=== PATIENT | male | born 1955 | race Caucasian/White ===

== ENCOUNTER 2022-08-08 19:57 | Emergency (ER) | payer BC ==
--- OUTSIDE RECORDS SUMMARY | 2022-08-08 20:07 | XMS REPORT | Continuity of Care Document ---
:1955 Author Organization [facility] t Address [address] [facility] [address] [place] [address] Care Team Providers Name Role Phone No, Pcp [facility] Primary Care Physician Unavailable SKYE ROTH Attending Clinician Unavailable KATHLEEN BOYER Attending Clinician Unavailable RINA US Attending Clinician Unavailable BRENAD ALLAN Attending Clinician Unavailable Jesika Suresh Attending Clinician Maykel Christianson Attending Clinician Unavailable Brenda Allan MD Attending Clinician BRENDA ALLAN Attending Clinician Unavailable Antoine Ramos RN Attending Clinician Unavailable Skye Roth MD Attending Clinician Florida Lopez RN Attending Clinician Unavailable Ashlee Blanton Attending Clinician Unavailable Erica Cruz Attending Clinician Briana Black RN Attending Clinician Unavailable Lalo Johnson PA-C Attending Clinician Armida Singh Attending Clinician Unavailable Christiana OCAMPO, Spring Smith Attending Clinician Lance FLETCHER, Adelfo Monzon Attending Clinician Kyle Carrion MD Attending Clinician Unavailable Aga Seay LCSW Attending Clinician Unavailable Gabby Guardado Attending Clinician Unavailable Tl Man MD Attending Clinician Shiraz Brewer MD Attending Clinician aSng Jett MD Attending Clinician Dinora OCAMPO, Mita Attending Clinician [phone] Virtual, Surgeon Attending Clinician Unavailable SHIRAZ BREWER Attending Clinician Unavailable SPRING VILLEDA Attending Clinician Unavailable Semaj KOWALSKI, Lavinia Attending Clinician Unavailable Tobias Cherry MA Attending Clinician Unavailable John ESCUDERO, Latricia Attending Clinician Unavailable Poncho Grajeda LCSW Attending Clinician Unavailable Joelle OCAMPO, Tereza Scott Attending Clinician [phone] Bryce PEOPLES, Anneliese Disla Attending Clinician Unavailable Freida Sewell MD Attending Clinician Lizzie Lieberman Attending Clinician 3, [facility] Aydee Mr Attending Clinician Unavailable LIZZIE LIEBERMAN Attending Clinician Unavailable Martinez RISK DEVELOPER, Line Leslye Attending Clinician [phone] Radha Anderson Attending Clinician Unavailable Lauro PEOPLES, Nicol Attending Clinician Unavailable Tito Saunders MD Attending Clinician MALLORIE MONTEIRO Admitting Clinician Unavailable RINA US Admitting Clinician Unavailable BRENDA ALLAN Admitting Clinician Unavailable KYLE CARRION Admitting Clinician Unavailable TL MAN Admitting Clinician Unavailable SHIRAZ BREWER Admitting Clinician Unavailable Payers Payer Name Policy Type Policy Number Effective Date Expiration Date S edvin [facility] H[employer] [id number] 2021 BLUE/ESSENTIALS 00:00:00 MEDICARE A B [id number] 2021 00:00:00 [employer] [place] [id number] [place]-AREA POS - BCBS MEDICARE PART A \\T\\ [id number] 2021 B - MEDICARE 00:00:00 CVCP-BCBS [id number] Problems Condition Condition Condition Status Onset Resolution Last Treating Co mments Source Name Details Category Date Date Treatment Clinician Date Other Other Disease Recurre [facility] cirrhosis cirrhosis nce 3-20 [facility] of liver of liver 00:00: Medica l 00 Center Hepatocell Hepatocell Disease Recurre [facility] ular ular n[facility] 2[facility]28 [facility] carcinoma carcinoma 00:00: Medi jordan 00 Center Pre-transp Pre-transp Disease Active [facility] 2 [facility] evaluation evaluation 00:00: Ak dical for for 00 Center chronic chronic liver liver disease disease Cirrhosis Cirrhosis Disease Recurre Last I St nce 04-09 [facility] 00:00: t & Plan: [address] g of this note is different from the original. Cirrhosis diagnosed by imaging (MRI/US with cirrhosis , ascites), secondary to likely OLMAN. There is evidence of decompens ation. This is complicat ed by portal hypertens ion manifeste d by ascites and varices. MELD-Na score is 19 based on labs drawn this morning. Encounter Encounter Disease Active [facility] for for 04-09 [facility] pre-transp pre-transp 00:00: t & Plan: [facility] 00 [facility] evaluation evaluation g of this for liver for liver note transplant transplant might be different from the original. He is an acceptabl e candidate from a surgical standpoin t, pending further workup of HCC, additiona l studies, and official MRB. He will also need 1cm cystic lesion on pancreas evaluated . Liver Liver Disease Active Last [facility] lesion lesion 04-09 Assessmen Luisis 00:00: t & Plan: [address] g of this note might be different from the original. Found on MRI 01/2022, initially measuring 15mm. MRI done 04/02/2022 shows a 2.2cm LI-RADS 5 observati on in segment 4/8 and 1.2cm LI-RADS 5 observati on in segment 8. These findings were discussed with the patient and he will follow up with hepatolog y and HCC/Trans plant coordinat or. Ascites Ascites Disease Active [facility] St 04-09 Assessmen Luisis 00:00: t & Plan: Medical [address] [place] [address] g of this note might be different from the original. He is taking spironola ctone and furosemid e. Managemen t per hepatolog y/GI. Lesion of Lesion of Disease Active Last [facility] pancreas pancreas 04-09 Assessmen David es 00:00: t & Plan: Medical [facility] g of this note might be different from the original. A 1cm cystic lesion noted on pancreati c body appears to have increased in size, will need to be worked up prior to transplan t. Allergies, Adverse Reactions, Alerts Allergy Allergy Status Severity Reaction(s) Onset Inactive Treating Comm ents Source Name Type Date Date Clinician Chacko Propensi Active Swelling Face and [facility] ty to 05-05 throat [facility] adverse 00:00: swelling Medical reaction 00 Center s CHACKO Allergy Active High Swelling [facility] 05-05 00:00: 00 NO KNOWN Allergy Active [facility] Social History Social Habit Start Date Stop Date Quantity Comments Source History of tobacco Snuff User [facility] use Medical Center History [facility] Transport Non-Med Medical Center History [facility] Housing Places Medical Ce nter Lived Alcohol intake 2022-06-17 2022-06-17 Ex-drinker [facility] 00:00:00 00:00:00 (finding) Medical Center Exposure to 2022-05-20 2022-05-[address] [facility] SARS-CoV-2 (event) 00:00:00 14:40:00 Medica Center Tobacco use and 2022-05-30 2022-05-[address] [facility] exposure 00:00:00 00:00:00 tobacco user Medical Cent er History [facility] 2022-05-06 2022-05-[address] [facility] Transport Med 00:00:00 00:00:[address] History [facility] 2022-05-06 2022-05-[address] [facility] Housing Unable to 00:00:00 00:00:00 Medical Center Pay History [facility] 2022-05-06 2022-05-[address] [facility] Housing Homeless 00:00:00 00:00:00 Medical Center Last Year Sex Assigned At [address] [facility] 00:00:00 00:00:00 Medical Center Smoking Status Start Date Stop Date Source Never smoked tobacco [facility] Medications Ordered Filled Start Stop Current Ordering Indication Dosage Frequency Signature Comments Components Source Medication Medication Date Date Medication? Clinician (SIG) Name Name propranolol Yes Take by [facility] HCl 4-11 mouth in [facility] (PROPRANOLO 11:15: the Medica l L ORAL) 10 morning. [place] pantoprazol Yes Take by [facility] e sodium 4-11 mouth. [facility] (PROTONIX 11:15: Medical ORAL) 10 Center furosemide 0 Yes QD Take by [facility] (LASIX 4-11 mouth [facility] ORAL) 11:15: daily. Medical 10 Center SPIRONOLACT Yes Take by [facility] ONE ORAL 4-11 mouth in [facility] 11:15: the Medical 10 morning. Center propranolol Yes Take by [facility] HCl 4-04 mouth in [facility] (PROPRANOLO 16:31: the Medica l L ORAL) 06 morning. [place] pantoprazol Yes Take by [facility] e sodium 4-04 mouth. [facility] (PROTONIX 16:31: Medical ORAL) 06 Center furosemide Yes QD Take by [facility] (LASIX 4-04 mouth [facility] ORAL) 16:31: daily. Medical 06 Center SPIRONOLACT 0 Yes Take by [facility] ONE ORAL 4-04 mouth in [facility] 16:31: the Medical 06 morning. [place] ondansetron 2022- No Nausea 4mg Take [address] (ZOFRAN) 4 3-13 03-20 tablet (4 David es MG tablet 00:00: 00:00 mg total) Me dical 00 :00 by mouth Center every 8 (eight) hours as needed for Nausea. ondansetron 2022- No Nausea 4mg Take [address] (ZOFRAN) 4 3-13 03-20 tablet (4 David es MG tablet 00:00: 00:00 mg total) Me dical 00 :00 by mouth Center every 8 (eight) hours as needed for Nausea. eszopiclone 2023- Yes Insomnia, 1mg Take [address] [facility] (Lunesta) 1 3- 03-05 unspecified tablet (1 [facility] MG tablet 00:00: 23:59 type mg total) Me dical 00 :00 by mouth Center every night as needed Take immediatel y before bedtime.. Max Daily Amount: 1 mg eszopiclone 2023- Yes Insomnia, 1mg Take [address] (Lunesta) 1 05-12 03-05 unspecified tablet (1 [facility] MG tablet 00:00: 23:59 type mg total) Me dical 00 :00 by mouth Center every night as needed Take immediatel y before bedtime.. Max Daily Amount: 1 mg eszopiclone 2022- No Insomnia, 1mg Take [address] (Lunesta) 1 05-08 03-06 unspecified tablet (1 [facility] MG tablet 00:00: 00:00 type mg total) Me dical 00 :00 by mouth Center every night as needed Take immediatel y before bedtime.. Max Daily Amount: 1 mg eszopiclone 2022- No Insomnia, 1mg Take [address] [facility] (Lunesta) 1 05-08-06 unspecified tablet (1 [facility] MG tablet 00:00: 00:00 type mg total) Me dical 00 :00 by mouth Center every night as needed Take immediatel y before bedtime.. Max Daily Amount: 1 mg furosemide 2022- No Cirrhosis 20mg QD Take [address] (LASIX) 20 04-2216 of liver tablet (20 [facility] MG tablet 00:00: 23:59 without mg total) Medical 00 :00 ascites, by mouth Center unspecified daily for hepatic 30 days. cirrhosis type (HCC) spironolact 2022- No Cirrhosis 50mg QD Take [address] one 04-22-16 of liver tablet (50 Luke s (ALDACTONE) 00:00: 23:59 without mg total) Medical 50 MG 00 :00 ascites, by mouth Center tablet unspecified daily for hepatic 30 days. cirrhosis type (HCC) pantoprazol 2022- No Cirrhosis 40mg QD Take [address] e 04-22-16 of liver tablet (40 Luke s (PROTONIX) 00:00: 23:59 without mg total) Medical 40 MG 00 :00 ascites, by mouth Center tablet unspecified every hepatic morning cirrhosis for 30 type (HCC) days. propranoloL 2022- No Cirrhosis 10mg Q.5D Take [address] (INDERAL) -20 05-16 of liver tablet (10 [facility]ukes 10 MG 00:00: 23:59 without mg total) Med ical tablet 00 :00 ascites, by mouth [address] unspecified (two) hepatic times cirrhosis daily for type (HCC) 30 days. furosemide 2022- No Cirrhosis 20mg QD Take [address] (LASIX) 20 04-22-16 of liver tablet (20 [facility] MG tablet 00:00: 23:59 without mg total) Medical 00 :00 ascites, by mouth Center unspecified daily for hepatic 30 days. cirrhosis type (HCC) spironolact 2022- No Cirrhosis 50mg QD Take [address] [facility] one 04-22-16 of liver tablet (50 Luke s (ALDACTONE) 00:00: 23:59 without mg total) Medical 50 MG 00 :00 ascites, by mouth Center tablet unspecified daily for hepatic 30 days. cirrhosis type (HCC) pantoprazol 2022- No Cirrhosis 40mg QD Take [address] [facility] e 04-22-16 of liver tablet (40 Luke s (PROTONIX) 00:00: 23:59 without mg total) Medical 40 MG 00 :00 ascites, by mouth Center tablet unspecified every hepatic morning cirrhosis for 30 type (HCC) days. propranoloL 2022- No Cirrhosis 10mg Q.5D Take [address] (INDERAL) 04-22-16 of liver tablet (10 [facility] 10 MG 00:00: 23:59 without mg total) Med ical tablet 00 :00 ascites, by mouth [address] unspecified (two) hepatic times cirrhosis daily for type (HCC) 30 days. ondansetron 2022- No Nausea 4mg Take [address] (ZOFRAN) 4 04-15-13 tablet (4 David es MG tablet 00:00: 00:00 mg total) Me dical 00 :00 by mouth Center every 8 (eight) hours as needed for Nausea. ondansetron 2022- No Nausea 4mg Take [address] (ZOFRAN) 4 04-15-13 tablet (4 David es MG tablet 00:00: 00:00 mg total) Me dical 00 :00 by mouth Center every 8 (eight) hours as needed for Nausea. eszopiclone 2022- No Insomnia, 1mg Take [address] [facility] (Lunesta) 1 04-15 unspecified tablet (1 [facility] MG tablet 00:00: 00:00 type mg total) Me dical 00 :00 by mouth Center every night as needed Take immediatel y before bedtime.. Max Daily Amount: 1 mg eszopiclone 2022- No Insomnia, 1mg Take [address] [facility] (Lunesta) 1 04-15 unspecified tablet (1 [facility] MG tablet 00:00: 00:00 type mg total) Me dical 00 :00 by mouth Center every night as needed Take immediatel y before bedtime.. Max Daily Amount: 1 mg ondansetron 2022- No Nausea 4mg Take [address] (ZOFRAN) 4 03-25-07 tablet (4 David es MG tablet 00:00: 00:00 mg total) Me dical 00 :00 by mouth Center every 8 (eight) hours as needed for Nausea. ondansetron 2022- No Nausea 4mg Take [address] (ZOFRAN) 4 03-25-07 tablet (4 David es MG tablet 00:00: 00:00 mg total) Me dical 00 :00 by mouth Center every 8 (eight) hours as needed for Nausea. tobramycin- 2022-[address] [facility] dexamethaso 1-13 both eyes David es ne 00:00: 2 (two) Medical (TOBRADEX) 00 times Center 0.3-0.1 % daily. ophthalmic solution tobramycin- 2022-[address] [facility] dexamethaso 1-13 both eyes David es ne 00:00: 2 (two) Medical (TOBRADEX) 00 times Center 0.3-0.1 % daily. ophthalmic solution furosemide 2021-03- No 40mg QD Take [address] (LASIX) 40 03-19-14 by mouth Luke s MG tablet 00:00: 00:00 daily. Medic al 00 :00 Center spironolact 2022-1 2023- No 100mg QD Take [address] one -11 02-14 mg by [facility]ukes (ALDACTONE) 00:00: 00:00 mouth Medi jordan 100 MG 00 :00 daily. Center tablet pantoprazol 2021-03- No 40mg QD Take [address] e -11 02-14 by mouth [facility]ukes (PROTONIX) 00:00: 00:00 every Medic al 40 MG 00 :00 morning. Center tablet propranoloL 2021-03- No 10mg Q.5D Take [address] (INDERAL) 03-19-14 by mouth 2 David es 10 MG 00:00: 00:00 (two) Medical tablet 00 :00 times Center daily. furosemide 2021-03 No 40mg QD Take [address] (LASIX) 40 03-19-14 by mouth Luke s MG tablet 00:00: 00:00 daily. Medic al 00 :00 Center spironolact 2021-03- No 100mg QD Take [address] one -01 08-14 mg by [facility]ukes (ALDACTONE) 00:00: 00:00 mouth Medi jordan 100 MG 00 :00 daily. Center tablet pantoprazol 2021-03 No 40mg QD Take [address] e 03-19-14 by mouth [facility]ukes (PROTONIX) 00:00: 00:00 every Medic al 40 MG 00 :00 morning. Center tablet propranoloL 2021-03 No 10mg Q.5D Take [address] (INDERAL) 03-19-14 by mouth 2 David es 10 MG 00:00: 00:00 (two) Medical tablet 00 :00 times Center daily. Vital Signs Vital Name Observation Time Observation Value Comments Source HEIGHT 2022-07-24 11:50:00 177.8 cm WEIGHT 2022-07-24 11:50:00 79.379 kg HEIGHT 2022-07-24 11:50:00 177.8 cm WEIGHT 2022-07-24 11:50:00 79.379 kg HEIGHT 2022-05-05 09:00:00 177.8 cm WEIGHT 2022-05-05 09:00:00 77.111 kg HEIGHT 2022-05-05 09:00:00 177.8 cm WEIGHT 2022-05-05 09:00:00 77.111 kg HEIGHT 2022-02-20 09:05:00 182.9 cm WEIGHT 2022-02-20 09:05:00 80.196 kg HEIGHT 2022-02-20 09:05:00 182.9 cm WEIGHT 2022-02-20 09:05:00 80.196 kg Systolic blood 2022-06-17 10:25:00 107 mm[Hg] [facility] Diastolic blood 2022-06-17 10:25:00 68 mm[Hg] [facility] Heart rate 2022-06-17 10:25:00 71 /min [facility] Respiratory rate 2022-06-17 10:25:00 21 /min [facility] Oxygen saturation in 2022-06-17 10:25:00 94 /min [facility] Arterial blood by Medical Ce nter Pulse oximetry Body temperature 2022-06-17 10:08:00 37.06 Sujata [facility] Body height 2022-06-17 09:07:00 177.8 cm [facility] Body weight 2022-06-17 09:07:00 79.379 kg [facility] BMI 2022-06-17 09:07:00 25.11 kg/m2 [facility] Body height 2022-06-11 13:00:00 177.8 cm [facility] Body weight 2022-06-11 13:00:00 79.379 kg [facility] BMI 2022-06-11 13:00:00 25.11 kg/m2 [facility] Systolic blood 2022-06-09 13:00:00 126 mm[Hg] [facility] Diastolic blood 2022-06-09 13:00:00 75 mm[Hg] [facility] Heart rate 2022-06-09 13:00:00 65 /min [facility] Respiratory rate 2022-06-09 13:00:00 18 /min [facility] Oxygen saturation in 2022-06-09 13:00:00 97 /min [facility] Arterial blood by Medical Ce nter Pulse oximetry Body temperature 2022-06-05 13:31:00 36.67 [facility] Procedures Procedure Date / Time Performing Clinician Source Performed REPORT OF PROCEDURE - 2022-06-17 10:05:51 Brenda Allan [facility] ENDOSCOPY [facility] COLONOSCOPY, WITH BIOPSY 2022-06-17 09:46:00 Brenda Allan [facility] COLONOSCOPY 2022-06-17 09:30:00 Brenda Allan [facility] MR ABDOMEN WITH & WITHOUT 2022-06-11 13:48:00 Skye Roth [facility] CONTRAST [facility] US PARACENTESIS 2022-06-09 13:30:00 Skye Roth [facility] BODY FLUID CELL COUNT WITH 2022-06-09 12:37:[address] [facility] DRUG SCREEN, URINE, 2022-05-30 13:40:00 Adelfo Lucas [facility] TRANSPLANT [facility] CT ABDOMEN WITH & WITHOUT 2022-05-30 13:25:00 Skye Roth [facility] CONTRAST [facility] MISCELLANEOUS LAB ORDER 2022-05-28 14:44:00 Spring Villeda [facility] CBC W/PLT COUNT & AUTO 2022-05-28 14:44:[address] [facility] COMPREHENSIVE METABOLIC 2022-05-28 14:44:00 Spring Villeda [facility] PROTHROMBIN TIME/INR 2022-05-28 14:44:00 Spring Villeda [facility] CBC W/PLT COUNT & AUTO 2022-05-28 14:44:[address] [facility] ECG 12-LEAD 2022-05-26 13:58:46 [facility] 2022-05-26 13:58:46 Unknown, Hl7 Doctor [facility] CBC (HEMOGRAM ONLY) 2022-05-26 13:27:00 Kyle Carrion [facility] BASIC METABOLIC PANEL 2022-05-26 13:27:00 [facility]/INR 2022-05-26 13:27:00 Nazario [facility] CARDIAC CATH REPORT - SCAN 2022-05-26 00:00:00 Bel Ribera [facility] NM BONE SCAN WHOLE BODY 2022-05-12 12:49:00 Spring Villeda [facility] T SPOT TB 2022-05-12 10:04:00 Spring Villeda [facility] BASIC METABOLIC PANEL 2022-05-07 [facility] 2022-05-07 04:11[facility]22-05-07 04:11[facility] & AUTO 2022-05-07 04:11:00 [facility] MAGNESIUM 2022-05-07 04:11:00 [facility] CBC W/PLT COUNT & AUTO 2022-05-07 04:11:00 [facility] HEMOGLOBIN AND HEMATOCRIT 2022-05-06 17:58:[facility]EM[facility] HEMATOCRIT 2022-05-06 13:52:[facility] HEMO[facility] HEMATOCRIT 2022-05-06 08:23:00 [facility] CBC (HEMOGRAM ONLY) 2022-05-06 04:34:00 Calixto [facility] COMPREHENSIVE METABOLIC 2022-05-06 04:34:[address] [facility] BASIC METABOLIC PANEL 2022-05-05 17:41:00 [facility] PR[facility]/INR 2022-05-05 17:41:00 Kyle Carrion [facility] CBC W/PLT COUNT & AUTO 2022-05-05 17:41:00 Davis [facility] CBC W/PLT COUNT & AUTO 2022-05-05 17:41:00 Davis [facility] CT RFA TUMOR ABLATION 2022-05-05 17:33:00 kSye Roth [facility] US GUIDANCE INTRAOPERATIVE 2022-05-05 16:23:00 Skye Roth [facility] PROCEDURE, IN NON-OPERATING 2022-05-05 10:00:00 Virtual, Surgeon [facility] BASIC METABOLIC PANEL 2022-05-05 09:12:00 Víctor Jerome [facility] HEPATIC FUNCTION PANEL 2022-05-05 09:12:00 QueenieVíctor [facility] TYPE AND SCREEN, AUTOMATED 2022-05-05 09:12:00 Víctor Jerome [facility] CBC W/PLT COUNT & AUTO 2022-05-05 09:11:[address] [facility] PROTHROMBIN TIME/INR 2022-05-05 09:11:00 Víctor [facility] CBC W/PLT COUNT & AUTO 2022-05-05 09:11:[address] [facility] NM MYOCARDIAL PERFUSION 2022-04-22 15:17:00 Spring Villeda [facility] SPECT, [facility] TREADMILL 2022-04-22 14:12:06 Unknown[facility](NON-NUCLEAR Medical Ce nter TREADMILL) ECG 12-LEAD 2022-04-22 13:55:36 Unknown, Hl7 [facility] ECG 12-LEAD 2022-04-22 13:55:36 Unknown, 7 [facility] ECG 12-LEAD 2022-04-22 13:55:06 Unknown, 7 [facility] ECG 12-LEAD 2022-04-22 13:55:06 Unknown, Hl7 [facility] MISCELLANEOUS LAB ORDER 2022-04-22 11:32:00 Spring Villeda [facility] COMPREHENSIVE METABOLIC 2022-04-22 11:32:00 Spring Villeda [facility] CBC W/PLT COUNT & AUTO 2022-04-22 11:32:[address] [facility] PROTHROMBIN TIME/INR 2022-04-22 11:32:00 Spring Villeda [facility] ALPHA FETOPROTEIN (AFP), 2022-04-22 11:32:00 Spring Villeda [facility] TUMOR MARKER [facility] CBC W/PLT COUNT & AUTO 2022-04-22 11:32:[address] [facility] T SPOT TB 2022-04-22 11:31:00 Spring Villeda [facility] DRUG SCREEN, URINE, 2022-04-22 11:28:00 Spring Villeda [facility] TRANSPLANT [facility] CT CHEST WITHOUT IV 2022-04-15 13:05:00 Spring Villeda [facility] CONTRAST [facility] ECHO W CONTRAST & DOPPLER 2022-04-10 13:24:56 Spring Villeda [facility] ECG 12-LEAD 2022-04-10 11:02:16 Spring Villeda [facility] CAROTID DOPPLER BILATERAL 2022-04-10 11:01:00 Spring Villeda [facility] BLOOD GAS, ARTERIAL 2022-04-10 10:22:00 Spring Villeda [facility] XR MANDIBLE 4 VIEWS MIN 2022-04-09 12:33:00 Spring Villeda [facility] XR CHEST 2 VIEWS 2022-04-09 12:30:00 Spring Villeda [facility] XR DXA BONE DENSITY STUDY 2022-04-09 12:27:00 Spring Villeda [facility] STRONGYLOIDES ANTIBODY, IGG 2022-04-09 08:55:00 Spring Villeda [facility] TYPE AND SCREEN, AUTOMATED 2022-04-09 07:36:00 Spring Villeda [facility] DRUG SCREEN, URINE, 2022-04-09 07:30:00 Spring Villeda [facility] TRANSPLANT [facility] URINALYSIS W/ MICROSCOPIC 2022-04-09 07:30:00 Spring Villeda [facility] MISCELLANEOUS LAB ORDER 2022-04-09 07:26:00 Spring Villeda [facility] FIBRINOGEN 2022-04-09 07:26:00 Spring Villeda [facility] COMPREHENSIVE METABOLIC 2022-04-09 07:26:00 Spring Villeda [facility] BILIRUBIN, DIRECT 2022-04-09 07:26:00 Spring Villeda [facility] GAMMA GLUTAMYL TRANSFERASE 2022-04-09 07:26:00 Spring Villeda [facility] (GGT) [facility] MAGNESIUM 2022-04-09 07:26:00 Spring Villeda [facility] PHOSPHORUS 2022-04-09 07:26:00 Spring Villeda [facility] PROTHROMBIN TIME/INR 2022-04-09 07:26:00 Spring Villeda [facility] APTT 2022-04-09 07:26:00 Spring Villeda [facility] CBC W/PLT COUNT & AUTO 2022-04-09 07:26:00 Spring Villeda [facility] TRANSFERRIN 2022-04-09 07:26:00 Spring Villeda [facility] VITAMIN D, 25-HYDROXY 2022-04-09 07:26:00 Spring Villeda [facility] LIPID PANEL 2022-04-09 07:26:00 Spring Villeda [facility] HEMOGLOBIN A1C 2022-04-09 07:26:00 Spring Villeda [facility] ETHANOL 2022-04-09 07:26:00 Jalarashaun, Spring Smith [facility] ZINC 2022-04-09 07:26:00 Jalal, Spring [facility] URIC ACID 2022-04-09 07:26:00 Jalal, Spring [facility] TSH 2022-04-09 07:26:00 Jalal, Spring [facility] T3 2022-04-09 07:26:00 [facility] T4 2022-04-09 07:26:00 [facility]al[facility] Center HEPATITIS B CORE ANTIBODY, 2022-04-09 07:26:00 Spring Villeda [facility] IGM [facility] HC LAB HIV-1 AG W/HIV-1&2 2022-04-09 07:26:00 Spring Villeda [facility] AB [facility] CYTOMEGALOVIRUS ANTIBODY, 2022-04-09 07:26:00 Christiana[facility] IGG [facility] EBV ANTIBODY, IGM 2022-04-09 07:26:00 Christiana[facility] RUBEOLA ANTIBODY IGG 2022-04-09 07:26:00 Jalarashaun, [facility] MUMPS ANTIBODY, IGG 2022-04-09 07:26:00 Christiana [facility] RUBELLA ANTIBODY, IGG 2022-04-09 07:26:00 MenglaSpring rodney [facility] VARICELLA ZOSTER ANTIBODY, 2022-04-09 07:26:00 MenglaSpring rodney [facility] IGG [facility] CRYPTOCOCCAL ANTIGEN 2022-04-09 07:26:00 Christiana [facility] RPR 2022-04-09 07:26:00 Christiana [facility] ALPHA-1 ANTITRYPSIN 2022-04-09 07:26:00 Christiana [facility] MUTATION ANALYSIS [facility] PSA 2022-04-09 07:26:00 Spring Villeda [facility] TESTOSTERONE, FREE + TOTAL 2022-04-09 07:26:00 Spring Villeda [facility] TOXOPLASMA GONDII ANTIBODY, 2022-04-09 07:26:00 Spring Villeda [facility] IGG [facility] COCCIDIOIDES ANTIBODIES 2022-04-09 07:26:00 Spring Villeda [facility] HEREDITARY HEMOCHROMATOSIS 2022-04-09 07:26:00 Spring Villeda [facility] BLOOD TYPING, AUTOMATED 2022-04-09 07:26:00 Spring Villeda [facility] CBC W/PLT COUNT & AUTO 2022-04-09 07:26:[address] [facility] CALCIUM, IONIZED 2022-04-09 07:25:00 Spring Villeda [facility] MR ABDOMEN WITH & WITHOUT 2022-04-02 11:00:00 Lizzie Lieberman [facility] IV CONTRAST [facility] PROTHROMBIN TIME/INR 2022-02-20 11:31:00 Luisana [facility] HEPATITIS A ANTIBODY, IGG 2022-02-20 11:31:00 [facility] HEPATITIS B SURFACE 2022-02-20 11:31:00 Luisana [facility] ANTIBODY [facility] HEPATITIS B CORE ANTIBODY, 2022-02-20 11:31:00 Lizzie Lieberman [facility] TOTAL [facility] FERRITIN 2022-02-20 11:31:00 Luisana [facility] [id number]\\, SERUM 2022-02-20 11:31:00 Luisana [facility] CERULOPLASMIN 2022-02-20 11:31:00 Luisana [facility] ACTIN (SMOOTH MUSCLE) 2022-02-20 11:31:00 Luisana [facility] ANTIBODY, IGG [facility] [place] MITOCHONDRIA M2 ANTIBODY 2022-02-20 11:31:00 Luisana [facility] (IGG) [facility] ALPHA FETOPROTEIN (AFP), 2022-02-20 11:31:00 Luisana [facility] TUMOR MARKER [facility] CARCINOEMBRYONIC ANTIGEN 2022-02-20 11:31:00 Luisana [facility] (CEA) [facility] CARBOHYDRATE ANTIGEN 19-9 2022-02-20 11:31:00 Lizzie Lieberman [facility] (CA 19-9) [facility] COMPREHENSIVE METABOLIC 2022-02-20 11:30:00 Luisana [facility] PANEL [facility] BILIRUBIN, DIRECT 2022-02-20 11:30[facility]T [facility] & AUTO 2022-02-20 11:30:[address] [facility] HEPATITIS B SURFACE ANTIGEN 2022-02-20 11:30[facility]TIB[facility] 2022-02-20 11:30:00 Jesus [facility] IRON, TIBC, % SAT. (WITHOUT 2022-02-20 11:30:00 Jesus [facility] FERRITIN) [facility] ANTI-NUCLEAR ANTIBODY (LISA) 2022-02-20 11:30:00 Jesus [facility] PHOSPHATIDYLETHANOL, BLOOD 2022-02-20 11:30:00 [facility] LISA TITER AND PATTERN 2022-02-20 11:30:00 [facility] CBC W/PLT COUNT & AUTO 2022-02-20 11:30:00 [facility] Plan of Care Planned Activity Planned Date Details Comments Source Future Scheduled 2032-06-17 Screening for malignant [facility] 00:00:00 neoplasm of colon Medical Ce nter (procedure) [code = 422772735] Future Scheduled 2032-06-17 Screening for malignant [facility] 00:00:00 neoplasm of colon Medical Ce nter (procedure) [code = 539329069] Future Scheduled 2027-04-09 Lipid panel (procedure) [facility] 00:00:00 [code = 24186336] Medical Ce nter Future Scheduled 2027-04-09 Lipid panel (procedure) [facility] 00:00:00 [code = 43096043] Medical Ce nter Future Scheduled 2023-06-[address] [facility] 00:00:00 Counseling [facility] Medical Cente r Screening (12+) [code = Tobacco Cessation Counseling and Screening (12+)] Future Scheduled 2023-06-[address] [facility] 00:00:00 [facility]ing [facility] Medical Cente r Screening (12+) [code = Tobacco Cessation Counseling and Screening (12+)] Future Scheduled 2022-11-[address] [facility] 00:00:00 (Season Ended) [code = Medic al Center INFLUENZA VACCINE (Season Ended)] Future Scheduled 2022-11-[address] [facility] 00:00:00 (Season Ended) [code = Medic al Center INFLUENZA VACCINE (Season Ended)] Future Scheduled 2022-03-[address] [facility] 00:00:00 (12+) [code = Medical Center DEPRESSION SCREENING (12+)] Future Scheduled 2022-03-[address] [facility] 00:00:00 (12+) [code = Medical Center DEPRESSION SCREENING (12+)] Future Scheduled 2021-07-07 Medicare IPPE (WELCOME [facility]00 TO MEDICARE) [code = Medical Center Medicare IPPE (WELCOME TO MEDICARE)] Future Scheduled 2021-07-07 Medicare IPPE (WELCOME [facility]:00 TO MEDICARE) [code = Medical Center Medicare IPPE (WELCOME TO MEDICARE)] Future Scheduled 1975-07-13 DTAP/TDAP/TD VACCINES [facility]:00 (1 - Tdap) [code = Medical C enter DTAP/TDAP/TD VACCINES (1 - Tdap)] Future Scheduled 1975-07-13 SHINGLES VACCINES ([address] [facility] 00:00:00 2) [code = SHINGLES Medical Center VACCINES (1 of 2)] Future Scheduled 1975-07-13 DTAP/TDAP/TD VACCINES [facility] 00:00:00 (1 - Tdap) [code = Medical C enter DTAP/TDAP/TD VACCINES (1 - Tdap)] Future Scheduled 1975-07-13 SHINGLES VACCINES ([address] [facility] 00:00:00 2) [facility] Future Scheduled 1961 PNEUMOCOCCAL 65+ YRS ([address] [facility] 00:00:00 - PCV) [code = Medical Cente r PNEUMOCOCCAL 65+ YRS (1 - PCV)] Future Scheduled 1961 PNEUMOCOCCAL 65+ YRS ([address] [facility] 00:00:00 - PCV) [code = Medical Cente r PNEUMOCOCCAL 65+ YRS (1 - PCV)] Future Scheduled 1957-01-12 COVID-19 VACCINE (#1) [facility]:00 [code = COVID-[address] VACCINE (#1)] Future Scheduled 1957-01-12 COVID-19 VACCINE (#1) [facility]:00:00 [code = COVID-[address] VACCINE (#1)] Future Scheduled 1956 CT Colonography (combo) [facility] 00:00:00 [code = CT Colonography [facility] (combo)] Future Scheduled 1956 Screening for malignant [facility] 00:00:00 neoplasm of colon Medical Ce nter (procedure) [code = 885264130] Future Scheduled 1956 Screening for malignant [facility] 00:00:00 neoplasm of colon Medical Ce nter (procedure) [code = 571367240] Future Scheduled 1956 Screening for malignant [facility] 00:00:00 neoplasm of colon Medical Ce nter (procedure) [code = 260641881] Future Scheduled 1956 Screening for malignant [facility] 00:00:00 neoplasm of colon Medical Ce nter (procedure) [code = 884760204] Future Scheduled 1955 Sigmoidoscopy [code = [facility] Sigmoidoscopy] Medical Cente r Future Scheduled 1956 CT Colonography (combo) [facility] 00:00:00 [code = CT Colonography [facility] (combo)] Future Scheduled 1956 Screening for malignant [facility] 00:00:00 neoplasm of colon Medical Ce nter (procedure) [code = 530930878] Future Scheduled 1956 Screening for malignant [facility] 00:00:00 neoplasm of colon Medical Ce nter (procedure) [code = 470162868] Future Scheduled 1955 Sigmoidoscopy [code = [facility] Sigmoidoscopy] Medical Cente r Encounters Start End Encounter Admission Attending Care Care Encounter Source Date/Time Date/Time Type Type Clinicians Facility Department ID 2022-07-24 2022-07-24 Inpatient ER ABEBA [facility] Emergency [id number] [facility] 11:53:00 11:53:00 RINA 2022-06-17 2022-06-17 Anesthesia Jesika Suresh [facility] [id number] 09:46:00 10:06:00 Event Maykel Solorio [facility] 2022-06-17 2022-06-17 Surgery Mahi [facility] [id number] 09:30:00 10:00:00 [facility] 2022-06-17 2022-06-17 Outpatient [facility] [id number] 08:18:46 08:18:46 [facility] Mariang e of Medicin e 2022-06-13 2022-06-13 Documentat Richard [facility] [id number] 00:00:00 00:00:00 victor m Solano [facility] 2022-06-11 2022-06-11 [facility] [id number] 12:32:06 23:59:00 Encounter Skye Figueroa [facility] 2022-06-10 2022-06-10 Documentat John [facility] [id number] 00:00:00 00:00:00 victor m Bartholomew [facility] 2022-06-10 2022-06-10 [facility] [id number] 00:00:00 00:00:00 Orders [facility] 2022-06-09 2022-06-09 Hospital [place] Roth, [facility] [id number] 11:38:00 17:00:00 Encounter [facility] 2022-06-06 2022-06-06 Orders Richard [facility] [id number] 00:00:00 00:00:00 Only Antoine G [facility] 2022-06-06 2022-06-06 Silvestre Blanton [facility] [id number] 00:00:00 00:00:00 [facility] 2022-06-06 2022-06-06 Silvestre Blanton [facility] [id number] 00:00:00 00:00:00 [facility] 2022-06-05 2022-06-05 Office Prem [facility] [id number] 13:30:00 14:00:00 Visit [facility] 2022-06-05 2022-06-05 Telephone Sofia [facility] [id number] 00:00[facility]00 00:00:00 [facility] 2022-06-05 2022-06-05 Telephone Prem [facility] [id number] 00:00:00 00:00:00 [facility] 2022-06-05 2022-06-05 Telephone Lalo Johnson [facility] [id number] 00:00:00 00:00:00 [facility] 2022-06-04 2022-06-04 Documentrachelle Singh [facility] [id number] 00:00:00 00:00:00 victor m [facility] 2022-06-04 2022-06-04 Documentat Richard [facility] [id number] 00:00:00 00:00:00 [facility] 2022-06-04 2022-06-04 Documentat Ramos, [facility] [id number] 00:00:00 00:00:00 [facility] 2022-06-04 2022-06-04 Documentat Richard [facility] [id number] 00:00:00 00:00:00 [facility] 2022-06-02 2022-06-02 [facility] [id number] 00:00:00 00:00:00 [facility] 2022-06-02 2022-06-02 Document [facility] [id number] 00:00:00 00:00:00 [facility] 2022-06-02 2022-06-02 Documentrachelle [facility] [id number] 00:00:00 00:00:00 [facility] 2022-05-30 2022-05-30 Hospital Christiana [facility] [id number] 11:57:19 23:59:00 Encounter [facility] 2022-05-30 2022-05-30 Mp Lucas [facility] [id number] 13:40:00 13:50:00 Only [facility] 2022-05-30 2022-05-[address] [facility] [id number] [facility] 00:[facility] 00:00:00 [facility] 2022-05-30 2022-05-30 Telephone Nazario [facility] [id number] 00:00:00 00:00:00 [facility] 2022-05-30 2022-05-30 Mp Lucas [facility] [id number] 00:00:00 00:00:00 Only [facility] 2022-05-29 2022-05-29 Orders Richard [facility] [id number] 00:00:00 00:00:00 Only [facility] 2022-05-29 2022-05-29 Silvestre Singh [facility] [id number] 00:00:00 00:00:00 ion Miguelrashaun [facility] 2022-05-28 2022-05-28 Office GARLAND Christiana [facility] [id number] 13:00:00 13:30:00 [facility] 2022-05-28 2022-05-28 Orders Ramos, [facility] [id number] 00:00:00 00:00:00 Only [facility] 2022-05-27 2022-05-27 Orders Ramos, [facility] [id number] 00:00:00 00:00:00 Only [facility] 2022-05-26 2022-05-26 Hospital [place] Nazario [facility] [id number] 11:48:00 22:15:[address] [facility] 2022-05-26 2022-05-26 [facility] Nazario [facility] [id number] 19:12:00 21:06:00 [facility] 2022-05-26 2022-05-26 Orders [facility] [id number] 00:00:00 00:00:00 Only [facility] 2022-05-19 2022-05-19 Orders Ramos, [facility] [id number] 00:00:00 00:00:00 Only [facility] 2022-05-15 2022-05-15 El Seay [facility] [id number] 00:00:00 00:00:00 [facility] 2022-05-14 2022-05-14 Silvestre Singh [facility] [id number] 00:00:00 00:00:00 ion Armida [facility] 2022-05-12 2022-05-12 Hospital [facility] [id number] 13:00:00 23:59:00 Encounter [facility] 2022-05-12 2022-05-12 [facility] [id number] 09:23:44 12:59:00 Encounter [facility] 2022-05-12 2022-05-12 Forreston Nazario, [facility] [id number] 00:00:00 00:00:00 [facility] 2022-05-12 2022-05-12 Orders [facility] [id number] 00:00:00 00:00:00 Only [facility] 2022-05-12 2022-05-12 [facility] [id number] 00:00:00 00:00:00 Only [facility] 2022-05-09 2022-05-09 [facility] [id number] 00:00:00 00:00:00 ion Gabby Holland [facility] 2022-05-08 2022-05-08 [facility] [id number] 00:00:00 00:00:00 [facility] 2022-05-08 2022-05-08 Orders [facility] [id number] 00:00:00 00:00:00 Only Antoine Xiomara [facility] 2022-05-05 2022-05-07 Hospital EL NazarioShivaniKyle [facility] [id number] 08:00:00 12:39:00 En[facility]l [facility] 2022-05-05 2022-05-05 Anesthesia Sang Jett [facility] [id number] 15:03:00 17:17:00 Event Buckley-Jennifer Mita [facility] 2022-05-05 2022-05-05 Surgery Virtual, [facility] [id number] 10:00:00 12:00:00 Surgeon [facility] 2022-05-05 2022-05-05 Inpatient DANIELLA [facility] Surgery [id number] [facility] 08:00:00 08:00:00 , SHIRAZ 2022-05-05 2022-05-[address] [facility] [id number] [facility] 00:[facility]:00 00:00:00 [facility] 2022-05-01 2022-05-[address] [facility] [id number] [facility] 00:00:00 00:00:00 [facility] 2022-04-30 2022-04-30 Telephone Nazario [facility] [id number] 00:00:00 00:00:00 [facility] 2022-04-25 2022-04-25 Abstract Semaj, [facility] [id number] 00:00:00 00:00:00 [facility] 2022-04-23 2022-04-23 Abstract Dilip, [facility] [id number] 00:00:00 00:00:00 [facility] 2022-04-22 2022-04-22 Hospital Christiana [facility] [id number] 11:30:00 23:59:00 Encounter [facility] 2022-04-22 2022-04-22 Orders GARLAND Roth [facility] [id number] 12:30:00 12:45:[address] [facility] 2022-04-22 2022-04-22 Orders Prem [facility] [id number] 00:00:00 00:00:00 Only Erica [facility] 2022-04-22 2022-04-22 [facility] [id number] 00:00:00 00:00:00 ion Armida [facility] 2022-04-21 2022-04-21 Documentat Ramos, [facility] [id number] 00:00:00 00:00:00 ion Antoine Solano [facility] 2022-04-21 2022-04-[address] [facility] [id number] [facility] 00:00:00 00:00:00 [facility] 2022-04-17 2022-04-17 Telephone Nazario [facility] [id number] 00:00:00 00:00:00 [facility] 2022-04-17 2022-04-17 [facility] [id number] 00:00:00 00:00:00 Only [facility] 2022-04-16 2022-04-16 [facility] [id number] 00:00:00 00:00:00 Only [facility] 2022-04-15 2022-04-15 [facility] [id number] 12:33:08 23:59:00 Encounter [facility] 2022-04-15 2022-04-15 [facility] [id number] 08:00:00 12:32:00 Encounter [facility] 2022-04-15 2022-04-15 Office Mengava [facility] [id number] 11:00:00 12:00:[address] [facility] 2022-04-15 2022-04-15 Office Nazario [facility] [id number] 09:00:00 09:15:00 Visit [facility] 2022-04-15 2022-04-15 Silvestre Singh [facility] [id number] 00:00:00 00:00:00 victor m [facility] 2022-04-15 2022-04-15 Mp Ramos [facility] [id number] 00:00:00 00:00:00 Only Antoine Solano [facility] 2022-04-15 2022-04-15 Documentat Singh, [facility] [id number] [facility] 00:00:00 00:00:00 [facility] 2022-04-14 2022-04-14 Documentat Singh, [facility] [id number] [facility] 00:00:00 00:00:00 [facility] 2022-04-14 2022-04-14 [facility] [id number] 00:00:00 00:00:00 victor m [facility] 2022-04-14 2022-04-14 [facility] [id number] 00:00:00 00:00:00 [facility] 2022-04-11 2022-04-11 Documentat Singh, [facility] [id number] 00:00:00 00:00:00 [facility] 2022-04-11 2022-04-11 Documentat Singh, [facility] [id number] 00:00:00 00:00:00 [facility] 2022-04-11 2022-04-11 Documentat Singh, [facility] [id number] 00:00:00 00:00:00 [facility] 2022-04-11 2022-04-11 Documentat Singh, [facility] [id number] 00:00:00 00:00:00 [facility] 2022-04-10 2022-04-10 Jeanne Villeda [facility] [id number] 10:30:15 23:59:00 Encounter [facility] 2022-04-10 2022-04-10 [facility] [id number] 12:00:00 12:00:00 Encounter [facility] 2022-04-10 2022-04-10 [facility] [id number] 10:00:00 10:29:00 Encounter [facility] 2022-04-10 2022-04-10 [facility] [id number] 09:45:00 09:59:00 Encounter [facility] 2022-04-10 2022-04-10 Office [facility] [id number] 09:15:00 09:45:[address] [facility] 2022-04-09 2022-04-09 [facility] [id number] 12:10:06 23:59:00 Encounter [facility] 2022-04-09 2022-04-09 [facility] [id number] 12:00:00 12:09:00 Encounter [facility] 2022-04-09 2022-04-09 [facility] [id number] 11:30:00 11:59:00 Encounter [facility] 2022-04-09 2022-04-09 Evaluation Spring Villeda [facility] [id number] 10:00:00 10:30:00 Latricia Lopez [facility] 2022-04-09 2022-04-09 Social Spring Villeda [facility] [id number] 09:00:00 09:30:00 Work Poncho Grajeda [facility] 2022-04-09 2022-04-09 Evaluation Spring Villeda [facility] [id number] 08:00:00 08:30:00 JuankrishanTereza Aba [facility] 2022-04-09 2022-04-09 Orders Christiana, [facility] [id number] 07:40:00 07:50:[address] [facility] 2022-04-09 2022-04-09 Orders GARLAND Villeda, [facility] [id number] 07:30:00 07:40:[address] [facility] 2022-04-09 2022-04-09 Documentat Francisco [facility] [id number] [facility] 00:00:00 00:00:00 ion [facility] 2022-04-09 2022-04-09 Documentat Harvinder [facility] [id number] [facility] 00:00:00 00:00:00 ion [facility] 2022-04-07 2022-04-07 Documentat John [facility] [id number] [facility] 00:00:00 00:00:00 ion [facility] 2022-04-07 2022-04-07 Documentat Bryce [facility] [id number] [facility] 2022-04-07 Telephone Donato [facility] [id number] 00:[facility] 00[facility]00:00 [facility] 2022-04-02 2022-04-02 [facility] Lizzie Lieberman [facility] [id number] [facility] 09:49:08 23:59:00 Encounter Estefani, [facility] Aydee [facility] 2022-04-02 2022-04-02 Outpatient FERNANDEZROLAYue [facility] SLE [id number] [facility] 00:00:00 00:00:00 LIZZIE 2022-03-31 2022-03-31 Orders Bryce [facility] [id number] 00:[facility] 00:00:00 Only [facility] 2022-03-31 2022-03-31 Orders Bryce, [facility] [id number] 00:00:00 00:00:00 Only [facility] 2022-03-31 2022-03-31 Documentat Donato [facility] [id number] [facility] 00:[facility] 00[facility]:00 [facility] 2022-03-26 2022-03-26 [facility] [id number] 00:[facility] 00:[facility]:00 [facility] 2022-03-26 2022-03-26 [facility] [id number] 00:[facility] 00:00:00 [facility] 2022-03-26 2022-03-26 Documentat Donato [facility] [id number] 00:[facility] 00:00:00 ion [facility] 2022-03-26 2022-03-26 Documentat Donato [facility] [id number] 00:[facility] 00:00:00 ion [facility] 2022-03-26 2022-03-26 Telephone Donato [facility] [id number] [address] 00:[facility] 00:00:00 [facility] 2022-03-26 2022-03-26 Telephone Sofia [facility] [id number] [facility] 00:[facility]00 [facility] 2022-03-25 2022-03-25 Orders Michelle [facility] [id number] 00:[facility] 00:00:00 Only [facility] 2022-03-20 2022-03-20 Telephone Donato [facility] [id number] 00:[facility] 00:00:00 [facility] 2022-03-20 2022-03-20 Telephone Donato [facility] [id number] 00:[facility] 00:00:00 [facility] 2022-03-19 2022-03-19 Telephone Donato, [facility] [id number] 00:[facility] 00:00:00 [facility] 2022-03-18 2022-03-18 Telephone Donato, [facility] [id number] 00:[facility] 00:00:00 [facility] 2022-03-13 2022-03-13 Telephone Donato, [facility] [id number] 00:00:00 00:00:00 [facility] 2022-03-13 2022-03-13 El Sewell, [facility] [id number] [id number] 00:00:00 00:00:00 [facility] 2022-03-13 2022-03-13 El Sewell, [facility] [id number] 00:00:00 00:00:00 [facility] 2022-03-04 2022-03-04 Abstract Semaj, [facility] [id number] 00:00:00 00:00:00 [facility] 2022-02-27 2022-02-27 Documentat Monica [facility] [id number] [facility] 00:[facility]:00 [facility] 2022-02-27 2022-02-27 Documentat Debby [facility] [id number] [id number] 00:00:00 00:00:00 [facility] 2022-02-27 2022-02-27 [facility] [id number] 00:00:00 00:00:00 [facility] 2022-02-27 2022-02-27 Documentat Lauro [facility] [id number] 00:00:[facility] 00:00:00 [facility] 2022-02-24 2022-02-24 Documentat Lauro [facility] [id number] 00:00:00 00:00:00 ion [facility] 2022-02-24 2022-02-24 Abstract Tito Saunders [facility] [id number] 00:00:[facility] 00:00:00 [facility] 2022-02-20 2022-02-20 Office GARLAND Villeda [facility] [id number] 09:00:00 10:00:[address] [facility] 2022-02-20 2022-02-20 Outpatient GARLAND VILLEDA [facility] SLE [id number] SLE 08:37:43 08:37:43 [facility] Results Test Description Test Time Test Comments Results Result Comments Source BODY FLUID CELL COUNT WITH DIFFERENTIAL 2022-08-01 12:11:39 Test Item Value Reference Range Interpretation Comme nts APPEARANCE FLUID (BEAKER) (test Cloudy Clear A code = 510) COLOR FLUID (BEAKER) (test code = Yellow Colorless, Straw A 511) RBC FLUID (BEAKER) (test code = 4125 /cu mm <=1 H 513) TOTAL NUCLEATED CELL COUNT 66 /cu mm <=5 H (BEAKER) (test code = 1442) LINING CELLS/OTHERS DIFF'D 122 (BEAKER) (test code = 1589) ADJUSTED WBC FLUID (BEAKER) (test 30 /cu mm <=5 H code = 1691) LINING CELLS/OTHERS, CALCULATED 36 /cu mm <=1 H (BEAKER) (test code = 1590) NEUTROPHILS FLUID (BEAKER) (test 8 % code = 1656) LYMPHS FLUID (BEAKER) (test code = 66 % 488) MONO/MACROPHAGE FLUID (BEAKER) 26 % (test code = 489) EOSINOPHILS FLUID (BEAKER) (test 0 % code = 491) BASO FLUID (BEAKER) (test code = 0 % 492) INTERPRETATION-210 (BEAKER) (test Agree with differential. code = 2619) Negative for carcinoma. [id number] (BEAKER) Michael Ruffin M.D. (test code = 2620) (electronic signiture) CONTAINER BODY FLUID (BEAKER) EDTA Tube (test code = 2873) U/S, [id number] 17:26:00Referring: aKn NogueraAdminister 200 mL of albumin 25% (50 grams) IV x1 after thoracentesisSend pleural fluid for cell count and differential.2x a week, as neededLaterality?->RightLabs to be Order ed:->Cell CountDIFFLabs to be Ordered:->Other (please add comment)Reason for Exam:->Pleuraleffusion [facility]CHAPINB[facility] : 1955 Sex: MFINAL REPORT Ultrasound-guided right thoracentesis, 07/31/2022 HISTORY: Large right pleural effusion Anesthesia: 1% lidocaine Modality: Ultrasound Approach: Right posterior inferior chest TECHNIQUE: After obtaining written informed consent, this procedure was performed without untoward effect. The right posterior chest was scanned with ultrasound. Large pleural effusion identified. The site overlying the fluid was localized with ultrasound and prepped and anesthetized. A 5 Macedonian needle/catheter was inserted into the pleural space and 4 L of rishabh color fluid were removed. The patient tolerated the procedure well. CONCLUSION: Ultrasound-guided right thoracentesis. Signed: Emmett Knight MDReport Verified Date/Time: 07/31/2022 17:26:43 Reading Location: [facility] Radiology Reading Room RAD, CHEST, 1 VIEW, NON [id number] 16:13:00Referring: Laxmi Noguera for exam:->post thoracentesisShould this be performed at the bedside?->Yes [facility] 1955 Sex: MFINAL REPORT Portable chest 07/31/2022 Since prior study, there is been near total resolution of the large right pleural effusion. There is no evidence of pneumothorax. Some right basilar atelectasis is now identified. Left lung is clear. Heart size is normal. 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 Signed: Emmett Knight MDReport Verified Date/Time: 16:13:59 Reading Location: [facility] Radiology Reading Room BODY FLUID CELL COUNT WITH [id number] 10:30:59 Test Item Value Reference Range Interpretation Comments APPEARANCE FLUID Cloudy Clear A (BEAKER) (test code = 510) COLOR FLUID [place] Colorless, Straw A (BEAKER) (test code = 511) RBC FLUID (BEAKER) 6300 /cu mm <=1 H (test code = 513) TOTAL NUCLEATED 70 /cu mm <=5 H CELL COUNT (BEAKER) (test code = 1442) LINING CELLS/OTHERS 23 This is a DIFF'D (BEAKER) corrected re sult. (test code = 1589) Previous result was 9 on 07/29/2022 at 12 51 CDT ADJUSTED WBC FLUID 57 /cu mm <=5 H This is a (BEAKER) (test code correcte d result. = 1691) Previous result was 64 /cu mm o n 07/29/2022 at 12 51 CDT LINING 13 /cu mm <=1 H This is a CELLS/OTHERS, corrected resu lt. CALCULATED (BEAKER) Previous result (test code = 1590) was 6 /cu mm on 07/29/2022 at 12 51 CDT NEUTROPHILS FLUID 0 % (BEAKER) (test code = 1656) LYMPHS FLUID 12 % This is a (BEAKER) (test code correcte d result. = 488) Previous result was 18 % on 07/29/2022 at 12 51 CDT MONO/MACROPHAGE 65 % This is a FLUID (BEAKER) corrected res ult. (test code = 489) Previous r esult was 72 % on 07/29/2022 at 12 51 CDT EOSINOPHILS FLUID 0 % (BEAKER) (test code = 491) BASO FLUID (BEAKER) 0 % This is a (test code = 492) corrected result. Previous result was 1 % on 07/29/2022 at 12 51 CDT INTERPRETATION-210 No malignant (BEAKER) (test code cells seen = 2619) [id number] Chen Chen, M.D. 0 (BEAKER) (test (electronic code = 2620) signature) CONTAINER BODY EDTA Tube FLUID (BEAKER) (test code = 2873) [id number] 19:08:39Medical Cytology Report Case: [id number] Authorizing Provider: Rina Us MD Collected: 07/26/2022 11:50 AM Ordering Location: [address] Received: 07/28/2022 09:32 AM Service Pathologist: Mike Phipps MD Specimen: Peritoneal Fluid PERITONEAL FLUID (CYTOSPINS AND CELL BLOCK): - NEGATIVE FOR MALIGNANCY - Reactive mesothelial cells and histiocytes. Signing Pathologist Direct Phone Line: [phone] signed by Mike Phipps MD on 07/29/2022 at 7:08 PMTUL[facility] [place]-[facility] shows nonspecific background staining. Calretinin highlights reactive mesothelial cells and CD68 highlights histiocytes. Please also see cytopathology case: [id number], [id number], [id number], [id number] x 89 y.o. M with PMH of liver cirrhosis, and HCC s/p chemoembolization came to Er with complain of right side chest pain and shortness of breath More with exertion for 3 days. He also complain of dry cough, In ER he was found to have large right pleural effusion.PERITONEAL FLUIDA. Peritoneal FluidReceived 1000 ml rishabh fluid; prepared 4 cytospins and cell block(A2)(collodion bag) - the cell block was fixed in formalin at 17:59 on 3Performed.SatisfactoryThe interpretation of this case included the use of immunohistochemistry or special stains.Control Slides Examined: In-house known positive controls were evaluated along with the test tissue. These control slides run alongside of the patients sample show appropriate staining. Internal positive and negative controls when available are evaluated Immunohistochemistry technical testing was performed at [facility], Pathology Laboratory whereit was developed and its performance characteristics were determined. It has not been cleared or approved by the U.S. Food and Drug Administration. The FDA has determined that such clearance or approval is not necessary. The test is used for clinical purposes. It should not be regarded as investigational or for research. This laboratory is certified under the Clinical Laboratory Improvement Amendments of 1988 (CLIA-88) as qualified to perform high complexity clinical laboratory testing.[facility], Department of Pathology, [address] [place] [address], [facility], Department of Pathology, [address] [place] [address], [facility], Department of [facility], [address] [place] [address], [id number] 13:49:37Medical Cytology Report Case: [id number] Authorizing Provider: Rina Us MD Collected: 07/26/2022 12:26 PM Ordering Location: [address] Received: 07/28/2022 08:59 AM Service Pathologist: Mike Phipps MD Specimen: Pleural, Right RIGHT PLEURAL FLUID (CYTOSPINS AND CELL BLOCK): - NEGATIVE FOR MALIGNANCY - Mesothelial cells, histiocytes, and blood. Signing Pathologist Direct Phone Line: [phone] signed by Mike Phipps MD on 07/29/2022 at 1:49 PMPlease also see cytopathology case: [id number], [id number] y.o. M with history of decompensated liver cirrhosis (on transplant list, MELD-Na-23 on 07/25/22), and HCC s/p chemoembolization who presented to the ED with right sided chest pain and PERLA, found to have complete opacification of right lung concerning for pleural effusion, now s/p thoracentesis.RIGHT PLEURAL FLUIDA. Pleural, RightReceived 1200 ml bloody gelatinous rishabh fluid; prepared 4 cytospins and cell block(A2)(collodion bag) - the cell block was fixed in formalin at 17:[address], Department ofPathology, [address] [place] [address], [facility]fk[facility],Department of Pathology, [address] [place] [address], [facility]bkgaF[facility], Department of Pathology, [address] [place] [address], B/S, [id number] 12:06:00Referring: Alicia Noguera 200 mL of albumin 25% (50 grams) IV x1 after thoracentesis Send pleural fluid for cell count and differential.Laterality?- >RightLabs to be Ordered:->Cell CountdiffLabs to be Ordered:->Other (please add comment)Reason for Exam:->pleural effusion, HCC [facility] : 1955 Sex: MFINAL REPORT ULTRASOUND GUIDED RIGHT THORACENTESIS History provided: Cirrhosis with hepatic hydrothorax. PROCEDURE: Written informed consent was obtained. The chest was examined with ultrasound and a suitable site for thoracentesis was identified in the right hemithorax. The skin over this area was prepped and draped in sterile fashion. Lidocaine 2% was used for local anesthesia. With ultrasound guidance, the pleural space was accessed with a one- stick 5 Macedonian sheathed needle. Approximately 2400 cc of dark yellow fluid was aspirated. The catheter was removed and a sterile dressing was applied. The patient tolerated the procedure well without apparent complications. The fluid wassubmitted to the laboratory as requested. IMPRESSION: Uneventful ultrasound guided thoracentesis. Signed: Bryce Smith MDReport Verified Date/Time: 07/29/2022 12:06:01 Reading Location: [facility] RadiologyReading Room RAD, CHEST, 1 VIEW, NON DEPT 2022-07-29 12:02:00Referring: Laxmi Noguera for exam:->post thoracentesisShould this be performed at the bedside?->Yes [facility] B[facility]YLICO ALVAREZ : 1955 Sex: MFINAL REPORT Chest AP portable supine COMPARISON STUDY: 07/27/2022 History provided: Status post removal of 2400 cc fluid from the right pleural space. Cirrhosis with hepatic hydrothorax. Despite removal of large volume of fluid in the right, there is still subtotal opacity of the right hemithorax. I am reluctant to remove more pleural fluid today due to the risk of reactive pulmonary edema. I would therefore recommend that we repeat the right thoracentesis in several days. At this time, the patient is symptomatically much improved. Left lung clear. Normal heart size and vascularity. Signed: Bryce Smith MDReport Verified Date/Time: 07/29/2022 12:02:26 Reading Location: [facility] Radiology Reading Room BODY FLUID CULTURE + GRAM [id number] 15:24:53 Test Item Value Reference Range Interpretation Comments CULTURE (BEAKER) (test code = 1095) No growth BODY FLUID CULTURE + GRAM [id number] 15:24:37 Test Item Value Reference Range Interpretation Comments CULTURE (BEAKER) (test code = 1095) No growth RAD, CHEST, 1 VIEW, NON [id number] 08:21:00Referring: Laxmi Noguera for exam:->f/u pleural effusion [facility] : 1955 Sex: MFINAL REPORT TECHNIQUE: Frontal view of the chest. INDICATION: f/u pleural effusion. COMPARISON: 07/26/2022. FINDINGS: LINES/TUBES: None. HEART AND MEDIASTINUM: Cardiomediastinal contour is stable. LUNGS: Near complete opacification the right hemithorax. There is now a small aerated portion of the right upper lobe. Left lung is clear. No pulmonary edema. PLEURA: Large right pleural effusion as before. No left pleural effusion. No pneumothorax. SOFT TISSUES AND BONES: Unremarkable. IMPRESSION: 1. There is now a small portion of the right upper lobe which is aerated. Otherwise there is near complete opacification of the right hemithorax. Left lung remains clear. Signed: Kurtis Clancy MDReport Verified Date/Time: 07/27/2022 08:21:54 [id number] 05:49:11 Test Item Value Reference Range Interpretation Comments MAGNESIUM (BEAKER) (test code = 2.0 mg/dL 1.6-2.6 627) Roofer Gypsum ID - MARCOCOMPREHENSIVE METABOLIC [id number] 05:49:11 Test Item Value Reference Range Interpretation Comments TOTAL PROTEIN 6.2 gm/dL 6.0-8.3 (BEAKER) (test code = 770) ALBUMIN (BEAKER) 3.2 g/dL 3.5-5.0 L (test code = 1145) ALKALINE 95 U/L 40-150 PHOSPHATASE (BEAKER) (test code = 346) BILIRUBIN TOTAL 7.1 mg/dL 0.2-1.2 H (BEAKER) (test code = 377) SODIUM (BEAKER) 137 meq/L 136-145 (test code = 381) POTASSIUM (BEAKER) 3.6 meq/L 3.5-5.1 (test code = 379) CHLORIDE (BEAKER) 99 meq/L 98-107 (test code = 382) CO2 (BEAKER) (test 29 meq/L 22-29 code = 355) BLOOD UREA 21 mg/dL 7-21 NITROGEN (BEAKER) (test code = 354) CREATININE 1.06 mg/dL 0.57-1.25 (BEAKER) (test code = 358) GLUCOSE RANDOM 88 mg/dL 70-105 (BEAKER) (test code = 652) CALCIUM (BEAKER) 9.1 mg/dL 8.4-10.2 (test code = 697) AST (SGOT) 53 U/L 5-34 H (BEAKER) (test code = 353) ALT (SGPT) 15 U/L 6-55 (BEAKER) (test code = 347) EGFR (BEAKER) 78 Interpretatio n of eGFR (test code = 1092) mL/min/1.[address] age Description sq m Result G1 Bertha l or high >=90 G2 Mildly decreased 60-89 G3a Mildl y to moderately 45-5 9 G3b Moderately to s everely 30-44 G4 Severl y decreased 15-29 G5 Kidne y failure <15Reported eGF R is based on the CKD-EPI 2020 equation that d oes not use a race coefficientEsti mated GFR is not as accur ate as Creatinine Huyen mimi in predicting glom erular filtration rate . Estimated GFR is not appl icable for dialysis patien ts Roofer Gypsum ID - MARCOSpecimen moderately ictericCBC W/PLT COUNT & AUTO [id number] 05:18:57 Test Item Value Reference Range Interpretation Comments WHITE BLOOD CELL COUNT (BEAKER) 3.4 K/ L 3.5-10.5 L (test code = 775) RED BLOOD CELL COUNT (BEAKER) 3.16 M/ L 4.63-6.08 L (test code = 761) HEMOGLOBIN (BEAKER) (test code = 10.8 GM/DL 13.7-17.5 L 410) HEMATOCRIT (BEAKER) (test code = 31.8 % 40.1-51.0 L 411) MEAN CORPUSCULAR VOLUME (BEAKER) 101 fL 79-92 H (test code = 753) MEAN CORPUSCULAR HEMOGLOBIN 34.2 pg 25.7-32.2 H (BEAKER) (test code = 751) MEAN CORPUSCULAR HEMOGLOBIN CONC 34.0 GM/DL 32.3-36.5 (BEAKER) (test code = 752) RED CELL DISTRIBUTION WIDTH 15.6 % 11.6-14.4 H (BEAKER) (test code = 412) PLATELET COUNT (BEAKER) (test code 85 K/CU MM 150-450 L = 756) MEAN PLATELET VOLUME (BEAKER) 10.4 fL 9.4-12.4 (test code = 754) NUCLEATED RED BLOOD CELLS (BEAKER) 0 /100 WBC 0-0 (test code = 413) NEUTROPHILS RELATIVE PERCENT 64 % (BEAKER) (test code = 429) LYMPHOCYTES RELATIVE PERCENT 20 % (BEAKER) (test code = 430) MONOCYTES RELATIVE PERCENT 12 % (BEAKER) (test code = 431) EOSINOPHILS RELATIVE PERCENT 3 % (BEAKER) (test code = 432) BASOPHILS RELATIVE PERCENT 1 % (BEAKER) (test code = 437) NEUTROPHILS ABSOLUTE COUNT 2.19 K/ L 1.78-5.38 (BEAKER) (test code = 670) LYMPHOCYTES ABSOLUTE COUNT 0.67 K/ L 1.32-3.57 L (BEAKER) (test code = 414) MONOCYTES ABSOLUTE COUNT (BEAKER) 0.42 K/ L 0.30-0.82 (test code = 415) EOSINOPHILS ABSOLUTE COUNT 0.09 K/ L 0.04-0.54 (BEAKER) (test code = 416) BASOPHILS ABSOLUTE COUNT (BEAKER) 0.02 K/ L 0.01-0.08 (test code = 417) IMMATURE GRANULOCYTES-RELATIVE 0.30 % 0.00-1.00 PERCENT (BEAKER) (test code = 2801) BODY FLUID CELL COUNT WITH [id number] 15:45:09 Test Item Value Reference Range Interpretation Comments APPEARANCE FLUID (BEAKER) (test Cloudy Clear A code = 510) COLOR FLUID (BEAKER) (test code Red Colorless, Straw A = 511) RBC FLUID (BEAKER) (test code = 40216 /cu mm <=1 H 513) TOTAL NUCLEATED CELL COUNT 161 /cu mm <=5 H (BEAKER) (test code = 1442) LINING CELLS/OTHERS DIFF'D 5 (BEAKER) (test code = 1589) ADJUSTED WBC FLUID (BEAKER) 153 /cu mm <=5 H (test code = 1691) LINING CELLS/OTHERS, CALCULATED 8 /cu mm <=1 H (BEAKER) (test code = 1590) NEUTROPHILS FLUID (BEAKER) 0 % (test code = 1656) LYMPHS FLUID (BEAKER) (test 22 % code = 488) MONO/MACROPHAGE FLUID (BEAKER) 78 % (test code = 489) EOSINOPHILS FLUID (BEAKER) 0 % (test code = 491) BASO FLUID (BEAKER) (test code 0 % = 492) CONTAINER BODY FLUID (BEAKER) EDTA Tube (test code = 2873) BODY FLUID CELL COUNT WITH [id number] 15:41:36 Test Item Value Reference Range Interpretation Comments APPEARANCE FLUID (BEAKER) Slightly Hazy Clear A (test code = 510) COLOR FLUID (BEAKER) (test Yellow Colorless, Straw A code = 511) RBC FLUID (BEAKER) (test code 358 /cu mm <=1 H = 513) TOTAL NUCLEATED CELL COUNT 149 /cu mm <=5 H (BEAKER) (test code = 1442) LINING CELLS/OTHERS DIFF'D 6 (BEAKER) (test code = 1589) ADJUSTED WBC FLUID (BEAKER) 141 /cu mm <=5 H (test code = 1691) LINING CELLS/OTHERS, 8 /cu mm <=1 H CALCULATED (BEAKER) (test code = 1590) NEUTROPHILS FLUID (BEAKER) 2 % (test code = 1656) LYMPHS FLUID (BEAKER) (test 40 % code = 488) MONO/MACROPHAGE FLUID (BEAKER) 58 % (test code = 489) EOSINOPHILS FLUID (BEAKER) 0 % (test code = 491) BASO FLUID (BEAKER) (test code 0 % = 492) CONTAINER BODY FLUID (BEAKER) EDTA Tube (test code = 2873) RAD, CHEST, 1 VIEW, NON [id number] 13:42:00Referring: Laxmi Noguera for exam:->s/p right thoraShould this be performed at the bedside?->YesIn [facility] : 1955 Sex: MFINAL REPORT Chest one view. Clinical history: s/p right thora Comparison: July Discussion: A frontal chest is provided. Cardiomediastinal contours are unchanged. Complete opacification of the right hemithorax is unchanged. Left lung is grossly clear. No pneumothorax. Signed: Darlin Bennett Verified Date/Time: 07/26/2022 13:42:55 Reading Location: [facility] B1 C013X Ortho Consult Reading Room U/S, [id number] 13:26:00Referring: Noguera,UmairLaterality?->RightReason for exam:->pleural effusionReason for exam:->rightLabs to be Ordered:->CytologyLabs to be Ordered:->Body Fluid Culture (w/Gram Stain, C\\T\\S)Labs to be Ordered:- >Glucose+LDH+ProteinLabs to be Ordered:->Cell Count [facility] : 1955 Sex: MFINAL REPORT Ultrasound guided right thoracentesis. Clinical History: Right pleural effusion. Modality: Ultrasound. Sedation: None. Cut Plug Packer: Citlaly Machuca PA-C Heat Set Operator: None. Estimated Blood Loss: 1 cc Specimen: 1250 cc of serosanguineous fluid. Technique: Informed consent was obtained. The risks of pain, bleeding, infection, lung collapse/pneumothorax, injury to adjacent structures, and adverse medication reactions were discussed with the patient. The patient's right hemithorax was scanned from the back, with the patient in a sitting position. After the largest fluid pocket area was marked, the skin was prepped and draped in the usual sterile manner. The area was anesthetized with 2% lidocaine, a 5 F one-step catheter was advanced into the pleural space under ultrasound guidance. After completion of drainage, the catheter was removed. There was no evidence of immediate complication. Post procedure chest x-ray is pending. Impression:Successful and uncomplicated ultrasound guided right thoracentesis. Signed: Darlin Bennetteport Verified Date/Time: 07/26/2022 13:26:01 Reading Location: [facility] P006J Ultrasound Reading Room Electronically signed by: DARLIN BENNETT M.D. on07/26/2022 01:26 PMU/S, [id number] 13:25:00 Referring: Kan NogueraLabrony to be ordered:->Body Fluid Culture (w/Gram Stain, C\\T\\S)Labs to be ordered:->CytologyLabs to be ordered:->AFB Culture with StainLabs to be ordered:->Glucose+LDH+ProteinLabs to be ordered:- >Cell CountReason for exam:->CHEST PAINReason for exam:->SHORTNESS OF BREAT[facility]UR[facility] : 1955 Sex: MFINAL REPORT Ultrasound guided paracentesis. Clinical History: Ascites. Sedation: None. Cut Plug Packer: Citlaly Machuca PA-C Heat Set Operator: None. Estimated Blood Loss: < 1 cc. Specimen: 1600 cc of clear yellow fluid, samples sent to laboratory. Technique: Informed consent was obtained. The risks of pain, bleeding, infection, bowel perforation, injury to adjacent structures, and adver se medication reactions were discussed with the patient. After informed consent was obtained, the patient's abdomen was scanned. The right lower quadrant of the abdomen was selected for paracentesis. After the largest fluid pocket area was marked, and the anterior abdominal wall was evaluated with color Doppler to exclude presence of blood vessels traversing the area, the skin was prepped and draped in the usual sterile manner. After local anesthesia was achieved with 2% lidocaine, a 5 Macedonian one-step catheter was advanced into the peritoneal cavity under ultrasound guidance. After completion of drainage, the catheter was removed. There was no evidence of complication. Impression:Successful ultrasound guided paracentesis. Signed: Darlin Bennett Verified Date/Time: 07/26/2022 13:25:58 Reading Location: [facility] [id number] Ultrasound Reading Room Electronically signed by: DARLIN BENNETT M.D. on 301:25 [id number] 06:40:12 Test Item Value Reference Range Interpretation Comments FERRITIN (BEAKER) (test code = 496.63 ng/mL 5.00-275.00 H 361) Roofer Gypsum ID - MARCOVITAMIN D, [id number] 05:47:45 Test Item Value Reference Range Interpretation Comments VITAMIN D 25-OH (BEAKER) (test 13.1 ng/mL 6.6-49.9 code = 2764) Effective 12/17/2016: Reference Range ChangeNew: 6.6-49.9 ng/mL Previous: 13.0- 47.8 ng/mLRecommendedVitamin D Target Range: 30.0-40.0 ng/mLOperator ID - MM COMPREHENSIVE METABOLIC [id number] 05:43:36 Test Item Value Reference Range Interpretation Comments TOTAL PROTEIN 6.0 gm/dL 6.0-8.3 (BEAKER) (test code = 770) ALBUMIN (BEAKER) 3.2 g/dL 3.5-5.0 L (test code = 1145) ALKALINE 74 U/L 40-150 PHOSPHATASE (BEAKER) (test code = 346) BILIRUBIN TOTAL 8.0 mg/dL 0.2-1.2 H (BEAKER) (test code = 377) SODIUM (BEAKER) 139 meq/L 136-145 (test code = 381) POTASSIUM (BEAKER) 3.8 meq/L 3.5-5.1 (test code = 379) CHLORIDE (BEAKER) 101 meq/L 98-107 (test code = 382) CO2 (BEAKER) (test 29 meq/L 22-29 code = 355) BLOOD UREA 19 mg/dL 7-21 NITROGEN (BEAKER) (test code = 354) CREATININE 1.09 mg/dL 0.57-1.25 (BEAKER) (test code = 358) GLUCOSE RANDOM 86 mg/dL 70-105 (BEAKER) (test code = 652) CALCIUM (BEAKER) 9.2 mg/dL 8.4-10.2 (test code = 697) AST (SGOT) 42 U/L 5-34 H (BEAKER) (test code = 353) ALT (SGPT) 14 U/L 6-55 (BEAKER) (test code = 347) EGFR (BEAKER) 76 Interpretatio n of eGFR (test code = 1092) mL/min/1.[address] age Description sq m Result G1 Bertha l or high >=90 G2 Mildly decreased 60-89 G3a Mildl y to moderately 45-5 9 G3b Moderately to s everely 30-44 G4 Severl y decreased 15-29 G5 Kidney failure <15Reported eGF R is based on the CKD-EPI 2020 equation that d oes not use a race coefficientEsti mated GFR is not as accur ate as Creatinine Huyen mimi in predicting glom erular filtration rate . Estimated GFR is not appl icable for dialysis patien ts Roofer Gypsum ID - MARCOSpecimen moderately [id number] 05:43:35 Test Item Value Reference Range Interpretation Comments MAGNESIUM (BEAKER) (test code = 1.9 mg/dL 1.6-2.6 627) Roofer Gypsum ID - MARCOPTH, [id number] 05:30:37 Test Item Value Reference Range Interpretation Comments PARATHYROID HORMONE INTACT 46.4 pg/mL 8.5-72.5 (BEAKER) (test code = 577) Roofer Gypsum ID - MMIRON, TIBC, % SAT. (WITHOUT FERRITIN)2022-07-26 05:24:30 Test Item Value Reference Range Interpretation Comments IRON (BEAKER) (test code = 547) 147.0 ug/dL 40.0-160.0 TOTAL IRON BINDING CAPACITY 116 ug/dL 250-450 L (BEAKER) (test code = 769) IRON % SATURATION (2) (BEAKER) 127 % 20-55 H (test code = 2590) Roofer Gypsum ID - MMCBC W/PLT COUNT & AUTO [id number] 05:13:16 Test Item Value Reference Range Interpretation Comments WHITE BLOOD CELL COUNT (BEAKER) 2.5 K/ L 3.5-10.5 L (test code = 775) RED BLOOD CELL COUNT (BEAKER) 2.97 M/ L 4.63-6.08 L (test code = 761) HEMOGLOBIN (BEAKER) (test code = 10.1 GM/DL 13.7-17.5 L 410) HEMATOCRIT (BEAKER) (test code = 30.0 % 40.1-51.0 L 411) MEAN CORPUSCULAR VOLUME (BEAKER) 101 fL 79-92 H (test code = 753) MEAN CORPUSCULAR HEMOGLOBIN 34.0 pg 25.7-32.2 H (BEAKER) (test code = 751) MEAN CORPUSCULAR HEMOGLOBIN CONC 33.7 GM/DL 32.3-36.5 (BEAKER) (test code = 752) RED CELL DISTRIBUTION WIDTH 15.9 % 11.6-14.4 H (BEAKER) (test code = 412) PLATELET COUNT (BEAKER) (test code 73 K/CU MM 150-450 L = 756) MEAN PLATELET VOLUME (BEAKER) 9.5 fL 9.4-12.4 (test code = 754) NUCLEATED RED BLOOD CELLS (BEAKER) 0 /100 WBC 0-0 (test code = 413) NEUTROPHILS RELATIVE PERCENT 55 % (BEAKER) (test code = 429) LYMPHOCYTES RELATIVE PERCENT 27 % (BEAKER) (test code = 430) MONOCYTES RELATIVE PERCENT 14 % (BEAKER) (test code = 431) EOSINOPHILS RELATIVE PERCENT 4 % (BEAKER) (test code = 432) BASOPHILS RELATIVE PERCENT 1 % (BEAKER) (test code = 437) NEUTROPHILS ABSOLUTE COUNT 1.39 K/ L 1.78-5.38 L (BEAKER) (test code = 670) LYMPHOCYTES ABSOLUTE COUNT 0.67 K/ L 1.32-3.57 L (BEAKER) (test code = 414) MONOCYTES ABSOLUTE COUNT (BEAKER) 0.34 K/ L 0.30-0.82 (test code = 415) EOSINOPHILS ABSOLUTE COUNT 0.09 K/ L 0.04-0.54 (BEAKER) (test code = 416) BASOPHILS ABSOLUTE COUNT (BEAKER) 0.02 K/ L 0.01-0.08 (test code = 417) IMMATURE GRANULOCYTES-RELATIVE 0.40 % 0.00-1.00 PERCENT (BEAKER) (test code = 2801) URINALYSIS W/ [id number] 15:52:00 Test Item Value Reference Range Interpretation Comments COLOR (BEAKER) (test code Yellow = 470) CLARITY (BEAKER) (test Clear code = 469) SPECIFIC GRAVITY UA 1.016 1.001-1.035 (BEAKER) (test code = 468) PH UA (BEAKER) (test code 5.5 5.0-8.0 = 467) PROTEIN UA (BEAKER) (test Negative Negative code = 464) GLUCOSE UA (BEAKER) (test Negative Negative code = 365) KETONES UA (BEAKER) (test Negative Negative code = 371) BILIRUBIN UA (BEAKER) Positive Negative A (test code = 462) BLOOD UA (BEAKER) (test Negative Negative code = 461) NITRITE UA (BEAKER) (test Negative Negative code = 465) LEUKOCYTE ESTERASE UA Negative Negative (BEAKER) (test code = 466) UROBILINOGEN UA (BEAKER) 4 0.2-1.0 H (test code = 463) RBC UA (BEAKER) (test code 1 /HPF = 519) WBC UA (BEAKER) (test code 1 /HPF = 520) BACTERIA (BEAKER) (test Rare code = 517) MUCUS (BEAKER) (test code Rare = 1574) SQUAMOUS EPITHELIAL < /HPF (BEAKER) (test code = 516) HYALINE CASTS (BEAKER) 9 /LPF (test code = 514) AMORPHOUS CRYSTALS Rare (BEAKER) (test code = 1584) SOURCE(BEAKER) (test code Urine, Clean Catch = 2795) Roofer Gypsum ID - [auto]Roofer Gypsum ID - techPROTEIN, RANDOM [id number] 15:49:20 Test Item Value Reference Range Interpretation Comments PROTEIN, URINE (BEAKER) (test code = < mg/dL 0-14 1569) Roofer Gypsum ID - MMSODIUM, RANDOM [id number] 15:48:53 Test Item Value Reference Range Interpretation Comments SODIUM URINE (BEAKER) (test code = 27 meq/L 243) Reference Range: No NormalsOperator ID - MMUREA NITROGEN, RANDOM [id number] 15:48:53 Test Item Value Reference Range Interpretation Comments UREA NITROGEN URINE (BEAKER) (test 593 mg/dL code = 538) Reference Range: No NormalsOperator ID - MMCREATININE, RANDOM [id number] 15:48:47 Test Item Value Reference Range Interpretation Comments CREATININE URINE (BEAKER) (test 111.4 mg/dL code = 375) Reference Range: No NormalsOperator ID - MMPOTASSIUM, RANDOM [id number] 15:48:47 Test Item Value Reference Range Interpretation Comments POTASSIUM URINE (BEAKER) (test 39.5 meq/L code = 195) Reference Range: No NormalsOperator ID - MMCHLORIDE, RANDOM [id number] 15:48:46 Test Item Value Reference Range Interpretation Comments CHLORIDE URINE (BEAKER) (test code = 43 meq/L 20-330 682) Reference Range: No NormalsOperator ID - MMPROTHROMBIN TIME/[id number] 09:26:09 Test Item Value Reference Range Interpretation Comments PROTIME (BEAKER) (test code = 18.5 seconds 11.9-14.2 H 759) INR (BEAKER) (test code = 370) 1.65 <=5.90 RECOMMENDED COUMADIN/WARFARIN INR THERAPY RANGESSTANDARD DOSE: 2.0 - 3.0 Includes: PROPHYLAXIS for venous thrombosis, systemic embolization; TREATMENT for venous thrombosis and/or pulmonary embolus.HIGH RISK: Target INR is 2.5-3.5 for patients with mechanical heart valves.COMPREHENSIVE METABOLIC PANEL 2022-07-25 06:21:55 Test Item Value Reference Range Interpretation Comments TOTAL PROTEIN 5.9 gm/dL 6.0-8.3 L (BEAKER) (test code = 770) ALBUMIN (BEAKER) 2.8 g/dL 3.5-5.0 L (test code = 1145) ALKALINE 91 U/L 40-150 PHOSPHATASE (BEAKER) (test code = 346) BILIRUBIN TOTAL 7.1 mg/dL 0.2-1.2 H (BEAKER) (test code = 377) SODIUM (BEAKER) 137 meq/L 136-145 (test code = 381) POTASSIUM (BEAKER) 4.1 meq/L 3.5-5.1 (test code = 379) CHLORIDE (BEAKER) 99 meq/L 98-107 (test code = 382) CO2 (BEAKER) (test 30 meq/L 22-29 H code = 355) BLOOD UREA 21 mg/dL 7-21 NITROGEN (BEAKER) (test code = 354) CREATININE 1.41 mg/dL 0.57-1.25 H (BEAKER) (test code = 358) GLUCOSE RANDOM 88 mg/dL 70-105 (BEAKER) (test code = 652) CALCIUM (BEAKER) 8.8 mg/dL 8.4-10.2 (test code = 697) AST (SGOT) 44 U/L 5-34 H (BEAKER) (test code = 353) ALT (SGPT) 15 U/L 6-55 (BEAKER) (test code = 347) EGFR (BEAKER) 56 Interpretati on of eGFR (test code = 1092) mL/min/1.[address] age Description sq m Result G1 Bertha l or high >=90 G2 Mildly decreased 60-89 G3a Mildl y to moderately 45-5 9 G3b Moderately to s everely 30-44 G4 Severl y decreased 15-29 G5 Kidney failure <15Reported eGF R is based on the CKD-EPI 2020 equation that d oes not use a race coefficientEsti mated GFR is not as accur ate as Creatinine Huyen le in predicting glom erular filtration rate . Estimated GFR is not appl icable for dialysis patien ts Roofer Gypsum ID - MMSpecimen moderately ictericLACTATE DEHYDROGENASE (LDH)2022-07-25 06:20:32 Test Item Value Reference Range Interpretation Comments LACTATE DEHYDROGENASE (BEAKER) (test 185 U/L 125-220 code = 635) Roofer Gypsum ID - ADMINCBC (HEMOGRAM ONLY)2022-07-25 05:34:21 Test Item Value Reference Range Interpretation Comments WHITE BLOOD CELL COUNT (BEAKER) 4.1 K/ L 3.5-10.5 (test code = 775) RED BLOOD CELL COUNT (BEAKER) 3.32 M/ L 4.63-6.08 L (test code = 761) HEMOGLOBIN (BEAKER) (test code = 11.2 GM/DL 13.7-17.5 L 410) HEMATOCRIT (BEAKER) (test code = 32.9 % 40.1-51.0 L 411) MEAN CORPUSCULAR VOLUME (BEAKER) 99 fL 79-92 H (test code = 753) MEAN CORPUSCULAR HEMOGLOBIN 33.7 pg 25.7-32.2 H (BEAKER) (test code = 751) MEAN CORPUSCULAR HEMOGLOBIN CONC 34.0 GM/DL 32.3-36.5 (BEAKER) (test code = 752) RED CELL DISTRIBUTION WIDTH 15.9 % 11.6-14.4 H (BEAKER) (test code = 412) PLATELET COUNT (BEAKER) (test 109 K/CU MM 150-450 L code = 756) MEAN PLATELET VOLUME (BEAKER) 10.3 fL 9.4-12.4 (test code = 754) NUCLEATED RED BLOOD CELLS 0 /100 WBC 0-0 (BEAKER) (test code = 413) RAD, CHEST, 2 [id number] 14:25:00Referring: Dasia NogueraairReason for exam:- >CHEST PAINReason for exam:->SHORTNESS OF BREATH [facility] : 1955 Sex: MFINAL REPORT CLINICAL HISTORY: CHEST PAINSHORTNESS OF BREATH TECHNIQUE: 2 views ofthe chest COMPARISON: 04/09/2022 IMPRESSION: There is new complete opacification of the right hemithorax. The left lung is free of infiltrates or effusions. The cardiomediastinal silhouette is partially obscured. Signed: Jen De La Torre MDReport Verified Date/Time: 07/24/2022 14:25:45 HIGH SENSITIVITY TROPONIN [id number] 13:29:20 Test Item Value Reference Range Interpretation Comments HIGH SENSITIVITY TROPONIN I (test 5 pg/ml <=35 code = 0226909) Roofer Gypsum ID - ADMINThe SIGNS AND DISPLAYS SALESPERSON STAT High Sensitivity Troponin-I results should be used in conjunction with other diagnostic information such as ECG, clinical observations and information, and patientsymptoms to aid in the diagnosis of MO. B-TYPE NATRIURETIC FACTOR (BNP)2022-07-24 13:28:56 Test Item Value Reference Range Interpretation Comments B-TYPE NATRIURETIC PEPTIDE (BEAKER) 147 pg/mL 0-100 H (test code = 700) Roofer Gypsum ID - ADMINCOMPREHENSIVE METABOLIC [id number] 13:23:52 Test Item Value Reference Range Interpretation Comments TOTAL PROTEIN 6.5 gm/dL 6.0-8.3 (BEAKER) (test code = 770) ALBUMIN (BEAKER) 2.8 g/dL 3.5-5.0 L (test code = 1145) ALKALINE 97 U/L 40-150 PHOSPHATASE (BEAKER) (test code = 346) BILIRUBIN TOTAL 7.8 mg/dL 0.2-1.2 H (BEAKER) (test code = 377) SODIUM (BEAKER) 137 meq/L 136-145 (test code = 381) POTASSIUM (BEAKER) 4.2 meq/L 3.5-5.1 (test code = 379) CHLORIDE (BEAKER) 97 meq/L 98-107 L (test code = 382) CO2 (BEAKER) (test 33 meq/L 22-29 H code = 355) BLOOD UREA 20 mg/dL 7-21 NITROGEN (BEAKER) (test code = 354) CREATININE 1.53 mg/dL 0.57-1.25 H (BEAKER) (test code = 358) GLUCOSE RANDOM 101 mg/dL 70-105 (BEAKER) (test code = 652) CALCIUM (BEAKER) 9.1 mg/dL 8.4-10.2 (test code = 697) AST (SGOT) 48 U/L 5-34 H (BEAKER) (test code = 353) ALT (SGPT) 16 U/L 6-55 (BEAKER) (test code = 347) EGFR (BEAKER) 50 Interpretatio n of eGFR (test code = 1092) mL/min/1.[address] age Description sq m Result G1 Bertha l or high >=90 G2 Mildly decreased 60-89 G3a Mildl y to moderately 45-5 9 G3b Moderately to s everely 30-44 G4 Severl y decreased 15-29 G5 Kidney failure <15Reported eGF R is based on the CKD-EPI 2020 equation that d oes not use a race coefficientEsti mated GFR is not as accur ate as Creatinine Huyen mimi in predicting glom erular filtration rate . Estimated GFR is not appl icable for dialysis patien ts Roofer Gypsum ID - ADMINSpecimen moderately ictericCBC W/PLT COUNT & AUTO [id number] 13:01:13 Test Item Value Reference Range Interpretation Comments WHITE BLOOD CELL COUNT (BEAKER) 4.0 K/ L 3.5-10.5 (test code = 775) RED BLOOD CELL COUNT (BEAKER) 3.49 M/ L 4.63-6.08 L (test code = 761) HEMOGLOBIN (BEAKER) (test code = 11.9 GM/DL 13.7-17.5 L 410) HEMATOCRIT (BEAKER) (test code = 34.9 % 40.1-51.0 L 411) MEAN CORPUSCULAR VOLUME (BEAKER) 100 fL 79-92 H (test code = 753) MEAN CORPUSCULAR HEMOGLOBIN 34.1 pg 25.7-32.2 H (BEAKER) (test code = 751) MEAN CORPUSCULAR HEMOGLOBIN CONC 34.1 GM/DL 32.3-36.5 (BEAKER) (test code = 752) RED CELL DISTRIBUTION WIDTH 16.1 % 11.6-14.4 H (BEAKER) (test code = 412) PLATELET COUNT (BEAKER) (test 114 K/CU MM 150-450 L code = 756) MEAN PLATELET VOLUME (BEAKER) 9.9 fL 9.4-12.4 (test code = 754) NUCLEATED RED BLOOD CELLS 0 /100 WBC 0-0 (BEAKER) (test code = 413) NEUTROPHILS RELATIVE PERCENT 65 % (BEAKER) (test code = 429) LYMPHOCYTES RELATIVE PERCENT 19 % (BEAKER) (test code = 430) MONOCYTES RELATIVE PERCENT 10 % (BEAKER) (test code = 431) EOSINOPHILS RELATIVE PERCENT 4 % (BEAKER) (test code = 432) BASOPHILS RELATIVE PERCENT 1 % (BEAKER) (test code = 437) NEUTROPHILS ABSOLUTE COUNT 2.64 K/ L 1.78-5.38 (BEAKER) (test code = 670) LYMPHOCYTES ABSOLUTE COUNT 0.78 K/ L 1.32-3.57 L (BEAKER) (test code = 414) MONOCYTES ABSOLUTE COUNT (BEAKER) 0.41 K/ L 0.30-0.82 (test code = 415) EOSINOPHILS ABSOLUTE COUNT 0.15 K/ L 0.04-0.54 (BEAKER) (test code = 416) BASOPHILS ABSOLUTE COUNT (BEAKER) 0.04 K/ L 0.01-0.08 (test code = 417) IMMATURE GRANULOCYTES-RELATIVE 0.50 % 0.00-1.00 PERCENT (BEAKER) (test code = 2801) BODY FLUID CELL COUNT WITH [id number] 15:35:24 Test Item Value Reference Range Interpretation Comments APPEARANCE FLUID Clear Clear (BEAKER) (test code = 510) COLOR FLUID (BEAKER) Yellow Colorless, Straw A (test code = 511) RBC FLUID (BEAKER) 61 /cu mm <=1 H (test code = 513) TOTAL NUCLEATED CELL 69 /cu mm <=5 H COUNT (BEAKER) (test code = 1442) LINING CELLS/OTHERS 9 DIFF'D (BEAKER) (test code = 1589) ADJUSTED WBC FLUID 63 /cu mm <=5 H (BEAKER) (test code = 1691) LINING CELLS/OTHERS, 6 /cu mm <=1 H CALCULATED (BEAKER) (test code = 1590) NEUTROPHILS FLUID 3 % (BEAKER) (test code = 1656) LYMPHS FLUID (BEAKER) 8 % (test code = 488) MONO/MACROPHAGE FLUID 79 % (BEAKER) (test code = 489) EOSINOPHILS FLUID 0 % (BEAKER) (test code = 491) BASO FLUID (BEAKER) 1 % (test code = 492) INTERPRETATION-210 Agree with the above (BEAKER) (test code = count. Negative for 2619) malignancy [id number] Elvia Duffy M.D. (BEAKER) (test code = (electronic 2620) signature) CONTAINER BODY FLUID EDTA Tube (BEAKER) (test code = 6033) U/S, [id number] 14:58:00Referring: Kan NogueraAdminister 200 mL of albumin 25% (50 grams) IV x1 after paracentesis if 3 or more liters removed.Send ascitic fluid for cell count and differential.Labs to be ordered:->CellCountdiffReason for Exam:->HCC, [facility] 1955 Sex: MFINAL REPORT PROCEDURE: Ultrasound-guided paracentesis Procedural PersonnelAttending physician(s): Evan Jaeger MD Pre-procedure diagnosis: AscitesPost-procedure diagnosis: UnchangedIndication: Uncomplicated ascitesAdditional clinical history: None Complications: No immediate compli cations. IMPRESSION: Ultrasound-guided paracentesis with drainage of 3.5 L of serous fluid. PROCEDURE SUMMARY:- Limited abdominal ultrasound- Ultrasound-guided paracentesis- Additional procedure(s): None PROCEDURE DETAILS: Pre-procedureCon sent: Informed consent for the procedure including risks, benefits and alternatives was obtained andtime-out was performed prior to the procedure.Preparation: The site was prepared and draped using maximal sterile barrier technique including cutaneous antisepsis. Anesthesia/sedationLevel of anesthesia/sedation: None Initial abdominal ultrasoundInitial abdominal ultrasound was performed.Findings: Moderate ascites. A safe window in the right lower quadrant for paracentesis was identified. ParacentesisLocal anesthesia was administered. The peritoneal cavity was accessed and fluid return confirmed position. Ascites was drained. The catheter was then removed, and a sterile bandage was applied.Paracentesis access technique: Real-time ultrasound guidance.Catheter placed: 5Fr YuehPost-drainage ultrasound: Not performed Additional DetailsAdditional description of procedure: NoneEquipment details: NoneSpecimens removed: Abdominal fluidEstimated blood loss (mL): Minimal (<10cc)Standardized report: [email or web address] AttestationSigner name: Evan Gonzalez attest that I was present for the entire procedure. I reviewed the stored images and agree with the report as written. Signed: Evan Jaeger MDReport Verified Date/Time: 07/15/2022 14:58:27 Reading Location: [facility] Radiology Reading Room BODY FLUID CELL COUNT WITH [id number] 15:28:03 Test Item Value Reference Range Interpretation Comments APPEARANCE FLUID Clear Clear (BEAKER) (test code = 510) COLOR FLUID (BEAKER) Yellow Colorless, Straw A (test code = 511) RBC FLUID (BEAKER) 57 /cu mm <=1 H (test code = 513) TOTAL NUCLEATED CELL 43 /cu mm <=5 H COUNT (BEAKER) (test code = 1442) LINING CELLS/OTHERS 14 DIFF'D (BEAKER) (test code = 1589) ADJUSTED WBC FLUID 38 /cu mm <=5 H (BEAKER) (test code = 1691) LINING CELLS/OTHERS, 5 /cu mm <=1 H CALCULATED (BEAKER) (test code = 1590) NEUTROPHILS FLUID 2 % (BEAKER) (test code = 1656) LYMPHS FLUID (BEAKER) 2 % (test code = 488) MONO/MACROPHAGE FLUID 96 % (BEAKER) (test code = 489) EOSINOPHILS FLUID 0 % (BEAKER) (test code = 491) BASO FLUID (BEAKER) 0 % (test code = 492) INTERPRETATION-210 Agree with the above (BEAKER) (test code = count. Negative for 2619) malignancy [id number] Elvia Duffy M.D. (BEAKER) (test code = (electronic 2620) signature) CONTAINER BODY FLUID EDTA Tube (BEAKER) (test code = 2883) U/S, [id number] 14:24:00Referring: Kan NogueraAdminister 200 mL of albumin 25% (50 grams) IV x1 after paracentesis if 3 or more liters removed.Send ascitic fluid for cell count and differential.Labs to be ordered:->CellCountdiffReason for Exam:->[facility]CC, ascitis [facility] 1955 Sex: MFINAL REPORT HISTORY : Symptomatic ascites. Technique/findings:Informed written consent was obtained. Discussion of risks, benefits, and alternatives were made with the patient. The patient expressed understanding and agreed to proceed. A universal timeout was performed prior to starting the procedure. Initial ultrasound images demonstrate moderate to large volume of ascites. A pocket of fluid was identified in the right lower quadrant of the abdomen. This area was marked. The areawas prepped and draped in the usual sterile fashion. 1% lidocaine was applied to the skin and deep soft tissues. Color Doppler was utilized to assess for any large vessels in the vicinity of the planned trajectory for the one-step catheter, an image was saved. A 5 Macedonian one-step catheter was insertedand removed from the peritoneal space and approximately 5.5 liters of clear yellow fluid was aspirated from the abdomen. Specimens were collected for the lab. There were no immediate complications. Impression: Successful ultrasound guided paracentesis with aspiration of 5.5 liters of fluid. Signed: Chris Alford MDReport Verified Date/Time: 07/04/2022 14:24:11 Reading Location: [facility] Radiology Reading Room MR, ABDOMEN, [id number] 16:04:00 Referring: Yasmin Noguera Abdominal Vessels [facility] : 1955 Sex: MAddendum BeginsREPORT STATUS:A Addendum: There is a 1.4 cm arterially enhancing observation posterior to the treatment cavity in hepatic segment 7/8 with faint washout on the delayed phase (LI-RADS 5) Signed: DialloBatshevaNaa MDReport Verified Date/Time: 06/23/2022 16:04:59 Reading Location: [facility] Radiology Reading RoomAddendum EndsFINAL REPORT MRI abdomen with and without contrast TECHNIQUE: MRI of the abdomen was performed prior to and following the uneventful administration of intravenous gadolinium contrast according to standard protocol. Indication: Historyof HCC COMPARISON: CT of the abdomen and pelvis 05/30/2022, MRI abdomen 04/08/2022 Findings: Lower Chest:Small right and trace left pleural effusions with adjacent atelectasis. Hepatobiliary systemLiver morphology: Surface nodularity of the liver is consistent with hepatic cirrhosis. Steatosis: None.Varices: Upper abdominal varices are present.Spleen: Enlarged, measuring 17 cm in cranial caudal dimensionAscites: Moderate volume. Focal liver observationsThere are innumerable arterially enhancing observations throughout the liver, better seen on the prior study (LI- RADS 3). There is a 3.7 x 2.4 cm treatment cavity in hepatic segment 8, with internal T1 hyperintensity representing blood products. Mild enhancement is seen at the anterior margin of the treatment cavity (LR-TR equivocal). Ablation tract is seen extending to the margin of the liver. Additionally there is a 1.5 cm arterially enhancing lesion in hepatic segment 7 (series 10 image 140), slightly increased in size from prior where it measured 1.2 cm. However, there is no definitive washout on today's study (LI-RADS 3). No new liver observat ions. Subcentimeter cyst in hepatic segment 7. Hepatic vasculaturePortal and hepatic veins: Right hepatic artery arises from the superior mesenteric artery.Arterial anatomy: Conventional. Gallbladder and bile ductsGallbladder: Normal. Bile ducts: Nondilated. RetroperitoneumPancreas: Unchanged 1 cm lesion in the pancreatic bodyAdrenals: Normal.Kidneys: Small bilateral renal cystsLymph nodes: Several subcentimeter periportal lymph nodes. Gastrointestinal: Imaged bowel and mesentery are normal. Other findings: None. Impression: 1.Treatment cavity in hepatic segment 8 with mild nodular enhancement at the anterior margin. Internal blood products are present. (LR-TR equivocal).2.Previously seen LI-RADS 5, now only shows arterial hyperenhancement measuring 1.5 cm, slightly increased in size from prior (LI-RADS 3). Short-term follow-up is recommended.3.Hepatic cirrhosis with sequelae of portal hypertension including ascites, splenomegaly, and upper abdominal varices.4.Small right and trace left pleuraleffusions with adjacent atelectasis. Signed: Naa Diallo MDReport Verified Date/Time: 06/12/2022 17:58:03 Reading Location: [facility] Radiology Reading Room TISSUE [id number] 13:40:07Surgical Pathology Report Case: [id number] Authorizing Provider: Brenda Allan MD Collected: 06/17/2022 09:55 AM Ordering Location: [facility] ENDOSCOPY Received: 06/17/2022 03:24 PM SERVICES Pathologist: Mike Phipps MD Specimen: Polyp, Colon - Right/Ascending, removed with bx forceps A. RIGHT/ASCENDING COLON, POLYP, BIOPSY - SESSILE SERRATED LESION. Signing Pathologist Direct Phone Line: [phone] signed by Mike Phipps MD on 06/18/2022 at 1:40 [id number] cancer screeningA. Polyp, Colon - Right/AscendingReceived in formalin labeled with the patient's name, medicalrecord number and "ascending colon polyp" is a 0.3 x 0.2 x 0.2 cm aaron soft tissue fragment, which issubmitted in toto in A1.CECILIA Vergara, HT (ASC)Performed.CT, ABDOMEN, WITHOUT 2022-06-17 14:38:00Referring: Kelsea Noguera Prctocol-Triple Phase [facility] CENTERName: BERRY VALENCIA : 1955 Sex: MAddendum BeginsREPORT STATUS:A Addendum: A 1.1 cm early enhancing lesion is seen in the segment 8 of the liver, best seen on image #38, A2. There is vague delayed washout, best seen on image #39, A4. LI RADS category 5. Signed: Hiram Rizvi MDReport Verified Date/Time: 06/17/2022 14:38:09 Reading Location: [facility] C013Y CT Body Reading RoomAddendum EndsFINAL REPORT ABDOMINAL CT DATED 06/01/2022 CLINICAL INFORMATION: Liver disease, chronic, history of HCC, monitor TECHNIQUE: Axial images of the abdomen were obtained from diaphragm to the upper pelvis with and without intravenous contrast. This exam was performed according to our departmental dose- optimization program, which includes automated exposure control, adjustment of the mA and/or kV according to patient size and/or use of interactive reconstruction technique. COMMENT: There is small to moderate right pleural effusion with the right lower lobe subsegmental atelectasis. Liver is cirrhotic in appearance with irregular margin. A 2.6 x 3.5 cm posttreatment cavity is seen in the segment 8 of liver. Small amount of hyperdense fluid is seen in the treatment cavity suggestive of hemorrhage. No post contrast enhancement to suggest residual disease. Spleen is enlarged measuring 17.9 x 5.6 x 13.4. The splenic, superior mesenteric, portal, and hepatic veins are patent. Main portal vein measures 1.5 cm. Gallbladder is distended. No gallstone or biliary dilatation is noted. Pancreas and adrenals are unremarkable. Both kidneys are normal in size and functioning with prompt bilateral excretion. No hydronephrosis,solid or cystic mass is seen in either kidney. Diverticular disease is seen in the large bowel without diverticulitis. The small bowel and appendix are normal in caliber. A periumbilical ventral herniais seen with herniation a segment of the omentum and a small amount of fluid. IMPRESSION: 1. Cirrhosis with splenomegaly and portal hypertension.2. No residual enhancement in the treatment cavity in the liver. LR TR nonviable.3. Ascites and right pleural effusion.4. Diverticular disease in the large bowel without diverticulitis. Signed: Hiram Rizvi MDReport Verified Date/Time: 06/01/2022 16:29:00 Body fluid cell count with [id number] 17:23:02 Test Item Value Reference Range Interpretation Comments Appearance (test code Clear Clear = 9335-1) Color (test code = Yellow Colorless, A 6824-7) Straw RBCs (test code = 82 See_Comment H [Automate d 78541-1) message] The system which generated this result transmitted reference range : <=1 /cu mm. The reference range was not used to interpret this result as normal/abnormal . TNC Count (test code 98 See_Comment H [Autom ated = 1442) message] The system which generated this result transmitted reference range : <=5 /cu mm. The reference range was not used to interpret this result as normal/abnormal . Lining Cells/Other 14 Diff'd (test code = 1589) Adjusted WBC Count 86 See_Comment H [Automat ed (test code = 65382-3) messag e] The system which generated this result transmitted reference range : <=5 /cu mm. The reference range was not used to interpret this result as normal/abnormal . Adjusted lining 12 See_Comment H [Automated cells/Others (test message] The code = 16278-4) system which generated this result transmitted reference range : <=1 /cu mm. The reference range was not used to interpret this result as normal/abnormal . % Segs (test code = 4 % 91177-9) % Lymphs (test code = 6 % 97500-6) % Monos (test code = 76 % 98125-2) % Eos (test code = 0 % 57959-6) % Baso (test code = 0 % 38075-3) Interpretation (test Agree with the code = 14071-3) above count. Negative for malignancy Pathologist: (test Elvia Duffy, code = 2620) M.D. (electronic signature) Container Body Fluid EDTA Tube (test code = 2873) Lab Interpretation Abnormal (test code = 02064-9) [facility] with [id number] 17:23:02 Test Item Value Reference Range Interpretation Comments Appearance (test code Clear Clear = 9335-1) Color (test code = Yellow Colorless, A 6824-7) Straw RBCs (test code = 82 See_Comment H [Automate d 38202-5) message] The system which generated this result transmitted reference range : <=1 /cu mm. The reference range was not used to interpret this result as normal/abnormal . TNC Count (test code 98 See_Comment H [Autom ated = 1442) message] The system which generated this result transmitted reference range : <=5 /cu mm. The reference range was not used to interpret this result as normal/abnormal . Lining Cells/Other 14 Diff'd (test code = 1589) Adjusted WBC Count 86 See_Comment H [Automat ed (test code = 79950-5) messag e] The system which generated this result transmitted reference range : <=5 /cu mm. The reference range was not used to interpret this result as normal/abnormal . Adjusted lining 12 See_Comment H [Automated cells/Others (test message] The code = 26108-7) system which generated this result transmitted reference range : <=1 /cu mm. The reference range was not used to interpret this result as normal/abnormal . % Segs (test code = 4 % 48630-3) % Lymphs (test code = 6 % 96297-9) % Monos (test code = 76 % 11569-8) % Eos (test code = 0 % 67781-4) % Baso (test code = 0 % 41185-5) Interpretation (test Agree with the code = 81555-6) above count. Negative for malignancy Pathologist: (test Elvia Duffy, code = 2620Chang Griffin (electronic signature) Container Body Fluid EDTA Tube (test code = 2873) Lab Interpretation Abnormal (test code = 95569-1) [facility] WITH [id number] 17:23:02 Test Item Value Reference Range Interpretation Comments APPEARANCE FLUID Clear Clear (BEAKER) (test code = 510) COLOR FLUID (BEAKER) Yellow Colorless, Straw A (test code = 511) RBC FLUID (BEAKER) 82 /cu mm <=1 H (test code = 513) TOTAL NUCLEATED CELL 98 /cu mm <=5 H COUNT (BEAKER) (test code = 1442) LINING CELLS/OTHERS 14 DIFF'D (BEAKER) (test code = 1589) ADJUSTED WBC FLUID 86 /cu mm <=5 H (BEAKER) (test code = 1691) LINING CELLS/OTHERS, 12 /cu mm <=1 H CALCULATED (BEAKER) (test code = 1590) NEUTROPHILS FLUID 4 % (BEAKER) (test code = 1656) LYMPHS FLUID (BEAKER) 6 % (test code = 488) MONO/MACROPHAGE FLUID 76 % (BEAKER) (test code = 489) EOSINOPHILS FLUID 0 % (BEAKER) (test code = 491) BASO FLUID (BEAKER) 0 % (test code = 492) INTERPRETATION-210 Agree with the above (BEAKER) (test code = count. Negative for 2619) malignancy [id number] Elvia Duffy M.D. (BEAKER) (test code = (electronic 2620) signature) CONTAINER BODY FLUID EDTA Tube (BEAKER) (test code = 2873) U/S, [id number] 13:26:00Referring: Noguera,UmairAdminister 200 mL of albumin 25% (50 grams) IV x1 after paracentesis if 3 or more liters removed.Send ascitic fluid for cell count and differential.Labs to be ordered:->CellCountdiffLabs to be ordered:->Other (please add comment)Reason for Exam:->hcc, ascitis [facility] 1955 Sex: MFINAL REPORT Procedure: Ultrasound-guided paracentesis, 06/09/2022 HISTORY: Ascites Anesthesia: 1% lidocaine Modality: Ultrasound Approach: Right lateral abdomen TECHNIQUE: After obtaining written informed consent, this procedure was performed without untoward effect. Abdomen was scanned. A suitable pocket of fluid was identified in the right lateral abdomen. Color flow Doppler was performed of the subcutaneous tissues overlying the site and no significant vascularity was seen. The skin site was then prepped and anesthetized. A 5 Macedonian needle/catheter was inserted into the peritoneal space and 4.25 L of light yellow fluid were removed. CONCLUSION: Ultrasound-guided paracentesis. Si gned: Emmett Knight MDReport Verified Date/Time: 06/09/2022 13:26:28 Reading Location: [facility] Radiology Reading Room Drug screen, urine, transplant ([facility] Only) 2022-06-04 19:36:29See Scanned ReportBanning General HospitalDrug screen, urine, transplant (. [facility] Only)2022-06-04 19:36:29See Scanned ReportBanning General HospitalCOMPREHENSIVE METABOLIC [id number] 17:16:00 Test Item Value Reference Range Interpretation Comments TOTAL PROTEIN 6.6 gm/dL 6.0-8.3 (BEAKER) (test code = 770) ALBUMIN (BEAKER) 2.8 g/dL 3.5-5.0 L (test code = 1145) ALKALINE 111 U/L 40-150 PHOSPHATASE (BEAKER) (test code = 346) BILIRUBIN TOTAL 8.3 mg/dL 0.2-1.2 H (BEAKER) (test code = 377) SODIUM (BEAKER) 141 meq/L 136-145 (test code = 381) POTASSIUM (BEAKER) 4.8 meq/L 3.5-5.1 (test code = 379) CHLORIDE (BEAKER) 102 meq/L 98-107 (test code = 382) CO2 (BEAKER) (test 31 meq/L 22-29 H code = 355) BLOOD UREA 21 mg/dL 7-21 NITROGEN (BEAKER) (test code = 354) CREATININE 1.39 mg/dL 0.57-1.25 H (BEAKER) (test code = 358) GLUCOSE RANDOM 88 mg/dL 70-105 (BEAKER) (test code = 652) CALCIUM (BEAKER) 9.2 mg/dL 8.4-10.2 (test code = 697) AST (SGOT) 50 U/L 5-34 H (BEAKER) (test code = 353) ALT (SGPT) 17 U/L 6-55 (BEAKER) (test code = 347) EGFR (BEAKER) 57 Interpretatio n of eGFR (test code = 1092) mL/min/1.[address] age Description sq m Result G1 Bertha l or high >=90 G2 Mildly decreased 60-89 G3a Mildl y to moderately 45-5 9 G3b Moderately to s everely 30-44 G4 Severl y decreased 15-29 G5 Kidney failure <15Reported eGF R is based on the CKD-EPI 2021 equation that d oes not use a race coefficientEsti mated GFR is not as accur ate as Creatinine Huyen le in predicting glom erular filtration rate . Estimated GFR is not appl icable for dialysis patien ts Roofer Gypsum ID - ADMINSpecimen moderately ictericCBC W/PLT COUNT & AUTO [id number] 17:00:09 Test Item Value Reference Range Interpretation Comments WHITE BLOOD CELL COUNT 5.1 K/ L 3.5-10.5 (BEAKER) (test code = 775) RED BLOOD CELL COUNT 3.68 M/ L 4.63-6.08 L (BEAKER) (test code = 761) HEMOGLOBIN (BEAKER) 12.4 GM/DL 13.7-17.5 L (test code = 410) HEMATOCRIT (BEAKER) 38.2 % 40.1-51.0 L (test code = 411) MEAN CORPUSCULAR 104 fL 79-92 H Discordant with VOLUME (BEAKER) (test previo us results. code = 753) Clinical correl ation required. MEAN CORPUSCULAR 33.7 pg 25.7-32.2 H HEMOGLOBIN (BEAKER) (test code = 751) MEAN CORPUSCULAR 32.5 GM/DL 32.3-36.5 HEMOGLOBIN CONC (BEAKER) (test code = 752) RED CELL DISTRIBUTION 16.0 % 11.6-14.4 H WIDTH (BEAKER) (test code = 412) PLATELET COUNT 132 K/CU MM 150-450 L (BEAKER) (test code = 756) MEAN PLATELET VOLUME 11.2 fL 9.4-12.4 (BEAKER) (test code = 754) NUCLEATED RED BLOOD 0 /100 WBC 0-0 CELLS (BEAKER) (test code = 413) NEUTROPHILS RELATIVE 63 % PERCENT (BEAKER) (test code = 429) LYMPHOCYTES RELATIVE 21 % PERCENT (BEAKER) (test code = 430) MONOCYTES RELATIVE 10 % PERCENT (BEAKER) (test code = 431) EOSINOPHILS RELATIVE 4 % PERCENT (BEAKER) (test code = 432) BASOPHILS RELATIVE 1 % PERCENT (BEAKER) (test code = 437) NEUTROPHILS ABSOLUTE 3.23 K/ L 1.78-5.38 COUNT (BEAKER) (test code = 670) LYMPHOCYTES ABSOLUTE 1.08 K/ L 1.32-3.57 L COUNT (BEAKER) (test code = 414) MONOCYTES ABSOLUTE 0.51 K/ L 0.30-0.82 COUNT (BEAKER) (test code = 415) EOSINOPHILS ABSOLUTE 0.22 K/ L 0.04-0.54 COUNT (BEAKER) (test code = 416) BASOPHILS ABSOLUTE 0.06 K/ L 0.01-0.08 COUNT (BEAKER) (test code = 417) IMMATURE 0.60 % 0.00-1.00 GRANULOCYTES-RELATIVE PERCENT (BEAKER) (test code = 2804) PROTHROMBIN [id number] 16:56:37 Test Item Value Reference Range Interpretation Comments PROTIME (BEAKER) (test code = 17.9 seconds 11.9-14.2 H 759) INR (BEAKER) (test code = 370) 1.52 <=5.90 RECOMMENDED COUMADIN/WARFARIN INR THERAPY RANGESSTANDARD DOSE: 2.0 - 3.0 Includes: PROPHYLAXIS for venous thrombosis, systemic embolization; TREATMENT for venous thrombosis and/or pulmonary embolus.HIGH RISK: Target INR is 2.5-3.5 for patients with mechanical heart valves.BASIC METABOLIC [id number] 13:52:54 Test Item Value Reference Range Interpretation Comments SODIUM (BEAKER) 140 meq/L 136-145 (test code = 381) POTASSIUM 4.9 meq/L 3.5-5.1 (BEAKER) (test code = 379) CHLORIDE (BEAKER) 103 meq/L 98-107 (test code = 382) CO2 (BEAKER) 31 meq/L 22-29 H (test code = 355) BLOOD UREA 22 mg/dL 7-21 H NITROGEN (BEAKER) (test code = 354) CREATININE 1.83 mg/dL 0.57-1.25 H (BEAKER) (test code = 358) GLUCOSE RANDOM 87 mg/dL 70-105 (BEAKER) (test code = 652) CALCIUM (BEAKER) 9.0 mg/dL 8.4-10.2 (test code = 697) EGFR (BEAKER) 41 Interpretatio n of eGFR (test code = mL/min/1.73 values Stage De scription 1092) sq m Result G1 Bertha l or high >=90 G2 Mildly decreased 60-89 G3a Mildl y to moderately 45-5 9 G3b Moderately to s everely 30-44 G4 Severl y decreased 15-29 G5 Kidney failure <15Reported eGF R is based on the CKD-EPI 2020 equation that d oes not use a race coefficientEsti mated GFR is not as accur ate as Creatinine Huyen mimi in predicting glom erular filtration rate . Estimated GFR is not appl icable for dialysis patien ts Roofer Gypsum ID - ADMINSpecimen moderately ictericPROTHROMBIN [id number] 13:50:55 Test Item Value Reference Range Interpretation Comments PROTIME (BEAKER) (test code = 18.5 seconds 11.9-14.2 H 759) INR (BEAKER) (test code = 370) 1.64 <=5.90 RECOMMENDED COUMADIN/WARFARIN INR THERAPY RANGESSTANDARD DOSE: 2.0 - 3.0 Includes: PROPHYLAXIS for venous thrombosis, systemic embolization; TREATMENT for venous thrombosis and/or pulmonary embolus.HIGH RISK: Target INR is 2.5-3.5 for patients with mechanical heart valves.CBC (HEMOGRAM ONLY)2022-05-26 13:36:29 Test Item Value Reference Range Interpretation Comments WHITE BLOOD CELL COUNT (BEAKER) 3.9 K/ L 3.5-10.5 (test code = 775) RED BLOOD CELL COUNT (BEAKER) 3.51 M/ L 4.63-6.08 L (test code = 761) HEMOGLOBIN (BEAKER) (test code = 11.7 GM/DL 13.7-17.5 L 410) HEMATOCRIT (BEAKER) (test code = 35.0 % 40.1-51.0 L 411) MEAN CORPUSCULAR VOLUME (BEAKER) 100 fL 79-92 H (test code = 753) MEAN CORPUSCULAR HEMOGLOBIN 33.3 pg 25.7-32.2 H (BEAKER) (test code = 751) MEAN CORPUSCULAR HEMOGLOBIN CONC 33.4 GM/DL 32.3-36.5 (BEAKER) (test code = 752) RED CELL DISTRIBUTION WIDTH 16.0 % 11.6-14.4 H (BEAKER) (test code = 412) PLATELET COUNT (BEAKER) (test 118 K/CU MM 150-450 L code = 756) MEAN PLATELET VOLUME (BEAKER) 10.4 fL 9.4-12.4 (test code = 754) NUCLEATED RED BLOOD CELLS 0 /100 WBC 0-0 (BEAKER) (test code = 413) T SPOT [id number] 09:02:50 Test Item Value Reference Range Interpretation Comments T-SPOT TB (BEAKER) (test code = See attachment 1506) NEG CONTROL SPOT COUNT (BEAKER) See attachment (test code = 0996) PANEL A SPOT (BEAKER) (test code See attachment = 1685) PANEL B SPOT (BEAKER) (test code See attachment = 1686) POS CONTROL SPOT CT (BEAKER) See attachment (test code = 1687) SCAN RESULT (test code = 8456137) U/S, GUIDANCE, [id number] 13:43:00HCC [facility] 1955 Sex: MFINAL REPORT Please see the dictation from the image guided ablation performed on 05/05/2022. These orders are linked. Signed: Tiago Solorio MDReport Verified Date/Time: 05/14/2022 13:43:51 Reading Location: [place] [address] Angio Body Reading Room AND/OR JOINT IMAGING, WHOLE [id number] 14:32:00Referring: Chuckie,DasiaairUnlisted Reason for Exam - Click Yes and Enter Reason Below->YesUnlistedReason for Exam->Liver mass, exclude metastatic disease [facility] : 1955 Sex: MFINAL REPORT PROCEDURE: BONE SCAN, WHOLE BODY CPT CODE: 47854 INDICATION: HCC, eval for metastases PROTOCOL: 20.6 mCi of Tc-99m MDP was injected intravenously. Whole body and selectedspot images were obtained approximately 3 hours later. FINDINGS: No suspicious tracer activity throughout the axial/appendicular skeleton. Focal tracer uptake in the bilateral shoulders, left greater than right SC joints, and the right greater than left ankle is most compatible with degenerative changes. Additional tracer uptake in the right C7 transverse process and the L3 vertebral body are also likely degenerative in nature. Focal tracer uptake in the right tibial tuberosity represent enthesopathic changes. IMPRESSION: 1.No definite evidence of osseous metastatic disease. 2.Degenerative changes throughout the axial/appendicular skeleton, as above. Images for comparison/correlation were CT abdomen (MWA) 05/05/2022, CT chest 04/15/2022. Signed: Thierry Norton Verified Date/Time: 05/12/2022 14 :32:37 , TUMOR RFA [id number] 13:01:00Referring: Bita Noguera general anesthesiaReason for Exam:->hcc [facility] : 1955 Sex: MFINAL REPORT Image Guided microwave ablation of hepatocellular carcinoma. History:HCC in segment 4/8 Cut Plug Packer: Tiago Solorio MD. Heat Set Operator: None. Modality: Ultrasound and CTDOSE REDUCTION: The examination was performed according to departmental dose-optimization program which includes automated exposure control, adjustment of the mA and/or kV according to patient size and/or use of iterative reconstruction technique. Radiation dose for this procedure was 2248 mGy-cm. Sedation: Not applicable. Anesthesia: The procedure was performed under general anesthesia. Estimated blood loss: < 5 cc. Technique: Informed written consent was obtained. Discussion of risks, benefits, and alternatives were made with the patient. The patient expressed understanding and agreed to proceed. A universal timeout was performed prior to starting the procedure. The room personnel used personal protective equipment. The operators used sterile gloves in addition. The patient was laid right side wedged up on the CT table. Patient was prepped in the usual sterile fashion. Using sonographic guidance, the microwave ablation probe was placed into the segment 4/8 lesion. Subsequently, a noncontrast CT was performed to evaluate appropriate positioning of the probe. Once appropriate positioning was confirmed, ablation of the lesion was performed for a total of 10 minutes at [address] was performed at 5 minutes during the ablation to evaluate the ablation cavity. After ablation was complete, the probe was removed utilizing the tract ablation protocol. Subsequently, contrast-enhanced CT was performed to evaluate whether the segment 8 lesion could be seen or not. Upon contrast administration, thesmaller segment 8 lesion was not visible. However, there appear to be bleeding into the ascites nearthe tract. This did not demonstrate definite blooming on the delayed phase. Sterile dressing was applied. Stat hemoglobin was ordered, which did not show a significant difference compared to the a.m. value. Due to patient's hemodynamic stability, stable hemoglobin, and hyperbilirubin decision was [place] to proceed with immediate angiogram and embolization. Patient was hospitalized for further observation. Impression: Successful CT guided percutaneous microwave ablation of segment 4/8 lesion. Postprocedure bleeding was noted. Patient to be admitted for observation. Signed: Tiago Solorio MDReport Verified Date/Time: 05/08/2022 13:01:31 Reading Location: [facility] B1 P048 Angio Body Reading Room BASIC METABOLIC [id number] 05:31:48 Test Item Value Reference Range Interpretation Comments SODIUM (BEAKER) 131 meq/L 136-145 L (test code = 381) POTASSIUM 4.2 meq/L 3.5-5.1 (BEAKER) (test code = 379) CHLORIDE (BEAKER) 101 meq/L 98-107 (test code = 382) CO2 (BEAKER) 25 meq/L 22-29 (test code = 355) BLOOD UREA 23 mg/dL 7-21 H NITROGEN (BEAKER) (test code = 354) CREATININE 0.94 mg/dL 0.57-1.25 (BEAKER) (test code = 358) GLUCOSE RANDOM 101 mg/dL 70-105 (BEAKER) (test code = 652) CALCIUM (BEAKER) 8.4 mg/dL 8.4-10.2 (test code = 697) EGFR (BEAKER) 91 Interpretatio n of eGFR (test code = mL/min/1.73 values Stage De scription 1092) sq m Result G1 Bertha l or high >=90 G2 Mildly decreased 60-89 G3a Mildl y to moderately 45-5 9 G3b Moderately to s everely 30-44 G4 Severl y decreased 15-29 G5 Kidney failure <15Reported eGF R is based on the CKD-EPI 2020 equation that d oes not use a race coefficientEsti mated GFR is not as accur ate as Creatinine Huyen le in predicting glom erular filtration rate . Estimated GFR is not appl icable for dialysis patien ts Roofer Gypsum ID - KIRBY GOperator ID - BSSpecimen slightly ictericPHOSPHORUS 2022-05-07 05:19:26 Test Item Value Reference Range Interpretation Comments PHOSPHORUS (BEAKER) (test code = 3.2 mg/dL 2.3-4.7 604) Roofer Gypsum ID - KIRBY [id number] 05:19:25 Test Item Value Reference Range Interpretation Comments MAGNESIUM (BEAKER) (test code = 2.0 mg/dL 1.6-2.6 627) Roofer Gypsum ID - KIRBY GCBC W/PLT COUNT & AUTO [id number] 04:53:29 Test Item Value Reference Range Interpretation Comments WHITE BLOOD CELL COUNT (BEAKER) 6.9 K/ L 3.5-10.5 (test code = 775) RED BLOOD CELL COUNT (BEAKER) 2.80 M/ L 4.63-6.08 L (test code = 761) HEMOGLOBIN (BEAKER) (test code = 9.3 GM/DL 13.7-17.5 L 410) HEMATOCRIT (BEAKER) (test code = 27.4 % 40.1-51.0 L 411) MEAN CORPUSCULAR VOLUME (BEAKER) 98 fL 79-92 H (test code = 753) MEAN CORPUSCULAR HEMOGLOBIN 33.2 pg 25.7-32.2 H (BEAKER) (test code = 751) MEAN CORPUSCULAR HEMOGLOBIN CONC 33.9 GM/DL 32.3-36.5 (BEAKER) (test code = 752) RED CELL DISTRIBUTION WIDTH 14.4 % 11.6-14.4 (BEAKER) (test code = 412) PLATELET COUNT (BEAKER) (test code 74 K/CU MM 150-450 L = 756) MEAN PLATELET VOLUME (BEAKER) 10.8 fL 9.4-12.4 (test code = 754) NUCLEATED RED BLOOD CELLS (BEAKER) 0 /100 WBC 0-0 (test code = 413) NEUTROPHILS RELATIVE PERCENT 75 % (BEAKER) (test code = 429) LYMPHOCYTES RELATIVE PERCENT 13 % (BEAKER) (test code = 430) MONOCYTES RELATIVE PERCENT 10 % (BEAKER) (test code = 431) EOSINOPHILS RELATIVE PERCENT 0 % (BEAKER) (test code = 432) BASOPHILS RELATIVE PERCENT 0 % (BEAKER) (test code = 437) NEUTROPHILS ABSOLUTE COUNT 5.14 K/ L 1.78-5.38 (BEAKER) (test code = 670) LYMPHOCYTES ABSOLUTE COUNT 0.90 K/ L 1.32-3.57 L (BEAKER) (test code = 414) MONOCYTES ABSOLUTE COUNT (BEAKER) 0.69 K/ L 0.30-0.82 (test code = 415) EOSINOPHILS ABSOLUTE COUNT 0.02 K/ L 0.04-0.54 L (BEAKER) (test code = 416) BASOPHILS ABSOLUTE COUNT (BEAKER) 0.02 K/ L 0.01-0.08 (test code = 417) IMMATURE GRANULOCYTES-RELATIVE 1.30 % 0.00-1.00 H PERCENT (BEAKER) (test code = 2801) CALCIUM, [id number] 04:53:13 Test Item Value Reference Range Interpretation Comments CALCIUM IONIZED (BEAKER) (test 1.07 mmol/L 1.12-1.27 L code = 698) PH, BLOOD (BEAKER) (test code = 7.41 1810) HEMOGLOBIN AND [id number] 18:45:03 Test Item Value Reference Range Interpretation Comments HEMOGLOBIN (BEAKER) (test code = 10.5 GM/DL 13.7-17.5 L 410) HEMATOCRIT (BEAKER) (test code = 30.9 % 40.1-51.0 L 411) Roofer Gypsum ID - [id number] ID - [id number] AND [id number] 14:22:55 Test Item Value Reference Range Interpretation Comments HEMOGLOBIN (BEAKER) (test code = 10.1 GM/DL 13.7-17.5 L 410) HEMATOCRIT (BEAKER) (test code = 29.5 % 40.1-51.0 L 411) Roofer Gypsum ID - [id number] AND [id number] 08:37:32 Test Item Value Reference Range Interpretation Comments HEMOGLOBIN (BEAKER) (test code = 10.7 GM/DL 13.7-17.5 L 410) HEMATOCRIT (BEAKER) (test code = 32.1 % 40.1-51.0 L 411) Roofer Gypsum ID - [id number] METABOLIC [id number] 07:50:40 Test Item Value Reference Range Interpretation Comments TOTAL PROTEIN 5.4 gm/dL 6.0-8.3 L (BEAKER) (test code = 770) ALBUMIN (BEAKER) 2.5 g/dL 3.5-5.0 L (test code = 1145) ALKALINE 72 U/L 40-150 PHOSPHATASE (BEAKER) (test code = 346) BILIRUBIN TOTAL 5.4 mg/dL 0.2-1.2 H (BEAKER) (test code = 377) SODIUM (BEAKER) 128 meq/L 136-145 L (test code = 381) POTASSIUM (BEAKER) 4.8 meq/L 3.5-5.1 (test code = 379) CHLORIDE (BEAKER) 99 meq/L 98-107 (test code = 382) CO2 (BEAKER) (test 24 meq/L 22-29 code = 355) BLOOD UREA 26 mg/dL 7-21 H NITROGEN (BEAKER) (test code = 354) CREATININE 1.11 mg/dL 0.57-1.25 (BEAKER) (test code = 358) GLUCOSE RANDOM 143 mg/dL 70-105 H (BEAKER) (test code = 652) CALCIUM (BEAKER) 8.6 mg/dL 8.4-10.2 (test code = 697) AST (SGOT) 114 U/L 5-34 H (BEAKER) (test code = 353) ALT (SGPT) 33 U/L 6-55 (BEAKER) (test code = 347) EGFR (BEAKER) 75 Interpretatio n of eGFR (test code = 1092) mL/min/1.[address] age Description sq m Result G1 Bertha l or high >=90 G2 Mildly decreased 60-89 G3a Mildl y to moderately 45-5 9 G3b Moderately to s everely 30-44 G4 Severl y decreased 15-29 G5 Kidney failure <15Reported eGF R is based on the CKD-EPI 2020 equation that d oes not use a race coefficientEsti mated GFR is not as accur ate as Creatinine Huyen mimi in predicting glom erular filtration rate . Estimated GFR is not appl icable for dialysis patien ts Roofer Gypsum ID - MARCOSpecimen moderately ictericCBC (HEMOGRAM ONLY)2022-05-06 05:17:44 Test Item Value Reference Range Interpretation Comments WHITE BLOOD CELL COUNT (BEAKER) 6.3 K/ L 3.5-10.5 (test code = 775) RED BLOOD CELL COUNT (BEAKER) 3.10 M/ L 4.63-6.08 L (test code = 761) HEMOGLOBIN (BEAKER) (test code = 10.4 GM/DL 13.7-17.5 L 410) HEMATOCRIT (BEAKER) (test code = 30.3 % 40.1-51.0 L 411) MEAN CORPUSCULAR VOLUME (BEAKER) 98 fL 79-92 H (test code = 753) MEAN CORPUSCULAR HEMOGLOBIN 33.5 pg 25.7-32.2 H (BEAKER) (test code = 751) MEAN CORPUSCULAR HEMOGLOBIN CONC 34.3 GM/DL 32.3-36.5 (BEAKER) (test code = 752) RED CELL DISTRIBUTION WIDTH 14.4 % 11.6-14.4 (BEAKER) (test code = 412) PLATELET COUNT (BEAKER) (test code 94 K/CU MM 150-450 L = 756) MEAN PLATELET VOLUME (BEAKER) 11.3 fL 9.4-12.4 (test code = 754) NUCLEATED RED BLOOD CELLS (BEAKER) 0 /100 WBC 0-0 (test code = 413) BASIC METABOLIC [id number] 18:50:08 Test Item Value Reference Range Interpretation Comments SODIUM (BEAKER) 133 meq/L 136-145 L (test code = 381) POTASSIUM 4.3 meq/L 3.5-5.1 (BEAKER) (test code = 379) CHLORIDE (BEAKER) 100 meq/L 98-107 (test code = 382) CO2 (BEAKER) 27 meq/L 22-29 (test code = 355) BLOOD UREA 19 mg/dL 7-21 NITROGEN (BEAKER) (test code = 354) CREATININE 0.97 mg/dL 0.57-1.25 (BEAKER) (test code = 358) GLUCOSE RANDOM 77 mg/dL 70-105 (BEAKER) (test code = 652) CALCIUM (BEAKER) 8.9 mg/dL 8.4-10.2 (test code = 697) EGFR (BEAKER) 88 Interpretatio n of eGFR (test code = mL/min/1.73 values Stage D escription 1092) sq m Result G1 Bertha l or high >=90 G2 Mildly decreased 60-89 G3a Mildl y to moderately 45-5 9 G3b Moderately to s everely 30-44 G4 Severl y decreased 15-29 G5 Kidney failure <15Reported eGF R is based on the CKD-EPI 2020 equation that d oes not use a race coefficientEsti mated GFR is not as accur ate as Creatinine Huyen mimi in predicting glom erular filtration rate . Estimated GFR is not appl icable for dialysis patien ts Roofer Gypsum ID - BSSpecimen moderately ictericPROTHROMBIN TIME/[id number] 18:27:01 Test Item Value Reference Range Interpretation Comments PROTIME (BEAKER) (test code = 17.2 seconds 11.9-14.2 H 759) INR (BEAKER) (test code = 370) 1.50 <=5.90 RECOMMENDED COUMADIN/WARFARIN INR THERAPY RANGESSTANDARD DOSE: 2.0 - 3.0 Includes: PROPHYLAXIS for venous thrombosis, systemic embolization; TREATMENT for venous thrombosis and/or pulmonary embolus.HIGH RISK: Target INR is 2.5-3.5 for patients with mechanical heart valves.CBC W/PLT COUNT & AUTO [id number] 18:23:40 Test Item Value Reference Range Interpretation Comments WHITE BLOOD CELL COUNT (BEAKER) 3.7 K/ L 3.5-10.5 (test code = 775) RED BLOOD CELL COUNT (BEAKER) 3.74 M/ L 4.63-6.08 L (test code = 761) HEMOGLOBIN (BEAKER) (test code = 12.4 GM/DL 13.7-17.5 L 410) HEMATOCRIT (BEAKER) (test code = 37.0 % 40.1-51.0 L 411) MEAN CORPUSCULAR VOLUME (BEAKER) 99 fL 79-92 H (test code = 753) MEAN CORPUSCULAR HEMOGLOBIN 33.2 pg 25.7-32.2 H (BEAKER) (test code = 751) MEAN CORPUSCULAR HEMOGLOBIN CONC 33.5 GM/DL 32.3-36.5 (BEAKER) (test code = 752) RED CELL DISTRIBUTION WIDTH 14.5 % 11.6-14.4 H (BEAKER) (test code = 412) PLATELET COUNT (BEAKER) (test code 77 K/CU MM 150-450 L = 756) MEAN PLATELET VOLUME (BEAKER) 11.1 fL 9.4-12.4 (test code = 754) NUCLEATED RED BLOOD CELLS (BEAKER) 0 /100 WBC 0-0 (test code = 413) NEUTROPHILS RELATIVE PERCENT 80 % (BEAKER) (test code = 429) LYMPHOCYTES RELATIVE PERCENT 14 % (BEAKER) (test code = 430) MONOCYTES RELATIVE PERCENT 4 % (BEAKER) (test code = 431) EOSINOPHILS RELATIVE PERCENT 1 % (BEAKER) (test code = 432) BASOPHILS RELATIVE PERCENT 1 % (BEAKER) (test code = 437) NEUTROPHILS ABSOLUTE COUNT 2.93 K/ L 1.78-5.38 (BEAKER) (test code = 670) LYMPHOCYTES ABSOLUTE COUNT 0.50 K/ L 1.32-3.57 L (BEAKER) (test code = 414) MONOCYTES ABSOLUTE COUNT (BEAKER) 0.16 K/ L 0.30-0.82 L (test code = 415) EOSINOPHILS ABSOLUTE COUNT 0.05 K/ L 0.04-0.54 (BEAKER) (test code = 416) BASOPHILS ABSOLUTE COUNT (BEAKER) 0.02 K/ L 0.01-0.08 (test code = 417) IMMATURE GRANULOCYTES-RELATIVE 0.30 % 0.00-1.00 PERCENT (BEAKER) (test code = 2801) BASIC METABOLIC [id number] 09:44:40 Test Item Value Reference Range Interpretation Comments SODIUM (BEAKER) 135 meq/L 136-145 L (test code = 381) POTASSIUM 4.2 meq/L 3.5-5.1 (BEAKER) (test code = 379) CHLORIDE (BEAKER) 101 meq/L 98-107 (test code = 382) CO2 (BEAKER) 31 meq/L 22-29 H (test code = 355) BLOOD UREA 18 mg/dL 7-21 NITROGEN (BEAKER) (test code = 354) CREATININE 1.06 mg/dL 0.57-1.25 (BEAKER) (test code = 358) GLUCOSE RANDOM 84 mg/dL 70-105 (BEAKER) (test code = 652) CALCIUM (BEAKER) 8.8 mg/dL 8.4-10.2 (test code = 697) EGFR (BEAKER) 79 Interpretatio n of eGFR (test code = mL/min/1.73 values Stage De scription 1092) sq m Result G1 Bertha l or high >=90 G2 Mildly decreased 60-89 G3a Mildl y to moderately 45-5 9 G3b Moderately to s everely 30-44 G4 Severl y decreased 15-29 G5 Kidney failure <15Reported eGF R is based on the CKD-EPI 2021 equation that d oes not use a race coefficientEsti mated GFR is not as accur ate as Creatinine Huyen le in predicting glom erular filtration rate . Estimated GFR is not appl icable for dialysis patien ts Roofer Gypsum ID - MITCHSpecimen moderately ictericHEPATIC FUNCTION [id number] 09:44:40 Test Item Value Reference Range Interpretation Comments TOTAL PROTEIN (BEAKER) (test code = 5.8 gm/dL 6.0-8.3 L 770) ALBUMIN (BEAKER) (test code = 1145) 2.6 g/dL 3.5-5.0 L BILIRUBIN TOTAL (BEAKER) (test code 5.7 mg/dL 0.2-1.2 H = 377) BILIRUBIN DIRECT (BEAKER) (test 3.4 mg/dL 0.1-0.5 H code = 706) ALKALINE PHOSPHATASE (BEAKER) (test 88 U/L 40-150 code = 346) AST (SGOT) (BEAKER) (test code = 49 U/L 5-34 H 353) ALT (SGPT) (BEAKER) (test code = 21 U/L 6-55 347) Roofer Gypsum ID - MITCHSpecimen moderately ictericPROTHROMBIN TIME/[id number] 09:30:17 Test Item Value Reference Range Interpretation Comments PROTIME (BEAKER) (test code = 17.6 seconds 11.9-14.2 H 759) INR (BEAKER) (test code = 370) 1.54 <=5.90 RECOMMENDED COUMADIN/WARFARIN INR THERAPY RANGESSTANDARD DOSE: 2.0 - 3.0 Includes: PROPHYLAXIS for venous thrombosis, systemic embolization; TREATMENT for venous thrombosis and/or pulmonary embolus.HIGH RISK: Target INR is 2.5-3.5 for patients with mechanical heart valves.CBC W/PLT COUNT & AUTO [id number] 09:26:59 Test Item Value Reference Range Interpretation Comments WHITE BLOOD CELL COUNT (BEAKER) 3.0 K/ L 3.5-10.5 L (test code = 775) RED BLOOD CELL COUNT (BEAKER) 3.69 M/ L 4.63-6.08 L (test code = 761) HEMOGLOBIN (BEAKER) (test code = 12.0 GM/DL 13.7-17.5 L 410) HEMATOCRIT (BEAKER) (test code = 35.8 % 40.1-51.0 L 411) MEAN CORPUSCULAR VOLUME (BEAKER) 97 fL 79-92 H (test code = 753) MEAN CORPUSCULAR HEMOGLOBIN 32.5 pg 25.7-32.2 H (BEAKER) (test code = 751) MEAN CORPUSCULAR HEMOGLOBIN CONC 33.5 GM/DL 32.3-36.5 (BEAKER) (test code = 752) RED CELL DISTRIBUTION WIDTH 14.3 % 11.6-14.4 (BEAKER) (test code = 412) PLATELET COUNT (BEAKER) (test code 71 K/CU MM 150-450 L = 756) MEAN PLATELET VOLUME (BEAKER) 11.3 fL 9.4-12.4 (test code = 754) NUCLEATED RED BLOOD CELLS (BEAKER) 0 /100 WBC 0-0 (test code = 413) NEUTROPHILS RELATIVE PERCENT 65 % (BEAKER) (test code = 429) LYMPHOCYTES RELATIVE PERCENT 20 % (BEAKER) (test code = 430) MONOCYTES RELATIVE PERCENT 12 % (BEAKER) (test code = 431) EOSINOPHILS RELATIVE PERCENT 2 % (BEAKER) (test code = 432) BASOPHILS RELATIVE PERCENT 0 % (BEAKER) (test code = 437) NEUTROPHILS ABSOLUTE COUNT 1.97 K/ L 1.78-5.38 (BEAKER) (test code = 670) LYMPHOCYTES ABSOLUTE COUNT 0.61 K/ L 1.32-3.57 L (BEAKER) (test code = 414) MONOCYTES ABSOLUTE COUNT (BEAKER) 0.36 K/ L 0.30-0.82 (test code = 415) EOSINOPHILS ABSOLUTE COUNT 0.07 K/ L 0.04-0.54 (BEAKER) (test code = 416) BASOPHILS ABSOLUTE COUNT (BEAKER) 0.01 K/ L 0.01-0.08 (test code = 417) IMMATURE GRANULOCYTES-RELATIVE 0.30 % 0.00-1.00 PERCENT (BEAKER) (test code = 2801) [facility], MULTI, PHARM, [id number] 17:02:00Referring: Noguera,UmairUnlisted Reason for Exam - Click Yes and Enter Reason Below->YesUnlistedReason for Exam->Pre Liver [facility] : 1955 Sex: MFINAL REPORT PROCEDURE: Rest/Stress MYOCARDIAL PERFUSION SPECT with regadenoson\\XA9\\ CPT CODE: 77039 INDICATION: Preoperative risk stratification prior to liver transplantation HISTORY: Body Mass Index: 25.1Cardiac risk factors: None. Other cardiovascular history: Cirrhosis. Recent cardiac symptoms: None. Current cardiovascular-related medications: Propanolol, spironolactone, Lasix.PROTOCOL: 11.0 mCi of Tc-99m sestamibi was injected iv at rest, and SPECT (tomographic) images were obtained. Also, 30.1 mCi of Tc-99m sestamibi was injected iv at expected peak pharmacologic effect, and gated SPECT images were obtained. PRELIMINARY STRESS TEST DATA FROM NONINVASIVE CARDIOLOGY: Pharmac ologic stress was by 10-second iv infusion of 0.4 mg of regadenoson. Radiotracer was injected 30 seconds after start of stress. Heart rate was 79 beats/min at rest and 91 beats/min (58 % of MPHR) at tracer injection. BP was 127/73 mmHg at rest and 133/76 mmHg at tracer injection. Stress was stopped for predetermined endpoint. The patient experienced no symptoms; treatment was not required. Preliminary ECG evaluation revealed normal sinus rhythm with a right bundle branch block at rest and no ischemic changes with stress. (Final ECG interpretation and other stress and monitoring data are reported separately by Cardiology.) IMAGING FINDINGS: Study quality is adequate. Post-stress images show mild tomoderate severity medium sized perfusion defect in the basal to mid inferolateral wall as well as the apical lateral wall. Resting images show mild to moderate severity medium-sized perfusion defect inthe inferolateral LV wall. LV volume appears normal. RV volume appears normal. Gated images obtainedat rest after stress injection show normal LV wall motion and thickening. QGS LVEF is greater than 70%. IMPRESSION: 1. Abnormal study. 2. Appropriate pharmacologic stress. 3. Abnormal myocardial perfusion. There is a xcvk-jb-rtpiyepe severity, medium sized, fixed, perfusion defect in the basal to mid inferolateral and apical lateral LV. 4. Overall resting LV function is normal with normal wall motion. 5. Extracardiac tracer distribution is normal. Signed: Thomas Esparza MDReport Verified Date/Time: 04/22/2022 17:02:39 ALPHA FETOPROTEIN (AFP), TUMOR [id number] 12:16:45 Test Item Value Reference Range Interpretation Comments ALPHA-FETOPROTEIN (BEAKER) (test 7.1 ng/mL <10.0 code = 1094) Roofer Gypsum ID - ROHITHCOMPREHENSIVE METABOLIC [id number] 11:56:59 Test Item Value Reference Range Interpretation Comments TOTAL PROTEIN 6.8 gm/dL 6.0-8.3 (BEAKER) (test code = 770) ALBUMIN (BEAKER) 3.1 g/dL 3.5-5.0 L (test code = 1145) ALKALINE 123 U/L 40-150 PHOSPHATASE (BEAKER) (test code = 346) BILIRUBIN TOTAL 7.0 mg/dL 0.2-1.2 H (BEAKER) (test code = 377) SODIUM (BEAKER) 137 meq/L 136-145 (test code = 381) POTASSIUM (BEAKER) 4.1 meq/L 3.5-5.1 (test code = 379) CHLORIDE (BEAKER) 103 meq/L 98-107 (test code = 382) CO2 (BEAKER) (test 27 meq/L 22-29 code = 355) BLOOD UREA 15 mg/dL 7-21 NITROGEN (BEAKER) (test code = 354) CREATININE 1.06 mg/dL 0.57-1.25 (BEAKER) (test code = 358) GLUCOSE RANDOM 92 mg/dL 70-105 (BEAKER) (test code = 652) CALCIUM (BEAKER) 9.3 mg/dL 8.4-10.2 (test code = 697) AST (SGOT) 55 U/L 5-34 H (BEAKER) (test code = 353) ALT (SGPT) 29 U/L 6-55 (BEAKER) (test code = 347) EGFR (BEAKER) 79 Interpretatio n of eGFR (test code = 1092) mL/min/1.[address] age Description sq m Result G1 Bertha l or high >=90 G2 Mildly decreased 60-89 G3a Mildl y to moderately 45-5 9 G3b Moderately to s everely 30-44 G4 Severl y decreased 15-29 G5 Kidney failure <15Reported eGF R is based on the CKD-EPI 2020 equation that d oes not use a race coefficientEsti mated GFR is not as accur ate as Creatinine Huyen mimi in predicting glom erular filtration rate . Estimated GFR is not appl icable for dialysis patien ts Roofer Gypsum ID - Romainimeeunice moderately ictericPROTHROMBIN TIME/[id number] 11:46:50 Test Item Value Reference Range Interpretation Comments PROTIME (BEAKER) (test code = 17.1 seconds 11.9-14.2 H 759) INR (BEAKER) (test code = 370) 1.49 <=5.90 RECOMMENDED COUMADIN/WARFARIN INR THERAPY RANGESSTANDARD DOSE: 2.0 - 3.0 Includes: PROPHYLAXIS for venous thrombosis, systemic embolization; TREATMENT for venous thrombosis and/or pulmonary embolus.HIGH RISK: Target INR is 2.5-3.5 for patients with mechanical heart valves.CBC W/PLT COUNT & AUTO [id number] 11:41:49 Test Item Value Reference Range Interpretation Comments WHITE BLOOD CELL COUNT (BEAKER) 3.4 K/ L 3.5-10.5 L (test code = 775) RED BLOOD CELL COUNT (BEAKER) 4.02 M/ L 4.63-6.08 L (test code = 761) HEMOGLOBIN (BEAKER) (test code = 13.5 GM/DL 13.7-17.5 L 410) HEMATOCRIT (BEAKER) (test code = 40.0 % 40.1-51.0 L 411) MEAN CORPUSCULAR VOLUME (BEAKER) 100 fL 79-92 H (test code = 753) MEAN CORPUSCULAR HEMOGLOBIN 33.6 pg 25.7-32.2 H (BEAKER) (test code = 751) MEAN CORPUSCULAR HEMOGLOBIN CONC 33.8 GM/DL 32.3-36.5 (BEAKER) (test code = 752) RED CELL DISTRIBUTION WIDTH 14.8 % 11.6-14.4 H (BEAKER) (test code = 412) PLATELET COUNT (BEAKER) (test code 87 K/CU MM 150-450 L = 756) MEAN PLATELET VOLUME (BEAKER) 9.9 fL 9.4-12.4 (test code = 754) NUCLEATED RED BLOOD CELLS (BEAKER) 0 /100 WBC 0-0 (test code = 413) NEUTROPHILS RELATIVE PERCENT 66 % (BEAKER) (test code = 429) LYMPHOCYTES RELATIVE PERCENT 22 % (BEAKER) (test code = 430) MONOCYTES RELATIVE PERCENT 8 % (BEAKER) (test code = 431) EOSINOPHILS RELATIVE PERCENT 2 % (BEAKER) (test code = 432) BASOPHILS RELATIVE PERCENT 1 % (BEAKER) (test code = 437) NEUTROPHILS ABSOLUTE COUNT 2.21 K/ L 1.78-5.38 (BEAKER) (test code = 670) LYMPHOCYTES ABSOLUTE COUNT 0.75 K/ L 1.32-3.57 L (BEAKER) (test code = 414) MONOCYTES ABSOLUTE COUNT (BEAKER) 0.28 K/ L 0.30-0.82 L (test code = 415) EOSINOPHILS ABSOLUTE COUNT 0.08 K/ L 0.04-0.54 (BEAKER) (test code = 416) BASOPHILS ABSOLUTE COUNT (BEAKER) 0.03 K/ L 0.01-0.08 (test code = 417) IMMATURE GRANULOCYTES-RELATIVE 0.60 % 0.00-1.00 PERCENT (BEAKER) (test code = 2801) CT, CHEST, WITHOUT [id number] 14:03:00Referring: Noguera,UmairUnlisted Reason for Exam - Click Yes and Enter Reason Below->YesUnlistedReason for Exam->Liver mass, exclude metastatic disease [facility] : 1955 Sex: MFINAL REPORT CT of the Chest dated 04/17/2022 CLINICAL INFORMATION: Unlisted Reason for ExamLiver mass, exclude metastatic disease Comment: Axial images of the chest were obtained from thoracic inlet to the upper abdomen without intravenous contrast. This exam was performed according to our departmental dose-optimization program, which includes automated exposure control, adjustment of the mA and/or kV according to patient size and/or use of interactive reconstruction technique. Heart is normal in size. Great vessels are unremarkable. No adenopathy in the mediastinum or perihilar region. Trachea and mainstem bronchi are patent. Both lungs are clear. No nodular, mass lesion or airspace disease is noted. No interstitial disease or bronchiectasis is present. No pleural effusion or pleural based mass seen. Visualized upper abdomen demonstrates cirrhotic liver with splenomegaly. Impression: No metastatic disease in the chest. Signed: Hiram Rizvi MDReport Verified Date/Time: 04/17/2022 14:03:10 Reading Location: [address] Body Reading Room Carotid doppler [id number] 00:42:37Ejection FractionSLEH ECHO HEARTLAB MKESSON [facility]Car[facility] [id number] 00:42:37Ejection FractionSLEH ECHO HEARTLAB MKCKESSON [facility] CONTRAST & [id number] 17:09:34Ejection FractionSLEH ECHO HEARTLAB MKCKESSON [facility] W CONTRAST & DOPPLER 2022-04-10 17:09:34Ejection FractionSLEH ECHO HEARTLAB MKCK[facility]ON [facility] HospitalBlood gas, [id number] 10:37:27 Test Item Value Reference Range Interpretation Comments pH, Arterial (test code 7.48 7.35-7.45 H = 2744-1) pCO2, Arterial (test 35 See_Comment [Autom ated message] code = 2019-8) The system [employer] generated this result transmit rosalinda reference range : 35 - 45 mm Hg. The reference range was not used to interpret this result as normal/abnormal . pO2, Arterial (test 103 See_Comment H [Automa rosalinda message] code = 2703-7) The system [employer] generated this result transmit rosalinda reference range : 80 - 90 mm Hg. The reference range was not used to interpret this result as normal/abnormal . O2 Sat, Arterial (test 98.1 % 96.0-97.0 H code = 2708-6) HCO3, Arterial (test 25 mmol/L 21-29 code = 1960-4) Base Excess, Arterial 1.7 mmol/L -2.0-3.0 (test code = 1925-7) Patient Temperature 37.0 (test code = 8310-5) FIO2 (test code = 1819) 21 Lab Interpretation Abnormal (test code = 55231-1) [facility] [id number] 10:37:27 Test Item Value Reference Range Interpretation Comments pH, Arterial (test code 7.48 7.35-7.45 H = 2744-1) pCO2, Arterial (test 35 See_Comment [Autom ated message] code = 2019-8) The system [employer] generated this result transmit rosalinda reference range : 35 - 45 mm Hg. The reference range was not used to interpret this result as normal/abnormal . pO2, Arterial (test 103 See_Comment H [Automa rosalinda message] code = 2703-7) The system [employer] generated this result transmit rosalinda reference range : 80 - 90 mm Hg. The reference range was not used to interpret this result as normal/abnormal . O2 Sat, Arterial (test 98.1 % 96.0-97.0 H code = 2708-6) HCO3, Arterial (test 25 mmol/L 21-29 code = 1960-4) Base Excess, Arterial 1.7 mmol/L -2.0-3.0 (test code = 1925-7) Patient Temperature 37.0 (test code = 8310-5) FIO2 (test code = 1819) 21 Lab Interpretation Abnormal (test code = 93858-5) [facility] GAS, [id number] 10:37:27 Test Item Value Reference Range Interpretation Comments PH ARTERIAL (BEAKER) (test code = 7.48 7.35-7.45 H 383) PCO2 ARTERIAL (BEAKER) (test code 35 mm Hg 35-45 = 384) PO2 ARTERIAL (BEAKER) (test code = 103 mm Hg 80-90 H 385) O2 SATURATION ARTERIAL (BEAKER) 98.1 % 96.0-97.0 H (test code = 386) HCO3 ARTERIAL (BEAKER) (test code 25 mmol/L 21-29 = 388) BASE EXCESS ARTERIAL (BEAKER) 1.7 mmol/L -2.0-3.0 (test code = 387) PATIENT TEMPERATURE (BEAKER) (test 37.0 code = 1818) FIO2 (BEAKER) (test code = 1819) 21.0 [id number] 15:47:52 Test Item Value Reference Range Interpretation Comments T3 TOTAL (BEAKER) (test code = 0.89 ng/mL 0.60-1.81 656) Roofer Gypsum ID - [id number] 13:36:23 Test Item Value Reference Range Interpretation Comments CRYPTOCOCCAL ANTIGEN, SERUM Negative Negative, Interference (BEAKER) (test code = 1828) RAD, BONE DENSITY [id number] 13:11:00Referring: Laxmi Noguera for Exam:->Pre Liver [facility] : 1955 Sex: MFINAL REPORT BONE MINERAL DENSITY CLINICAL HISTORY: Liver transplant evaluation COMPARISON: No prior comparison bone mineral density studies are available REPORT: Bone Mineral DensityMeasurement: Lumbar Spine (L1-L4): 1.211 g/og2Rdvx Femoral Neck: 1.025 g/cm2 Standard Deviation as compared to the young adult population (T -score) Lumbar Spine: -0.1 Mean Femoral Neck: -0.3 Standard Deviation as compared to the age matched controls (Z-score) Lumbar Spine: 0.4Mean Femoral Neck: 0.8 There are no WHO criteria for the classification of osteopenia or osteoporosis in men. These measurements will serve as a baseline for future comparison. Signed: Matthew Rodas [facility] INSTITUTEeport Verified Date/Time: 04/09/2022 13:11:43 RAD, CHEST, 2 [id number] 13:04:00Referring: Laxmi Noguera for Exam:->Pre Liver [facility] : 1955 Sex: MFINAL REPORT HISTORY: Liver transplant evaluation COMPARISON: No prior comparison chest imaging is available FINDINGS: The lungs are clear. No pleural effusions or pneumothorax. The heart shadow is normal in size. The thoracic aorta is normal in caliber. Degenerative changes are present in the spine. IMPRESSION: No evidence of acute cardiopulmonary disease. Signed: Matthew Rodas MDReport Verified Date/Time: 04/09/2022 13:04:48 RAD, MANDIBLE, MIN 4 [id number] 12:56:00 Referring: Laxmi Noguera for Exam:->Pre Liver transplant [facility] : 1955 Sex: MFINAL REPORT MANDIBLE 5 VIEWS HISTORY: Liver transplant evaluation COMPARISON: Nocomparison mandibular imaging FINDINGS: Marco, PA, bilateral oblique, and lateral images of the mandible were obtained. No mandibular fracture is visualized. There is lucency around what is likely right mandibular wisdom tooth. No other periapical lucency is visualized. No air-fluid levels are visualized in the paranasal sinuses. Signed: Matthew Rodas MDReport Verified Date/Time: 04/09/2022 12:56:34 [id number] 12:50:19 Test Item Value Reference Range Interpretation Comments RPR SCREEN ([employer]) (test code = Nonreactive Nonreactive 420) [id number] 11:59:53 Test Item Value Reference Range Interpretation Comments PROSTATE SPECIFIC ANTIGEN ([employer]) 0.3 ng/mL 0.0-4.0 (test code = 844) [employer] ID - MITCHHEPATITIS B CORE ANTIBODY, [id number] 11:59:53 Test Item Value Reference Range Interpretation Comments HEPATITIS B CORE IGM ANTIBODY Nonreactive Nonreactive ([employer]) (test code = 645) [employer] ID - MITCHHIV-1 ANTIGEN WITH HIV-1/2 [id number] 11:59:53 Test Item Value Reference Range Interpretation Comments HIV-1 ANTIGEN WITH HIV 1\\T\\2 Nonreactive Nonreactive ANTIBODY (2) ([employer]) (test code = 2586) [employer] ID - MITCHVITAMIN D, [id number] 11:45:48 Test Item Value Reference Range Interpretation Comments VITAMIN D 25-OH ([employer]) (test 18.0 ng/mL 6.6-49.9 code = 2764) Effective 12/17/2016: Reference Range ChangeNew: 6.6-49.9 ng/mL Previous: 13.0- 47.8 ng/mLRecommendedVitamin D Target Range: 30.0-40.0 ng/mLOperator ID - MARYBETH HEMOGLOBIN [id number] 11:19:55 Test Item Value Reference Range Interpretation Comments HEMOGLOBIN A1C 4.6 % See_Comment [Automated m essage] ELECTROPHORESIS ([employer]) The system which (test code = 3811) generated this result transmitted ref erence range: <=5.6%. The reference range was not used to int erpret this result as normal/abnormal . "The A1c is measured using a [facility]-certified method. HbA1c value equal to or greater than 6.5% as thediagnosis cutoff for diabetes. An HbA1c value of 5.7- 6.4% indicates increased risk for diabetes (prediabetes)."Roofer Gypsum ID - ADMOperator ID - ADMCYTOMEGALOVIRUS ANTIBODY, [id number] 10:46:24 Test Item Value Reference Range Interpretation Comments CYTOMEGALOVIRUS, IGG (BEAKER) Positive Negative, Equivocal A (test code = 3429) CMV IgG Result Interpretation: </= 0.8 Al Negative 0.9-1.0 Al Equivocal >/=1.1 Al PositiveEBV ANTIBODY, [id number] 10:46:24 Test Item Value Reference Range Interpretation Comments BOO TOWNSEND VIRAL CAPSID Positive Negative, Equivocal A ANTIGEN IGG (BEAKER) (test code = 3415) Boo [place] Viral Capsid Antigen IgG Result Interpretation: </= 0.8 Al Negative 0.9-1.0 Al Equivocal >/= 1.1 Al PositiveEBV ANTIBODY, [id number] 10:46:24 Test Item Value Reference Range Interpretation Comments BOO TOWNSEND VIRAL CAPSID Negative Negative, Equivocal ANTIGEN IGM (BEAKER) (test code = 3418) Boo [place]send Viral Capsid Antigen IgM Result Interpretation: </= 0.8 Al Negative 0.9-1.0 Al Equivocal >/= 1.1 Al PositiveRUBELLA ANTIBODY, IGG 2022-04-09 10:46:24 Test Item Value Reference Range Interpretation Comments RUBELLA IGG QUANTITATION (BEAKER) > IU/mL <8.0 H (test code = 572) Rubella IgG Result Interpretation: </= 7.0 IU/mL Negative - Presumed non- immune 8.0 - 9.9 IU/mL Equivocal >= 10.0 IU/mL Positive - Presumed immune VARICELLA ZOSTER ANTIBODY, [id number] 10:46:24 Test Item Value Reference Range Interpretation Comments VARICELLA ZOSTER IGG (AL) (BEAKER) 6.7 (test code = 3197) VARICELLA ZOSTER RESULT INTERPRETATIONS: <=0.8 Al Nonreactive: Presumed non- immune to VZV 0.9-1.0Al Equivocal >=1.1 Al Reactive: Presumed immune to VZV TOXOPLASMA GONDII ANTIBODY, [id number] 10:46:24 Test Item Value Reference Range Interpretation Comments TOXOPLASMA GONDII IGG QUANTITATIVE < IU/mL <10.0 (BEAKER) (test code = 3428) Toxoplasma Gondii IgG Result Interpretation: </= 9.9 IU/mL Normal 10-11 IU/mL Equivocal >/= 12IU/mL PositiveUrinalysis w/[id number] 10:26:09 Test Item Value Reference Range Interpretation Comments Color, UA (test code Dark Yellow = 5778-6) Clarity, UA (test Clear code = 5767-9) Specific [place], UA 1.017 1.001-1.035 (test code = 5811-5) pH, UA (test code = 6.5 5.0-8.0 5803-2) Protein, UA (test Negative Negative code = 50588-7) Glucose, UA (test Negative Negative code = 365) Ketones, UA (test Negative Negative code = 2514-8) Bilirubin, UA (test Positive Negative A code = 06876-7) Blood, UA (test code Negative Negative = 89445-1) Nitrite, UA (test Negative Negative code = 5802-4) Leukocytes, UA (test Negative Negative code = 5799-2) Urobilinogen, UA 8 0.2-1.0 H (test code = 66410-5) RBC, UA (test code = See_Comment [Autom ated 35814-5) message] The system which generated this result transmit rosalinda reference range : /HPF. The reference range was not used to interpret this result as normal/abnormal . WBC, UA (test code = 1 See_Comment [Autom ated 5821-4) message] The system which generated this result transmit rosalinda reference range : /HPF. The reference range was not used to interpret this result as normal/abnormal . Mucus (test code = Rare 8247-9) Crystals, Urine (test Rare None Seen A code = 96066-4) Specimen Source (test Urine, Clean code = 2795) Catch NYDIA (test code = NYDIA) Roofer Gypsum ID - [auto]Roofer Gypsum ID - tech Lab Interpretation Abnormal (test code = 59028-1) [facility][id number] 10:26:09 Test Item Value Reference Range Interpretation Comments Color, UA (test code Dark Yellow = 5778-6) Clarity, UA (test Clear code = 5767-9) Specific [place], UA 1.017 1.001-1.035 (test code = 5811-5) pH, UA (test code = 6.5 5.0-8.0 5803-2) Protein, UA (test Negative Negative code = 58456-2) Glucose, UA (test Negative Negative code = 365) Ketones, UA (test Negative Negative code = 2514-8) Bilirubin, UA (test Positive Negative A code = 65117-5) Blood, UA (test code Negative Negative = 00685-6) Nitrite, UA (test Negative Negative code = 5802-4) Leukocytes, UA (test Negative Negative code = 5799-2) Urobilinogen, UA 8 0.2-1.0 H (test code = 41606-3) RBC, UA (test code = See_Comment [Autom ated 30079-8) message] The system which generated this result transmit rosalinda reference range : /HPF. The reference range was not used to interpret this result as normal/abnormal . WBC, UA (test code = 1 See_Comment [Autom ated 5821-4) message] The system which generated this result transmit rosalinda reference range : /HPF. The reference range was not used to interpret this result as normal/abnormal . Mucus (test code = Rare 8247-9) Crystals, Urine (test Rare None Seen A code = 29100-2) Specimen Source (test Urine, Clean code = 2795) Catch NYDIA (test code = NYDIA) Roofer Gypsum ID - [auto]Roofer Gypsum ID - tech Lab Interpretation Abnormal (test code = 71118-0) [facility] [id number] 10:26:09 Test Item Value Reference Range Interpretation Comments COLOR (BEAKER) (test code Dark Yellow = 470) CLARITY (BEAKER) (test Clear code = 469) SPECIFIC GRAVITY UA 1.017 1.001-1.035 (BEAKER) (test code = 468) PH UA (BEAKER) (test code 6.5 5.0-8.0 = 467) PROTEIN UA (BEAKER) (test Negative Negative code = 464) GLUCOSE UA (BEAKER) (test Negative Negative code = 365) KETONES UA (BEAKER) (test Negative Negative code = 371) BILIRUBIN UA (BEAKER) Positive Negative A (test code = 462) BLOOD UA (BEAKER) (test Negative Negative code = 461) NITRITE UA (BEAKER) (test Negative Negative code = 465) LEUKOCYTE ESTERASE UA Negative Negative (BEAKER) (test code = 466) UROBILINOGEN UA (BEAKER) 8 0.2-1.0 H (test code = 463) RBC UA (BEAKER) (test code < /HPF = 519) WBC UA (BEAKER) (test code 1 /HPF = 520) MUCUS (BEAKER) (test code Rare = 1574) CRYSTALS, URINE (BEAKER) Rare None Seen A (test code = 1521) SOURCE(BEAKER) (test code Urine, Clean Catch = 2795) Roofer Gypsum ID - [auto]Roofer Gypsum ID - [id number] 09:46:14 Test Item Value Reference Range Interpretation Comments T4 TOTAL (BEAKER) (test code = 895) 7.2 ug/dL 4.9-11.7 Roofer Gypsum ID - [id number] 09:46:14 Test Item Value Reference Range Interpretation Comments THYROID STIMULATING HORMONE 2.023 uIU/mL 0.350-4.940 (BEAKER) (test code = 772) Roofer Gypsum ID - [id number] 09:30:09 Test Item Value Reference Range Interpretation Comments TRANSFERRIN (BEAKER) (test code = 164 mg/dL 174-382 L 541) Roofer Gypsum ID - MITCHSpecimen moderately [id number] 09:28:13 Test Item Value Reference Range Interpretation Comments PHOSPHORUS (BEAKER) (test code = 3.2 mg/dL 2.3-4.7 604) Roofer Gypsum ID - MITCHURIC [id number] 09:28:13 Test Item Value Reference Range Interpretation Comments URIC ACID (BEAKER) (test code = 6.9 mg/dL 2.6-7.2 773) Roofer Gypsum ID - MITCHSpecimen moderately ictericCOMPREHENSIVE METABOLIC PANEL 2022-04-09 09:28:13 Test Item Value Reference Range Interpretation Comments TOTAL PROTEIN 7.2 gm/dL 6.0-8.3 (BEAKER) (test code = 770) ALBUMIN (BEAKER) 3.3 g/dL 3.5-5.0 L (test code = 1145) ALKALINE 137 U/L 40-150 PHOSPHATASE (BEAKER) (test code = 346) BILIRUBIN TOTAL 5.8 mg/dL 0.2-1.2 H (BEAKER) (test code = 377) SODIUM (BEAKER) 139 meq/L 136-145 (test code = 381) POTASSIUM (BEAKER) 4.3 meq/L 3.5-5.1 (test code = 379) CHLORIDE (BEAKER) 104 meq/L 98-107 (test code = 382) CO2 (BEAKER) (test 28 meq/L 22-29 code = 355) BLOOD UREA 16 mg/dL 7-21 NITROGEN (BEAKER) (test code = 354) CREATININE 1.08 mg/dL 0.57-1.25 (BEAKER) (test code = 358) GLUCOSE RANDOM 83 mg/dL 70-105 (BEAKER) (test code = 652) CALCIUM (BEAKER) 9.5 mg/dL 8.4-10.2 (test code = 697) AST (SGOT) 74 U/L 5-34 H (BEAKER) (test code = 353) ALT (SGPT) 31 U/L 6-55 (BEAKER) (test code = 347) EGFR (BEAKER) 77 Interpretatio n of eGFR (test code = 1092) mL/min/1.[address] age Description sq m Result G1 Bertha l or high >=90 G2 Mildly decreased 60-89 G3a Mildl y to moderately 45-5 9 G3b Moderately to s everely 30-44 G4 Severl y decreased 15-29 G5 Kidney failure <15Reported eGF R is based on the CKD-EPI 2021 equation that d oes not use a race coefficientEsti mated GFR is not as accur ate as Creatinine Huyen le in predicting glom erular filtration rate . Estimated GFR is not appl icable for dialysis patien ts Roofer Gypsum ID - MITCHSpecimen moderately ictericLIPID [id number] 09:28:13 Test Item Value Reference Range Interpretation Comments TRIGLYCERIDES (BEAKER) (test code = 134 mg/dL 540) CHOLESTEROL (BEAKER) (test code = 230 mg/dL 631) HDL CHOLESTEROL (BEAKER) (test code 42 mg/dL = 976) LDL CHOLESTEROL CALCULATED (BEAKER) 161 mg/dL (test code = 633) Triglyceride Reference Range: Low Risk <150 Borderline 150-199 High Risk 200- 499 Very High Risk >=500Cholesterol Reference Range: Low Risk <200 Borderline 200-239 High Risk >240HDL Cholesterol Reference Range: Low Risk >=60 High Risk <40LDL Cholesterol Reference Range: Optimal <100 Near Optimal 100-129 Borderline 130-159 High 160-189 Very High >=190 Roofer Gypsum ID - MITCHSpecimenmoderately ictericBILIRUBIN, [id number] 09:28:13 Test Item Value Reference Range Interpretation Comments BILIRUBIN DIRECT (BEAKER) (test 3.6 mg/dL 0.1-0.5 H code = 706) Roofer Gypsum ID - MITCHGAMMA GLUTAMYL TRANSFERASE (GGT)2022-04-09 09:28:13 Test Item Value Reference Range Interpretation Comments GAMMA GLUTAMYL TRANSFERASE (BEAKER) 293 U/L 9-64 H (test code = 364) Roofer Gypsum ID - MITCHSpecimen moderately [id number] 09:28:12 Test Item Value Reference Range Interpretation Comments MAGNESIUM (BEAKER) (test code = 2.0 mg/dL 1.6-2.6 627) Roofer Gypsum ID - [id number] 09:23:08 Test Item Value Reference Range Interpretation Comments ETHANOL (BEAKER) < mg/dL See_Comment [Automated message] The (test code = 400) system [facility] generated this result tra nsmitted reference range : <=10. The reference r andres was not used to int erpret this result as normal/abnormal . Roofer Gypsum ID - MITCHCALCIUM, [id number] 09:01:23 Test Item Value Reference Range Interpretation Comments CALCIUM IONIZED (BEAKER) (test 1.16 mmol/L 1.12-1.27 code = 698) PH, BLOOD (BEAKER) (test code = 7.37 1810) [id number] 09:00:25 Test Item Value Reference Range Interpretation Comments PARTIAL THROMBOPLASTIN TIME 38.3 seconds 22.5-36.0 H (BEAKER) (test code = 760) [id number] 09:00:03 Test Item Value Reference Range Interpretation Comments FIBRINOGEN LEVEL (BEAKER) (test 323 mg/dl 225-434 code = 658) PROTHROMBIN TIME/[id number] 08:59:22 Test Item Value Reference Range Interpretation Comments PROTIME (BEAKER) 16.9 seconds 11.9-14.2 H (test code = 759) INR (BEAKER) (test 1.46 See_Comment [Automat ed message] code = 370) The system [employer] generated this result transmitted ref erence range: <=5.90. The reference range was not used to int erpret this result as normal/abnormal . RECOMMENDED COUMADIN/WARFARIN INR THERAPY RANGESSTANDARD DOSE: 2.0 - 3.0 Includes: PROPHYLAXIS for venous thrombosis, systemic embolization; TREATMENT for venous thrombosis and/or pulmonary embolus.HIGH RISK: Target INR is 2.5-3.5 for patients with mechanical heart valves.CBC W/PLT COUNT & AUTO [id number] 08:42:18 Test Item Value Reference Range Interpretation Comments WHITE BLOOD CELL COUNT (BEAKER) 3.4 K/ L 3.5-10.5 L (test code = 775) RED BLOOD CELL COUNT (BEAKER) 4.04 M/ L 4.63-6.08 L (test code = 761) HEMOGLOBIN (BEAKER) (test code = 13.3 GM/DL 13.7-17.5 L 410) HEMATOCRIT (BEAKER) (test code = 40.2 % 40.1-51.0 411) MEAN CORPUSCULAR VOLUME (BEAKER) 100 fL 79-92 H (test code = 753) MEAN CORPUSCULAR HEMOGLOBIN 32.9 pg 25.7-32.2 H (BEAKER) (test code = 751) MEAN CORPUSCULAR HEMOGLOBIN CONC 33.1 GM/DL 32.3-36.5 (BEAKER) (test code = 752) RED CELL DISTRIBUTION WIDTH 15.6 % 11.6-14.4 H (BEAKER) (test code = 412) PLATELET COUNT (BEAKER) (test code 90 K/CU MM 150-450 L = 756) MEAN PLATELET VOLUME (BEAKER) 10.9 fL 9.4-12.4 (test code = 754) NUCLEATED RED BLOOD CELLS (BEAKER) 0 /100 WBC 0-0 (test code = 413) NEUTROPHILS RELATIVE PERCENT 63 % (BEAKER) (test code = 429) LYMPHOCYTES RELATIVE PERCENT 23 % (BEAKER) (test code = 430) MONOCYTES RELATIVE PERCENT 10 % (BEAKER) (test code = 431) EOSINOPHILS RELATIVE PERCENT 2 % (BEAKER) (test code = 432) BASOPHILS RELATIVE PERCENT 1 % (BEAKER) (test code = 437) NEUTROPHILS ABSOLUTE COUNT 2.15 K/ L 1.78-5.38 (BEAKER) (test code = 670) LYMPHOCYTES ABSOLUTE COUNT 0.78 K/ L 1.32-3.57 L (BEAKER) (test code = 414) MONOCYTES ABSOLUTE COUNT (BEAKER) 0.33 K/ L 0.30-0.82 (test code = 415) EOSINOPHILS ABSOLUTE COUNT 0.08 K/ L 0.04-0.54 (BEAKER) (test code = 416) BASOPHILS ABSOLUTE COUNT (BEAKER) 0.03 K/ L 0.01-0.08 (test code = 417) IMMATURE GRANULOCYTES-RELATIVE 0.60 % 0.00-1.00 PERCENT (BEAKER) (test code = 2801) MR, ABDOMEN, WITHOUT / WITH IV [id number] 07:55:00Referring: Noguera,UmairUnlisted Reason for Exam - Click Yes and Enter Reason Below->YesUnlistedReason for Exam->Cirrhosis, portal hypertension, liver lesion.[facility] : 1955 Sex: MFINAL REPORT MRI of the abdomen with and without contrast Clinical History: Unlisted Reason for ExamCirrhosis, portal hypertension, liver lesion. Technique: Multiplanar and multisequence MR images of the abdomen are obtained before and after intravenous contrast administration. Contrast is administered to evaluate neoplasm and vasculature. Comparison: January 27, 2022, performed atan outside situation Discussion: Liver is cirrhotic. There are innumerable arterially enhancing observations throughout the liver, most are punctate in size without washout, LI-RADS 3. A dominant observation is located in segment 4/8, abutting the middle hepatic vein, measuring 2.2 cm (arterial phase image 48). It demonstrates washout and pseudocapsule in the venous phase, LI-RADS 5. Another 1.2 cm arterially enhancing observation in segment 8 (arterial phase image 53) also demonstrates washout and pseudocapsule, LI-RADS 5. Hepatic vasculature is patent. The right hepatic artery arises from the SMA. Main portal vein measures 15 mm in diameter. No biliary ductal dilatation. Gallbladder is slightly distended, but otherwise unremarkable. Spleen is enlarged and measures 19 cm sagittally. In the pancreatic body, there is a 1 cm cystic lesion, which appears larger since the prior exam. The main duct is normal in caliber. No significant peripancreatic fluid/inflammation. Adrenal glands are normal. Kidn eys demonstrate no mass or hydronephrosis. There is a small amount of ascites. A few mildly enlargedupper abdomen included nodes are without interval change, nonspecific. Varices are present. Visualized bowel is unremarkable. No suspicious bony lesion. Note is made of bilateral gynecomastia. Impression: Cirrhosis and splenomegaly. Small amount of ascites. There is a 2.2 cm LI-RADS 5 observation in segment 4/8, and a 1.2 cm LI-RADS 5 observation in segment 8. There are additional innumerable tiny arterially enhancing observations throughout the liver, without washout, LI-RADS 3. There are a few mildly enlarged, but nonspecific upper abdomen lymph nodes. A 1 cm cystic lesion in the pancreatic body is larger since the prior exam, uterus pseudocysts, or sidebranch IPMN. Suggest attention on future follow-up exam. Signed: Darlin Bennett Verified Date/Time: 04/05/2022 07:55:45 ANA TITER AND [id number] 14:57:21 Test Item Value Reference Range Interpretation Comments LISA TITER (BEAKER) (test code = >=:2560 1541) LISA PATTERN (BEAKER) (test code = Homogeneous 1781) ANTI-NUCLEAR ANTIBODY (LISA)2022-02-21 14:56:50 Test Item Value Reference Range Interpretation Comments ANTI-NUCLEAR ANTIBODY (LISA) (BEAKER) Positive Negative A (test code = 418) Test performed by IFA method.[id number] 13:56:07 Test Item Value Reference Range Interpretation Comments FERRITIN (BEAKER) (test code = 440.75 ng/mL 5.00-275.00 H 361) Roofer Gypsum ID - ADMINHEPATITIS B SURFACE [id number] 13:17:50 Test Item Value Reference Range Interpretation Comments HEPATITIS B SURFACE ANTIBODY < mIU/mL <8.0 (BEAKER) (test code = 647) Roofer Gypsum ID - ADMINHEPATITIS C [id number] 13:17:18 Test Item Value Reference Range Interpretation Comments HEPATITIS C ANTIBODY (BEAKER) Nonreactive Nonreactive (test code = 367) Roofer Gypsum ID - ADMINHEPATITIS B SURFACE [id number] 13:17:13 Test Item Value Reference Range Interpretation Comments HEPATITIS B SURFACE ANTIGEN (2) Nonreactive Nonreactive (BEAKER) (test code = 2585) Specimen is considered negative for HBsAg.HEPATITIS B CORE ANTIBODY, TOTAL 2022-02-20 13:16:01 Test Item Value Reference Range Interpretation Comments HEPATITIS B CORE TOTAL ANTIBODY Nonreactive Nonreactive (BEAKER) (test code = 497) Roofer Gypsum ID - ADMINHEPATITIS A ANTIBODY, [id number] 13:16:01 Test Item Value Reference Range Interpretation Comments HEPATITIS A IGG ANTIBODY (BEAKER) Nonreactive Nonreactive (test code = 2797) Roofer Gypsum ID - ADMINALPHA FETOPROTEIN (AFP), TUMOR [id number] 13:16:00 Test Item Value Reference Range Interpretation Comments ALPHA-FETOPROTEIN (BEAKER) (test 4.1 ng/mL <10.0 code = 1094) Roofer Gypsum ID - ADMINCARCINOEMBRYONIC ANTIGEN (CEA)2022-02-20 13:15:55 Test Item Value Reference Range Interpretation Comments CARCINOEMBRYONIC ANTIGEN (BEAKER) 4.1 ng/mL 0.0-5.0 (test code = 685) Roofer Gypsum ID - ADMINIRON, TIBC, % SAT. (WITHOUT FERRITIN)2022-02-20 12:59:54 Test Item Value Reference Range Interpretation Comments IRON (BEAKER) (test code = 547) 190.0 ug/dL 40.0-160.0 H TOTAL IRON BINDING CAPACITY 205 ug/dL 250-450 L (BEAKER) (test code = 769) IRON % SATURATION (2) (BEAKER) 93 % 20-55 H (test code = 2590) Roofer Gypsum ID - ADMINCOMPREHENSIVE METABOLIC [id number] 12:49:29 Test Item Value Reference Range Interpretation Comments TOTAL PROTEIN 7.0 gm/dL 6.0-8.3 (BEAKER) (test code = 770) ALBUMIN (BEAKER) 3.1 g/dL 3.5-5.0 L (test code = 1145) ALKALINE 154 U/L 40-150 H PHOSPHATASE (BEAKER) (test code = 346) BILIRUBIN TOTAL 5.9 mg/dL 0.2-1.2 H (BEAKER) (test code = 377) SODIUM (BEAKER) 134 meq/L 136-145 L (test code = 381) POTASSIUM (BEAKER) 4.7 meq/L 3.5-5.1 (test code = 379) CHLORIDE (BEAKER) 102 meq/L 98-107 (test code = 382) CO2 (BEAKER) (test 26 meq/L 22-29 code = 355) BLOOD UREA 24 mg/dL 7-21 H NITROGEN (BEAKER) (test code = 354) CREATININE 1.05 mg/dL 0.57-1.25 (BEAKER) (test code = 358) GLUCOSE RANDOM 94 mg/dL 70-105 (BEAKER) (test code = 652) CALCIUM (BEAKER) 8.9 mg/dL 8.4-10.2 (test code = 697) AST (SGOT) 70 U/L 5-34 H (BEAKER) (test code = 353) ALT (SGPT) 34 U/L 6-55 (BEAKER) (test code = 347) EGFR (BEAKER) 80 Interpretatio n of eGFR (test code = 1092) mL/min/1.[address] age Description sq m Result G1 Bertha l or high >=90 G2 Mildly decreased 60-89 G3a Mildl y to moderately 45-5 9 G3b Moderately to s everely 30-44 G4 Severl y decreased 15-29 G5 Kidney failure <15Reported eGF R is based on the CKD-EPI 2020 equation that d oes not use a race coefficientEsti mated GFR is not as accur ate as Creatinine Huyen mimi in predicting glom erular filtration rate . Estimated GFR is not appl icable for dialysis patien ts Roofer Gypsum ID - ADMINSpecimen moderately ictericBILIRUBIN, [id number] 12:49:29 Test Item Value Reference Range Interpretation Comments BILIRUBIN DIRECT (BEAKER) (test 4.1 mg/dL 0.1-0.5 H code = 706) Roofer Gypsum ID - [id number] 12:39:25 Test Item Value Reference Range Interpretation Comments ALPHA-1 ANTITRYPSIN (BEAKER) 220.80 mg/dL 90.00-200.00 H (test code = 502) Roofer Gypsum ID - ADMINPROTHROMBIN [id number] 12:37:24 Test Item Value Reference Range Interpretation Comments PROTIME (BEAKER) 16.4 seconds 11.9-14.2 H (test code = 759) INR (BEAKER) (test 1.35 See_Comment [Automat ed message] code = 370) The system [employer] generated this result transmitted ref erence range: <=5.90. The reference range was not used to int erpret this result as normal/abnormal . RECOMMENDED COUMADIN/WARFARIN INR THERAPY RANGESSTANDARD DOSE: 2.0 - 3.0 Includes: PROPHYLAXIS for venous thrombosis, systemic embolization; TREATMENT for venous thrombosis and/or pulmonary embolus.HIGH RISK: Target INR is 2.5-3.5 for patients with mechanical heart valves.CBC W/PLT COUNT & AUTO [id number] 12:21:44 Test Item Value Reference Range Interpretation Comments WHITE BLOOD CELL COUNT (BEAKER) 3.5 K/ L 3.5-10.5 (test code = 775) RED BLOOD CELL COUNT (BEAKER) 3.92 M/ L 4.63-6.08 L (test code = 761) HEMOGLOBIN (BEAKER) (test code = 12.8 GM/DL 13.7-17.5 L 410) HEMATOCRIT (BEAKER) (test code = 38.0 % 40.1-51.0 L 411) MEAN CORPUSCULAR VOLUME (BEAKER) 97 fL 79-92 H (test code = 753) MEAN CORPUSCULAR HEMOGLOBIN 32.7 pg 25.7-32.2 H (BEAKER) (test code = 751) MEAN CORPUSCULAR HEMOGLOBIN CONC 33.7 GM/DL 32.3-36.5 (BEAKER) (test code = 752) RED CELL DISTRIBUTION WIDTH 16.6 % 11.6-14.4 H (BEAKER) (test code = 412) PLATELET COUNT (BEAKER) (test code 97 K/CU MM 150-450 L = 756) MEAN PLATELET VOLUME (BEAKER) 10.5 fL 9.4-12.4 (test code = 754) NUCLEATED RED BLOOD CELLS (BEAKER) 0 /100 WBC 0-0 (test code = 413) NEUTROPHILS RELATIVE PERCENT 66 % (BEAKER) (test code = 429) LYMPHOCYTES RELATIVE PERCENT 20 % (BEAKER) (test code = 430) MONOCYTES RELATIVE PERCENT 11 % (BEAKER) (test code = 431) EOSINOPHILS RELATIVE PERCENT 1 % (BEAKER) (test code = 432) BASOPHILS RELATIVE PERCENT 1 % (BEAKER) (test code = 437) NEUTROPHILS ABSOLUTE COUNT 2.29 K/ L 1.78-5.38 (BEAKER) (test code = 670) LYMPHOCYTES ABSOLUTE COUNT 0.70 K/ L 1.32-3.57 L (BEAKER) (test code = 414) MONOCYTES ABSOLUTE COUNT (BEAKER) 0.37 K/ L 0.30-0.82 (test code = 415) EOSINOPHILS ABSOLUTE COUNT 0.05 K/ L 0.04-0.54 (BEAKER) (test code = 416) BASOPHILS ABSOLUTE COUNT (BEAKER) 0.03 K/ L 0.01-0.08 (test code = 417) IMMATURE GRANULOCYTES-RELATIVE 0.60 % 0.00-1.00 PERCENT (BEAKER) (test code = 2801)
[2022-08-08 20:53] LABS: Absolute Lymphocytes (CBC) 0.7 K/uL (0.7-4.9); Hematocrit 37.4 % (39.6-49.0); Lymphocytes % 17.7 % (15.3-44.8); MCV 102.4 fL (80-100); RBC Red Blood Cell Count 3.65 M/uL (4.33-5.43)
[2022-08-08 20:58] LABS: Protime INR 1.85
[2022-08-08] MEDS ORDERED: NA CHLORIDE 0.9% 1,000 ML ONE (21:04)
[2022-08-08] MEDS ORDERED: MORPHINE 4 MG/ML SYR ONE (21:04)
[2022-08-08] MEDS ORDERED: ONDANSETRON 4 MG/2 ML VIAL ONE ×2 (21:04→22:57)
[2022-08-08] MEDS ORDERED: FAMOTIDINE 20 MG/2 ML VIAL IV ONE (21:05)
[2022-08-08 21:18] LABS: Albumin 2.8 g/dL (3.4-5.0); Bilirubin Direct 6.1 mg/dL (0-0.2); Bilirubin Indirect, Calculated 3.5 mg/dL (0.2-0.8); Bilirubin Total 9.6 mg/dL (0.2-1.0); Potassium 3.3 mEq/L (3.5-5.1); Troponin High Sensitivity 8.9 pg/mL (<58.9)
--- NOTE | 2022-08-08 21:20 | RAD REPORT ---
EXAM DESCRIPTION: [place] Single View08/08/2022 8:56 pm CLINICAL HISTORY: ABDOMINAL DISTENTION COMPARISON: No comparisons TECHNIQUE: Portable AP view of the chest. FINDINGS: Complete opacification of the right hemithorax, may reflect airspace opacification, large effusion, or a combination of both. No significant mediastinal shift. No pneumothorax. The left lung is clear, although somewhat under aerated. Sclerotic density along the proximal humeral shaft is nons pecific and could relate to a bone infarct versus enchondroma. The cardiomediastinal contours are unr emarkable. IMPRESSION: Complete opacification of the right hemithorax as above.
--- NOTE | 2022-08-08 22:06 | ER ---
Nurse's Notes [facility] Name: Ashok Yo Age: 67 yrs Sex: Male : 1955 Arrival Date: 08/08/2022 Time: 19:57 Bed 2 Private MD: Diagnosis: Other cirrhosis of liver;Pleural condition, unspecified-right lung, complete opacification;Abdominal pain, Generalized;Hypokalemia;Other ascites Presentation: 08/08 20:12 Chief complaint: Patient states: I have been having constipation. I have Cirrhosis of jb4 the liver and they put me on Constulose. It makes me nauseated. I have some nausea medicine at home. When I go to the restroom its just liquid coming out. Coronavirus screen: At this time, the client does not indicate any symptoms associated with coronavirus-19. Ebola Screen: No symptoms or risks identified at this time. Initial Sepsis Screen: Does the patient meet any 2 criteria? No. Patient's initial sepsis screen is negative. Does the patient have a suspected source of infection? No. Patient's initial sepsis screen is negative. Risk Assessment: Do you want to hurt yourself or someone else? Patient reports no desire to harm self or others. Onset of symptoms was August 07, 2022. Transition of care: patient was not received from another setting of care. 20:12 Method Of Arrival: Wheelchair jb4 20:12 Acuity: SEBLE 3 jb4 Historical: - Allergies: 20:15 Cherries; jb4 - Home Meds: 20:15 Constulose oral [Active]; jb4 - PMHx: 20:15 Cirrhosis of liver; jb4 - Immunization history:: Adult Immunizations up to date. - Social history:: Smoking status: Patient denies any tobacco usage or history of. - Family history:: not pertinent. Screenin:30 [facility] ED Fall Risk Assessment (Adult) History of falling in the last 3 months, jb4 including since admission No falls in past 3 months (0 pts) Confusion or Disorientation No (0 pts) Score/Fall Risk Level 0 - 2 = Low Risk Oriented to surroundings, Maintained a safe environment. Abuse screen: Denies threats or abuse. Nutritional screening: No deficits noted. Tuberculosis screening: No symptoms or risk factors identified. Assessment: 20:15 General: Appears in no apparent distress. uncomfortable, Behavior is calm, cooperative, jb4 appropriate for age. Pain: Complains of pain in abdomen Pain does not radiate. Pain currently is 5 out of 10 on a pain scale. Quality of pain is described as crampy. Neuro: Level of Consciousness is awake, alert, obeys commands, Oriented to person, place, time, situation. Cardiovascular: Patient's skin is warm and dry. Respiratory: Airway is patent Respiratory effort is even, unlabored, Respiratory pattern is regular, symmetrical. GI: Abdomen is round distended, Bowel sounds present X 4 quads. Abd is soft and non tender X 4 quads. Reports lower abdominal pain, upper abdominal pain, nausea, vomiting. : No signs and/or symptoms were reported regarding the genitourinary system. EENT: No signs and/or symptoms were reported regarding the EENT system. Derm: Skin is intact, Skin is dry, Skin is jaundiced, Skin temperature is warm. Musculoskeletal: Circulation, motion, and sensation intact. Range of motion: intact in all extremities. 21:30 Reassessment: Patient appears in no apparent distress at this time. Patient and/or jb4 family updated on plan of care and expected duration. Pain level reassessed. Patient is alert, oriented x 3, equal unlabored respirations, skin warm/dry/pink. 22:30 Reassessment: Patient appears in no apparent distress at this time. Patient and/or jb4 family updated on plan of care and expected duration. Pain level reassessed. Patient is alert, oriented x 3, equal unlabored respirations, skin warm/dry/pink. 23:30 Reassessment: Patient appears in no apparent distress at this time. Patient and/or jb4 family updated on plan of care and expected duration. Pain level reassessed. Patient is alert, oriented x 3, equal unlabored respirations, skin warm/dry/pink. 08/09 00:25 Reassessment: Patient appears in no apparent distress at this time. Patient and/or jb4 family updated on plan of care and expected duration. Pain level reassessed. Patient is alert, oriented x 3, equal unlabored respirations, skin warm/dry/pink. 01:04 Reassessment: Patient appears in no apparent distress at this time. Patient and/or jb4 family updated on plan of care and expected duration. Pain level reassessed. Patient is alert, oriented x 3, equal unlabored respirations, skin warm/dry/pink. 01:21 Reassessment: Patient appears in no apparent distress at this time. Patient and/or jb4 family updated on plan of care and expected duration. Pain level reassessed. Patient is alert, oriented x 3, equal unlabored respirations, skin warm/dry/pink. Provider aware of pt condition. Patient states feeling better. 01:21 Respiratory: Airway is patent Respiratory effort is even, unlabored, Respiratory jb4 pattern is regular, symmetrical, Breath sounds are clear in left upper lobe and left lower lobe Breath sounds are diminished in right upper lobe and right middle lobe Breath sounds are absent in right lower lobe. 02:30 Reassessment: Patient appears in no apparent distress at this time. Patient and/or jb4 family updated on plan of care and expected duration. Pain level reassessed. Patient is alert, oriented x 3, equal unlabored respirations, skin warm/dry/pink. 03:30 Reassessment: Patient appears in no apparent distress at this time. Patient and/or jb4 family updated on plan of care and expected duration. Pain level reassessed. Patient is alert, oriented x 3, equal unlabored respirations, skin warm/dry/pink. 05:06 Reassessment: Patient appears in no apparent distress at this time. Patient and/or jb4 family updated on plan of care and expected duration. Pain level reassessed. Patient is alert, oriented x 3, equal unlabored respirations, skin warm/dry/pink. Vital Signs: 08/08 20:12 BP 112 / 79; Pulse 90; Resp 16; Temp 98.6(O); Pulse Ox 99% on R/A; Weight 77.11 kg (R); jb4 Height 5 ft. 10 in. (R); Pain 5/10; 20:30 BP 132 / 81; Pulse 88; Resp 16; Pulse Ox 99% on R/A; jb4 22:00 BP 136 / 77; Pulse 89; Resp 23; Pulse Ox 98% ; vc1 23:00 BP 140 / 77; Pulse 83; Resp 16; Pulse Ox 96% ; vc1 08/09 00:15 BP 122 / 86; Pulse 88; Resp 16; Pulse Ox 97% on R/A; jb4 01:15 BP 131 / 87; Pulse 84; Resp 17; Pulse Ox 93% on R/A; jb4 02:15 BP 124 / 80; Pulse 83; Resp 13; Pulse Ox 97% on R/A; jb4 03:30 BP 129 / 83; Pulse 83; Resp 13; Pulse Ox 96% on R/A; jb4 04:45 BP 130 / 85; Pulse 84; Resp 16; Pulse Ox 97% on R/A; jb4 08/08 20:12 Body Mass Index 24.39 (77.11 kg, 177.8 cm) jb4 08/08 20:12 Pain Scale: Adult jb4 ED Course: 08/08 20:01 Patient arrived in ED. ja2 20:03 Silvano Daley MD is Attending Physician. [facility] 20:09 Radiology exam delayed due to lab results not completed at this time. (BUN/Creatinine) jg10 IV insertion attempt and/or patient not having appropriate IV at this time. 20:12 Jason Parham, RN is Primary Nurse. jb4 20:15 Triage completed. jb4 20:15 Arm band placed on right wrist. jb4 20:30 Initial lab(s) drawn, by me, sent to lab. Inserted saline lock: 20 gauge in right jb4 antecubital area, using aseptic technique. Blood collected. 20:55 Basic Metabolic Panel Sent. jb4 20:56 CBC with Diff Sent. jb4 20:56 LFT's Sent. jb4 20:56 Magnesium Sent. jb4 20:56 Troponin HS Sent. jb4 20:56 PT-INR Sent. jb4 20:56 NT PRO-BNP Sent. jb4 20:56 AMMONIA Sent. jb4 20:58 XRAY Chest (1 view) In Process Unspecified. EDMS 03 00:09 Chest Abdomen Pelvis W Cont In Process Unspecified. EDMS 01:20 Initiated transfer to [facility], spoke with Fred, declined due to capacity. wm 01:36 Initiated transfer to [facility] , spoke with Vivien. She stated wm only place for Hepatology would be [facility]. Dr. Daley stated that was fine. 02:36 [facility] called back to declined due to capacity. wm 02:40 Dr. Daley initiated transfer to [facility]. wm 02:43 [facility] denied to Pt needing liver transplant. wm 02:45 Dr. Daley initiated transfer to [facility]. wm 02:56 [facility] denied due to capacity. wm 02:56 Initiated transfer to [facility], spoke with Sanjay. wm 03:05 [facility] denied due to no hepatology. wm 03:06 Called [facility] back, spoke with Dianne, asked if they would accept ER to ER, she stated NO. wm 03:15 Type And Screen Sent. jb4 04:05 Pt accepted for transfer to [facility] by Dr. Durant \T\ [id number] per Kathy Blanton. wm 05:07 No provider procedures requiring assistance completed. Patient transferred, IV remains jb4 in place. Administered Medications: 08/08 22:43 Discontinued: NS 0.9% IV 500 ml IV at bolus once jb4 22:44 Discontinued: NS 0.9% IV 1000 ml IV at 100 ml/hr continuous shawna 21:05 Not Given (Other Intervention Used): NS 0.9% IV 1000 ml IV at 1 bolus Per protocol; jb4 1000 mL bolus 21:34 Drug: Famotidine IVP 20 mg Route: IVP; Site: right antecubital; jb4 22:00 Follow up: Response: No adverse reaction jb4 21:35 Drug: morphine IVP or IV 4 mg Route: IVP; Infused Over: 4 mins; Site: right antecubital;jb4 22:00 Follow up: Response: No adverse reaction; Marked relief of symptoms jb4 21:35 Drug: Ondansetron IVP 4 mg Route: IVP; Site: right antecubital; jb4 22:00 Follow up: Response: No adverse reaction; Marked relief of symptoms jb4 21:35 Drug: NS 0.9% IV 500 ml Route: IV; Rate: bolus; Site: right antecubital; jb4 22:57 Follow up: IV Status: Order to discontinue infusion; IV Intake: 250ml jb4 22:00 Drug: NS 0.9% IV 1000 ml Route: IV; Rate: 100 ml/hr; Site: right antecubital; jb4 22:56 Follow up: IV Status: Order to discontinue infusion; IV Intake: 60ml jb4 22:43 Drug: Phytonadione Sub-Q 10 mg Route: Sub-Q; Site: right upper abdomen; jb4 23:00 Follow up: Response: No adverse reaction jb4 22:53 Drug: Ondansetron IVP 4 mg Route: IVP; Site: right antecubital; jb4 08/09 04:48 Follow up: Response: No adverse reaction; Marked relief of symptoms jb4 08/08 22:56 Drug: NS 0.9% with KCl IV 20 mEq/L 1000 ml Route: IV; Rate: 100 ml/hr; Site: right jb4 antecubital; 08/09 04:49 Follow up: Response: No adverse reaction; IV Status: Order to discontinue infusion; IV jb4 Intake: 500ml 03:15 Drug: Rocephin IV 1 grams Route: IV; Rate: per protocol; Site: right antecubital; jb4 04:48 Follow up: Response: No adverse reaction jb4 05:03 Drug: Ondansetron IVP 4 mg Route: IVP; Site: right antecubital; jb4 Intake: 08/08 22:56 IV: 60ml; Total: 60ml. jb4 22:57 IV: 250ml; Total: 310ml. jb4 08/09 04:49 IV: 500ml; Total: 810ml. jb4 Outcome: 08/08 22:05 ER care complete, transfer ordered by MD. matos 08/09 05:07 Transferred by ground EMS to [facility], Transfer form jb4 completed. X-rays sent w/ patient. Condition: stable Discharge instructions given to patient, family, Instructed on the need for transfer, Demonstrated understanding of instructions. 05:10 Patient left the ED. jb4 Signatures: Dispatcher [employer] EDSilvano Kim MD MD cha Bryson, James RN RN jb4 Ariane Stoll Jessica jaRoxie Hidalgo RN RN vc1 Brenda Matute jg10 Corrections: (The following items were deleted from the chart) 01:08/08 20:15 GI: Abdomen is round distended, Reports lower abdominal pain, upper jb4 abdominal pain, nausea, vomiting, jb4 08/09 01:26 01:21 Reassessment: Patient appears in no apparent distress at this time. Patient jb4 and/or family updated on plan of care and expected duration. Pain level reassessed. Patient is alert, oriented x 3, equal unlabored respirations, skin warm/dry/pink. Patient states feeling better. jb4 01:26 01:21 Respiratory: Airway is patent Respiratory effort is even, unlabored, Respiratory jb4 pattern is regular, symmetrical, Breath sounds are clear in left upper lobe and left lower lobe Breath sounds are diminished in right upper lobe and right middle lobe Breath sounds are absent in right lower lobe jb4 01:41 01:31 Initiated transfer to [facility] , spoke with wm wm
--- NOTE | 2022-08-08 22:06 | EDPHYS ---
Physician Documentation [facility] Name: Ashok Yo Age: 67 yrs Sex: Male : 1955 Arrival Date: 08/08/2022 Time: 19:57 Bed 2 Private MD: ED Physician Silvano Daley HPI: 08/08 20:48 This 67 yrs old Male presents to ER via Wheelchair with complaints of shawna Abdominal Pain. 20:48 The patient presents with abdominal pain abdominal distention. Onset: The shawna symptoms/episode began/occurred 2 day(s) ago. The symptoms do not radiate. Associated signs and symptoms: none. The symptoms are described as constant, crampy. Modifying factors: The symptoms are alleviated by nothing, the symptoms are aggravated by movement. Severity of pain: At its worst the pain was moderate in the emergency department the pain is unchanged. The patient has experienced similar episodes in the past, multiple times. Historical: - Allergies: 20:15 Cherries; jb4 - Home Meds: 20:15 Constulose oral [Active]; jb4 - PMHx: 20:15 Cirrhosis of liver; jb4 - Immunization history:: Adult Immunizations up to date. - Social history:: Smoking status: Patient denies any tobacco usage or history of. - Family history:: not pertinent. ROS: 20:48 Constitutional: Negative for fever, chills, and weight loss, Eyes: Negative for injury, shawna pain, redness, and discharge, ENT: Negative for injury, pain, and discharge, Neck: Negative for injury, pain, and swelling, Cardiovascular: Negative for chest pain, palpitations, and edema, Respiratory: Negative for shortness of breath, cough, wheezing, and pleuritic chest pain, Back: Negative for injury and pain, : Negative for injury, bleeding, discharge, and swelling, MS/Extremity: Negative for injury and deformity, Skin: Negative for injury, rash, and discoloration, Neuro: Negative for headache, weakness, numbness, tingling, and seizure, Psych: Negative for depression, anxiety, suicide ideation, homicidal ideation, and hallucinations, Allergy/Immunology: Negative for hives, rash, and allergies, Endocrine: Negative for neck swelling, polydipsia, polyuria, polyphagia, and marked weight changes, Hematologic/Lymphatic: Negative for swollen nodes, abnormal bleeding, and unusual bruising. 20:48 Abdomen/GI: Positive for abdominal pain, constipation, abdominal cramps, abdominal distension. Exam: 20:48 Constitutional: This is a well developed, well nourished patient who is awake, alert, shawna and in no acute distress. Head/Face: Normocephalic, atraumatic. Eyes: Pupils equal round and reactive to light, extra-ocular motions intact. Lids and lashes normal. Conjunctiva and sclera are non-icteric and not injected. Cornea within normal limits. Periorbital areas with no swelling, redness, or edema. ENT: Nares patent. No nasal discharge, no septal abnormalities noted. Tympanic membranes are normal and external auditory canals are clear. Oropharynx with no redness, swelling, or masses, exudates, or evidence of obstruction, uvula midline. Mucous membranes moist. Neck: Trachea midline, no thyromegaly or masses palpated, and no cervical lymphadenopathy. Supple, full range of motion without nuchal rigidity, or vertebral point tenderness. No Meningismus. Chest/axilla: Normal chest wall appearance and motion. Nontender with no deformity. No lesions are appreciated. Cardiovascular: Regular rate and rhythm with a normal S1 and S2. No gallops, murmurs, or rubs. Normal PMI, no JVD. No pulse deficits. Respiratory: Lungs have equal breath sounds bilaterally, clear to auscultation and percussion. No rales, rhonchi or wheezes noted. No increased work of breathing, no retractions or nasal flaring. Back: No spinal tenderness. No costovertebral tenderness. Full range of motion. Male : Normal genitalia with no discharge or lesions. Skin: Warm, dry with normal turgor. Normal color with no rashes, no lesions, and no evidence of cellulitis. MS/ Extremity: Pulses equal, no cyanosis. Neurovascular intact. Full, normal range of motion. Neuro: Awake and alert, GCS 15, oriented to person, place, time, and situation. Cranial nerves II-XII grossly intact. Motor strength 5/5 in all extremities. Sensory grossly intact. Cerebellar exam normal. Normal gait. Psych: Awake, alert, with orientation to person, place and time. Behavior, mood, and affect are within normal limits. 20:48 Abdomen/GI: Inspection: distension, Bowel sounds: active, Palpation: mild abdominal tenderness, in all quadrants, Liver: no appreciated palpable abnormalities, Hernia: noted in the umbilical area. 20:48 ECG was reviewed by the Attending Physician. [facility] Vital Signs: 20:12 BP 112 / 79; Pulse 90; Resp 16; Temp 98.6(O); Pulse Ox 99% on R/A; Weight 77.11 kg (R); jb4 Height 5 ft. 10 in. (R); Pain 5/10; 20:30 BP 132 / 81; Pulse 88; Resp 16; Pulse Ox 99% on R/A; jb4 22:00 BP 136 / 77; Pulse 89; Resp 23; Pulse Ox 98% ; vc1 23:00 BP 140 / 77; Pulse 83; Resp 16; Pulse Ox 96% ; vc1 08/09 00:15 BP 122 / 86; Pulse 88; Resp 16; Pulse Ox 97% on R/A; jb4 01:15 BP 131 / 87; Pulse 84; Resp 17; Pulse Ox 93% on R/A; jb4 02:15 BP 124 / 80; Pulse 83; Resp 13; Pulse Ox 97% on R/A; jb4 03:30 BP 129 / 83; Pulse 83; Resp 13; Pulse Ox 96% on R/A; jb4 04:45 BP 130 / 85; Pulse 84; Resp 16; Pulse Ox 97% on R/A; jb4 08/08 20:12 Body Mass Index 24.39 (77.11 kg, 177.8 cm) [facility] 08/08 20:12 Pain Scale: Adult [facility] MDM: 08/08 20:03 Patient medically screened. [facility] 20:52 Differential diagnosis: bowel obstruction, Cholelithiasis, diverticulitis, gastritis, shawna gastroesophageal reflux disease, Hepatitis, Mesenteric ischemia or infarction, non-specific abd pain, pancreatitis, Peptic Ulcer Disease. Data reviewed: vital signs, nurses notes, lab test result(s), EKG, radiologic studies, CT scan, plain films. Consideration of Admission/Observation Escalation of care including admission/observation considered. I considered the following discharge prescriptions or medication management in the emergency department Medications were administered in the Emergency Department. See MAR. Test considered but Not performed: Ultrasound no abd usg. Historians other than the Patient: Spouse/Significant Other: , well informed. Care significantly affected by the following chronic conditions: Liver Disease. 08/08 20:06 Order name: Basic Metabolic Panel; Complete Time: 21:40 [facility] 08/08 20:06 Order name: CBC with Diff; Complete Time: 21:40 [facility] 08/08 20:06 Order name: LFT's; Complete Time: 21:40 [facility] 08/08 20:06 Order name: Magnesium; Complete Time: 21:40 [facility] 08/08 20:06 Order name: NT PRO-BNP; Complete Time: 21:40 [facility] 08/08 20:06 Order name: PT-INR; Complete Time: 21:40 [facility] 08/08 20:06 Order name: Troponin HS; Complete Time: 21:40 [facility] 08/08 20:06 Order name: Lipase; Complete Time: 21:40 [facility] 08/08 20:06 Order name: Urinalysis w/ reflexes; Complete Time: 02:37 [facility] 08/08 20:20 Order name: AMMONIA; Complete Time: 21:40 [facility] 08/09 02:52 Order name: Type And Screen [facility] 08/09 03:50 Order name: ABO/RH no charge [facility] 08/08 20:06 Order name: XRAY Chest (1 view); Complete Time: 21:40 [facility] 08/08 21:47 Order name: Chest Abdomen Pelvis W Cont [facility] 08/08 20:06 Order name: EKG; Complete Time: 20:07 [facility] 08/08 20:06 Order name: Cardiac monitoring; Complete Time: 20:30 [facility] 08/08 20:06 Order name: EKG - Nurse/Tech; Complete Time: 20:31 [facility] 08/08 20:06 Order name: IV Saline Lock; Complete Time: 20:55 [facility] 08/08 20:06 Order name: Labs collected and sent; Complete Time: 20:55 [facility] 08/08 20:06 Order name: O2 Per Protocol; Complete Time: 20:31 [facility] 08/08 20:06 Order name: O2 Sat Monitoring; Complete Time: 20:31 [facility] EC:48 Rate is 88 beats/min. Rhythm is regular. QRS Gulliver is Normal. HI interval is normal. QRS shawna interval is normal. QT interval is normal. No Q waves. T waves are Normal. No ST changes noted. Clinical impression: NSR w/ Non-specific ST/T Changes and No evidence of ischemia. Interpreted by me. Reviewed by me. Administered Medications: 22:43 Discontinued: NS 0.9% IV 500 ml IV at bolus once jb4 22:44 Discontinued: NS 0.9% IV 1000 ml IV at 100 ml/hr continuous shawna 21:05 Not Given (Other Intervention Used): NS 0.9% IV 1000 ml IV at 1 bolus Per protocol; jb4 1000 mL bolus 21:34 Drug: Famotidine IVP 20 mg Route: IVP; Site: right antecubital; jb4 22:00 Follow up: Response: No adverse reaction jb4 21:35 Drug: morphine IVP or IV 4 mg Route: IVP; Infused Over: 4 mins; Site: right antecubital;jb4 22:00 Follow up: Response: No adverse reaction; Marked relief of symptoms jb4 21:35 Drug: Ondansetron IVP 4 mg Route: IVP; Site: right antecubital; jb4 22:00 Follow up: Response: No adverse reaction; Marked relief of symptoms jb4 21:35 Drug: NS 0.9% IV 500 ml Route: IV; Rate: bolus; Site: right antecubital; jb4 22:57 Follow up: IV Status: Order to discontinue infusion; IV Intake: 250ml 4 22:00 Drug: NS 0.9% IV 1000 ml Route: IV; Rate: 100 ml/hr; Site: right antecubital; jb4 22:56 Follow up: IV Status: Order to discontinue infusion; IV Intake: 60ml jb4 22:43 Drug: Phytonadione Sub-Q 10 mg Route: Sub-Q; Site: right upper abdomen; jb4 23:00 Follow up: Response: No adverse reaction [facility] 22:53 Drug: Ondansetron IVP 4 mg Route: IVP; Site: right antecubital; 4 08/09 04:48 Follow up: Response: No adverse reaction; Marked relief of symptoms 4 08/08 22:56 Drug: NS 0.9% with KCl IV 20 mEq/L 1000 ml Route: IV; Rate: 100 ml/hr; Site: right jb4 antecubital; 08/09 04:49 Follow up: Response: No adverse reaction; IV Status: Order to discontinue infusion; IV jb4 Intake: 500ml 03:15 Drug: Rocephin IV 1 grams Route: IV; Rate: per protocol; Site: right antecubital; jb4 04:48 Follow up: Response: No adverse reaction jb4 05:03 Drug: Ondansetron IVP 4 mg Route: IVP; Site: right antecubital; jb4 Disposition Summary: 08/08/22 22:05 Transfer Ordered Reason: Higher level of care shawna Condition: Fair shawna Problem: new shawna Symptoms: are unchanged shawna Transfer Location: [facility](08/09/22 02:39) shawna Accepting Physician: TO [facility](08/09/22 05:10) jb4 Diagnosis - Other cirrhosis of liver shawna - Pleural condition, unspecified - right lung, complete opacification shawna - Abdominal pain, Generalized shawna - Hypokalemia shawna - Other ascites shawna Forms: - Medication Reconciliation Form shawna - SBAR form shawna Signatures: Dispatcher [employer] EDMS Silvano Daley MD MD cha Bryson, James RN RN jb4 Bettina Blanotn PA-C PA-C sb4 Corrections: (The following items were deleted from the chart) 08/08 20:27 20:07 Abdomen Pelvis W Con+CT.RAD.BRZ ordered. EDMS EDMS 21:47 20:22 Abdomen Pelvis W Con+CT.RAD.BRZ ordered. EDMS EDMS 21:54 21:44 Thorax W/ Con+CT.RAD.BRZ ordered. EDMS EDMS 23:18 22:05 to [facility] shawna 08/09 01:24 02 23:18 to [facility] 08/09 02:39 02 22:05 [facility] shawna 08/09 02:39 01:24 to [facility] shawna 02:39 02:39 TO [facility] shawna shawna 05:10 02:39 TO [facility] shawna jb4
[2022-08-08] MEDS ORDERED: VITAMIN K (ADULT) 10 MG/ML ONE ×2 (22:25→22:47)
[2022-08-08] MEDS ORDERED: NS KCL 20MEQ 1,000 ML IV ONE (22:57)
[2022-08-09 02:31] LABS: Specific Gravity 1.029 (1.005-1.030); Urine Bacteria None Seen /HPF (<20); Urine Bilirubin 1+ (Negative); Urine Blood Negative (Negative); Urine Clarity Clear (Clear); Urine Color Dark-Yellow (Yellow); Urine Glucose NEGATIVE (Negative); Urine Mucus Slight /HPF (None Seen); Urine Protein TRACE (Negative); Urine RBC <5 /HPF (None Seen); Urine Urobilinogen 3+ (Normal)
[2022-08-09] MEDS ORDERED: CEFTRIAXONE 1000 MG/VIAL ONE (03:08)
[2022-08-09] MEDS ORDERED: ONDANSETRON 4 MG/2 ML VIAL ONE (05:06)
[2022-08-09 05:17] VITALS: TEMP 98.6
[2022-08-09 05:27] VITALS: BP 130/85; O2SAT 97
--- NOTE | 2022-08-09 22:28 | RAD REPORT ---
EXAM DESCRIPTION: CT - Chest Abdomen Pelvis W Cont - 08/09/2022 6:45 am CLINICAL HISTORY: The patient is 67 years old and is Male; COUGH, ABD PAIN, CONSTIPATION TECHNIQUE: Axial computed tomography images of the chest, abdomen and pelvis with intravenous contra st. Sagittal and coronal reformatted images were created and reviewed. This CT exam was performed using one or more of the following dose reduction techniques: automated exposure control, adjustme nt of the mA and/or kV according to patient size, and/or use of iterative reconstruction technique. COMPARISON: No relevant prior studies available. FINDINGS: CHEST: LUNGS: The left lung is clear. Collapse of the right lung is noted. PLEURAL SPACE: A large right pleural effusion is present. No pneumothorax. HEART: No cardiomegaly. No pericardial effusion. MEDIASTINUM: Shift of the mediastinum is present. ABDOMEN: LIVER: The liver is nodular and shrunken in appearance. A low attenuating 2.8 cm lesion within th e right hepatic lobe is present. GALLBLADDER AND BILE DUCTS: No calcified stones. No ductal dilation. PANCREAS: The pancreas is atrophic with fatty infiltration. SPLEEN: Spleen is enlarged. ADRENALS: Unremarkable. No mass. KIDNEYS AND URETERS: Unremarkable. The kidneys enhance symmetrically. No obstructing renal or ure teral calculus is seen. No hydronephrosis or hydroureter. No perinephric fluid or stranding. STOMACH AND BOWEL: The stomach is not well distended. Minimal oral contrast is present within the stomach. Oral contrast is noted throughout majority the small bowel which is normal in caliber. A mo derate amount stool is present throughout colon. There is no mucosal thickening or evidence of obstru ction. PELVIS: APPENDIX: The appendix is normal in caliber without surrounding inflammation. BLADDER: The bladder is well distended. REPRODUCTIVE: Unremarkable as visualized. CHEST, ABDOMEN and PELVIS: INTRAPERITONEAL SPACE: Small amount of ascites is present throughout the abdomen and pelvis. No free air. BONES/JOINTS: Bilateral pars defects are present L5 without evidence of anterolisthesis. Mild deg enerative change of the spine is noted. SOFT TISSUES: Bilateral gynecomastia is noted. VASCULATURE: Unremarkable. No aortic aneurysm. LYMPH NODES: Unremarkable. No enlarged lymph nodes. IMPRESSION: 1. Large right pleural effusion with complete collapse of the right lung. Shift of the mediastinum is noted. 2. Cirrhotic liver with small volume ascites and splenomegaly. 3. Low attenuating lesion within the right hepatic lobe. Given the background of cirrhosis, finding s are considered malignant until proven otherwise. Further evaluation is warranted. Electronically signed by: Kathy Walls MD 08/09/2022 1:12 AM CDT Due to temporary technical issues with the PACS/Fluency reporting system, reports are being signed by the in house radiologists without review as a courtesy to insure prompt reporting. The interpreting radiologist is fully responsible for the content of the report.
--- NOTE | 2022-08-10 14:20 | EKG ---
Test Date: 2022-08-08 Test Time: 20:26:00 Screen Stretcher: OPAL MEASUREMENT RESULTS: Intervals: Rate: 88 MT: 142 QRSD: 138 QT: 422 QTc: 510 Haworth: P: 29 MT: 142 QRS: -18 T: 36 INTERPRETIVE STATEMENTS: Normal sinus rhythm Right bundle branch block Inferior infarct, age undetermined Abnormal ECG No previous ECG available for comparison Electronically Signed On 08-10-22 14:17:32 CDT by Ryan Mars
== END 2022-08-09 05:10 | disposition short-term general hospital (02) ==
LOC: ER 19:57
DX: K74.69 Other cirrhosis of liver (principal); R18.8 Other ascites; E87.6 Hypokalemia; J94.9 Pleural condition, unspecified; Z91.018 Allergy to other foods
CPT/HCPCS: 96361; 93005; 85025; 81001; 80048; 36415; 82140; 86900; 83735; 86850; 85610; 86901; 80076; 84484; 83690; 83880; 71260; 74177; 71045; 96375; 96372; 96374; 99285; Q9967; J3430; J2405 ×3; J7030; J0696; J3480

== ENCOUNTER → 2022-08-18 | Day surgery (SDC) | payer BC, OTHER ==
[~2022-08-18] MED LIST: FENTANYL CITR 100 MCG/2 ML ONE; LIDOCAINE 2% MPF 5 ML VIAL ONE; MIDAZOLAM HCL 2 MG/2 ML INJ ONE; ONDANSETRON 4 MG/2 ML VIAL ONE; Ringers Lactate 1,000 ML IV ONE; propofoL 200 MG/20 ML VIAL IV ONE
[2022-08-18] MEDS: CEFAZOLIN SODIUM 1 GM/VIAL ONE ×2 (09:39→09:56)
[2022-08-18 09:42] LABS: Protime INR 1.82
[2022-08-18] MEDS: LIDOCAINE HCL/EPINEPHRINE 20 ML MDV ONE ×2 (10:02→10:15)
--- NOTE | 2022-08-18 10:27 | P.BOP ---
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
[2022-08-18 11:38] VITALS: O2SAT 97
[2022-08-18 13:28] VITALS: BP 108/69
[2022-08-18 13:30] VITALS: TEMP 97
--- NOTE | 2022-08-18 20:53 | OP ---
Date of Procedure: 08/18/2022 Surgeon: Heri Celestin MD Intensive Care Nurse: ESHA Young. Preoperative Diagnosis: Scalp ulcerated squamous cell carcinoma. Postoperative Diagnosis: Scalp ulcerated squamous cell carcinoma. Procedure: Wide excision of scalp ulcerated squamous cell carcinoma with frozen section Estimated Blood Loss: Less than 10 cc. Specimen: Scalp lesion. Findings: We sent initially a lesion and frozen section and pathology came back that we need more ma rgins on the right side. We gave the extra margins and at the end the margins are free of tumor. Anesthesia: Sedation plus local. Indication: This is a case of a 67-year-old patient with multiple medical problems including liver m ass and pleural effusion and he also has squamous cell carcinoma in the scalp with ulceration. He wa s sent to us by Dermatology for excision. They understand with all the other issues that he has pres ent at this moment, this ulceration may lead to infection and he might not be in his best condition t o fight an infection of the scalp, so I was asked to remove this. The patient also has coagulopathy present so we are going to do this under anesthesia sedation and local and also with the Bovie cauter izer. We are going to try to see also if we can remove this in one event and that is what we asked f or frozen section. He marked the area for me in the holding room. The patient wants to have it done . Procedure In Detail: The patient was brought to the operating room and placed in supine position. S edation was induced without complication. Local anesthesia was applied followed by wedge incision of the area of concern with previous scars present. Specimen was sent to the pathologist for frozen se ction and came back that the lateral margins needed a little more tissue. We sent it back and it cam e back negative for cancer. All the margins are negative. At this moment, we proceeded to obtain he mostasis and put local anesthetic again and then closed the area with suture mattress 2-0 nylon inter rupted multiple times. The patient tolerated the procedure well. No bleeding. The patient is on hi s way to recovery in stable condition. HM/MODL Voice ID: [id number] Report ID: [id number]
--- NOTE | 2022-08-18 20:56 | DS ---
Diagnosis: Scalp ulcerated squamous cell carcinoma. Procedure: Wide excision with frozen section of the scalp squamous cell carcinoma. Condition: Stable. Disposition: Home. Activity: As tolerated. No heavy lifting. Discharge Instructions: Keep area dry for 48 hours then may shower and put triple antibiotics on the suture lines. Avoid direct sunlight. Medication will be called from the office. HERMILO/MARICRUZ Voice ID: [id number] Report ID: [id number]
== END | disposition home or self-care (01) ==
LOC: OR 08:44
PROVIDERS: ATTEND Surgery
PROC: 0JB00ZZ Excision of Scalp Subcutaneous Tissue and Fascia, Open Approach (ICD-10-PCS; principal; 2022-08-18 10:45)
DX: C44.42 Squamous cell carcinoma of skin of scalp and neck (principal)
CPT/HCPCS: 36415; 85610; 88331; 88332; 88305; 85730; 11623; J2704 ×2; J2001; J2250; J2405; J7120; J0690; J3010

== ENCOUNTER 2022-08-20 12:15 | Emergency (ER) | payer BC, OTHER ==
--- OUTSIDE RECORDS SUMMARY | 2022-08-20 12:21 | XMS REPORT | Continuity of Care Document ---
:1955 Author Organization [facility] t Address [address] [facility] [facility] [address] [place] [address] Care Team Providers Name Role Phone No, Pcp [facility] Primary Care Physician Unavailable FAMILIA BERNAL Attending Clinician Unavailable SKYE ROTH Attending Clinician Unavailable KATHLEEN BOYER Attending Clinician Unavailable RINA US Attending Clinician Unavailable BRENDA ALLAN Attending Clinician Unavailable Jesika Suresh Attending [...] Attending Clinician Armida Singh Attending Clinician Unavailable Spring Villeda MD Attending Clinician Lance FLETCHER, Adelfo Monzon Attending Clinician Kyle Carrion MD Attending Clinician Unavailable Dawood TADEOW, Aga Gaspar Attending Clinician Unavailable Gabby Guardado Attending Clinician Unavailable Tl Man MD Attending Clinician Shiraz Brewer MD Attending Clinician Sang Jett MD Attending Clinician Dinora OCAMPO, Mita Attending Clinician [phone] Virtual, Surgeon Attending Clinician Unavailable SHIRAZ BREWER Attending Clinician Unavailable SPRING VILLEDA Attending Clinician Unavailable Semaj KOWALSKI, Lavinia Attending Clinician Unavailable Tobias Cherry MA Attending Clinician Unavailable John ESCUDERO, Latricia Attending Clinician Unavailable Taras TADEOW, Poncho Attending Clinician Unavailable Joelle OCAMPO, Tereza Scott Attending Clinician [phone] Anneliese Wu RN Attending Clinician Unavailable Freida Sewell MD Attending Clinician Lizzie Lieberman Attending Clinician 3, [facility] Aydee Mr Attending Clinician Unavailable LIZZIE LIEBERMAN Attending Clinician Unavailable Michelle SERVICE PORTER, Jazmyn Gavin Attending Clinician [phone] Radha Anderosn Attending Clinician Unavailable Lauro PEOPLES, Nicol Attending Clinician Unavailable Tito Saunders MD Attending Clinician MALLORIE MONTEIRO Admitting Clinician Unavailable RINA US Admitting Clinician Unavailable BRENDA ALLAN Admitting Clinician Unavailable KYLE CARRION Admitting Clinician Unavailable TL MAN Admitting Clinician Unavailable SHIRAZ BREWER Admitting Clinician Unavailable Payers Payer Name Policy Type Policy Number Effective Date Expiration Date [facility] [place] [id number] [place] POS - BCBS MEDICARE PART A \\[id number] 2021 B - MEDICARE 00:00:00 CVCP-BCBS [id number] BCBS HMO [id number] 2021 BLUE/ESSENTIALS 00:00:00 MEDICARE A B [id number] 2021 00:00:00 Problems Condition Condition Condition Status Onset Resolution [...] lant lant 2 [facility] evaluation evaluation 00:00: Mn dical for for 00 Center chronic chronic liver liver disease disease Cirrhosis Cirrhosis Disease Recurre Last [facility] 2 Assessmen LuMusement 00:00: t & Plan: [address] g of this note is different from the original. Cirrhosis diagnosed by imaging (MRI/US with cirrhosis , ascites), secondary to likely OLMAN. There is evidence of decompens ation. This is complicat ed by portal hypertens ion manifeste d by ascites and varices. MELD-Na score is 19 based on labs drawn this morning. Encounter Encounter Disease Active [facility] pre[facility]p [facility]:00: t & Plan: [facility] [address] [place] [address] evaluation evaluation g of this for liver for liver note transplant transplant might be different from the original. He is an acceptabl e candidate from a surgical standpoin t, pending further workup of HCC, additiona l studies, and official MRB. He will also need 1cm cystic lesion on pancreas evaluated . Liver Liver Disease Active [facility] lesion lesion 04-09 [facility] 00:00: t & Plan: [address] g of this note might be [...] plant coordinat or. Ascites Ascites Disease Active [facility] St 04-09 [facility] 00:00: t & Plan: Medical [address] [place] [address] g of this note might be different from the original. He is taking spironola ctone and furosemid e. Managemen t per hepatolog y/GI. Lesion of Lesion of Disease Active Last [facility] pancreas pancreas 04-09 Assessmen David es 00:00: t & Plan: Medical [address] [place] [address] g of this note might be different [...] throat [facility] adverse 00:00: swelling Medical reaction [address] [place] [address] s CHACKO Allergy Active High Swelling [facility] 05-05 00:00: 00 NO KNOWN Allergy Active [facility] Social History Social Habit Start Date Stop Date Quantity Comments Source History of tobacco Snuff User [facility] use Medical Center History SDUT [facility] Transport Non-Med Medical Center History SDUT [facility] Housing Places Medical Ce nter Lived Alcohol intake 2022-06-17 2022-06-17 Ex-drinker [facility] 00:00:00 00:00:00 (finding) Medical Center Exposure to 2022-05-20 2022-05-[address] [facility] SARS-CoV-2 (event) 00:00:00 14:40:00 Medica l Center Tobacco use and 2022-05-30 2022-05-[address] [facility] exposure 00:00:00 00:00:00 tobacco user Medical Cent er History [facility] 2022-05-06 2022-05-[address] [facility] Transport Med 00:00:00 00:00:[address] History [facility] 2022-05-06 2022-05-[address] [facility] Housing Unable to 00:00:00 00:00:00 Medical Center Pay History [facility] 2022-05-06 2022-05-[address] [facility] Housing Homeless 00:00:00 00:00:00 Medical Center Last Year Sex Assigned At [address] [facility] Sad[facility] marinelli 00:00:00 00:00:00 Medical Center Smoking Status Start Date Stop Date Source Never smoked tobacco [facility] Medications Ordered Filled Start Stop Current Ordering Indication Dosage Frequency Signature Comments Components Source Medication Medication Date Date Medication? Clinician (SIG) Name Name propranolol Yes Take by [facility] HCl 4-11 mouth in [facility] (PROPRANOLO 11:15: the Medica l L ORAL) 10 morning. [place] pantoprazol Yes Take by [facility] e sodium 4-11 mouth. [facility] (PROTONIX 11:15: Medical ORAL) 10 Center furosemide Yes QD Take by [facility] (LASIX 4-11 mouth [facility] ORAL) 11:15: daily. Medical 10 Center SPIRONOLACT Yes Take by [facility] ONE ORAL 4-11 mouth in [facility] 11:15: the Medical 10 morning. [place] propranolol Yes Take by [facility] HCl 4-04 mouth in [facility] (PROPRANOLO 16:31: the Medica l L ORAL) 06 morning. [place] pantoprazol Yes Take by [facility] e sodium 4-04 mouth. [facility] (PROTONIX 16:31: Medical ORAL) 06 Center furosemide Yes QD Take by [facility] (LASIX 4-04 mouth [facility] ORAL) 16:31: daily. Medical 06 Center SPIRONOLACT Yes Take by [facility] ONE ORAL 4-04 mouth in [facility] 16:31: the Medical 06 morning. [place] ondansetron 2022- No Nausea 4mg Take 1 [...] hours as needed for Nausea. eszopiclone 2023- No Insomnia, 1mg Take [address] (Lunesta) 1 3-06 03-05 unspecified tablet (1 [facility] MG tablet 00:00: 23:59 type mg total) Me dical 00 :00 by mouth Center every night as needed Take immediatel y before bedtime.. Max Daily Amount: 1 mg eszopiclone 2023- No Insomnia, 1mg Take [address] [facility] (Lunesta) 1 05-12 unspecified tablet (1 [facility] MG tablet 00:00: 23:59 type mg total) Me dical 00 :00 by mouth Center every night as needed Take immediatel y before bedtime.. Max Daily Amount: 1 mg eszopiclone 2022- No Insomnia, 1mg Take [address] [facility] (Lunesta) 1 05-0806 unspecified tablet (1 [facility] MG tablet 00:00: 00:00 type mg total) Me dical 00 :00 by mouth Center every night as needed Take immediatel y before bedtime.. Max Daily Amount: 1 mg eszopiclone 2022- No Insomnia, 1mg Take [address] (Lunesta) 1 05-08 unspecified tablet (1 [facility] MG tablet 00:00: [...] 40mg QD Take [address] [facility] e -20 05-16 of liver tablet (40 Luke s (PROTONIX) [...] 50mg QD Take [address] one 04-2216 of liver tablet (50 Luke s (ALDACTONE) [...] Take [address] (ZOFRAN) 4 04-15 tablet (4 David es MG tablet 00:00: [...] 1mg Take [address] (Lunesta) 1 04-15- unspecified tablet (1 [facility] MG tablet 00:00: [...] QD Take [address] e - 02-14 by mouth [facility] (PROTONIX) 00:00: 00:00 [...] 00:00: 00:00 daily. Medic al 00 :00 [place] spironolact 2021-03- No 100mg QD Take 100 [...] blood 2022-06-17 10:25:00 68 mm[Hg] [facility] Heart rate 2022-06-17 10:25:00 71 /min [facility] Respiratory rate 2022-06-17 10:25:00 21 /min [facility] Oxygen saturation in 2022-06-17 10:25:00 94 /min [facility] Arterial blood by Medical Ce nter Pulse oximetry Body temperature 2022-06-17 10:08:00 37.06 Sujata [facility] Body height 2022-06-17 09:07:00 177.8 cm [facility] Body weight 2022-06-17 09:07:00 79.379 kg [facility] BMI 2022-06-17 09:07:00 25.11 kg/m2 [facility] Body height 2022-06-11 13:00:00 177.8 cm [facility] Body weight 2022-06-11 13:00:00 79.379 kg [facility] BMI 2022-06-11 13:00:00 25.11 kg/m2 [facility] Systolic blood 2022-06-09 13:00:00 126 mm[Hg] [facility] Diastolic blood 2022-06-09 13:00:00 75 mm[Hg] [facility] Heart rate 2022-06-09 13:00:00 65 /min [facility] Respiratory rate 2022-06-09 13:00:00 18 /min [facility] Oxygen saturation in 2022-06-09 13:00:00 97 /min [facility] Arterial blood by Medical Ce nter Pulse oximetry Body temperature 2022-06-05 13:31:00 36.67 Sujata [facility] Procedures Procedure Date / Time Performing Clinician Source Performed REPORT OF PROCEDURE - 2022-06-17 10:05:51 Brenda Allan [facility] ENDOSCOPY [facility] COLONOSCOPY, WITH BIOPSY 2022-06-17 09:46:00 Brenda Allan [facility] COLONOSCOPY 2022-06-17 09:30:00 Brenda Allan [facility] MR ABDOMEN WITH & WITHOUT 2022-06-11 13:48:00 [facility] US PARACENTESIS 2022-06-09 13:30:00 Skye Roth [facility] BODY FLUID CELL COUNT WITH 2022-06-09 12:37:00 Skye Roth [facility] DRUG SCREEN, URINE, 2022-05-30 13:40:00 Adelfo Lucas [facility] TRANSPLANT [facility] CT ABDOMEN WITH & WITHOUT 2022-05-30 13:25:00 [facility] MISCELLANEOUS LAB ORDER 2022-05-28 14:44:00 Spring Villeda [facility] CBC W/PLT COUNT & AUTO 2022-05-28 14:44:00 Spring Villeda [facility] COMPREHENSIVE METABOLIC 2022-05-28 14:44:00 Spring Villeda [facility] PROTHROMBIN TIME/INR 2022-05-28 14:44:00 Srping Villeda [facility] CBC W/PLT COUNT & AUTO 2022-05-28 14:44:00 Spring Villeda [facility] ECG 12-LEAD 2022-05-26 13:58:46 Kyle Carrion [facility] ECG 12-LEAD 2022-05-26 13:58:46 Unknown, Hl7 Doctor [facility] CBC (HEMOGRAM ONLY) 2022-05-26 13:27:00 Nazario, [facility] BASIC METABOLIC PANEL 2022-05-26 13:27:00 Nazario [facility] PROTHROMBIN TIME/INR 2022-05-26 13:27:00 Nazario [facility] CARDIAC CATH REPORT - SCAN 2022-05-26 00:00:00 Bel Ribera [facility] NM BONE SCAN WHOLE BODY 2022-05-12 12:49:00 Spring Villeda [facility] T SPOT TB 2022-05-12 10:04:00 Spring Villeda [facility] BASIC METABOLIC PANEL 2022-05-07 04:11[facility] CALCIUM, IONIZED 2022-05-07 04:11:00 [facility] PHOSPHORUS 2022-05-07 04:11:00 [facility] CBC W/PLT COUNT & AUTO 2022-05-07 04:11:00 [facility] MAGNESIUM 2022-05-07 04:11:00 [facility] CBC W/PLT COUNT & AUTO 2022-05-07 04:11:00 [facility] HEMOGLOBIN AND HEMATOCRIT 2022-05-06 17:58:00 [facility] HEMOGLOBIN AND HEMATOCRIT 2022-05-06 13:52:00 [facility] HEMOGLOBIN AND HEMATOCRIT 2022-05-06 08:23:00 [facility] CBC (HEMOGRAM ONLY) 2022-05-06 04:34:00 Calixto [facility] COMPREHENSIVE METABOLIC 2022-05-06 04:34:00 Calixto [facility] BASIC METABOLIC PANEL 2022-05-05 17:41:00 Nazario [facility] PROTHROMBIN TIME/INR 2022-05-05 17:41:00 Kyle Carrion [facility] CBC W/PLT COUNT & AUTO 2022-05-05 17:41:00 Davis [facility] CBC W/PLT COUNT & AUTO 2022-05-05 17:41:00 Davis [facility] CT RFA TUMOR ABLATION 2022-05-05 17:33:00 Skye Roth [facility] US GUIDANCE INTRAOPERATIVE 2022-05-05 16:23:00 Skye Roth [facility] PROCEDURE, IN NON-OPERATING 2022-05-05 10:00:00 Virtual, Surgeon [facility] ROOM [facility] BASIC METABOLIC PANEL 2022-05-05 09:12:00 Víctor Jerome [facility] HEPATIC FUNCTION PANEL 2022-05-05 09:12:00 Víctor Jerome [facility] TYPE AND SCREEN, AUTOMATED 2022-05-05 09:12:00 Víctor Jerome [facility] CBC W/PLT COUNT & AUTO 2022-05-05 09:11:00 Víctor Jerome [facility] PROTHROMBIN TIME/INR 2022-05-05 09:11:00 Víctor Jerome [facility] CBC W/PLT COUNT & AUTO 2022-05-05 09:11:00 Víctor Jerome [facility] NM MYOCARDIAL PERFUSION 2022-04-22 15:17:00 Spring Villeda [facility] SPECT, [facility] TREADMILL 2022-04-22 14:12:06 Unknown, Hl7 [facility] TOLERANCE(NON-NUCLEAR Medical Ce nter TREADMILL) ECG 12-LEAD 2022-04-22 13:55:36 Unknown, Hl7 [facility] ECG 12-LEAD 2022-04-22 13:55:36 Unknown, Hl7 [facility] ECG 12-LEAD 2022-04-22 13:55:06 Unknown, Hl7 [facility] ECG 12-LEAD 2022-04-22 13:55:06 Unknown, Hl7 Doctor [facility] MISCELLANEOUS LAB ORDER 2022-04-22 11:32:00 Spring Villeda [facility] COMPREHENSIVE METABOLIC 2022-04-22 11:32:00 Spring Villeda [facility] CBC W/PLT COUNT & AUTO 2022-04-22 11:32:00 Spring Villeda [facility] PROTHROMBIN TIME/INR 2022-04-22 11:32:00 Spring Villeda [facility] ALPHA FETOPROTEIN (AFP), 2022-04-22 11:32:00 Spring Villeda [facility] TUMOR MARKER [facility] CBC W/PLT COUNT & AUTO 2022-04-22 11:32:00 Spring Villeda [facility] T SPOT TB 2022-04-22 11:31:00 Spring Villeda [facility] DRUG SCREEN, URINE, 2022-04-22 11:28:00 Spring Villeda [facility] TRANSPLANT [facility] CT CHEST WITHOUT IV 2022-04-15 13:05:00 [facility] CONTRAST [facility] ECHO W CONTRAST & DOPPLER 2022-04-10 13:24:[address] [facility] ECG 12-LEAD 2022-04-10 11:02:16 Spring Villeda [facility] CAROTID DOPPLER BILATERAL 2022-04-10 11:01:00 Spring Villeda [facility] BLOOD GAS, ARTERIAL 2022-04-10 10:22:00 Spring Villeda [facility] XR MANDIBLE 4 VIEWS MIN 2022-04-09 12:33:00 Spring Villeda [facility] XR CHEST 2 VIEWS 2022-04-09 12:30:00 Spring Villeda [facility] XR DXA BONE DENSITY STUDY 2022-04-09 12:27:[address] [facility] STRONGYLOIDES ANTIBODY, IGG 2022-04-09 08:55:00 Spring Villeda [facility] TYPE AND SCREEN, AUTOMATED 2022-04-09 07:36:00 Spring Villeda [facility] DRUG SCREEN, URINE, 2022-04-09 07:30:00 Spring Villeda [facility] TRANSPLANT [facility] URINALYSIS W/ MICROSCOPIC 2022-04-09 07:30:00 Spring Villeda [facility] MISCELLANEOUS LAB ORDER 2022-04-09 07:26:00 Spring Villeda [facility] FIBRINOGEN 2022-04-09 07:26:00 Spring Villeda [facility] COMPREHENSIVE METABOLIC 2022-04-09 07:26:00 Spring Villeda [facility] BILIRUBIN, DIRECT 2022-04-09 07:26:00 Spring Villeda [facility] GAMMA GLUTAMYL TRANSFERASE 2022-04-09 07:26:00 Spring Villeda [facility] (GGT) [facility] MAGNESIUM 2022-04-09 07:26:00 Spring Villeda [facility] PHOSPHORUS 2022-04-09 07:26:00 Spring Villeda [facility] PROTHROMBIN TIME/INR 2022-04-09 07:26:00 Spring Villeda [facility] APTT 2022-04-09 07:26:00 Spring Villeda [facility] CBC W/PLT COUNT & AUTO 2022-04-09 07:26:[address] [facility] TRANSFERRIN 2022-04-09 07:26:00 Spring Villeda [facility] VITAMIN D, 25-HYDROXY 2022-04-09 07:26:00 Spring Villeda [facility] LIPID PANEL 2022-04-09 07:26:00 Spring Villdea [facility] HEMOGLOBIN A1C 2022-04-09 07:26:00 Spring Villeda [facility] ETHANOL 2022-04-09 07:26:00 Jaava, Spring Smith [facility] ZINC 2022-04-09 07:26:00 Christiana, Sprnig Smith [facility] URIC ACID 2022-04-09 07:26:00 Jaava, Spring Smith [facility] TSH 2022-04-09 07:26:00 Jaava, Spring Smith [facility] T3 2022-04-09 07:26:00 Jalarashaun, Spring Smith [facility] T4 2022-04-09 07:26:00 Spring Villeda [facility] HEPATITIS B CORE ANTIBODY, 2022-04-09 07:26:00 Spring Villeda [facility] IGM [facility] HC LAB HIV-1 AG W/HIV-1&2 2022-04-09 07:26:00 Spring Villeda [facility] AB [facility] CYTOMEGALOVIRUS ANTIBODY, 2022-04-09 07:26:00 [facility] EBV ANTIBODY, IGM 2022-04-09 07:26:00 Spring Villeda [facility] RUBEOLA ANTIBODY IGG 2022-04-09 07:26:00 Spring Villeda [facility] MUMPS ANTIBODY, IGG 2022-04-09 07:26:00 Spring Villeda [facility] RUBELLA ANTIBODY, IGG 2022-04-09 07:26:00 Spring Villeda [facility] VARICELLA ZOSTER ANTIBODY, 2022-04-09 07:26:00 Spring Villeda [facility] CRYPTOCOCCAL ANTIGEN 2022-04-09 07:26:00 Spring Villeda [facility] RPR 2022-04-09 07:26:00 Spring Villeda [facility] ALPHA-1 ANTITRYPSIN 2022-04-09 07:26:00 Spring Villeda [facility] MUTATION ANALYSIS Medical Center PSA 2022-04-09 07:26:00 Spring Villeda [facility] TESTOSTERONE, FREE + TOTAL 2022-04-09 07:26:00 Spring Villeda [facility] TOXOPLASMA GONDII ANTIBODY, 2022-04-09 07:26:00 Spring Villeda [facility] IGG [facility] COCCIDIOIDES ANTIBODIES 2022-04-09 07:26:00 Spring Villeda [facility] HEREDITARY HEMOCHROMATOSIS 2022-04-09 07:26:00 Spring Villeda [facility] BLOOD TYPING, AUTOMATED 2022-04-09 07:26:00 Spring Villeda [facility] CBC W/PLT COUNT & AUTO 2022-04-09 07:26:00 Spring Villeda [facility] DIFFERENTIAL [facility] CALCIUM, IONIZED 2022-04-09 07:25:00 Spring Villeda [facility] MR ABDOMEN WITH & WITHOUT 2022-04-02 11:00:00 Lizzie Lieberman [facility] IV CONTRAST [facility] PROTHROMBIN TIME/INR 2022-02-20 11:31:00 Luisana [facility] HEPATITIS A ANTIBODY, IGG 2022-02-20 11:31:00 Lizzie Lieberman [facility] HEPATITIS B SURFACE 2022-02-20 11:31:00 Luisana [facility] ANTIBODY [facility] HEPATITIS B CORE ANTIBODY, 2022-02-20 11:31:00 Lizzie Lieberman [facility] TOTAL [facility] FERRITIN 2022-02-20 11:31:00 Luisana [facility] [id number]\\, SERUM 2022-02-20 11:31:00 Luisana [facility] CERULOPLASMIN 2022-02-20 11:31:00 Luisana [facility] ACTIN (SMOOTH MUSCLE) 2022-02-20 11:31:00 Luisana [facility] ANTIBODY, IGG [facility] MITOCHONDRIA M2 ANTIBODY 2022-02-20 11:31:00 Luisana [facility] (IGG) [facility] ALPHA FETOPROTEIN (AFP), 2022-02-20 11:31:00 [facility] CARCINOEMBRYONIC ANTIGEN 2022-02-20 11:31:00 Luisana [facility] (CEA) [facility] CARBOHYDRATE ANTIGEN 19-9 2022-02-20 11:31:00 Lizzie Lieberman [facility] (CA 19-9) [facility] COMPREHENSIVE METABOLIC 2022-02-20 11:30:00 Luisana [facility] PANEL [facility] BILIRUBIN, DIRECT 2022-02-20 11:30:00 [facility] & AUTO 2022-02-20 11:30:00 Jesus [facility] HEPATITIS B SURFACE ANTIGEN 2022-02-20 11:30:00 [facility]TIBODY 2022-02-20 11:30:00 Jesus [facility] IRON, TIBC, % SAT. (WITHOUT 2022-02-20 11:30:00 [facility] FERRITIN) [facility] ANTI-NUCLEAR ANTIBODY (LISA) 2022-02-20 11:30:00 [facility] PHOSPHATIDYLETHANOL, BLOOD 2022-02-20 11:30:00 [facility] LISA TITER AND PATTERN 2022-02-20 11:30:00 [facility] CBC W/PLT COUNT & AUTO 2022-02-20 11:30:00 [facility] Plan of Care Planned Activity Planned Date Details Comments Source Future Scheduled 2032-06-17 Screening for malignant [facility] Test 00:00:00 neoplasm of colon Medical Ce nter (procedure) [code = 273058157] Future Scheduled 2032-06-17 Screening for malignant [facility] Test 00:00:00 neoplasm of colon Medical Ce nter (procedure) [code = 717776653] Future Scheduled 2027-04-09 Lipid panel (procedure) [facility] Test 00:00:00 [code = 09016384] Medical Ce nter Future Scheduled 2027-04-09 Lipid panel (procedure) [facility] Test 00:00:00 [code = 91258851] Medical Ce nter Future Scheduled 2023-06-10 Tobacco [...] [facility]00 2) [code = [facility] VACCINES (1 of 2)] Future Scheduled [...] [facility] Test 00:00:00 [code = CT Colonography [facility] (combo)] Future Scheduled 1955 Screening for malignant [facility] Test 00:00:00 neoplasm of colon Medical Ce nter (procedure) [code = 036375276] Future Scheduled 1955 Screening for malignant [facility] Test 00:00:00 neoplasm of colon Medical Ce nter (procedure) [code = 374413792] Future Scheduled 1955 Screening for malignant [facility] Test 00:00:00 neoplasm of colon Medical Ce nter (procedure) [code = 178238109] Future Scheduled 1955 Screening for malignant [facility] Test 00:00:00 neoplasm of colon Medical Ce nter (procedure) [code = 005805060] Future Scheduled 1955 Sigmoidoscopy [code = [facility]:00 Sigm[facility]oscopy] Medical Cente r Future Scheduled 1956 CT Colonography (combo) [facility] Test 00:00:00 [code = CT Colonography [facility] (combo)] Future Scheduled 1955 Screening for malignant [facility] Test 00:00:00 neoplasm of colon Medical Ce [facility]ter (procedure) [code = 120465991] Future Scheduled 1955 Screening for malignant [facility] 00:00:00 neoplasm of colon Medical Ce nter (procedure) [code = 024813992] Future Scheduled 1955 Sigmoid[facility]code [facility]] Medical Cente r Encounters Start End Encounter Admission Attending Care Care Encounter Source Date/Time Date/Time Type Type Clinicians Facility Department ID 2022-08-26 2022-08-26 Outpatient [facility] [id number] [facility] 00:00:00 00:00:00 [facility] 2022-07-24 2022-07-24 Inpatient ER [facility] Emergency [id number] [facility] 11:53:00 11:53:00 RINA 2022-06-17 2022-06-17 Anesthesia Jesika Suresh [facility] [id number] [facility] 09:46:00 10:06:[address] [facility] 2022-06-17 2022-06-17 Surgery Mahi [facility] [id number] 09:30:00 10:00:00 [facility] 2022-06-17 2022-06-17 Outpatient [facility] [id number] [facility] 08:18:46 08:18:46 [facility] 2022-06-13 2022-06-13 Documentat Richard [facility] [id number] 00:00:00 00:00:00 ion Antoine Solano [facility] 2022-06-11 2022-06-11 [facility] Delmi [facility] [id number] 12:32:06 23:59:00 Encounter Skye Figueroa [facility] 2022-06-10 2022-06-10 Documentat John [facility] [id number] 00:00:00 00:00:00 ion [facility] 2022-06-10 2022-06-10 [facility] clinic hospitaljorgito [facility] [id number] 00:00:00 00:00:00 Orders [facility] 2022-06-09 2022-06-09 [facility], [facility] [id number] 11:38:00 17:00:00 Encounter [facility] 2022-06-06 2022-06-06 Orders Ramos [facility] [id number] 00:00:00 00:00:00 Only [facility] 2022-06-06 2022-06-06 Silvestre Blanton [facility] [id number] 00:00:00 00:00:00 [facility] 2022-06-06 2022-06-06 Silvestre Blanton [facility] [id number] 00:00:00 00:00:00 [facility] 2022-06-05 2022-06-05 Office Prem [facility] [id number] 13:30:00 14:00:00 Visit [facility] 2022-06-05 2022-06-05 Telephone Sofia [facility] [id number] 00:00:00 00:00:00 [facility] 2022-06-05 2022-06-05 Telephone Prem [facility] [id number] 00:00:00 00:00:00 [facility] 2022-06-05 2022-06-05 Telephone Lalo Johnson [facility] [id number] 00:00:00 00:00:00 [facility] 2022-06-04 2022-06-04 Silvestre Singh [facility] [id number] 00:00:00 00:00:00 victor m [facility] 2022-06-04 2022-06-04 Documentrachelle Ramos, [facility] [id number] 00:00:00 00:00:00 [facility] 2022-06-04 2022-06-04 Documentrachelle Richardsgama [facility] [id number] 00:00:00 00:00:00 [facility] 2022-06-04 2022-06-04 Document Ramos [facility] [id number] 00:00:00 00:00:00 [facility] 2022-06-02 2022-06-02 [facility] [id number] 00:00:00 00:00:00 [facility] 2022-06-02 2022-06-02 Document Francisco [facility] [id number] 00:00:00 00:00:00 [facility] 2022-06-02 2022-06-02 Documentrachelle Ramos [facility] [id number] 00:00:00 00:00:00 [facility] 2022-05-30 2022-05-30 [facility] Christiana [facility] [id number] 11:57:19 23:59:00 Encounter [facility] 2022-05-30 2022-05-30 Orders Lance [facility] [id number] 13:40:00 13:50:00 Only Adelfo [facility] 2022-05-30 2022-05-30 Travel [facility] [id number] [facility] 00:00:00 00:00:00 [facility] 2022-05-30 2022-05-30 Telephone Nazario [facility] [id number] 00:00:00 00:00:00 [facility] 2022-05-30 2022-05-30 Orders Lucas [facility] [id number] 00:00:00 00:00:00 Only Adelf[facility] 2022-05-29 2022-05-29 Orders Richard [facility] [id number] 00:00:00 00:00:00 Only [facility] 2022-05-29 2022-05-29 Documentat Francisco [facility] [id number] 00:00:00 00:00:00 ion [facility] 2022-05-28 2022-05-28 Office GARLAND Villeda [facility] [id number] 13:00:00 13:30:00 Visit [facility] 2022-05-28 2022-05-28 [facility] [id number] 00:00:00 00:00:00 Only [facility] 2022-05-27 2022-05-27 [facility] [id number] 00:00:00 00:00:00 Only [facility] 2022-05-26 2022-05-26 Hospital GARLAND Carrion [facility] [id number] 11:48:00 22:15:00 Encounter [facility] 2022-05-26 2022-05-26 [facility] Nazario [facility] [id number] 19:12:00 21:06:00 [facility] 2022-05-26 2022-05-26 Orders [facility] [id number] 00:00:00 00:00:00 Only [facility] 2022-05-19 2022-05-19 [facility] [id number] 00:00:00 00:00:00 Only [facility] 2022-05-15 2022-05-15 Telephone Dawood [facility] [id number] 00:00:00 00:00:00 Aga Gaspar [facility] 2022-05-14 2022-05-14 Documentat Francisco [facility] [id number] 00:00:00 00:00:00 victor m Huffman [facility] 2022-05-12 2022-05-12 [facility] [id number] 13:00:00 23:59:00 Encounter [facility] 2022-05-12 2022-05-12 [facility] [id number] 09:23:44 12:59:00 Encounter [facility] 2022-05-12 2022-05-12 Telephone Nazario [facility] [id number] 00:00:00 00:00:00 [facility] 2022-05-12 2022-05-12 [facility] [id number] 00:00:00 00:00:00 Only [facility] 2022-05-12 2022-05-12 [facility] [id number] 00:00:00 00:00:00 Only [facility] 2022-05-09 2022-05-09 Documentat Debby [facility] [id number] 00:00:00 00:00:00 victor m Holland [facility] 2022-05-08 2022-05-08 Refill Christiana [facility] [id number] 00:00:00 00:00:00 [facility] 2022-05-08 2022-05-08 [facility] [id number] 00:00:00 00:00:00 Only [facility] 2022-05-05 2022-05-07 Hospital EL Kyle Carrion [facility] [id number] 08:00:00 12:39:[address] [facility] 2022-05-05 2022-05-05 Anesthesia Sang Jett [facility] [id number] 15:03:00 17:17:00 Event [facility] 2022-05-05 2022-05-05 Surgery [facility], [facility] [id number] 10:00:00 12:00:00 Surgeon [facility] 2022-05-05 2022-05-05 Inpatient DANIELLA [facility] Surgery [id number] [facility] 08:00:00 08:00:00 , [facility] 2022-05-05 2022-05-05 Travel [facility] [id number] [facility] 00:[facility]:00 00:00:00 [facility] 2022-05-01 2022-05-[address] [facility] [id number] [facility] 00:00:00 00:00:00 [facility] 2022-04-30 2022-04-30 Telephone Nazario [facility] [id number] 00:00:00 00:00:00 [facility] 2022-04-25 2022-04-25 Abstract Semaj, [facility] [id number] 00:00:00 00:00:00 [facility] 2022-04-23 2022-04-23 Abstract Dilip, [facility] [id number] 00:00:00 00:00:00 [facility]22-04-22 2022-04-22 Hospital Christiana [facility] [id number] 11:30:00 23:59:00 Encounter [facility] 2022-04-22 2022-04-22 Orders GARLAND Roth [facility] [id number] 12:30:00 12:45:00 Only Skye Figueroa [facility] 2022-04-22 2022-04-22 Orders Prem [facility] [id number] 00:00:00 00:00:00 Only Erica [facility] 2022-04-22 2022-04-22 [facility] [id number] 00:00:00 00:00:00 ion Armida [facility] 2022-04-21 2022-04-21 [facility] [id number] 00:00:00 00:00:00 ion [facility] 2022-04-21 2022-04-21 Travel [facility] [id number] [facility] 00:00:00 00:00:00 [facility] 2022-04-17 2022-04-17 Telephone Nazario [facility] [id number] 00:00:00 00:00:00 [facility] 2022-04-17 2022-04-17 [facility] [id number] [facility] 00:00:00 00:00:00 Only [facility] 2022-04-16 2022-04-16 [facility] [id number] 00:00:00 00:00:00 Only [facility] 2022-04-15 2022-04-15 [facility] [id number] 12:33:08 23:59:00 Encounter [facility] 2022-04-15 2022-04-15 [facility] [id number] 08:00:00 12:32:00 Encounter [facility] 2022-04-15 2022-04-15 [facility] [id number] 11:00:00 12:00:00 Visit [facility] 2022-04-15 2022-04-15 Office Nazario [facility] [id number] 09:00:00 09:15:00 [facility] 2022-04-15 2022-04-15 Documentat Singh, [facility] [id number] 00:00:00 00:00:00 [facility] 2022-04-15 2022-04-15 Mp Ramos [facility] [id number] 00:00:00 00:00:00 [facility]-04-15 2022-04-15 Documentat Singh, [facility] [id number] [facility] 00:00:00 00:00:00 [facility] 2022-04-14 2022-04-14 Documentat Singh, [facility] [id number] 00:00:00 00:00:00 [facility] 2022-04-14 2022-04-14 Documentrachelle Guardado [facility] [id number] 00:00:00 00:00:00 [facility] 2022-04-14 2022-04-14 Documentrachelle Guardado [facility] [id number] 00:00:00 00:00:00 [facility] 2022-04-11 2022-04-11 Documentat Singh, [facility] [id number] 00:00:00 00:00:00 [facility] 2022-04-11 2022-04-11 Documentat Singh, [facility] [id number] 00:00:00 00:00:00 [facility] 2022-04-11 2022-04-11 Documentat Singh, [facility] [id number] 00:00:00 00:00:00 [facility] 2022-04-11 2022-04-11 Documentat Singh, [facility] [id number] 00:00:00 00:00:00 ion [facility] 2022-04-10 2022-04-10 [facility] [id number] 10:30:15 23:59:00 Encounter [facility] 2022-04-10 2022-04-10 [facility] [id number] 12:00:00 12:00:00 Encounter [facility] 2022-04-10 2022-04-10 [facility] [id number] 10:00:00 10:29:00 Encounter [facility] 2022-04-10 2022-04-10 [facility] [id number] 09:45:00 09:59:00 Encounter [facility] 2022-04-10 2022-04-10 [facility] [id number] 09:15:00 09:45:00 Visit [facility] 2022-04-09 2022-04-09 [facility] [id number] 12:10:06 23:59:00 Encounter [facility] 2022-04-09 2022-04-09 [facility] [id number] 12:00:00 12:09:00 Encounter [facility] 2022-04-09 2022-04-09 [facility] [id number] 11:30:00 11:59:00 Encounter [facility] 2022-04-09 2022-04-09 [facility] [place] [facility] [id number] 10:00:00 10:30:00 Latricia Lopez [facility] 2022-04-09 2022-04-09 [facility] [facility] [id number] 09:00:00 09:30:00 Work Poncho Grajeda [facility] 2022-04-09 2022-04-09 Evaluation [place] [facility] [id number] 08:00:00 08:30:[address] [facility] 2022-04-09 2022-04-09 Orders Christiana [facility] [id number] 07:40:00 07:50:00 Only [facility] 2022-04-09 2022-04-09 Orders GARLAND Mengava [facility] [id number] 07:30:00 07:40:00 Only [facility] 2022-04-09 2022-04-09 Documentat Francisco [facility] [id number] 00:00[facility]00 00:00:00 [facility] 2022-04-09 Documentat Harvinder [facility] [id number] 00:00[facility]00 00[facility]00[facility]00 [facility] 2022-04-07 Documentat John [facility] [id number] 00:00:00 00:00:00 ion [place] [facility] 2022-04-07 2022-04-07 Documentat Bryce [facility] [id number] 00:00:00 00:00:00 ion Anneliese Naif [facility] 2022-04-07 2022-04-07 Telephone Donato [facility] [id number] 00:00:00 00:00:00 Freida [facility] 2022-04-02 2022-04-02 [facility] Lizzie Lieberman [facility] [id number] [facility] 09:49:08 23:59:00 Encounter Estefani, [facility] Aydee Chopra [facility] 2022-04-02 2022-04-[address] [facility] [id number] [facility] 00:00:00 00:00:00 [facility] 2022-03-31 2022-03-31 Orders Bryce [facility] [id number] 00:00:00 00:00:00 Only [facility] 2022-03-31 2022-03-31 Orders Bryce [facility] [id number] 00:00:00 00:00:00 Only [facility] 2022-03-31 2022-03-31 Documentat Donato [facility] [id number] 00:00:00 00:00:00 [facility] 2022-03-26 2022-03-26 [facility] [id number] 00:00:00 00:00:00 [facility] 2022-03-26 2022-03-26 [facility] [id number] 00:00:00 00:00:00 [facility] 2022-03-26 2022-03-26 Documentat Donato [facility] [id number] 00:00:00 00:00:00 ion [facility] 2022-03-26 2022-03-26 Documentrachelle Sewell [facility] [id number] 00:00:00 00:00:00 ion [facility] 2022-03-26 2022-03-26 Telephone Donato [facility] [id number] 00:00:00 00:00:00 [facility] 2022-03-26 2022-03-26 Telephone Sofia [facility] [id number] 00:00:00 00:00:00 [facility] 2022-03-25 2022-03-25 Orders Michelle [facility] [id number] 00:00:00 00:00:00 Only [facility] 2022-03-20 2022-03-20 Telephone Donato, [facility] [id number] 00:00:00 00:00:00 [facility] 2022-03-20 2022-03-20 Telephone Donato, [facility] [id number] 00:00:00 00:00:00 [facility] 2022-03-19 2022-03-19 Telephone Donato, [facility] [id number] 00:00:00 00:00:00 [facility] 2022-03-18 2022-03-18 Telephone Donato, [facility] [id number] 00:00:00 00:00:00 [facility] 2022-03-13 2022-03-13 Telephone Donato, [facility] [id number] 00:00:00 00:00:00 [facility] 2022-03-13 2022-03-13 [facility] [id number] 00:00:00 00:00:00 [facility] 2022-03-13 2022-03-13 Telephone Donato, [facility] [id number] 00:00:00 00:00:00 [facility] 2022-03-04 2022-03-04 Abstract Smeaj, [facility] [id number] 00:00:00 00:00:00 [facility] 2022-02-27 2022-02-27 Documentat Monica [facility] [id number] [facility] 00:00:00 00:00:00 [facility] E [facility] 2022-02-27 2022-02-27 Documentat Debby [facility] [id number] 00:00:00 00:00:00 [facility] 2022-02-27 2022-02-27 Documentat Debby [facility] [id number] 00:00:00 00:00:00 victor m Gabby C [facility] 2022-02-27 2022-02-27 Documentat Lauro [facility] [id number] 00:00:00 00:00:00 [facility] 2022-02-24 2022-02-24 Documentat Lauro [facility] [id number] 00:00:00 00:00:00 [facility] 2022-02-24 2022-02-24 Abstract Tito Saunders [facility] [id number] 00:00:00 00:00:00 [facility] 2022-02-20 2022-02-20 Office GARLAND Villeda [facility] [id number] 09:00:00 10:00:00 [facility] 2022-02-20 2022-02-20 Outpatient PABLO LUGO [facility] [id number] [facility] 08:37:43 08:37:43 [facility] Results Test Description Test Time Test Comments Results Result Comments Source BODY FLUID CELL COUNT WITH DIFFERENTIAL 2022-08-14 19:31:44 Test Item Value Reference Range Interpretation Comme nts APPEARANCE FLUID (BEAKER) (test Hazy Clear A code = 510) COLOR FLUID (BEAKER) (test code = Rishabh Colorless, Straw A 511) RBC FLUID (BEAKER) (test code = 9950 /cu mm <=1 H 513) TOTAL NUCLEATED CELL COUNT 43 /cu mm <=5 H (BEAKER) (test code = 1442) LINING CELLS/OTHERS DIFF'D 11 (BEAKER) (test code = 1589) ADJUSTED WBC FLUID (BEAKER) (test 39 /cu mm <=5 H code = 1691) LINING CELLS/OTHERS, CALCULATED 4 /cu mm <=1 H (BEAKER) (test code = 1590) NEUTROPHILS FLUID (BEAKER) (test 1 % code = 1656) LYMPHS FLUID (BEAKER) (test code 28 % = 488) MONO/MACROPHAGE FLUID (BEAKER) 65 % (test code = 489) EOSINOPHILS FLUID (BEAKER) (test 5 % code = 491) BASO FLUID (BEAKER) (test code = 1 % 492) INTERPRETATION-210 (BEAKER) (test Negative for malignancy code = 2619) [id number] (BEAKER) Elvia Duffy M.D. (test code = 2620) (electronic signature) CONTAINER BODY FLUID (BEAKER) EDTA Tube (test code = 2873) ALPHA FETOPROTEIN (AFP), TUMOR [id number] 17:12:34 Test Item Value Reference Range Interpretation Comments ALPHA-FETOPROTEIN (BEAKER) (test 3.7 ng/mL <10.0 code = 1094) Bathhouse Attendant ID - ADMINCOMPREHENSIVE METABOLIC [id number] 16:55:12 Test Item Value Reference Range Interpretation Comments TOTAL PROTEIN 6.9 gm/dL 6.0-8.3 (BEAKER) (test code = 770) ALBUMIN (BEAKER) 3.7 g/dL 3.5-5.0 (test code = 1145) ALKALINE 86 U/L 40-150 PHOSPHATASE (BEAKER) (test code = 346) BILIRUBIN TOTAL 8.9 mg/dL 0.2-1.2 H (BEAKER) (test code = 377) SODIUM (BEAKER) 137 meq/L 136-145 (test code = 381) POTASSIUM (BEAKER) 3.6 meq/L 3.5-5.1 (test code = 379) CHLORIDE (BEAKER) 95 meq/L 98-107 L (test code = 382) CO2 (BEAKER) (test 33 meq/L 22-29 H code = 355) BLOOD UREA 13 mg/dL 7-21 NITROGEN (BEAKER) (test code = 354) CREATININE 0.99 mg/dL 0.57-1.25 (BEAKER) (test code = 358) GLUCOSE RANDOM 82 mg/dL 70-105 (BEAKER) (test code = 652) CALCIUM (BEAKER) 9.3 mg/dL 8.4-10.2 (test code = 697) AST (SGOT) 82 U/L 5-34 H (BEAKER) (test code = 353) ALT (SGPT) 28 U/L 6-55 (BEAKER) (test code = 347) EGFR (BEAKER) 85 Interpretati on of eGFR (test code = [...] not appl icable for dialysis patien ts Bathhouse Attendant ID - ADMINSpecimen moderately ictericPROTHROMBIN [id number] 16:42:00 Test Item Value Reference Range Interpretation Comments PROTIME (BEAKER) (test code = 19.0 seconds 11.9-14.2 H 759) INR (BEAKER) (test code = 370) 1.64 <=5.90 RECOMMENDED COUMADIN/WARFARIN INR THERAPY RANGESSTANDARD DOSE: 2.0 - 3.0 Includes: PROPHYLAXIS for venous thrombosis, systemic embolization; TREATMENT for venous thrombosis and/or pulmonary embolus.HIGH RISK: Target INR is 2.5-3.5 for patients with mechanical heart valves.CBC W/PLT COUNT & AUTO [id number] 16:36:50 Test Item Value Reference Range Interpretation Comments WHITE BLOOD CELL COUNT (BEAKER) 3.9 K/ L 3.5-10.5 (test code = 775) RED BLOOD CELL COUNT (BEAKER) 3.48 M/ L 4.63-6.08 L (test code = 761) HEMOGLOBIN (BEAKER) (test code = 12.0 GM/DL 13.7-17.5 L 410) HEMATOCRIT (BEAKER) (test code = 35.8 % 40.1-51.0 L 411) MEAN CORPUSCULAR VOLUME (BEAKER) 103 fL 79-92 H (test code = 753) MEAN CORPUSCULAR HEMOGLOBIN 34.5 pg 25.7-32.2 H (BEAKER) (test code = 751) MEAN CORPUSCULAR HEMOGLOBIN CONC 33.5 GM/DL 32.3-36.5 (BEAKER) (test code = 752) RED CELL DISTRIBUTION WIDTH 15.8 % 11.6-14.4 H (BEAKER) (test code = 412) PLATELET COUNT (BEAKER) (test 105 K/CU MM 150-450 L code = 756) MEAN PLATELET VOLUME (BEAKER) 10.2 fL 9.4-12.4 (test code = 754) NUCLEATED [...] (test code = 437) NEUTROPHILS ABSOLUTE COUNT 2.53 K/ L 1.78-5.38 (BEAKER) (test code = 670) LYMPHOCYTES ABSOLUTE COUNT 0.76 K/ L 1.32-3.57 L (BEAKER) (test code = 414) MONOCYTES ABSOLUTE COUNT (BEAKER) 0.45 K/ L 0.30-0.82 (test code = 415) EOSINOPHILS ABSOLUTE COUNT 0.13 K/ L 0.04-0.54 (BEAKER) (test code = 416) BASOPHILS ABSOLUTE COUNT (BEAKER) 0.03 K/ L 0.01-0.08 (test code = 417) IMMATURE GRANULOCYTES-RELATIVE 0.50 % 0.00-1.00 PERCENT (BEAKER) (test code = 2801) XR CHEST 1 VIEW PORTABLE / [id number] 11:37:21 [facility] : 1955 Sex: MChest AP portableCOMPARISON STUDY: 07/31/2022History provided: Status post right thoracentesis for hepatichydrothoraxThe patient was only able to tolerate removal of 2050 cc pleural fluidon the right, stating that the last time 4 L of fluid was removed, hewas severely symptomatic for 2 days.The right chest is completely opaque post thoracentesis, indicating thata significant amount of fluid still remains, which the patient would notallow us to remove at this setting. Left lung is clear. Normal heartsizeand vascularity.US THORACENTESIS 2022-08-12 11:06:[address] [facility] : 1955 Sex: MULTRASOUND GUIDED RIGHT THORACENTESISHistory provided: Right pleural effusion PROCEDURE: Written informed consent was obtained. The chest was examinedwith ultrasound and a suitable site for thoracentesis was identified inthe right hemithorax. The skin over this area was prepped and draped insterile fashion. Lidocaine 2% was used for local anesthesia. Withultrasound guidance, the pleural space was accessed with a one-stick 5French sheathed needle. Approximately 2050 cc of yellow, clear fluidwas aspirated. The catheter was removed and a sterile dressing wasapplied. The patient tolerated the procedure well without apparentcomplications. The fluid was submitted to the laboratory as requested. IMPRESSION:Uneventful ultrasound guided thoracentesis.BODY FLUID CELL COUNT WITH DIFFERENTIAL 2022-08-01 12:11:39 Test Item Value Reference Range Interpretation Comments APPEARANCE FLUID Cloudy Clear A (BEAKER) (test code = 510) COLOR FLUID (BEAKER) Yellow Colorless, Straw A (test code = 511) RBC FLUID (BEAKER) (test 4125 /cu mm <=1 H code = 513) TOTAL NUCLEATED CELL 66 /cu mm <=5 H COUNT (BEAKER) (test code = 1442) LINING CELLS/OTHERS 122 DIFF'D (BEAKER) (test code = 1589) ADJUSTED WBC FLUID 30 /cu mm <=5 H (BEAKER) (test code = 1691) LINING CELLS/OTHERS, 36 /cu mm <=1 H CALCULATED (BEAKER) (test code = 1590) NEUTROPHILS FLUID 8 % (BEAKER) (test code = 1656) LYMPHS FLUID (BEAKER) 66 % (test code = 488) MONO/MACROPHAGE FLUID 26 % (BEAKER) (test code = 489) EOSINOPHILS FLUID 0 % (BEAKER) (test code = 491) BASO FLUID (BEAKER) 0 % (test code = 492) INTERPRETATION-210 Agree with (BEAKER) (test code = differential. 2619) Negative for carcinoma. [id number] Michael Ruffin M.D. (BEAKER) (test code = (electronic 5166) signiture) CONTAINER BODY FLUID EDTA Tube (BEAKER) (test code = 2873) U/S, [id number] 17:26:00Referring: Kan NogueraAdminister 200 mL of albumin 25% (50 grams) IV x1 after thoracentesisSend pleural fluid for cell count and differential.2x a week, as neededLaterality?->RightLabs to be Order ed:->Cell CountDIFFLabs to be Ordered:->Other (please add comment)Reason for Exam:->Pleuraleffusion [facility] : 1955 Sex: MFINAL REPORT Ultrasound-guided right thoracentesis, 07/31/2022 HISTORY: Large rightpleural effusion Anesthesia: 1% lidocaine Modality: Ultrasound Approach: Right posterior inferior chest TECHNIQUE: After obtaining written informed consent, this procedure was performed without untoward effect. The right posterior chest was scanned with ultrasound. Large pleural effusion identified. The site overlying the fluid was localized with ultrasound and prepped and anesthetized. A 5 [place] needle/catheter was inserted into the pleural space and 4 L of rishabh color fluid were removed. The patient tolerated the procedure well. CONCLUSION: Ultrasound-guided right thoracentesis. Signed: Emmett Knight Verified Date/Time: 07/31/2022 17:26:43 Reading Location: [facility] Radiology Reading Room RAD, CHEST, 1 VIEW, NON [id number] 16:13:00Referring: Laxmi Noguera for exam:->post thoracentesisShould this be performed at the bedside?->Yes [facility] : 1955 Sex: MFINAL REPORT Portable chest 07/31/2022 Since prior study, there is been near total resolution of the large right pleural effusion. There is no evidence of pneumothorax. Some right basilar atelectasis is now identified. Left lung is clear. Heart size is normal. 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 Signed: Emmett Knight Verified Date/Time: 16:13:59 Reading Location: [facility] Radiology Reading Room BODY FLUID CELL COUNT WITH [id number] 10:30:59 Test Item Value Reference Range Interpretation Comments APPEARANCE FLUID Cloudy Clear A (BEAKER) (test code = 510) COLOR FLUID [place] Colorless, Straw A (BEAKER) (test code = [...] (BEAKER) (test code cells seen = 2619) [id number] Gianna Katz M.D. 0 (BEAKER) (test (electronic code = 2620) signature) CONTAINER BODY EDTA Tube FLUID (BEAKER) (test code = 2873) [id number] 19:08:39Medical Cytology Report Case: [id number] Authorizing Provider: Rina Us MD Collected: 07/26/2022 11:50 AM Ordering Location: [address] Received: 07/28/2022 09:32 AM Service Pathologist: Mike Phipps MD Specimen: Peritoneal Fluid PERITONEAL FLUID (CYTOSPINS AND CELL BLOCK): - NEGATIVE FOR MALIGNANCY - Reactive mesothelial cells and histiocytes. Signing Pathologist Direct Phone Line: [phone] signed by Mike Phipps MD on 07/29/2022 at 7:08 PMMOC-31 shows nonspecific background staining. Calretinin highlights reactive mesothelial cells and CD68 highlights histiocytes. Please also see cytopathology case: [id number], [id number], [id number], [id number] x 89 y.o. M with PMH of liver cirrhosis, and HCC s/p chemoembolization came to [facility] with complain of right side chest painand shortness of breath More with exertion for [...] evaluated Immunohistochemistry technical testing was performed at [facility], Pathology Laboratory where it was developed and its performance characteristics were determined. It has not been cleared or approved by the U.S. Food and Drug Administration. The FDA has determined that such clearance or approvalis not necessary. The test is used for clinical purposes. It should not be regarded as investigational or for research. This laboratory is certified under the Clinical Laboratory Improvement Amendmentsof 1988 (CLIA-88) as qualified to perform high complexity clinical laboratory testing.[facility], Department of Pathology, [address] [place] [address], [facility], [address] [place] [address], [facility], Department of Pathology, [address] [place] [address], [id number] 13:49:37Medical Cytology Report Case: [id number] Authorizing Provider: Rina Us MD Collected: 07/26/2022 12:26 PM Ordering Location: [address] Received: 07/28/2022 08:59 AM Service Pathologist: Mike Phipps MD Specimen: Pleural, Right RIGHT PLEURAL FLUID (CYTOSPINS AND CELL BLOCK): - NEGATIVE FOR MALIGNANCY - Mesothelial cells, histiocytes, and blood. Signing Pathologist Direct Phone Line: [phone] signed by Mike Phipps MD on 07/29/2022 at 1:49 PMPlease also see cytopathology case: [id number], [id number] y.o. M with history of decompensated liver [...] was fixed in formalin at 17:48 on 3Performed.[facility], Department of Pathology, [address] [place] [address], [facility], Department of [facility], [address] [place] [address], [facility], Department of Pathology, [address] [place] [address], Q/S, [id number] 12:06:00Referring: Kan NogueraAdminister 200 mL of albumin 25% (50 grams) IV x1 after thoracentesis Send pleural fluid for cell count and differential.Laterality?- >RightLabs to be Ordered:->Cell CountdiffLabs to be Ordered:->Other (please add comment)Reason for Exam:->pleural effusion, HCC [facility] 1955 Sex: MFINAL REPORT [...] was accessed with a one- stick 5 [place] sheathed needle. Approximately 2400 cc of dark yellow fluid was aspirated. The catheter was removed and a sterile dressing was applied. The patient tolerated the procedure well without apparent complications. The fluid wassubmitted to the laboratory as requested. IMPRESSION: Uneventful ultrasound guided thoracentesis. Signed: Bryce Smith MDReport Verified Date/Time: 07/29/2022 12:06:01 Reading Location: [facility] RadiologyReading Room RAD, CHEST, 1 VIEW, NON DEPT 2022-07-29 12:02:00Referring: Laxmi Noguera for exam:->post thoracentesisShould this be performed at the bedside?->Yes [facility] : 1955 Sex: MFINAL REPORT Chest AP [...] MDReport Verified Date/Time: 07/29/2022 12:02:26 Reading Location: [facility] Radiology Reading Room BODY FLUID CULTURE + GRAM [id number] 15:24:53 Test Item Value Reference Range Interpretation Comments CULTURE (BEAKER) (test code = 1095) No growth BODY FLUID CULTURE + GRAM [id number] 15:24:37 Test Item Value Reference Range Interpretation Comments CULTURE (BEAKER) (test code = 1095) No growth RAD, CHEST, 1 VIEW, NON [id number] 08:21:00Referring: Laxmi Noguera for exam:->f/u pleural effusion [facility] : 1955 Sex: MFINAL REPORT [...] right hemithorax. Left lung remains clear. Signed: Carolina Clancy [facility] Verified Date/Time: 07/27/2022 08:21:54 [id number] 05:49:11 Test Item Value Reference Range Interpretation Comments MAGNESIUM (BEAKER) (test code = 2.0 mg/dL 1.6-2.6 627) Bathhouse Attendant ID - MARCOCOMPREHENSIVE METABOLIC [id number] 05:49:11 Test Item Value Reference Range Interpretation [...] not appl icable for dialysis patien ts Bathhouse Attendant ID - MARCOSpecimen moderately ictericCBC W/PLT COUNT & AUTO [id number] 05:18:57 Test Item Value Reference Range Interpretation [...] = 2801) BODY FLUID CELL COUNT WITH [id number] 15:45:09 Test Item Value Reference Range Interpretation Comments APPEARANCE FLUID (BEAKER) (test Cloudy Clear A code = 510) COLOR FLUID (BEAKER) (test code Red Colorless, Straw A = 511) RBC FLUID (BEAKER) (test code = 90114 /cu mm <=1 H 513) TOTAL NUCLEATED [...] = 2873) BODY FLUID CELL COUNT WITH [id number] 15:41:36 Test Item Value Reference Range Interpretation [...] = 2873) RAD, CHEST, 1 VIEW, NON [id number] 13:42:00Referring: Laxmi Noguera for exam:->s/p right thoraShould this be performed at the bedside?->YesIn US[facility]: BERRY VALENCIA : 1955 Sex: MFINAL REPORT Chest one view. Clinical history: s/p right thora Comparison: July Discussion: A frontal chest is provided. Cardiomediastinal contours are unchanged. Complete opacification of the right hemithorax is unchanged. Left lung is grossly clear. No pneumothorax. Signed: Darlin Bennett Verified Date/Time: 07/26/2022 13:42:55 Reading Location: [address] Consult Reading Room U/S, [id number] 13:26:00Referring: Noguera,UmairLaterality?->RightReason for exam:->pleural effusionReason for exam:->rightLabs to be Ordered:->CytologyLabs to be Ordered:->Body Fluid Culture (w/Gram Stain, C\\T\\S)Labs to be Ordered:- >Glucose+LDH+ProteinLabs to be Ordered:->Cell Count [facility] : 1955 Sex: MFINAL REPORT Ultrasound guided right thoracentesis. Clinical History: Right pleural effusion. Modality: Ultrasound. Sedation: None. Flake Cutter Operator: Citlaly Machuca PA-C Academic Services Professional: None. Estimated Blood Loss: 1 cc Specimen: [...] uncomplicated ultrasound guided right thoracentesis. Signed: Darlin Bennett Verified Date/Time: 07/26/2022 13:26:01 Reading Location: [address] Ultrasound Reading Room U/S, [id number] 13:25:00 Referring: Kan NogueraLabrony to be ordered:->Body Fluid Culture (w/Gram Stain, C\\T\\S)Labs to be ordered:->CytologyLabs to be ordered:->AFB Culture with StainLabs to be ordered:->Glucose+LDH+ProteinLabs to be ordered:- >Cell CountReason for exam:->CHEST PAINReason for exam:->SHORTNESS OF BREATHALMSHOUSE SAN FR[facility]COName: BERRY VALENCIA : 1955 Sex: MFINAL REPORT Ultrasound guided paracentesis. Clinical History: Ascites. Sedation: None. Flake Cutter Operator: Citlaly Machuca PA-C Academic Services Professional: None. Estimated Blood Loss: < 1 cc. [...] was achieved with 2% lidocaine, a 5 [place] one-step catheter was advanced into the peritoneal cavity under ultrasound guidance. After completion of drainage, the catheter was removed. There was no evidence of complication. Impression:Successful ultrasound guided paracentesis. Signed: Darlin Bennett Verified Date/Time: 07/26/2022 13:25:58 Reading Location: [address] Ultrasound Reading Room Electronically signed by: DARLIN BENNETT M.D. on 301:25 [id number] 06:40:12 Test Item Value Reference Range Interpretation Comments FERRITIN (BEAKER) (test code = 496.63 ng/mL 5.00-275.00 H 361) Bathhouse Attendant ID - MARCOVITAMIN D, [id number] 05:47:45 Test Item Value Reference Range Interpretation Comments VITAMIN D 25-OH (BEAKER) (test 13.1 ng/mL 6.6-49.9 code = 2764) Effective 12/17/2016: Reference Range ChangeNew: 6.6-49.9 ng/mL Previous: 13.0- 47.8 ng/mLRecommendedVitamin D Target Range: 30.0-40.0 ng/mLOperator ID - MM COMPREHENSIVE METABOLIC [id number] 05:43:36 Test Item Value Reference Range Interpretation [...] eGF R is based on the CKD-EPI 202 equation that d oes not use a race coefficientEsti mated GFR is not as accur ate as Creatinine Huyen le in predicting glom erular filtration rate . Estimated GFR is not appl icable for dialysis patien ts Bathhouse Attendant ID - MARCOSpecimen moderately [id number] 05:43:35 Test Item Value Reference Range Interpretation Comments MAGNESIUM (BEAKER) (test code = 1.9 mg/dL 1.6-2.6 627) Bathhouse Attendant ID - MARCOPTH, [id number] 05:30:37 Test Item Value Reference Range Interpretation Comments PARATHYROID HORMONE INTACT 46.4 pg/mL 8.5-72.5 (BEAKER) (test code = 577) Bathhouse Attendant ID - MMIRON, TIBC, % SAT. (WITHOUT FERRITIN)2022-07-26 05:24:30 Test Item Value Reference Range Interpretation Comments IRON (BEAKER) (test code = 547) 147.0 ug/dL 40.0-160.0 TOTAL IRON BINDING CAPACITY 116 ug/dL 250-450 L (BEAKER) (test code = 769) IRON % SATURATION (2) (BEAKER) 127 % 20-55 H (test code = 2590) Bathhouse Attendant ID - MMCBC W/PLT COUNT & AUTO [id number] 05:13:16 Test Item Value Reference Range Interpretation [...] (BEAKER) (test code = 2801) URINALYSIS W/ [id number] 15:52:00 Test Item Value Reference Range Interpretation [...] SOURCE(BEAKER) (test code Urine, Clean Catch = 6285) Bathhouse Attendant ID - [auto]Bathhouse Attendant ID - techPROTEIN, RANDOM [id number] 15:49:20 Test Item Value Reference Range Interpretation Comments PROTEIN, URINE (BEAKER) (test code = < mg/dL 0-14 1569) Bathhouse Attendant ID - MMSODIUM, RANDOM [id number] 15:48:53 Test Item Value Reference Range Interpretation Comments SODIUM URINE (BEAKER) (test code = 27 meq/L 243) Reference Range: No NormalsOperator ID - MMUREA NITROGEN, RANDOM [id number] 15:48:53 Test Item Value Reference Range Interpretation Comments UREA NITROGEN URINE (BEAKER) (test 593 mg/dL code = 538) Reference Range: No NormalsOperator ID - MMCREATININE, RANDOM [id number] 15:48:47 Test Item Value Reference Range Interpretation Comments CREATININE URINE (BEAKER) (test 111.4 mg/dL code = 375) Reference Range: No NormalsOperator ID - MMPOTASSIUM, RANDOM [id number] 15:48:47 Test Item Value Reference Range Interpretation Comments POTASSIUM URINE (BEAKER) (test 39.5 meq/L code = 195) Reference Range: No NormalsOperator ID - MMCHLORIDE, RANDOM [id number] 15:48:46 Test Item Value Reference Range Interpretation Comments CHLORIDE URINE (BEAKER) (test code = 43 meq/L 20-330 682) Reference Range: No NormalsOperator ID - MMPROTHROMBIN TIME/[id number] 09:26:09 Test Item Value Reference Range Interpretation [...] (test code = 347) EGFR (BEAKER) 56 Interpretatio n of eGFR (test code = [...] not appl icable for dialysis patien ts Bathhouse Attendant ID - MMSpecimen moderately ictericLACTATE DEHYDROGENASE (LDH)2022-07-25 06:20:32 Test Item Value Reference Range Interpretation Comments LACTATE DEHYDROGENASE (BEAKER) (test 185 U/L 125-220 code = 635) Bathhouse Attendant ID - ADMINCBC (HEMOGRAM ONLY)2022-07-25 05:34:21 Test [...] (test code = 413) RAD, CHEST, 2 [id number] 14:25:00Referring: Noguera,UmairReason for exam:- >CHEST PAINReason for exam:->SHORTNESS OF BREATH [facility] : 1955 Sex: MFINAL REPORT CLINICAL HISTORY: CHEST PAINSHORTNESS OF BREATH TECHNIQUE: 2 views ofthe chest COMPARISON: 04/09/2022 IMPRESSION: There is new complete opacification of the right hemithorax. The left lung is free of infiltrates or effusions. The cardiomediastinal silhouette is partially obscured. Signed: Jen De La Torre MDReport Verified Date/Time: 07/24/2022 14:25:45 HIGH SENSITIVITY TROPONIN [id number] 13:29:20 Test Item Value Reference Range Interpretation Comments HIGH SENSITIVITY TROPONIN I (test 5 pg/ml <=35 code = 8488871) Bathhouse Attendant ID - ADMINThe MANAGER OF PROGRAM STAT High Sensitivity Troponin-I results should be used in conjunction with other diagnostic information such as ECG, clinical observations and information, and patientsymptoms to aid in the diagnosis of [place]. B-TYPE NATRIURETIC FACTOR (BNP)2022-07-24 13:28:56 Test Item Value Reference Range Interpretation Comments B-TYPE NATRIURETIC PEPTIDE (BEAKER) 147 pg/mL 0-100 H (test code = 700) Bathhouse Attendant ID - ADMINCOMPREHENSIVE METABOLIC [id number] 13:23:52 Test Item Value Reference Range Interpretation [...] not appl icable for dialysis patien ts Bathhouse Attendant ID - ADMINSpecimen moderately ictericCBC W/PLT COUNT & AUTO [id number] 13:01:13 Test Item Value Reference Range Interpretation [...] = 2801) BODY FLUID CELL COUNT WITH [id number] 15:35:24 Test Item Value Reference Range Interpretation [...] code = count. Negative for 2619) malignancy [id number] Elvia Duffy M.D. (BEAKER) (test code = (electronic 2620) signature) CONTAINER BODY FLUID EDTA Tube (BEAKER) (test code = 2873) U/S, [id number] 14:58:00Referring: Kan NogueraAdminister 200 mL of albumin 25% (50 grams) IV x1 after paracentesis if 3 or more liters removed.Send ascitic fluid for cell count and differential.Labs to be ordered:->CellCountdiffReason for Exam:->HCC, ascitis [facility] : 1955 Sex: MFINAL REPORT PROCEDURE: Ultrasound-guided paracentesis Procedural PersonnelAttending physician(s): Evan Jaeger MD Pre-procedure diagnosis: AscitesPost-procedure diagnosis: UnchangedIndication: Uncomplicated ascitesAdditional clinical history: None Complications: No immediate complic ations. IMPRESSION: Ultrasound-guided paracentesis with drainage of 3.5 L of serous fluid. PROCEDURE SUMMARY:- Limited abdominal ultrasound- Ultrasound-guided paracentesis- Additional procedure(s): None PROCEDURE DETAILS: Pre-procedureCons ent: Informed consent for the procedure including risks, benefits and alternatives was obtained and time-out was performed prior to the procedure.Preparation: The [...] MDReport Verified Date/Time: 07/15/2022 14:58:27 Reading Location: [facility] Radiology Reading Room BODY FLUID CELL COUNT WITH [id number] 15:28:03 Test Item Value Reference Range Interpretation [...] code = count. Negative for 2619) malignancy [id number] Elvia Duffy M.D. (BEAKER) (test code = (electronic 2620) signature) CONTAINER BODY FLUID EDTA Tube (BEAKER) (test code = 2873) U/S, [id number] 14:24:00Referring: Kan NogueraAdminister 200 mL of albumin 25% (50 grams) IV x1 after paracentesis if 3 or more liters removed.Send ascitic fluid for cell count and differential.Labs to be ordered:->CellCountdiffReason for Exam:->HCC, ascitis [facility] : 1955 Sex: MFINAL REPORT [...] the abdomen. This area was marked. The area was prepped and draped in the usual sterile fashion. 1% lidocaine was applied to the skin and deep soft tissues. Color Doppler was utilized to assess for any large vessels in the vicinity of the planned trajectory for the one-step catheter, an image was saved. A 5 [place] one-step catheter was inserted and removed from the peritoneal space and approximately 5.5 liters of clear yellow fluid was aspirated from the abdomen. Specimens were collected for the lab. There were no immediate complications. Impression: Successful ultrasound guided paracentesis with aspiration of 5.5 liters of fluid. Signed: Chris Alford Verified Date/Time: 07/04/2022 14:24:11 Reading Location: [facility] Radiology Reading Room MR, ABDOMEN, [id number] 16:04:00 Referring: Yasmin Noguera Abdominal Vessels [facility] : 1955 Sex: MAddendum BeginsREPORT STATUS:A Addendum: There is a 1.4 cm arterially enhancing observation posterior to the treatment cavity in hepatic segment 7/8 with faint washout on the delayed phase (LI-RADS 5) Signed: Naa Diallo Verified Date/Time: 06/23/2022 16:04:59 Reading Location: [facility] Radiology Reading RoomAddendum EndsFINAL REPORT MRI [...] MDReport Verified Date/Time: 06/12/2022 17:58:03 Reading Location: [facility] Radiology Reading Room TISSUE [id number] 13:40:07Surgical Pathology Report Case: [id number] Authorizing Provider: Brenda Allan MD Collected: 06/17/2022 09:55 AM Ordering Location: [facility] Received: 06/17/2022 03:24 PM SERVICES Pathologist: Mike Phipps MD Specimen: Polyp, Colon - Right/Ascending, removed with bx forceps A.RIGHT/ASCENDING COLON, POLYP, BIOPSY - SESSILE SERRATED LESION. Signing Pathologist Direct Phone Line: [phone] signed by Mike Phipps MD on 06/18/2022 at 1:40 [id number] cancer screeningA. Polyp, Colon - Right/AscendingReceived in formalin labeled with the patient's name, medical record number and "ascending colon polyp" is a 0.3 x 0.2 x 0.2 cm aaron soft tissue fragment, which is submitted in toto in A1.CECILIA Vergara, HT (ASCP)Performed.CT, ABDOMEN, [id number] 14:38:00Referring: Kelsea Noguera Prctocol-Triple Phase [facility] : 1955 Sex: MAddendum BeginsREPORT STATUS:A Addendum: A 1.1 cm early enhancing lesion is seen in the segment 8 of the liver, best seen on image #38, A2. There is vague delayed washout, best seen on image #39, A4. LI RADS category 5. Signed: Hiram Rizvi MDReport Verified Date/Time: 06/17/2022 14:38:09 Reading Location: [facility] B1 C013Y CT Body Reading RoomAddendum EndsFINAL REPORT [...] 06/01/2022 16:29:00 Body fluid cell count with [id number] 17:23:02 Test Item Value Reference Range Interpretation Comments Appearance (test code Clear Clear = 9335-1) Color (test code = Yellow Colorless, A 6824-7) Straw RBCs (test code = 82 See_Comment H [Automate d 24873-7) message] The system which generated this result [...] See_Comment H [Automat ed (test code = 93717-8) messag e] The system which generated this result transmitted reference range : <=5 /cu mm. The reference range was not used to interpret this result as normal/abnormal . Adjusted lining 12 See_Comment H [Automated cells/Others (test message] The code = 01332-3) system which generated this result transmitted reference range : <=1 /cu mm. The reference range was not used to interpret this result as normal/abnormal . % Segs (test code = 4 % 99445-1) % Lymphs (test code = 6 % 28321-7) % Monos (test code = 76 % 00246-3) % Eos (test code = 0 % 63449-0) % Baso (test code = 0 % 66890-7) Interpretation (test Agree with the code = 13672-2) above count. Negative for malignancy Pathologist: (test Elvia Clive, code = 2620) M.D. (electronic signature) Container Body Fluid EDTA Tube (test code = 2873) Lab Interpretation Abnormal (test code = 96991-6) [facility] with gulbzwcpxrtf2718-40-22 17:23:02 Test Item Value Reference Range Interpretation Comments Appearance (test code Clear Clear = 9335-1) Color (test code = Yellow Colorless, A 6824-7) Straw RBCs (test code = 82 See_Comment H [Automate d 45489-0) message] The system which generated this result [...] See_Comment H [Automat ed (test code = 13338-1) messag e] The system which generated this result transmitted reference range : <=5 /cu mm. The reference range was not used to interpret this result as normal/abnormal . Adjusted lining 12 See_Comment H [Automated cells/Others (test message] The code = 89372-8) system which generated this result transmitted reference range : <=1 /cu mm. The reference range was not used to interpret this result as normal/abnormal . % Segs (test code = 4 % 43796-5) % Lymphs (test code = 6 % 24670-9) % Monos (test code = 76 % 05903-2) % Eos (test code = 0 % 07788-9) % Baso (test code = 0 % 78219-3) Interpretation (test Agree with the code = 72491-3) above count. Negative for malignancy Pathologist: (test Elvia Lucyrenny, code = 2620) M.D. (electronic signature) Container Body Fluid EDTA Tube (test code = 2873) Lab Interpretation Abnormal (test code = 21713-9) [facility] WITH [id number] 17:23:02 Test Item Value Reference Range Interpretation [...] code = count. Negative for 2619) malignancy TPLL-IBEBJZCNRIW-704 Elvia Duffy M.D. (BEAKER) (test code = (electronic 2620) signature) CONTAINER BODY FLUID EDTA Tube (BEAKER) (test code = 2873) U/S, [id number] 13:26:00Referring: Kan NogueraAdminister 200 mL of albumin 25% (50 grams) IV x1 after paracentesis if 3 or more liters removed.Send ascitic fluid for cell count and differential.Labs to be ordered:->CellCountdiffLabs to be ordered:->Other (please add comment)Reason for Exam:->hcc, ascitis [facility] : 1955 Sex: MFINAL REPORT Procedure: Ultrasound-guided [...] was then prepped and anesthetized. A 5 [place] needle/catheter was inserted into the peritoneal space and 4.25 L of light yellow fluid were removed. CONCLUSION: Ultrasound-guided paracentesis. Si gned: Emmett Knight MDReport Verified Date/Time: 06/09/2022 13:26:28 Reading Location: [facility] Radiology Reading Room Drug screen, urine, transplant ([facility] Only) 2022-06-04 19:36:29See Scanned ReportSub[facility] Medical CenterDrug screen, urine, transplant [facility])2022-06-04 19:36:29See Scanned ReportSuburban Medical CenterCOMPREHENSIVE METABOLIC [id number] 17:16:00 Test Item Value Reference Range Interpretation [...] not appl icable for dialysis patien ts Bathhouse Attendant ID - ADMINSpecimen moderately ictericCBC W/PLT COUNT & AUTO [id number] 17:00:09 Test Item Value Reference Range Interpretation [...] 0.00-1.00 GRANULOCYTES-RELATIVE PERCENT (BEAKER) (test code = 2801) PROTHROMBIN TIME/[id number] 16:56:37 Test Item Value Reference Range Interpretation Comments PROTIME (BEAKER) (test code = 17.9 seconds 11.9-14.2 H 759) INR (BEAKER) (test code = 370) 1.52 <=5.90 RECOMMENDED COUMADIN/WARFARIN INR THERAPY RANGESSTANDARD DOSE: 2.0 - 3.0 Includes: PROPHYLAXIS for venous thrombosis, systemic embolization; TREATMENT for venous thrombosis and/or pulmonary embolus.HIGH RISK: Target INR is 2.5-3.5 for patients with mechanical heart valves.BASIC METABOLIC [id number] 13:52:54 Test Item Value Reference Range Interpretation [...] not appl icable for dialysis patien ts Bathhouse Attendant ID - ADMINSpecimen moderately ictericPROTHROMBIN TIME/[id number] 13:50:55 Test Item Value Reference Range Interpretation [...] (BEAKER) (test code = 413) T SPOT [id number] 09:02:50 Test Item Value Reference Range Interpretation Comments T-SPOT TB (BEAKER) (test code = See attachment 1683) NEG CONTROL SPOT COUNT (BEAKER) See attachment (test code = 1684) PANEL A SPOT (BEAKER) (test code See attachment = 1685) PANEL B SPOT (BEAKER) (test code See attachment = 1686) POS CONTROL SPOT CT (BEAKER) See attachment (test code = 1687) SCAN RESULT (test code = 4620367) U/S, GUIDANCE, [id number] 13:43:00HCC [facility] : 1955 Sex: MFINAL REPORT Please see the dictation from the image guided ablation performed on05/05/2022. These orders are linked. Signed: Tiago Solorio Verified Date/Time: 05/14/2022 13:43:51 Reading Location: [address] Body Reading Room Electronically signed by: Demetria ROMO 05/14/2022 01:43 PMBONE AND/OR JOINT IMAGING, WHOLE [id number] 14:32:00Referring: Noguera,UmairUnlisted Reason for Exam - Click Yes and Enter Reason Below->YesUnlistedReason for Exam->Liver mass, exclude metastatic disease [facility] 1955 Sex: MFINAL REPORT PROCEDURE: BONE SCAN, WHOLE BODY CPT CODE: 09776 INDICATION: HCC, eval for metastases PROTOCOL: 20.6 [...] Date/Time: 05/12/2022 14 :32:37 , TUMOR RFA [id number] 13:01:00Referring: Chuckie,DasiaairWith general anesthesiaReason for Exam:->hcc [facility] CENTERName: BERRY VALENCIA : 1955 Sex: MFINAL REPORT Image Guided microwave ablation of hepatocellular carcinoma. History: HCC in segment 4/8 Flake Cutter Operator: Tiago Solorio MD. Academic Services Professional: None. Modality: Ultrasound and CTDOSE REDUCTION: The [...] the ablation cavity. After ablation was complete, theprobe was removed utilizing the tract ablation protocol. Subsequently, contrast-enhanced CT was performed to evaluate whether the segment 8 lesion could be seen or not. Upon contrast administration, the smaller segment 8 lesion was not visible. However, there appear to be bleeding into the ascites near the tract. This did not demonstrate definite blooming on the delayed phase. Sterile dressing was applied. Stat hemoglobin was ordered, which did not show a significant difference compared to the a.m. value. Due to patient's hemodynamic stability, stable hemoglobin, and hyperbilirubin decision was made not to proceed with immediate angiogram and embolization. Patient was hospitalized for further observation. Impression: Successful CT guided percutaneous microwave ablation of segment 4/8 lesion. Postprocedure bleeding was noted. Patient to be admitted for observation. Signed: Tiago Solorioepdave Verified Date/Time: 05/08/2022 13:01:31 Reading Location: [facility] P048 Angio Body Reading Room BASIC METABOLIC [id number] 05:31:48 Test Item Value Reference Range Interpretation [...] not appl icable for dialysis patien ts Bathhouse Attendant ID - KIRBY GOperator ID - BSSpecimen slightly ictericPHOSPHORUS 2022-05-07 05:19:26 Test Item Value Reference Range Interpretation Comments PHOSPHORUS (BEAKER) (test code = 3.2 mg/dL 2.3-4.7 604) Bathhouse Attendant ID - KIRBY [id number] 05:19:25 Test Item Value Reference Range Interpretation Comments MAGNESIUM (BEAKER) (test code = 2.0 mg/dL 1.6-2.6 627) Bathhouse Attendant ID - KIRBY GCBC W/PLT COUNT & AUTO [id number] 04:53:29 Test Item Value Reference Range Interpretation [...] PERCENT (BEAKER) (test code = 2801) CALCIUM, [id number] 04:53:13 Test Item Value Reference Range Interpretation Comments CALCIUM IONIZED (BEAKER) (test 1.07 mmol/L 1.12-1.27 L code = 698) PH, BLOOD (BEAKER) (test code = 7.41 1810) HEMOGLOBIN AND [id number] 18:45:03 Test Item Value Reference Range Interpretation Comments HEMOGLOBIN (BEAKER) (test code = 10.5 GM/DL 13.7-17.5 L 410) HEMATOCRIT (BEAKER) (test code = 30.9 % 40.1-51.0 L 411) Bathhouse Attendant ID - [id number] ID - [id number] AND [id number] 14:22:55 Test Item Value Reference Range Interpretation Comments HEMOGLOBIN (BEAKER) (test code = 10.1 GM/DL 13.7-17.5 L 410) HEMATOCRIT (BEAKER) (test code = 29.5 % 40.1-51.0 L 411) Bathhouse Attendant ID - 6000HEMOGLOBIN AND [id number] 08:37:32 Test Item Value Reference Range Interpretation Comments HEMOGLOBIN (BEAKER) (test code = 10.7 GM/DL 13.7-17.5 L 410) HEMATOCRIT (BEAKER) (test code = 32.1 % 40.1-51.0 L 411) Bathhouse Attendant ID - 6000COMPREHENSIVE METABOLIC [id number] 07:50:40 Test Item Value Reference Range Interpretation [...] not appl icable for dialysis patien ts Bathhouse Attendant ID - MARCOSpecimen moderately ictericCBC (HEMOGRAM ONLY)2022-05-06 [...] 0-0 (test code = 413) BASIC METABOLIC [id number] 18:50:08 Test Item Value Reference Range Interpretation [...] not appl icable for dialysis patien ts Bathhouse Attendant ID - BSSpecimen moderately ictericPROTHROMBIN TIME/[id number] 18:27:01 Test Item Value Reference Range Interpretation [...] mechanical heart valves.CBC W/PLT COUNT & AUTO [id number] 18:23:40 Test Item Value Reference Range Interpretation [...] (BEAKER) (test code = 2801) BASIC METABOLIC [id number] 09:44:40 Test Item Value Reference Range Interpretation [...] eGF R is based on the CKD-EPI 202 equation that d oes not use a race coefficientEsti mated GFR is not as accur ate as Creatinine Huyen mimi in predicting glom erular filtration rate . Estimated GFR is not appl icable for dialysis patien ts Bathhouse Attendant ID - MITCHSpecimen moderately ictericHEPATIC FUNCTION [id number] 09:44:40 Test Item Value Reference Range Interpretation [...] (test code = 21 U/L 6-55 347) Bathhouse Attendant ID - MITCHSpecimen moderately ictericPROTHROMBIN TIME/[id number] 09:30:17 Test Item Value Reference Range Interpretation [...] mechanical heart valves.CBC W/PLT COUNT & AUTO [id number] 09:26:59 Test Item Value Reference Range Interpretation [...] code = 2801) MYOCARD IMAGING, MULTI, PHARM, [id number] 17:02:00Referring: Noguera,UmairUnlisted Reason for Exam - Click Yes and Enter Reason Below->YesUnlistedReason for Exam->Pre Liver transplant Eval [facility] CENTERName: BERRY VALENCIA : 1955 Sex: MFINAL REPORT PROCEDURE: Rest/Stress MYOCARDIAL PERFUSION SPECT with regadenoson\\XA9\\ CPT CODE: 53423 INDICATION: Preoperative risk stratification prior to liver [...] 3. Abnormal myocardial perfusion. There is a cogy-gm-fsxdxkrw severity, medium sized, fixed, perfusion defect in the basal to mid inferolateral and apical lateral LV. 4. Overall resting LV function is normal with normal wall motion. 5. Extracardiac tracer distribution is normal. Signed: Thomas Esparza MDReport Verified Date/Time: 04/22/2022 17:02:39 ALPHA FETOPROTEIN (AFP), TUMOR [id number] 12:16:45 Test Item Value Reference Range Interpretation Comments ALPHA-FETOPROTEIN (BEAKER) (test 7.1 ng/mL <10.0 code = 1094) Bathhouse Attendant ID - JANCOMPREHENSIVE METABOLIC [id number] 11:56:59 Test Item Value Reference Range Interpretation [...] not appl icable for dialysis patien ts Bathhouse Attendant ID - JANSpecimen moderately ictericPROTHROMBIN TIME/[id number] 11:46:50 Test Item Value Reference Range Interpretation [...] mechanical heart valves.CBC W/PLT COUNT & AUTO [id number] 11:41:49 Test Item Value Reference Range Interpretation [...] (test code = 2801) CT, CHEST, WITHOUT [id number] 14:03:00Referring: Dasia NogueraairUnlisted Reason for Exam - Click Yes and Enter Reason Below->YesUnlistedReason for Exam->Liver mass, exclude metastatic disease [facility] : 1955 Sex: MFINAL REPORT CT of [...] disease in the chest. Signed: Hiram Rizvi Verified Date/Time: 04/17/2022 14:03:10 Reading Location: [place] [id number] Body Reading Room Carotid doppler [id number] 00:42:37Ejection FractionSLEH ECHO HEARTLAB Warranty LifeON [facility] HospitalCarotid doppler [id number] 00:42:37Ejection FractionSLEH ECHO HEARTLAB AndrocialESSON [facility] HospitalECHO W CONTRAST & [id number] 17:09:34Ejection FractionSLEH ECHO HEARTLAB AndrocialESSON [facility] HospitalECHO W CONTRAST & DOPPLER 2022-04-10 17:09:34Ejection FractionSLEH ECHO HEARTLAB Warranty LifeON [facility] HospitalBlood gas, [id number] 10:37:27 Test Item Value Reference Range Interpretation Comments pH, Arterial (test code 7.48 7.35-7.45 H = 2744-1) pCO2, Arterial (test 35 See_Comment [Autom ated message] code = 2019-8) The system [employer] generated this result transmit rosalinda reference range : 35 - 45 mm Hg. The reference range was not used to interpret this result as normal/abnormal . pO2, Arterial (test 103 See_Comment H [Automa rosalinda message] code = 2703-7) The system [employer] generated this result transmit rosalinda reference range [...] 21 Lab Interpretation Abnormal (test code = 65206-3) [facility] gas, [id number] 10:37:27 Test Item Value Reference Range Interpretation Comments pH, Arterial (test code 7.48 7.35-7.45 H = 2744-1) pCO2, Arterial (test 35 See_Comment [Autom ated message] code = 2019) The system [employer] generated this result transmit rosalinda reference range : 35 - 45 mm Hg. The reference range was not used to interpret this result as normal/abnormal . pO2, Arterial (test 103 See_Comment H [Automa rosalinda message] code = 2703-7) The system [employer] generated this result transmit rosalinda reference range [...] 21 Lab Interpretation Abnormal (test code = 21537-7) [facility] Center[facility], [id number] 10:37:27 Test Item Value Reference Range Interpretation [...] FIO2 (BEAKER) (test code = 1819) 21.0 [id number] 15:47:52 Test Item Value Reference Range Interpretation Comments T3 TOTAL (BEAKER) (test code = 0.89 ng/mL 0.60-1.81 656) Bathhouse Attendant ID - rvqdbj536MWMSOBNZPTPF EWISWQZ7660-08-69 13:36:23 Test Item Value Reference Range Interpretation Comments CRYPTOCOCCAL ANTIGEN, SERUM Negative Negative, Interference (BEAKER) (test code = 1828) RAD, BONE DENSITY [id number] 13:11:00Referring: Laxmi Noguera for Exam:->Pre Liver transplant Eval [facility] : 1955 Sex: MFINAL REPORT BONE MINERAL DENSITY CLINICAL HISTORY: Liver transplant evaluation COMPARISON: No prior comparison bone mineral density studies are available REPORT: Bone Mineral DensityMeasurement: Lumbar Spine (L1-L4): 1.211 g/id3Kexo Femoral Neck: 1.025 g/cm2 Standard Deviation as [...] baseline for future comparison. Signed: Matthew Rodas Verified Date/Time: 04/09/2022 13:11:43 RAD, CHEST, 2 [id number] 13:04:00Referring: Laxmi Noguera for Exam:->Pre Liver transplant [facility] : 1955 Sex: MFINAL REPORT HISTORY: Liver transplant evaluation COMPARISON: No prior comparison chest imaging is available FINDINGS: The lungs are clear. No pleural effusions or pneumothorax. The heart shadow is normal in size. The thoracic aorta is normal in caliber. Degenerative changes are present in the spine. IMPRESSION: No evidence of acute cardiopulmonary disease. Signed: Matthew Rodas Verified Date/Time: 04/09/2022 13:04:48 RAD, MANDIBLE, MIN 4 [id number] 12:56:00 Referring: Laxmi Noguera for Exam:->Pre Liver transplant Eval [facility] : 1955 Sex: MFINAL REPORT MANDIBLE 5 VIEWS HISTORY: Liver transplant evaluation COMPARISON: No comparison mandibular imaging FINDINGS: Marco, PA, bilateral oblique, and lateral images of the mandible were obtained. No mandibular fracture is visualized. There is lucency around what is likely right mandibular wisdom tooth. No other periapical lucency is visualized. No air-fluid levels are visualized in the paranasal sinuses. Signed: Matthew Rodas MDReport Verified Date/Time: 04/09/2022 12:56:34 [id number] 12:50:19 Test Item Value Reference Range Interpretation Comments RPR SCREEN (BEAKER) (test code = Nonreactive Nonreactive 420) [id number] 11:59:53 Test Item Value Reference Range Interpretation Comments PROSTATE SPECIFIC ANTIGEN (BEAKER) 0.3 ng/mL 0.0-4.0 (test code = 844) Bathhouse Attendant ID - MITCHHEPATITIS B CORE ANTIBODY, [id number] 11:59:53 Test Item Value Reference Range Interpretation Comments HEPATITIS B CORE IGM ANTIBODY Nonreactive Nonreactive (BEAKER) (test code = 645) Bathhouse Attendant ID - MITCHHIV-1 ANTIGEN WITH HIV-1/2 [id number] 11:59:53 Test Item Value Reference Range Interpretation Comments HIV-1 ANTIGEN WITH HIV 1\\T\\2 Nonreactive Nonreactive ANTIBODY (2) (BEAKER) (test code = 2586) Bathhouse Attendant ID - MITCHVITAMIN D, 14-[id number] 11:45:48 Test Item Value Reference Range Interpretation Comments VITAMIN D 25-OH (GINA) (test 18.0 ng/mL 6.6-49.9 code = 2764) Effective 12/17/2016: Reference Range ChangeNew: 6.6-49.9 ng/mL Previous: 13.0- 47.8 ng/mLRecommendedVitamin D Target Range: 30.0-40.0 ng/mLOperator ID - MARYBETH HEMOGLOBIN [id number] 11:19:55 Test Item Value Reference Range Interpretation Comments HEMOGLOBIN A1C 4.6 % See_Comment [Automated m essage] ELECTROPHORESIS (GINA) The system which (test code = 3811) generated this result transmitted ref erence range: <=5.6%. The reference range was not used to int erpret this result as normal/abnormal . "The A1c is measured using a NGSP-certified method. HbA1c value equal to or greater than 6.5% as thediagnosis cutoff for diabetes. An HbA1c value of 5.7- 6.4% indicates increased risk for diabetes (prediabetes)."Bathhouse Attendant ID - ADMOperator ID - ADMCYTOMEGALOVIRUS ANTIBODY, [id number] 10:46:24 Test Item Value Reference Range Interpretation Comments CYTOMEGALOVIRUS, IGG (GINA) Positive Negative, Equivocal A (test code = 3429) CMV IgG Result Interpretation: </= 0.8 Al Negative 0.9-1.0 Al Equivocal >/=1.1 Al PositiveEBV ANTIBODY, [id number] 10:46:24 Test Item Value Reference Range Interpretation Comments BOO TOWNSEND VIRAL CAPSID Positive Negative, Equivocal A ANTIGEN IGG (Proenza SchouerANUJ) (test code = 3415) Boo Townsend Viral Capsid Antigen IgG Result Interpretation: </= 0.8 Al Negative 0.9-1.0 Al Equivocal >/= 1.1 Al PositiveEBV ANTIBODY, [id number] 10:46:24 Test Item Value Reference Range Interpretation Comments BOO TOWNSEND VIRAL CAPSID Negative Negative, Equivocal ANTIGEN IGM ([employer]) (test code = 3418) Boo Townsend Viral [...] Positive - Presumed immune VARICELLA ZOSTER ANTIBODY, [id number] 10:46:24 Test Item Value Reference Range Interpretation Comments VARICELLA ZOSTER IGG (AL) (BEAKER) 6.7 (test code = 3197) VARICELLA ZOSTER RESULT INTERPRETATIONS: <=0.8 Al Nonreactive: Presumed non- immune to VZV 0.9-1.0Al Equivocal >=1.1 Al Reactive: Presumed immune to VZV TOXOPLASMA GONDII ANTIBODY, [id number] 10:46:24 Test Item Value Reference Range Interpretation Comments TOXOPLASMA GONDII IGG QUANTITATIVE < IU/mL <10.0 (BEAKER) (test code = 3428) Toxoplasma Gondii IgG Result Interpretation: </= 9.9 IU/mL Normal 10-11 IU/mL Equivocal >/= 12IU/mL PositiveUrinalysis w/Wuxwutshket6518-91-75 10:26:09 Test Item Value Reference Range Interpretation Comments Color, UA (test code Dark Yellow = 5778-6) Clarity, UA (test Clear code = 5767-9) Specific Cocoa, UA 1.017 1.001-1.035 (test code = 5811-5) pH, UA (test code = 6.5 5.0-8.0 5803-2) Protein, UA (test Negative Negative code = 69623-9) Glucose, UA (test Negative Negative code = 365) Ketones, UA (test Negative Negative code = 2514-8) Bilirubin, UA (test Positive Negative A code = 39747-1) Blood, UA (test code Negative Negative = 83369-7) Nitrite, UA (test Negative Negative code = 5802-4) Leukocytes, UA (test Negative Negative code = 5799-2) Urobilinogen, UA 8 0.2-1.0 H (test code = 94828-5) RBC, UA (test code = See_Comment [Autom ated 51574-7) message] The system which generated this result [...] (test Rare None Seen A code = 28702-4) Specimen Source (test Urine, Clean code = 2795) Catch NYDIA (test code = NYDIA) Bathhouse Attendant ID - [auto]Bathhouse Attendant ID - tech Lab Interpretation Abnormal (test code = 24299-2) [facility] CenterUrinalysis w/Pnamaaqvhau8509-83-73 10:26:09 Test Item Value Reference Range Interpretation Comments Color, UA (test code Dark Yellow = 5778-6) Clarity, UA (test Clear code = 5767-9) Specific Cocoa, UA 1.017 1.001-1.035 (test code = 5811-5) pH, UA (test code = 6.5 5.0-8.0 5803-2) Protein, UA (test Negative Negative code = 31867-2) Glucose, UA (test Negative Negative code = 365) Ketones, UA (test Negative Negative code = 2514-8) Bilirubin, UA (test Positive Negative A code = 24634-1) Blood, UA (test code Negative Negative = 83741-5) Nitrite, UA (test Negative Negative code = 5802-4) Leukocytes, UA (test Negative Negative code = 5799-2) Urobilinogen, UA 8 0.2-1.0 H (test code = 22262-0) RBC, UA (test code = See_Comment [Autom ated 95040-5) message] The system which generated this result [...] (test Rare None Seen A code = 52018-2) Specimen Source (test Urine, Clean code = 6215) Catch NYDIA (test code = NYDIA) Bathhouse Attendant ID - [auto]Bathhouse Attendant ID - tech Lab Interpretation Abnormal (test code = 06284-1) [facility] Center[facility]INALYSIS W/ [id number] 10:26:09 Test Item Value Reference Range Interpretation [...] (test code Urine, Clean Catch = 2795) Bathhouse Attendant ID - [auto]Bathhouse Attendant ID - [id number] 09:46:14 Test Item Value Reference Range Interpretation Comments T4 TOTAL (BEAKER) (test code = 895) 7.2 ug/dL 4.9-11.7 Bathhouse Attendant ID - [id number] 09:46:14 Test Item Value Reference Range Interpretation Comments THYROID STIMULATING HORMONE 2.023 uIU/mL 0.350-4.940 (BEAKER) (test code = 772) Bathhouse Attendant ID - [id number] 09:30:09 Test Item Value Reference Range Interpretation Comments TRANSFERRIN (BEAKER) (test code = 164 mg/dL 174-382 L 541) Bathhouse Attendant ID - MITCHSpecimen moderately vkmkyyaHPHVQDEWVQ2031-50-04 09:28:13 Test Item Value Reference Range Interpretation Comments PHOSPHORUS (BEAKER) (test code = 3.2 mg/dL 2.3-4.7 604) Bathhouse Attendant ID - MITCHURIC [id number] 09:28:13 Test Item Value Reference Range Interpretation Comments URIC ACID (BEAKER) (test code = 6.9 mg/dL 2.6-7.2 773) Bathhouse Attendant ID - MITCHSpecimen moderately ictericCOMPREHENSIVE METABOLIC PANEL [...] St age Description sq m Result G1 Norm al or high >=90 G2 Mildly decreased 60-89 [...] not appl icable for dialysis patien ts Bathhouse Attendant ID - Natalyaimen moderately ictericLIPID [id number] 09:28:13 Test Item Value Reference Range Interpretation [...] Borderline 130-159 High 160-189 Very High >=190 Bathhouse Attendant ID - Natalyaimenmoderately ictericBILIRUBIN, [id number] 09:28:13 Test Item Value Reference Range Interpretation Comments BILIRUBIN DIRECT (BEAKER) (test 3.6 mg/dL 0.1-0.5 H code = 706) Bathhouse Attendant ID - MARYBETHGAMMA GLUTAMYL TRANSFERASE (GGT)2022-04-09 09:28:13 Test Item Value Reference Range Interpretation Comments GAMMA GLUTAMYL TRANSFERASE (BEAKER) 293 U/L 9-64 H (test code = 364) Bathhouse Attendant ID - MARYBETHSpecimen moderately qtvxpgcDBGQANRWP3301-29-86 09:28:12 Test Item Value Reference Range Interpretation Comments MAGNESIUM (BEAKER) (test code = 2.0 mg/dL 1.6-2.6 627) Bathhouse Attendant ID - [id number] 09:23:08 Test Item Value Reference Range Interpretation Comments ETHANOL (BEAKER) < mg/dL See_Comment [Automated message] The (test code = 400) system [employer] generated this result tra nsmitted reference range : <=10. The reference r andres was not used to int erpret this result as normal/abnormal . Bathhouse Attendant ID - MITCHCALCIUM, [id number] 09:01:23 Test Item Value Reference Range Interpretation Comments CALCIUM IONIZED (BEAKER) (test 1.16 mmol/L 1.12-1.27 code = 698) PH, BLOOD (BEAKER) (test code = 7.37 1810) [id number] 09:00:25 Test Item Value Reference Range Interpretation Comments PARTIAL THROMBOPLASTIN TIME 38.3 seconds 22.5-36.0 H (BEAKER) (test code = 760) [id number] 09:00:03 Test Item Value Reference Range Interpretation Comments FIBRINOGEN LEVEL (BEAKER) (test 323 mg/dl 225-434 code = 658) PROTHROMBIN [id number] 08:59:22 Test Item Value Reference Range Interpretation Comments PROTIME (BEAKER) 16.9 seconds 11.9-14.2 H (test code = 759) INR (BEAKER) (test 1.46 See_Comment [Automat ed message] code = 370) The system cube19 generated this result transmitted ref erence range: <=5.90. The reference range was not used to int erpret this result as normal/abnormal . RECOMMENDED COUMADIN/WARFARIN INR THERAPY RANGESSTANDARD DOSE: 2.0 - 3.0 Includes: PROPHYLAXIS for venous thrombosis, systemic embolization; TREATMENT for venous thrombosis and/or pulmonary embolus.HIGH RISK: Target INR is 2.5-3.5 for patients with mechanical heart valves.CBC W/PLT COUNT & AUTO [id number] 08:42:18 Test Item Value Reference Range Interpretation [...] 2801) MR, ABDOMEN, WITHOUT / WITH IV [id number] 07:55:00Referring: Noguera,UmairUnlisted Reason for Exam - Click Yes and Enter Reason Below->YesUnlistedReason for Exam->Cirrhosis, portal hypertension, liver lesion.[facility] CENTERName: BERRY VALENCIA : 1955 Sex: MFINAL REPORT [...] attention on future follow-up exam. Signed: Darlin Bennetteport Verified Date/Time: 04/05/2022 07:55:45 ANA TITER AND [id number] 14:57:21 Test Item Value Reference Range Interpretation Comments LISA TITER (BEAKER) (test code = >=:2560 1541) LISA PATTERN (BEAKER) (test code = Homogeneous 1781) ANTI-NUCLEAR ANTIBODY (LISA)2022-02-21 14:56:50 Test Item Value Reference Range Interpretation Comments ANTI-NUCLEAR ANTIBODY (LISA) (BEAKER) Positive Negative A (test code = 418) Test performed by IFA method.[id number] 13:56:07 Test Item Value Reference Range Interpretation Comments FERRITIN (BEAKER) (test code = 440.75 ng/mL 5.00-275.00 H 361) Bathhouse Attendant ID - ADMINHEPATITIS B SURFACE [id number] 13:17:50 Test Item Value Reference Range Interpretation Comments HEPATITIS B SURFACE ANTIBODY < mIU/mL <8.0 (BEAKER) (test code = 647) Bathhouse Attendant ID - ADMINHEPATITIS C [id number] 13:17:18 Test Item Value Reference Range Interpretation Comments HEPATITIS C ANTIBODY (BEAKER) Nonreactive Nonreactive (test code = 367) Bathhouse Attendant ID - ADMINHEPATITIS B SURFACE [id number] 13:17:13 Test Item Value Reference Range Interpretation Comments HEPATITIS B SURFACE ANTIGEN (2) Nonreactive Nonreactive (BEAKER) (test code = 2585) Specimen is considered negative for HBsAg.HEPATITIS B CORE ANTIBODY, TOTAL 2022-02-20 13:16:01 Test Item Value Reference Range Interpretation Comments HEPATITIS B CORE TOTAL ANTIBODY Nonreactive Nonreactive (BEAKER) (test code = 497) Bathhouse Attendant ID - ADMINHEPATITIS A ANTIBODY, [id number] 13:16:01 Test Item Value Reference Range Interpretation Comments HEPATITIS A IGG ANTIBODY (BEAKER) Nonreactive Nonreactive (test code = 2797) Bathhouse Attendant ID - ADMINALPHA FETOPROTEIN (AFP), TUMOR [id number] 13:16:00 Test Item Value Reference Range Interpretation Comments ALPHA-FETOPROTEIN (BEAKER) (test 4.1 ng/mL <10.0 code = 1094) Bathhouse Attendant ID - ADMINCARCINOEMBRYONIC ANTIGEN (CEA)2022-02-20 13:15:55 Test Item Value Reference Range Interpretation Comments CARCINOEMBRYONIC ANTIGEN (BEAKER) 4.1 ng/mL 0.0-5.0 (test code = 685) Bathhouse Attendant ID - ADMINIRON, TIBC, % SAT. (WITHOUT FERRITIN)2022-02-20 12:59:54 Test Item Value Reference Range Interpretation Comments IRON (BEAKER) (test code = 547) 190.0 ug/dL 40.0-160.0 H TOTAL IRON BINDING CAPACITY 205 ug/dL 250-450 L (BEAKER) (test code = 769) IRON % SATURATION (2) (BEAKER) 93 % 20-55 H (test code = 2590) Bathhouse Attendant ID - ADMINCOMPREHENSIVE METABOLIC [id number] 12:49:29 Test Item Value Reference Range Interpretation [...] not appl icable for dialysis patien ts Bathhouse Attendant ID - ADMINSpecimen moderately ictericBILIRUBIN, [id number] 12:49:29 Test Item Value Reference Range Interpretation Comments BILIRUBIN DIRECT (BEAKER) (test 4.1 mg/dL 0.1-0.5 H code = 706) Bathhouse Attendant ID - [id number] 12:39:25 Test Item Value Reference Range Interpretation Comments ALPHA-1 ANTITRYPSIN (BEAKER) 220.80 mg/dL 90.00-200.00 H (test code = 502) Bathhouse Attendant ID - ADMINPROTHROMBIN [id number] 12:37:24 Test Item Value Reference Range Interpretation Comments PROTIME (BEAKER) 16.4 seconds 11.9-14.2 H (test code = 759) INR (BEAKER) (test 1.35 See_Comment [Automat ed message] code = 370) The system cube19 generated this result transmitted ref erence range: <=5.90. The reference range was not used to int erpret this result as normal/abnormal . RECOMMENDED COUMADIN/WARFARIN INR THERAPY RANGESSTANDARD DOSE: 2.0 - 3.0 Includes: PROPHYLAXIS for venous thrombosis, systemic embolization; TREATMENT for venous thrombosis and/or pulmonary embolus.HIGH RISK: Target INR is 2.5-3.5 for patients with mechanical heart valves.CBC W/PLT COUNT & AUTO [id number] 12:21:44 Test Item Value Reference Range Interpretation [...] % 0.00-1.00 PERCENT (BEAKER) (test code = 2809)
--- NOTE | 2022-08-20 13:18 | ER ---
Nurse's Notes [facility] Name: Ashok Yo Age: 67 yrs Sex: Male : 1955 Arrival Date: 08/20/2022 Time: 12:15 Bed 5 Private MD: Diagnosis: Pleural effusion, not elsewhere classified;Unspecified cirrhosis of liver Presentation: 08/20 12:24 Chief complaint: Patient states: SOB and fluid build up in his lung again for 8 days. ll1 States he needs a thoracentesis. Coronavirus screen: Vaccine status: Patient reports being unvaccinated. Client denies travel out of the [place] in the last 14 days. difficulty breathing, fatigue, shortness of breath, Client presents with at least one sign or symptom that may indicate coronavirus-19. Standard/surgical mask placed on the client. Ebola Screen: Patient denies travel to an Ebola-affected area in the 21 days before illness onset. Initial Sepsis Screen: Does the patient meet any 2 criteria? No. Patient's initial sepsis screen is negative. Does the patient have a suspected source of infection? Yes: Productive cough/pneumonia. Risk Assessment: Do you want to hurt yourself or someone else? Patient reports no desire to harm self or others. Onset of symptoms was August 12, 2022. 12:24 Method Of Arrival: Ambulatory ll1 12:24 Acuity: SEBLE 3 ll1 Triage Assessment: 12:30 General: Appears in no apparent distress. comfortable, Behavior is calm, cooperative, bp appropriate for age. Pain: Denies pain. Historical: - Allergies: 12:24 cherries; ll1 - PMHx: 12:24 cirrhosis of liver; ll1 - Immunization history:: Client reports having NOT received the Covid vaccine. - Social history:: Smoking status: Patient/guardian denies using tobacco. Screenin:26 [facility] ED Fall Risk Assessment (Adult) History of falling in the last 3 months, mb9 including since admission No falls in past 3 months (0 pts) Confusion or Disorientation No (0 pts) Intoxicated or Sedated No (0 pts) Impaired Gait No (0 pts) Mobility Assist Device Used No (0 pt) Altered Elimination No (0 pt) Score/Fall Risk Level 0 - 2 = Low Risk Oriented to surroundings, Maintained a safe environment, Educated pt \T\ family on fall prevention, incl call for assistance when getting out of bed. Abuse screen: Denies threats or abuse. Nutritional screening: No deficits noted. Tuberculosis screening: No symptoms or risk factors identified. Assessment: 14:16 Reassessment: PT DC HOME WITH FAMILY. bp Vital Signs: 12:24 BP 108 / 77; Pulse 65; Resp 20; Temp 97.7; Pulse Ox 97% ; Weight 77.11 kg; Height 5 ft. ll1 9 in. ; Pain 0/10; 12:24 Body Mass Index 25.10 (77.11 kg, 175.26 cm) ll1 12:24 Pain Scale: Adult ll1 ED Course: 12:17 Patient arrived in ED. mr 12:17 [facility] snw 12:17 Nils Cannon MD is Attending Physician. snw 12:18 Jorge Salcedo, RICHELLE is Primary Nurse. bp 12:24 Arm band placed on Patient placed in an exam room, on a stretcher. ll1 12:26 Triage completed. ll1 12:27 Placed in gown. Bed in low position. Call light in reach. Side rails up X 1. Client mb9 placed on continuous cardiac and pulse oximetry monitoring. NIBP monitoring applied. claims manager on. 13:16 Raza Fair MD is Hospitalizing Provider. snw 14:06 Note: pt refused xray, states they are leaving. md2 14:16 No provider procedures requiring assistance completed. Patient did not have IV access bp during this emergency room visit. Administered Medications: No medications were administered Medication: 12:27 VIS not applicable for this client. mb9 Outcome: 13:17 Decision to Hospitalize by Provider. snw 13:31 Discharge ordered by . snw 14:16 Discharged to home ambulatory. bp 14:16 Condition: stable 14:16 Discharge instructions given to patient, Instructed on discharge instructions, follow up and referral plans. Demonstrated understanding of instructions, follow-up care. 14:16 Patient left the ED. bp Signatures: Pina Denney FNP-C AUTOMOTIVE SALES EXECUTIVE-Csnw Radha Juarez Jorge Salcedo, RN RICHELLE bp Samantha Sheets RN RN ll1 Jeimy Erazo md2 Radha Guidry RN RN mb9
--- NOTE | 2022-08-20 13:18 | EDPHYS ---
Physician Documentation [facility] Name: Ashok Yo Age: 67 yrs Sex: Male : 1955 Arrival Date: 08/20/2022 Time: 12:15 Bed 5 Private MD: ED Physician Nils Cannon HPI: 08/20 12:49 This 67 yrs old Male presents to ER via Ambulatory with complaints of Fluid in lungs. snw 12:49 Onset: The symptoms/episode began/occurred acutely. Severity of symptoms: At their snw worst the symptoms were mild. The patient has experienced similar episodes in the past, chronically. The patient has been recently seen by a physician:. 12:50 Pt is on transplant list for liver. Needs routine thoracentesis. Hemodynamically snw stable.. Historical: - Allergies: 12:24 cherries; ll1 - PMHx: 12:24 cirrhosis of liver; ll1 - Immunization history:: Client reports having NOT received the Covid vaccine. - Social history:: Smoking status: Patient/guardian denies using tobacco. ROS: 12:48 Constitutional: Negative for fever, chills, and weight loss, Eyes: Negative for injury, snw pain, redness, and discharge, ENT: Negative for injury, pain, and discharge, Neck: Negative for injury, pain, and swelling, Cardiovascular: Negative for chest pain, palpitations, and edema, Abdomen/GI: Negative for abdominal pain, nausea, vomiting, diarrhea, and constipation, Back: Negative for injury and pain, : Negative for injury, bleeding, discharge, and swelling, MS/Extremity: Negative for injury and deformity, Skin: Negative for injury, rash, and discoloration, Neuro: Negative for headache, weakness, numbness, tingling, and seizure, Psych: Negative for depression, anxiety, suicide ideation, homicidal ideation, and hallucinations. 12:48 Respiratory: Positive for need for thoracentesis. Exam: 12:46 Neck: Trachea midline, no thyromegaly or masses palpated, and no cervical snw lymphadenopathy. Supple, full range of motion without nuchal rigidity, or vertebral point tenderness. No Meningismus. Chest/axilla: Normal chest wall appearance and motion. Nontender with no deformity. No lesions are appreciated. Cardiovascular: Regular rate and rhythm with a normal S1 and S2. No gallops, murmurs, or rubs. Normal PMI, no JVD. No pulse deficits. 12:46 Back: No spinal tenderness. No costovertebral tenderness. Full range of motion. MS/ Extremity: Pulses equal, no cyanosis. Neurovascular intact. Full, normal range of motion. Neuro: Awake and alert, GCS 15, oriented to person, place, time, and situation. Cranial nerves II-XII grossly intact. Motor strength 5/5 in all extremities. Sensory grossly intact. Cerebellar exam normal. Normal gait. Psych: Awake, alert, with orientation to person, place and time. Behavior, mood, and affect are within normal limits. 12:46 Constitutional: The patient appears alert, awake, jaundiced 12:46 Head/face: dressing to left occiput. 12:46 Eyes: Sclera: icterus, is present. 12:46 Respiratory: the patient does not display signs of respiratory distress, Respirations: shallow respirations, that is mild, Breath sounds: unable to hear breath sounds on right. 12:46 Abdomen/GI: Inspection: abdomen appears normal, Bowel sounds: normal, Palpation: nontender, mildly distended. 12:46 Skin: Appearance: Color: jaundiced. Vital Signs: 12:24 BP 108 / 77; Pulse 65; Resp 20; Temp 97.7; Pulse Ox 97% ; Weight 77.11 kg; Height 5 ft. ll1 9 in. ; Pain 0/10; 12:24 Body Mass Index 25.10 (77.11 kg, 175.26 cm) ll1 12:24 Pain Scale: Adult ll1 MDM: 12:17 Patient medically screened. snw 13:14 Differential diagnosis: pleural effusion. Data reviewed: vital signs, nurses notes, snw radiologic studies. Management of patient was discussed with the following: Primary Care Provider: Dr. Fair, spoke with Dr. Powell re: thoracentesis. Pt can have IR drainage tomorrow morning. Will admit to Dr. Fair for IR in the morning.. Counseling: I had a detailed discussion with the patient and/or guardian regarding: the historical points, exam findings, and any diagnostic results supporting the discharge/admit diagnosis, the need for further work-up and treatment in the hospital. Special discussion: Based on the history and exam findings, there is no indication for further emergent testing or inpatient evaluation. 13:36 ED course: anxious over chronic illness, pt willing to have procedure but does not snw want to spend the night in the hospital. Declines hospitalization, will keep appt for thoracentesis on Thursday at [facility]. Encouraged to rted prn worsening, pt and voice understanding of tx plan and f/u. 08/20 12:45 [place] [facility] [place]: Consult Dr. Fair; Complete Time: 13:11 snw Administered Medications: No medications were administered Disposition Summary: 08/20/22 13:31 Discharge Ordered Location: Home(08/20/22 13:31) snw Condition: Stable(08/20/22 13:31) snw Diagnosis - Pleural effusion, not elsewhere classified snw - Unspecified cirrhosis of liver(08/20/22 13:31) snw Followup: snw - With: Emergency Department - When: As needed - Reason: Worsening of condition Followup: snw - With: Private Physician - When: as scheduled Thursday morning - Reason: Discharge Instructions: - Discharge Summary Sheet snw - Cirrhosis snw - Pleural Effusion snw - Thoracentesis snw Forms: - Medication Reconciliation Form snw - Thank You Letter snw - Antibiotic Education snw - Prescription Opioid Use snw Signatures: Dispatcher [employer] EDMS Pina Denney, EDILMA-C HOTEL OR MOTEL RECEPTIONIST-Csnw Samantha Sheets, RN RN ll1 Corrections: (The following items were deleted from the chart) 13:29 13:17 Observation snw snw 13:29 13:17 Raza Fair snw snw 13:29 13:17 Telemetry/MedSurg (observation) snw snw 13:29 13:17 Stable snw snw 13:29 13:17 chronic snw snw 13:29 13:17 are unchanged snw snw 13:29 13:17 Standard snw snw 13:29 13:17 snw snw 13:29 13:17 Pleural effusion in other conditions classified elsewhere snw snw 13:29 13:17 Unspecified cirrhosis of liver snw snw 14:08 13:18 Chest Pa And Lat (2 Views)+RAD.RAD.BRZ ordered. EDMS EDMS
[2022-08-20 14:50] VITALS: BP 108/77; TEMP 97.7; O2SAT 97
== END 2022-08-20 14:16 | disposition home or self-care (01) ==
LOC: ER 12:15
DX: J90 Pleural effusion, not elsewhere classified (principal); K74.60 Unspecified cirrhosis of liver; Z91.018 Allergy to other foods
CPT/HCPCS: 99284

== ENCOUNTER 2022-10-08 08:04 | Day surgery (SDC) | payer BC, OTHER ==
[2022-10-08] MEDS ORDERED: NA CHLORIDE 0.9% 0 ML ONE (08:45)
[2022-10-08 09:00] VITALS: BMI 23.6
--- NOTE | 2022-10-08 10:28 | RAD REPORT ---
EXAM DESCRIPTION: [place] Single View10/08/2022 10:21 am CLINICAL HISTORY: Thoracentesis IMPRESSION: No pneumothorax status post right thoracentesis Opacification right hemithorax probably a combination of atelectasis and residual pleural effusion
[2022-10-08] MEDS ORDERED: ALBUMIN HUMAN 25% 300 ML IV ONE (10:45)
--- NOTE | 2022-10-08 10:51 | RAD REPORT ---
EXAM DESCRIPTION: US - Thoracentesis w/ US Guide - 10/08/2022 9:49 am CLINICAL HISTORY: Right pleural effusion TECHNIQUE: The risks, benefits alternatives to the procedure were explained to the patient and infor med consent obtained. Skin and deeper tissues anesthetized with lidocaine. Under sonographic guidance, an 8 Peruvian catheter was placed into the posterior lower right pleural sp radha. 2.6 liters yellow fluid removed Patient experienced no immediate complication IMPRESSION: Thoracentesis
[2022-10-08 12:11] VITALS: BP 109/69; TEMP 97.5; O2SAT 100
== END 2022-10-08 11:49 | disposition home or self-care (01) ==
LOC: DS 08:04
PROVIDERS: ATTEND Family Medicine
DX: R18.8 Other ascites (principal); K70.31 Alcoholic cirrhosis of liver with ascites; C22.0 Liver cell carcinoma
CPT/HCPCS: 71045; 96365; 32555; P9047; J7040

== ENCOUNTER 2022-10-09 15:13 | Emergency (ER) | payer BC, OTHER ==
--- OUTSIDE RECORDS SUMMARY | 2022-10-09 15:24 | XMS REPORT | Continuity of Care Document ---
:1955 Author Organization [facility] t Address [address] [facility] [address] [place] [address] Care Team Providers Name Role Phone No, Pcp [facility] Primary Care Physician Unavailable SKYE ROTH Attending Clinician Unavailable KATHLEEN BOYER Attending Clinician Unavailable RINA US Attending Clinician Unavailable BRENDA ALLAN Attending Clinician Unavailable Jesika Suresh Attending Clinician Maykel Christianson Attending Clinician Unavailable Brenda Allan MD Attending Clinician Antoine Ramos RN Attending Clinician Unavailable Skye Roth MD Attending Clinician Florida Lopez RN Attending Clinician Unavailable Ashlee Blanton Attending Clinician Unavailable Erica Cruz Attending Clinician Sofia PEOPLES, Briana Madrigal Attending Clinician Unavailable Lalo Johnson PA-C Attending Clinician Armida Singh Attending Clinician Unavailable Christiana OCAMPO, Spring Smith Attending Clinician Adelfo Lucas NP Attending Clinician Kyle Carrion MD Attending Clinician Unavailable Aga Seay LCSW Attending Clinician Unavailable Gabby Guardado Attending Clinician Unavailable Tl Man MD Attending Clinician Shiraz Brewer MD Attending Clinician Sang Jett MD Attending Clinician Mita Farias MD Attending Clinician [phone] Virtual, Surgeon Attending Clinician Unavailable SHIRAZ BREWER Attending Clinician Unavailable SPRING VILLEDA Attending Clinician Unavailable Semaj KOWALSKI, Lavinia Attending Clinician Unavailable Tobias Cherry MA Attending Clinician Unavailable John ESCUDERO, Latricia Attending Clinician Unavailable Poncho Grajeda LCSW Attending Clinician Unavailable Tereza Lai MD, Aba Attending Clinician [phone] Bryce PEOPLES, Anneliese Disla Attending Clinician Unavailable Donato OCAMPO, Freida Attending Clinician Lizzie Lieberman Attending Clinician 3, [facility] Aydee Mr Attending Clinician Unavailable LIZZIE LIEBERMAN Attending Clinician Unavailable Michelle SAND HAULER, Jazmyn Gavin Attending Clinician [phone] Radha Anderson Attending Clinician Unavailable Lauro PEOPLES, Nicol Attending Clinician Unavailable Tito Saunders MD Attending Clinician MALLORIE MONTEIRO Admitting Clinician Unavailable RINA US Admitting Clinician Unavailable BRENDA ALLAN Admitting Clinician Unavailable KYLE CARRION Admitting Clinician Unavailable TL MAN Admitting Clinician Unavailable SHIRAZ BREWER Admitting Clinician Unavailable Payers Payer Name Policy Type Policy Number Effective Date Expiration Date S edvin [facility] [id number] 2021 BLUE/ESSENTIALS 00:00:00 MEDICARE A B [id number] 2021 00:00:00 Problems Condition Condition Condition Status [...] Disease Active [facility]: Nh dical for for Center chronic chronic liver liver disease disease Cirrhosis Cirrhosis Disease Recurre Last [facility] 04-09 Assessmen Al 00:00: t & Plan: [address] g of this note is different from the original. Cirrhosis diagnosed by imaging (MRI/US with cirrhosis , ascites), secondary to likely OLMAN. There is evidence of decompens ation. This is complicat ed by portal hypertens ion manifeste d by ascites and varices. MELD-Na score is 19 based on labs drawn this morning. Encounter Encounter Disease Active Last [facility] St for for 04-09 Assessmillie Melendez pre-transp pre-transp 00:00: t & Plan[facility] g of this for liver for liver note transplant transplant might be different from the original. He is an acceptabl e candidate from a surgical standpoin t, pending further workup of HCC, additiona l studies, and official MRB. He will also need 1cm cystic lesion on pancreas evaluated . Liver Liver Disease Active Last [facility] St lesion lesion 04-09 Assessmen Al 00:00: t & Plan: [address] g of this note might be [...] plant coordinat or. Ascites Ascites Disease Active Last [facility] St 04-09 Assessmen Al 00:00: t & Plan: Medical [address] [place] [address] g of this note might be different from the original. He is taking spironola ctone and furosemid e. Managemen t per hepatolog y/GI. Lesion of Lesion of Disease Active Last [facility] St pancreas pancreas 04-09 Assessmillie Hernandez es 00:00: t & Plan: [address] g of this note might be different from the original. A 1cm cystic lesion noted on pancreati c body appears to have increased in size, will need to be worked up prior to transplan t. Allergies, Adverse Reactions, Alerts Allergy Allergy Status Severity Reaction(s) Onset Inactive Treating Comm ents Source Name Type Date Date Clinician Daniella Frank Active Swelling Face and [facility]05 [facility] adverse 00:00: swelling Medical reaction 00 Center s [facility] Allergy Active High Swelling [facility] 05-05 00:00: 00 NO KNOWN Allergy Active [facility] Social History Social Habit Start Date Stop Date Quantity Comments Source History of tobacco Snuff User [facility] use Medical Center History [facility] Transport Non-Med Medical Center History [facility] Housing Places Medical Ce nter Lived Alcohol intake 2022-06-17 2022-06-17 Ex-drinker [facility] 00:[facility]00 00:00:00 (finding) Medical Center Exposure to 2022-05-20 2022-05-[address] [facility] SARS-CoV-2 (event) 00:00:00 14:40:00 Medica l Center Tobacco use and 2022-05-30 2022-05-[address] [facility] exposure 00:00:00 00:00:00 tobacco user Medical Cent er History [facility] 2022-05-06 2022-05-[address] [facility] Transport Med 00:00:00 00:00:[address] History [facility] 2022-05-06 2022-05-[address] [facility] Housing Unable to 00:00:00 00:00:00 Medical Center Pay History [facility] 2022-05-06 2022-05-[address] [facility] Housing Homeless 00:00:00 00:00:00 Medical Center Last Year Sex Assigned At [address] [facility] 00:00:00 00:00:00 Medical Center Smoking Status Start Date Stop Date Source Never smoked tobacco [facility] Medications Ordered Filled Start Stop Current Ordering Indication Dosage Frequency Signature Comments Components Source Medication Medication Date Date Medication? Clinician (SIG) Name Name propranolol Yes Take by [facility] HCl 4-11 mouth in [facility] (PROPRANOLO 11:15: the Medica l L ORAL) 10 morning. Center pantoprazol 0 Yes Take by [facility] e sodium 4-11 mouth. [facility] (PROTONIX 11:15: Medical ORAL) 10 Center furosemide 0 Yes QD Take by [facility] (LASIX 4-11 mouth [facility] ORAL) 11:15: daily. Medical 10 Center SPIRONOLACT 0 Yes Take by [facility] ONE ORAL 4-11 mouth in [facility] 11:15: the Medical 10 morning. Center propranolol 0 Yes Take by [facility] HCl 4-04 mouth in [facility] (PROPRANOLO 16:31: the Medica l L ORAL) 06 morning. Center pantoprazol 0 Yes Take by [facility] e sodium 4-04 mouth. [facility] (PROTONIX 16:31: Medical ORAL) 06 Center furosemide 0 Yes QD Take by [facility] (LASIX 4-04 mouth [facility] ORAL) 16:31: daily. Medical 06 Center SPIRONOLACT 0 Yes Take by [facility] ONE ORAL 4-04 mouth in [facility] 16:31: the Medical 06 morning. [facility] ondansetron 2022- No Nausea 4mg Take 1 [...] 50mg QD Take [address] one 04-22- of liver tablet (50 Luke s (ALDACTONE) [...] Take [address] (ZOFRAN) 4 04-15- tablet (4 David es MG tablet 00:00: [...] Take [address] [facility] (Lunesta) 1 04-15 03-02 unspecified tablet (1 [facility] MG tablet 00:00: 00:00 type mg total) Me dical 00 :00 by mouth Center every night as needed Take immediatel y before bedtime.. Max Daily Amount: 1 mg eszopiclone 2022- No Insomnia, 1mg Take [address] [facility] (Lunesta) 1 04-15 03- unspecified tablet (1 [facility] MG tablet 00:00: 00:00 type mg total) Me dical 00 :00 by mouth Center every night as needed Take immediatel y before bedtime.. Max Daily Amount: 1 mg ondansetron 2022- No Nausea 4mg Take [address] (ZOFRAN) 4 17 - tablet (4 David es MG tablet 00:00: 00:00 mg total) Me dical 00 :00 by mouth Center every 8 (eight) hours as needed for Nausea. ondansetron 2022- No Nausea 4mg Take [address] (ZOFRAN) 4 03-25 tablet (4 David es MG tablet 00:00: 00:00 mg total) Me dical 00 :00 by mouth Center every 8 (eight) hours as needed for Nausea. tobramycin- [address] [facility] dexamethaso 1-13 both eyes David es ne 00:00: 2 (two) Medical (TOBRADEX) 00 times Center 0.3-0.1 % daily. ophthalmic solution tobramycin- 2022-[address] [facility] dexamethaso 1-13 both eyes David es ne 00:00: 2 (two) Medical (TOBRADEX) 00 times Center 0.3-0.1 % daily. ophthalmic solution furosemide 2021-03 No 40mg QD Take [address] (LASIX) 40 03-19-14 by mouth Luke s MG tablet 00:00: 00:00 daily. Medic al 00 :00 Center spironolact 2021-03- No 100mg QD Take [address] one 03-19-14 mg by [facility] (ALDACTONE) 00:00: 00:00 mouth Medi jordan 100 MG 00 :00 daily. Center tablet pantoprazol 2021-03 No 40mg QD Take [address] e 03-19-14 by mouth [facility] (PROTONIX) 00:00: 00:00 every Medic al 40 MG 00 :00 morning. Center tablet propranoloL 2021-03 No 10mg Q.5D Take [address] (INDERAL) 03-1914 by mouth 2 David es 10 MG 00:00: 00:00 (two) Medical tablet 00 :00 times Center daily. furosemide 2021-03 No 40mg QD Take [address] (LASIX) 40 03-1914 by mouth Luke s MG tablet 00:00: 00:00 daily. Medic al 00 :00 Center spironolact 2021-03- No 100mg QD Take [address] one 03-19-14 mg by [facility] (ALDACTONE) 00:00: 00:00 mouth Medi jordan 100 MG 00 :00 daily. Center tablet pantoprazol 2021-03 No 40mg QD Take [address] e 03-1914 by mouth [facility] (PROTONIX) 00:00: 00:00 every Medic al 40 MG 00 :00 morning. Center tablet propranoloL 2021-03 No 10mg Q.5D Take [address] (INDERAL) 03-1914 by mouth 2 David es 10 MG [...] Center Diastolic blood 2022-06-17 10:25:00 68 mm[Hg] [facility] Heart rate 2022-06-17 10:25:00 71 /min [facility] Respiratory rate 2022-06-17 10:25:00 21 /min [facility] Oxygen saturation in 2022-06-17 10:25:00 94 /min [facility] Arterial blood by Medical Ce nter Pulse oximetry Body temperature 2022-06-17 10:08:00 37.06 Sujata [facility] Body height 2022-06-17 09:07:00 177.8 cm [facility] Body weight 2022-06-17 09:07:00 79.379 kg [facility] BMI 2022-06-17 09:07:00 25.11 kg/m2 [facility] Body height 2022-06-11 13:00:00 177.8 cm [facility] Body weight 2022-06-11 13:00:00 79.379 kg [facility] BMI 2022-06-11 13:00:00 25.11 kg/m2 [facility] Systolic blood 2022-06-09 13:00:00 126 mm[Hg] [facility] Diastolic blood 2022-06-09 13:00:00 75 mm[Hg] [facility] Heart rate 2022-06-09 13:00:00 65 /min [facility] Respiratory rate 2022-06-09 13:00:00 18 /min [facility] Oxygen saturation in 2022-06-09 13:00:00 97 /min [facility] Arterial blood by Medical Ce nter Pulse oximetry Body temperature 2022-06-05 13:31:00 36.67 Sujata [facility] Procedures Procedure Date / Time Performing Clinician Source Performed REPORT OF PROCEDURE - 2022-06-17 10:05:51 Brenda Allan [facility] ENDOSCOPY [facility] COLONOSCOPY, WITH BIOPSY 2022-06-17 09:46:00 Brenda Allan [facility] COLONOSCOPY 2022-06-17 09:30:00 Brenda Allan [facility] MR ABDOMEN WITH & WITHOUT 2022-06-11 13:48:00 Skye Roth [facility] CONTRAST [facility] US PARACENTESIS 2022-06-09 13:30:00 Skye Roth [facility] BODY FLUID CELL COUNT WITH 2022-06-09 12:37:[address] [facility] DRUG SCREEN, URINE, 2022-05-30 13:40:00 Adelfo Lucas [facility] TRANSPLANT [facility] CT ABDOMEN WITH & WITHOUT 2022-05-30 13:25:00 Skye Roth [facility] CONTRAST [facility] MISCELLANEOUS LAB ORDER 2022-05-28 14:44:00 Spring Villeda [facility] CBC W/PLT COUNT & AUTO 2022-05-28 14:44:00 Spring Villeda [facility] COMPREHENSIVE METABOLIC 2022-05-28 14:44:00 Spring Villeda [facility] PROTHROMBIN TIME/INR 2022-05-28 14:44:00 Spring Villeda [facility] CBC W/PLT COUNT & AUTO 2022-05-28 14:44:00 Spring Villeda [facility] ECG 12-LEAD 2022-05-26 13:58:46 Nazario [facility] ECG 12-LEAD 2022-05-26 13:58:46 Unknown, Hl7 Doctor [facility] CBC (HEMOGRAM ONLY) 2022-05-26 13:27:00 Nazario [facility] BASIC METABOLIC PANEL 2022-05-26 13:27:00 [facility] PROT[facility]/INR 2022-05-26 13:27:00 Nazario [facility] CARDIAC CATH REPORT - SCAN 2022-05-26 00:00:00 Bel Ribera [facility] NM BONE SCAN WHOLE BODY 2022-05-12 12:49:00 Spring Villeda [facility] T SPOT TB 2022-05-12 10:04:00 Spring Villeda [facility] BASIC METABOLIC PANEL 2022-05-07 04:11:00 [facility] CALCIUM, IONIZED 2022-05-07 04:11:00 Lucrecia [facility] PHOSPHORUS 2022-05-07 04:11:00 [facility] CBC W/PLT COUNT & AUTO 2022-05-07 04:11:00 Tl Man [facility] MAGNESIUM 2022-05-07 04:11:00 [facility] CBC W/PLT COUNT & AUTO 2022-05-07 04:11:00 Tl Man [facility] HEMOGLOBIN AND HEMATOCRIT 2022-05-06 17:58:00 [facility] HEMOGLOBIN AND HEMATOCRIT 2022-05-06 13:52:00 [facility] HEMOGLOBIN AND HEMATOCRIT 2022-05-06 08:23:00 [facility] CBC (HEMOGRAM ONLY) 2022-05-06 04:34:00 Calixto [facility] COMPREHENSIVE METABOLIC 2022-05-06 04:34:00 [facility] BASIC [facility]ABOLIC PANEL 2022-05-05 17:41:00 Nazario [facility] PROTHROMBIN TIME/INR 2022-05-05 17:41:00 Nazario [facility] CBC W/PLT COUNT & AUTO 2022-05-05 17:41:00 [facility] CBC W/PLT COUNT & AUTO 2022-05-05 17:41:[address] Davis [facility] [address] RFA TUMOR ABLATION 2022-05-05 17:33:00 Skye Roth [facility] US GUIDANCE INTRAOPERATIVE 2022-05-05 16:23:00 Skye Roth [facility] PROCEDURE, IN NON-OPERATING 2022-05-05 10:00:00 Virtual, Surgeon [facility] BASIC METABOLIC PANEL 2022-05-05 09:12:00 Víctor Jerome [facility] HEPATIC FUNCTION PANEL 2022-05-05 09:12:00 Víctor Jerome [facility] TYPE AND SCREEN, AUTOMATED 2022-05-05 09:12:00 Víctor Jerome [facility] CBC W/PLT COUNT & AUTO 2022-05-05 09:11:00 Queenie [facility] PROTHROMBIN TIME/INR 2022-05-05 09:11:00 Víctor Jerome I [facility] CBC W/PLT COUNT & AUTO 2022-05-05 09:11:[address] [facility] NM MYOCARDIAL PERFUSION 2022-04-22 15:17:00 Spirng Villeda [facility] SPECT, [facility] TREADMILL 2022-04-22 14:12:06 Unknown, Hl7 [facility] TOLERANCE(NON-NUCLEAR Medical Ce nter TREADMILL) ECG 12-LEAD 2022-04-22 13:55:36 Unknown, Hl7 [facility] ECG 12-LEAD 2022-04-22 13:55:36 Unknown, Hl7 [facility] ECG 12-LEAD 2022-04-22 13:55:06 Unknown, Hl7 [facility] ECG 12-LEAD 2022-04-22 13:55:06 Unknown, 7 [facility] MISCELLANEOUS LAB ORDER 2022-04-22 11:32:00 Spring Villeda [facility] COMPREHENSIVE METABOLIC 2022-04-22 11:32:00 Spring Villeda [facility] CBC W/PLT COUNT & AUTO 2022-04-22 11:32:00 Spring Villeda [facility] PROTHROMBIN TIME/INR 2022-04-22 11:32:00 Spring Villeda [facility] ALPHA FETOPROTEIN (AFP), 2022-04-22 11:32:00 Spring Villeda [facility] TUMOR MARKER [facility] CBC W/PLT COUNT & AUTO 2022-04-22 11:32:00 Spring Villeda [facility] T SPOT TB 2022-04-22 11:31:00 Spring Villeda [facility] DRUG SCREEN, URINE, 2022-04-22 11:28:00 Spring Villeda [facility] TRANSPLANT [facility] CT CHEST WITHOUT IV 2022-04-15 13:05:00 Spring Villeda [facility] ECHO W CONTRAST & DOPPLER 2022-04-10 13:24:56 Spring Villeda [facility] ECG 12-LEAD 2022-04-10 11:02:16 Spring Villeda [facility] CAROTID DOPPLER BILATERAL 2022-04-10 11:01:00 Spring Villeda [facility] BLOOD GAS, ARTERIAL 2022-04-10 10:22:00 Spring Villeda [facility] XR MANDIBLE 4 VIEWS MIN 2022-04-09 12:33:00 Spring Villeda [facility] XR CHEST 2 VIEWS 2022-04-09 12:30:00 Spring Villeda [facility] XR DXA BONE DENSITY STUDY 2022-04-09 12:27:00 Spring Villeda [facility] STRONGYLOIDES ANTIBODY, IGG 2022-04-09 08:55:00 Spring Villeda [facility] TYPE AND SCREEN, AUTOMATED 2022-04-09 07:36:00 Spring Villeda [facility] DRUG SCREEN, URINE, 2022-04-09 07:30:00 Sprign Villeda [facility] TRANSPLANT [facility] URINALYSIS W/ MICROSCOPIC 2022-04-09 07:30:00 Spring Villeda [facility] MISCELLANEOUS LAB ORDER 2022-04-09 07:26:00 Spring Villeda [facility] FIBRINOGEN 2022-04-09 07:26:00 Spring Villeda [facility] COMPREHENSIVE METABOLIC 2022-04-09 07:26:00 Spring Villeda [facility] BILIRUBIN, DIRECT 2022-04-09 07:26:00 Spring Villeda [facility] GAMMA GLUTAMYL TRANSFERASE 2022-04-09 07:26:00 Spring Villeda [facility] (GGT) [facility] MAGNESIUM 2022-04-09 07:26:00 Spring Villeda [facility] PHOSPHORUS 2022-04-09 07:26:00 Spring Villeda [facility] PROTHROMBIN TIME/INR 2022-04-09 07:26:00 Spring Villeda [facility] APTT 2022-04-09 07:26:00 Spring Villeda [facility] CBC W/PLT COUNT & AUTO 2022-04-09 07:26:00 Spring Villeda [facility] TRANSFERRIN 2022-04-09 07:26:00 Spring Villeda [facility] VITAMIN D, 25-HYDROXY 2022-04-09 07:26:00 Spring Villeda [facility] I [facility] LIPID PANEL 2022-04-09 07:26:00 Spring Villeda [facility] HEMOGLOBIN A1C 2022-04-09 07:26:00 Spring Villeda [facility] ETHANOL 2022-04-09 07:26:00 Spring Villeda [facility] ZINC 2022-04-09 07:26:00 Spring Villeda [facility] URIC ACID 2022-04-09 07:26:00 Spring Villeda [facility] TSH 2022-04-09 07:26:00 Jalal, Spring Smiht [facility] T3 2022-04-09 07:26:00 Jalal, Spring Smith [facility] T4 2022-04-09 07:26:00 Jalarashaun, Spring Smith [facility] HEPATITIS B CORE ANTIBODY, 2022-04-09 07:26:00 Christiana, Spring Ellis [facility] IGM [facility] HC LAB HIV-1 AG W/HIV-1&2 2022-04-09 07:26:00 Jalarashaun, Spring Krishnan [facility] AB [facility] CYTOMEGALOVIRUS ANTIBODY, 2022-04-09 07:26:00 Menglarashaun, Spring Krishnan [facility] EBV ANTIBODY, IGM 2022-04-09 07:26:00 Menglarashaun, Spring Smith [facility] RUBEOLA ANTIBODY IGG 2022-04-09 07:26:00 Jalarashaun, Spring [facility] MUMPS ANTIBODY, IGG 2022-04-09 07:26:00 Jalal, Spring Smith [facility] RUBELLA ANTIBODY, IGG 2022-04-09 07:26:00 JalaSpring ordney [facility] VARICELLA ZOSTER ANTIBODY, 2022-04-09 07:26:00 MenglaSpring rodney [facility] CRYPTOCOCCAL ANTIGEN 2022-04-09 07:26:00 Spring Villeda [facility] RPR 2022-04-09 07:26:00 JalaSpring rodney [facility] ALPHA-1 ANTITRYPSIN 2022-04-09 07:26:00 Spring Villeda [facility] MUTATION ANALYSIS [facility] PSA 2022-04-09 07:26:00 Spring Villeda [facility] TESTOSTERONE, FREE + TOTAL 2022-04-09 07:26:00 Spring Villeda [facility] TOXOPLASMA GONDII ANTIBODY, 2022-04-09 07:26:00 Spring Villeda [facility] COCCIDIOIDES ANTIBODIES 2022-04-09 07:26:00 Spring Villeda [facility] HEREDITARY HEMOCHROMATOSIS 2022-04-09 07:26:00 Spring Villeda [facility] BLOOD TYPING, AUTOMATED 2022-04-09 07:26:00 Spring Villeda [facility] CBC W/PLT COUNT & AUTO 2022-04-09 07:26:00 Spring Villeda [facility] DIFFERENTIAL [facility] CALCIUM, IONIZED 2022-04-09 07:25:00 Spring Villeda [facility] MR ABDOMEN WITH & WITHOUT 2022-04-02 11:00:00 Lizzie Lieberman [facility] IV CONTRAST [facility] PROTHROMBIN TIME/INR 2022-02-20 11:31:00 [facility] HEPATITIS A ANTIBODY, IGG 2022-02-20 11:31:00 Lizzie Lieberman [facility] HEPATITIS B SURFACE 2022-02-20 11:31:00 [facility] ANTIBODY [facility] HEPATITIS B CORE ANTIBODY, 2022-02-20 11:31:00 Lizzie Lieberman [facility] TOTAL [facility] FERRITIN 2022-02-20 11:31:00 [facility] [id number]\\, SERUM 2022-02-20 11:31:00 [facility] CERULOPLASMIN 2022-02-20 11:31:[address] [facility] ACTIN (SMOOTH MUSCLE) 2022-02-20 11:31:00 Luisana [facility] ANTIBODY, IGG [facility] MITOCHONDRIA M2 ANTIBODY 2022-02-20 11:31:00 Luisana [facility] (IGG) [facility] ALPHA FETOPROTEIN (AFP), 2022-02-20 11:31:00 Luisana [facility] TUMOR MARKER [facility] CARCINOEMBRYONIC ANTIGEN 2022-02-20 11:31:00 Luisana [facility] (CEA) [facility] CARBOHYDRATE ANTIGEN 19-9 2022-02-20 11:31:00 Lizzie Lieberman [facility] (CA 19-9) [facility] COMPREHENSIVE METABOLIC 2022-02-20 11:30:00 Lizzie Lieberman [facility] BILIRUBIN, DIRECT 2022-02-20 11:30:00 Lizzie Lieberman [facility] CBC W/PLT COUNT & AUTO 2022-02-20 11:30:[address] [facility] HEPATITIS B SURFACE ANTIGEN 2022-02-20 11:30[facility] 2022-02-20 11:30:[address] [facility] IRON, TIBC, % SAT. (WITHOUT 2022-02-20 11:30:00 [facility] FERRITIN) [facility] ANTI-NUCLEAR ANTIBODY (LISA) 2022-02-20 11:30:[address] [facility] PHOSPHATIDYLETHANOL, BLOOD 2022-02-20 11:30:00 Lizzie Lieberman [facility] LISA TITER AND PATTERN 2022-02-20 11:30[facility] & AUTO 2022-02-20 11:30:[address] [facility] Plan of Care Planned Activity Planned Date Details Comments Source Future Scheduled 2032-06-17 Screening for malignant [facility] Test 00:00:00 neoplasm of colon Medical Ce nter (procedure) [code = [id number]] Future Scheduled 2032-06-17 Screening for malignant [facility] Test 00:00:00 neoplasm of colon Medical Ce nter (procedure) [code = 024169931] Future Scheduled 2027-04-09 Lipid panel (procedure) [facility] Test 00:00:00 [code = [id number]] Medical Ce nter Future Scheduled 2027-04-09 [facility]id [facility]procedure[facility] [facility] [code = 98126166] Medical Ce nter Future Scheduled 2023-06-10 Tobacco [...] [facility] 2) [code = SHINGLES [facility] VACCINES (1 of 2)] Future Scheduled 1975-07-13 DTAP/TDAP/TD VACCINES [facility]00 (1 - Tdap) [code = Medical C enter DTAP/TDAP/TD VACCINES (1 - Tdap)] Future Scheduled 1975-07-13 SHINGLES VACCINES ([address] [facility] 00:00:00 2) [code = SHINGLES [facility] VACCINES (1 of 2)] Future Scheduled [...] [facility] 00:[facility]:00 [code = CT Colonography [facility] (combo)] Future Scheduled 1955 Screening for malignant [facility] 00:[facility]:00 neoplasm of colon Medical Ce nter (procedure) [code = 617329364] Future Scheduled 1955 Screening for malignant [facility] 00:[facility]:00 neoplasm of colon Medical Ce nter (procedure) [code = 848947335] Future Scheduled 1955 Screening for malignant [facility] 00:[facility]:00 neoplasm of colon Medical Ce nter (procedure) [code = 966132960] Future Scheduled 1955 Screening for malignant [facility] 00:[facility]:00 neoplasm of colon Medical Ce nter (procedure) [code = 511576355] Future Scheduled 1955 Sigmoidoscopy [code = [facility] S[facility]oscopy] Medical Cente r Future Scheduled 1955 CT Colonography (combo) [facility] 00:00[facility] [code = CT [facility] ([facility])] Future Scheduled 1955 Screening for malignant [facility] 00:[facility]:00 neoplasm of colon Medical Ce nter (procedure) [code = 007427442] Future Scheduled 1955 Screening for malignant [facility] 00:00:00 neoplasm of colon Medical Ce nter (procedure) [code = 187713784] Future Scheduled 1955 Sigmoidoscopy [code = [facility] Sigmoidoscopy] Medical Pam madrigal Encounters Start End Encounter Admission Attending Care Care Encounter Source Date/Time Date/Time Type Type Clinicians Facility Department ID 2022-07-24 2022-07-24 Inpatient ER PABLO US Emergency [id number] [facility] 11:53:00 11:53:00 RINA 2022-06-17 2022-06-[address] [facility] [id number] [facility] 09:46:00 10:06:00 Event Maykel Solorio [facility] 2022-06-17 2022-06-[address] [facility] [id number] 09:30:00 10:00:00 [facility] 2022-06-13 2022-06-13 [facility] [id number] [facility] 00:00:[address] [facility] 2022-06-11 2022-06-11 [facility] [id number] [address] 12:32:06 23:59:00 Encounter [facility] 2022-06-10 2022-06-[address] [facility] [id number] 00:00:00 00:00:00 ion [facility] 2022-06-10 2022-06-[address] [facility] [id number] 00:00:00 00:00:00 Orders [facility] 2022-06-09 2022-06-09 [facility] [id number] 11:38:00 17:00:00 Encounter [facility] 2022-06-06 2022-06-[address] [facility] [id number] 00:00:00 00:00:[address] [facility] 2022-06-06 2022-06-[address] [facility] [id number] 00:00:00 00:00:00 [facility] 2022-06-06 2022-06-[address] [facility] [id number] 00:00:00 00:00:00 [facility] 2022-06-05 2022-06-[address] [facility] [id number] 13:30:00 14:00:00 Visit [facility] 2022-06-05 2022-06-[address] [facility] [id number] [address] [facility]00 00:00:00 [facility] 2022-06-05 2022-06-[address] [facility] [id number] 00:00:00 00:00:00 [facility] 2022-06-05 2022-06-[address] [facility] [id number] [address] 00:00:00 00:00:00 [facility] 2022-06-04 2022-06-[address] [facility] [id number] 00:00:00 00:00:00 victor m [facility] 2022-06-04 2022-06-[address] [facility] [id number] 00:00:00 00:00:00 [facility] 2022-06-04 2022-06-[address] [facility] [id number] 00:00:00 00:00:00 [facility] 2022-06-04 2022-06-[address] [facility] [id number] 00:00:00 00:00:00 [facility] 2022-06-02 2022-06-[address] [facility] [id number] 00:00:00 00:00:00 victor [facility] 2022-06-02 2022-06-[address] [facility] [id number] [address] 00:00:00 00:00:00 victor m [facility] 2022-06-02 2022-06-[address] [facility] [id number] 00:00:00 00:00:[address] [facility] 2022-05-30 2022-05-30 [facility] Christiana [facility] [id number] 11:57:19 23:59:00 Encounter [facility] 2022-05-30 2022-05-[address] [facility] [id number] 13:40:00 13:50:00 Only [facility] 2022-05-30 2022-05-30 Travel [facility] [id number] [facility] 00:00:00 00:00:00 [facility] 2022-05-30 2022-05-[address] [facility] [id number] [facility] [address] 00:00:00 00:00:00 [facility] 2022-05-30 2022-05-[address] [facility] [id number] 00:00:00 00:00:00 Only [facility] 2022-05-29 2022-05-[address] [facility] [id number] 00:00:00 00:00:[address] [facility] 2022-05-29 2022-05-[address] [facility] [id number] 00:00:00 00:00:00 victor m [facility] 2022-05-28 2022-05-[address] [facility] [id number] 13:00:00 13:30:00 Visit [facility] 2022-05-28 2022-05-[address] [facility] [id number] 00:00:00 00:00:[address] [facility] 2022-05-27 2022-05-27 [facility] [id number] 00:00:00 00:00:[address] [facility] 2022-05-26 2022-05-26 Hospital Nazario, [facility] [id number] 11:48:00 22:15:00 Encounter [facility] 2022-05-26 2022-05-26 [facility] [id number] 19:12:00 21:06:00 [facility] 2022-05-26 2022-05-[address] [facility] [id number] 00:00:00 00:00:00 Only [facility] 2022-05-19 2022-05-[address] [facility] [id number] 00:00:00 00:00:[address] [facility] 2022-05-15 2022-05-[address] [facility] [id number] 00:00:00 00:00:00 Aga Rashaun [facility] 2022-05-14 2022-05-[address] [facility] [id number] 00:00:00 00:00:00 ion Armida [facility] 2022-05-12 2022-05-12 [facility] [id number] 13:00:00 23:59:00 Encounter [facility] 2022-05-12 2022-05-12 [facility] [id number] 09:23:44 12:59:00 Encounter [facility] 2022-05-12 2022-05-[address] [facility] [id number] 00:00:00 00:00:00 [facility] 2022-05-12 2022-05-[address] [facility] [id number] 00:00:00 00:00:00 Only Antoine [facility] 2022-05-12 2022-05-12 [facility]p [facility] [id number] 00:00:00 00:00:[address] [facility] 2022-05-09 2022-05-[address] [facility] [id number] 00:00:00 00:00:00 ion Gabby [facility] 2022-05-08 2022-05-[address] [facility] [id number] 00:00:00 00:00:00 [facility] 2022-05-08 2022-05-08 [facility] [id number] 00:00:00 00:00:[address] [facility] 2022-05-05 2022-05-07 Hospital Nazario [facility] [id number] 08:00:00 12:39:00 Encounter Tl Man [facility] 2022-05-05 2022-05-[address] [facility] [id number] 15:03:00 17:17:00 Event Mita Farias [facility] 2022-05-05 2022-05-05 Surgery Sin, [facility] [id number] 10:00:00 12:00:00 [facility] 2022-05-05 2022-05-05 Inpatient [facility] Surgery [id number] [facility] 08:00:00 08:00:00 , SHIRAZ 2022-05-05 2022-05-05 Travel [facility] [id number] [facility] 00:[facility]:00 00:00:00 [facility] 2022-05-01 2022-05-01 Outpatient [place] VILLEDA [facility] SLE [id number] [facility] 00:00:00 00:00:00 [facility] 2022-04-30 2022-04-[address] [facility] [id number] [facility] [address] 00:00:00 00:00:00 [facility] 2022-04-25 2022-04-25 Abstract Semaj, [facility] [id number] 00:00:00 00:00:00 [facility] 2022-04-23 2022-04-23 Abstract Dilip, [facility] [id number] 00:00[facility]00 [facility]22-04-22 2022-04-22 [facility] [id number] 11:30:00 23:59:00 Encounter [facility] 2022-04-22 2022-04-22 Orders [place] Roth, [facility] [id number] 12:30:00 12:45:00 Only Skye Figueroa [facility] 2022-04-22 2022-04-[address] [facility] [id number] 00:00:00 00:00:[address] [facility] 2022-04-22 2022-04-[address] [facility] [id number] 00:00:00 00:00:00 ion Armida [facility] 2022-04-21 2022-04-[address] [facility] [id number] 00:00:00 00:00:00 victor m [facility] 2022-04-21 2022-04-21 Travel [facility] [id number] [facility] 00:00:00 00:00:00 [facility] 2022-04-17 2022-04-17 Telephone Nazario, [facility] [id number] 00:00:00 00:00:00 [facility] 2022-04-17 2022-04-[address] [facility] [id number] 00:00:00 00:00:[address] [facility] 2022-04-16 2022-04-16 [facility] Ramos [facility] [id number] 00:00:00 00:00:[address] [facility] 2022-04-15 2022-04-15 [facility] [id number] 12:33:08 23:59:00 Encounter [facility] 2022-04-15 2022-04-15 [facility] [id number] 08:00:00 12:32:00 Encounter [facility] 2022-04-15 2022-04-[address] [facility] [id number] 11:00:00 12:00:00 Visit [facility] 2022-04-15 2022-04-15 Office Nazario, [facility] [id number] 09:00:00 09:15:00 Visit [facility] 2022-04-15 2022-04-15 Ele [facility] [id number] 00:00:00 00:00:00 ion [facility] 2022-04-15 2022-04-15 [facility] Ramos, [facility] [id number] 00:00:00 00:00:[address] [facility] 2022-04-15 2022-04-15 [facility] [id number] [id number] 00:00:00 00:00:00 [facility] 2022-04-14 2022-04-14 Documentat Singh, [facility] [id number] 00:00:00 00:00:00 [facility] 2022-04-14 2022-04-14 Documentat Debby, [facility] [id number] 00:00:00 00:00:00 [facility] 2022-04-14 2022-04-14 Documentat [facility] [id number] 00:00:00 00:00:00 [facility] 2022-04-11 2022-04-11 Document [facility] [id number] 00:00:00 00:00:00 [facility] 2022-04-11 2022-04-11 Document Singh, [facility] [id number] [id number] 00:00:00 00:00:00 [facility] 2022-04-11 2022-04-11 Documentat Singh, [facility] [id number] [id number] 00:00:00 00:00:00 [facility] 2022-04-11 2022-04-11 Document Singh, [facility] [id number] 00:00:00 00:00:00 [facility] 2022-04-10 2022-04-10 [facility] [id number] 10:30:15 23:59:00 Encounter [facility] 2022-04-10 2022-04-10 [facility] [id number] 12:00:00 12:00:00 Encounter [facility] 2022-04-10 2022-04-10 [facility] [id number] 10:00:00 10:29:00 Encounter [facility] 2022-04-10 2022-04-10 [facility] [id number] 09:45:00 09:59:00 Encounter [facility] 2022-04-10 2022-04-[address] [facility] [id number] 09:15:00 09:45:00 Visit [facility] 2022-04-09 2022-04-09 [facility] [id number] 12:10:06 23:59:00 Encounter [facility] 2022-04-09 2022-04-09 [facility] [id number] 12:00:00 12:09:00 Encounter [facility] 2022-04-09 2022-04-09 [facility] [id number] 11:30:00 11:59:00 Encounter [facility] 2022-04-09 2022-04-[address] [facility] [id number] 10:00:00 10:30:00 Latricia [facility] 2022-04-09 2022-04-[address] [facility] [id number] 09:00:00 09:30:00 Work Poncho Grajeda [facility] 2022-04-09 2022-04-[address] [facility] [id number] 08:00:00 08:30:00 Tereza Lai Aba [facility] 2022-04-09 2022-04-[address] [facility] [id number] 07:40:00 07:50:00 Only [facility] 2022-04-09 2022-04-[address] [facility] [id number] 07:30:00 07:40:00 Only [facility] 2022-04-09 2022-04-[address] [facility] [id number] [address] 00:00:00 00:00:00 ion Armida [facility] 2022-04-09 2022-04-[address] [facility] [id number] [facility]:00[facility]00 00[facility]00[facility]00 [facility]22-04-[address] [facility] [id number] 00:00:00 00:00:00 ion [facility] 2022-04-07 2022-04-[address] [facility] [id number] 00:00:00 00:00:00 ion [facility] 2022-04-07 2022-04-[address] [facility] [id number] 00:00:00 00:00:00 [facility] 2022-04-02 2022-04-02 [facility] [id number] [facility] 09:49:08 23:59:00 [facility] 3[facility] 2022-04-02 2022-04-[address] [facility] [id number] [facility] 00:00:00 00:00:00 LIZZIE 2022-03-31 2022-03-[address] [facility] [id number] 00:00:00 00:00:00 Only [facility] 2022-03-31 2022-03-[address] [facility] [id number] 00:00:00 00:00:00 Only [facility] 2022-03-31 2022-03-[address] [facility] [id number] 00:00:00 00:00:00 ion [facility] 2022-03-26 2022-03-[address] [facility] [id number] 00:00:00 00:00:00 [facility] 2022-03-26 2022-03-[address] [facility] [id number] 00:00:00 00:00:00 [facility] 2022-03-26 2022-03-26 Documentat Donato, [facility] [id number] 00:00:00 00:00:00 ion [facility] 2022-03-26 2022-03-26 Documentat Donato, [facility] [id number] 00:00:00 00:00:00 [facility] 2022-03-26 2022-03-[address] [facility] [id number] 00:00:00 00:00:00 [facility] 2022-03-26 2022-03-[address] [facility] [id number] 00:00:00 00:00:00 [facility] 2022-03-25 2022-03-[address] [facility] [id number] 00:00:00 00:00:00 Only [facility] 2022-03-20 2022-03-[address] [facility] [id number] 00:00:00 00:00:00 [facility] 2022-03-20 2022-03-[address] [facility] [id number] 00:00:00 00:00:00 [facility] 2022-03-19 2022-03-[address] [facility] [id number] 00:00:00 00:00:00 [facility] 2022-03-18 2022-03-[address] [facility] [id number] 00:00:00 00:00:00 [facility] 2022-03-13 2022-03-[address] [facility] [id number] 00:00:00 00:00:00 [facility] 2022-03-13 2022-03-[address] [facility] [id number] [id number] [address] 00:00:00 00:00:00 [facility] 2022-03-13 2022-03-[address] [facility] [id number] 00:00:00 00:00:00 [facility] 2022-03-04 2022-03-[address] [facility] [id number] 00:00:00 00:00:00 [facility] 2022-02-27 2022-02-[address] [facility] [id number] [facility] 00:00:00 00:00:00 [facility] 2022-02-27 2022-02-27 [facility] [id number] 00:00:00 00:00:00 [facility] 2022-02-27 2022-02-[address] [facility] [id number] 00:00:00 00:00:00 [facility] 2022-02-27 2022-02-[address] [facility] [id number] 00:00:00 00:00:00 [facility] 2022-02-24 2022-02-[address] [facility] [id number] 00:00:00 00:00:00 [facility] 2022-02-24 2022-02-[address] [facility] [id number] 00:00:00 00:00:00 [facility] 2022-02-20 2022-02-[address] [facility] [id number] [facility] 09:00:00 10:00:00 Visit [facility] 2022-02-20 2022-02-20 Outpatient PABLO LUGO [facility] [id number] [facility] 08:37:43 08:37:43 SPRING Results Test Description Test Time Test Comments Results Result Sourc e Comments MR ABDOMEN WITH & 2022-09-22 WITHOUT IV 10:01:25 [facility] 1955 Sex: M MRI of the abdomen with and without contrastClinical History: Liver disease, chronic, history of HCC, monitorTechnique: Multiplanar and multisequence MR images of the abdomen areobtained before and after intravenous contrast administration. Contrastis administered to evaluate neoplasm and vasculature. Comparison: MRI dated June 11, 2022 and April 02, 2022, CT dated iscussion:There is a massive right-sided pleural effusion.Liver is cirrhotic.* The ablation cavity in segment 4/8 has become slightly smaller, andnow measures 2.6 x 2 cm, no evidence of residual or recurrent disease.LR-TR nonviable.* In segment 8 there is a 1.7 cm arterially enhancing observation,previously 1.4 cm. It demonstrates washout, and a pseudocapsule, LI-RADS5.* There are numerous other scattered subcentimeter foci of arteriallyenhancing observations, not significantly changed, with no definitewashout, LI-RADS 3.No biliary ductal dilatation. There is mild nonspecific gallbladder walledema. A few tiny stones are noted.Spleen is enlarged and measures 17.8 cm sagittally.In the pancreatic body, there is a 1 cm cyst that is simple appearing.Main duct is normal in caliber. No peripancreatic edema.The adrenal glands appear normal. Kidneys demonstrate no mass orhydronephrosis.There is a small amount of ascites. No adenopathy. No suspicious bonylesion is identified.IMPRESSION:Im pression:Ablation cavity in segment 4/8 has become smaller, no evidence ofrecurrent disease, LR-TR nonviable.Slight interval growth of a LI-RADS 5 observation in segment 8, nowmeasuring 1.7 cm.Numerous other LI-RADS 3 observation measuring not significantlychanged.Cho lelithiasis. Nonspecific gallbladder wall edema.Stable 1 cm simple appearing cyst in the pancreas body, suggestcontinued attention on future surveillance exams.Massive right-sided pleural effusion.Electronically Signed By: Darlin Bennett09/22/2022 10:03 CDTWorkstation Name: [id number] BODY FLUID CELL COUNT WITH DIFFERENTIAL 2022-09-21 14:02:10 Test Item Value Reference Range Interpretation Comme nts APPEARANCE FLUID (BEAKER) (test Slightly Hazy Clear A code = 510) COLOR FLUID (BEAKER) (test code = Rishabh Colorless, Straw A 511) RBC FLUID (BEAKER) (test code = 2675 /cu mm <=1 H 513) TOTAL NUCLEATED CELL COUNT 28 /cu mm <=5 H (BEAKER) (test code = 1442) LINING CELLS/OTHERS DIFF'D 1 (BEAKER) (test code = 1589) ADJUSTED WBC FLUID (BEAKER) (test 28 /cu mm <=5 H code = 1691) LINING CELLS/OTHERS, CALCULATED 0 /cu mm <=1 (BEAKER) (test code = 1590) NEUTROPHILS FLUID (BEAKER) (test 1 % code = 1656) LYMPHS FLUID (BEAKER) (test code 20 % = 488) MONO/MACROPHAGE FLUID (BEAKER) 79 % (test code = 489) EOSINOPHILS FLUID (BEAKER) (test 0 % code = 491) BASO FLUID (BEAKER) (test code = 0 % 492) INTERPRETATION-210 (BEAKER) (test Negative for malignancy code = 2619) [id number] (BEAKER) Elvia Duffy M.D. (test code = 2620) (electronic signature) CONTAINER BODY FLUID (BEAKER) Sterile Cup (test code = 2873) CT CHEST WITHOUT IV [id number] 14:12:07 [facility] : 1955 Sex: MCTof the Chest dated 09/19/2022OMPARISON: April 15LINICAL INFORMATION: Unlisted Reason for ExamComment: Axial images of the chest were obtained from thoracic inlet tothe upper abdomen without intravenous contrast.This exam was performed according to our departmental dose-optimizationprogram, which includes automated exposure control, adjustment of the mAand/or kV according to patient size and/or use of interactivereconstruction technique.Both thyroid lobes are normal in appearance. No mass oradenopathy isseen in the visualized neck or the exam.Heart is normal in size. Great vessels are unremarkable. No adenopathyin the mediastinum or perihilar region. Trachea and mainstem bronchi arepatent. There is interval development of a large right pleural effusion withcompressive atelectasis involving the right upper, mid, and lower lobes.The left lung is clear.The regional skeleton is intact.Visualized upper abdomen demonstrates sclerotic liver with thesplenomegaly.IMPRESSION:Impression: 1. Interval development of large right pleural effusion with compressiveatelectasis involving the right upper, mid, and lower lobes.2. No metastatic disease in the chest.3. Cirrhosis with splenomegaly.Electronically Signed By: Hiram Lala09/20/2022 14:14 CDTWorkstation Name: [id number] CHEST 1 VIEW PORTABLE / [id number] 15:14:10 [facility] 1955 Sex: MChest, 1 view.History: Status post thoracentesis.Comparison: 09/02/2022.IMPRESSION:Impression: There is no evidence of pneumothorax status post thoracentesis.There is persistent near complete opacificationof the right hemithoraxlikely reflecting combination of residual fluid and atelectasis. Theleft lungis grossly clear. The cardiomediastinal silhouette ispartially obscured but appears grossly stable in appearance. No acuteosseous abnormality is identified.Electronically Signed By: Blue Thompson MD09/18/2022 15:19 CDTWorkstation Name: [id number] 15:09:58 [facility] 1955 Sex: MHISTORY : Right Pleural EffusionTechnique/findings:Informed written consent was obtained. Discussion ofrisks, benefits,and alternatives were made with the patient. The patient expressedunderstanding and agreed to proceed. A universal timeout was performedprior to starting the procedure. Initial ultrasound images demonstrate large right pleural effusion. Theposterior chest wall was marked. The area was p repped and draped in theusual sterile fashion. 1% lidocaine was applied to the skin and deepsoft tissues. A 5 Monegasque one-step catheter was inserted and removed fromthe pleural space and approximately 2.8 liters of rishabh-colored fluidwas aspirated from the chest. Specimens were collected for laboratorye valuation.There were no immediate complications. A postprocedure chest radiographwas ordered.IMPRESSION:Impression:Successful ultrasound guided, right sided thoracentesis with aspirationof 2.8 liters of fluid.Electronically Signed By: Blue Thompson MD09/18/2022 15:11 CDTWorkstation Name: [id number] CULTURE + SMEAR (NON-SPUTUM)2022-09-10 09:24:32 Test Item Value Reference Range Interpretation Comments CULTURE (BEAKER) (test No acid-fast bacilli code = 1095) isolated in 42 days AFB SMEAR (BEAKER) No acid fast bacilli (test code = 994) seen BODY FLUID CELL COUNT WITH [id number] 18:37:22 Test Item Value Reference Range Interpretation Comments APPEARANCE FLUID Hazy Clear A (BEAKER) (test code = 510) COLOR FLUID (BEAKER) Rishabh Colorless, Straw A (test code = 511) RBC FLUID (BEAKER) 4350 /cu mm <=1 H (test code = 513) TOTAL NUCLEATED CELL 37 /cu mm <=5 H COUNT (BEAKER) (test code = 1442) LINING CELLS/OTHERS 4 DIFF'D (BEAKER) (test code = 1589) ADJUSTED WBC FLUID 36 /cu mm <=5 H (BEAKER) (test code = 1691) LINING CELLS/OTHERS, 1 /cu mm <=1 CALCULATED (BEAKER) (test code = 1590) NEUTROPHILS FLUID 2 % (BEAKER) (test code = 1656) LYMPHS FLUID (BEAKER) 18 % (test code = 488) MONO/MACROPHAGE FLUID 76 % (BEAKER) (test code = 489) EOSINOPHILS FLUID 0 % (BEAKER) (test code = 491) BASO FLUID (BEAKER) 0 % (test code = 492) INTERPRETATION-210 Negative for (BEAKER) (test code = malignancy 2619) [id number] Elvia Duffy M.D. (BEAKER) (test code = (electronic 2620) signature) CONTAINER BODY FLUID EDTA Tube (BEAKER) (test code = 2873) [id number] 12:05:02 [facility] 1955 Sex: MUSTHORACENTESISUS Guided Thoracentesis History: Pleural effusionPrimary Fruit Stuffer: Thierry Sutton MD.Sedation: None. Anesthesia: Lidocaine local infiltration. Estimated blood loss: < 5 cc. Technique: Discussion of risks, benefits, and alternatives were made with thepatient and/or their surrogate, who expressed understanding and agreedto proceed. Informed written consent was obtained. A universal timeoutwas performed prior to starting the procedure. Maximal sterileprecautions were utilized. The procedureroom personnel used personalprotective equipment. The operators additionally used sterile surgicalgloves.A preliminary ultrasonography was performed. It showed a pleuraleffusion. A posterior low intercostal access site was selected foraccess. Pertinent ultrasound images were stored to the PACS fordocumentation. The patient was sat on the edge of the stretcher leaningforward onto a table. The access site was sterilely prepped and draped.Local anesthesia was administered. A catheter over the needle system wasadvanced into the pleura. Rishabh-colored fluid was aspirated and theplastic catheter advanced into the pleural space. The catheter was thenconnected to a fluid recovery system. At the end of the procedure, thecatheter was withdrawn and an aseptic dressing applied. The patienttolerated the procedure well. Postprocedure chest x-ray showed no pneumothorax.After uneventful recovery recovery, [facility] Complications: None immediate.Specimen: Sent to the lab. IMPRESSION:Impression: Successful ultrasound-guided thoracentesis of right pleural effusionwith recovery of 2.9 liters of pleural fluid. Thank you for the opportunity to assist in the care of your patient.Electronically Signed By: Thierry Sutton09/02/2022 12:07 CDTWorkstation Name: [id number] CHEST 1 VIEW PORTABLE / [id number] 10:41:42[facility] : 1955 Sex: MXRCHEST 1 VIEW PORTABLE / BEDSIDETECHNIQUE: Frontal view(s) of the chest.INDICATION: post thoracentesisCOMPARISON: 08/28/2022FINDINGS/IMPRESSION:Lines/Tubes: NoneLungs/pleura: Left lung is clear. Right lung volume loss with partialaeration of the right upper lobe. Large right pleural effusion, similarto prior exam No pneumothorax.Heart and Mediastinum: Unremarkable for technique.Soft Tissues and Bones: Sclerosis within the proximal right humerussuggestive of an enchondroma.Electronically Signed By: Thierry Sutton09/02/2022 10:43 CDTWorkstation Name: [id number] FLUID CELL COUNT WITH [id number] 19:24:42 Test Item Value Reference Range Interpretation Comments APPEARANCE FLUID Cloudy Clear A (BEAKER) (test code = 510) COLOR FLUID (BEAKER) Rishabh Colorless, Straw A (test code = 511) RBC FLUID (BEAKER) 8475 /cu mm <=1 H (test code = 513) TOTAL NUCLEATED CELL 18 /cu mm <=5 H COUNT (BEAKER) (test code = 1442) LINING CELLS/OTHERS 10 DIFF'D (BEAKER) (test code = 1589) ADJUSTED WBC FLUID 16 /cu mm <=5 H (BEAKER) (test code = 1691) LINING CELLS/OTHERS, 2 /cu mm <=1 H CALCULATED (BEAKER) (test code = 1590) NEUTROPHILS FLUID 2 % (BEAKER) (test code = 1656) LYMPHS FLUID (BEAKER) 65 % (test code = 488) MONO/MACROPHAGE FLUID 31 % (BEAKER) (test code = 489) EOSINOPHILS FLUID 2 % (BEAKER) (test code = 491) BASO FLUID (BEAKER) 0 % (test code = 492) INTERPRETATION-210 Agree with the above (BEAKER) (test code = count. Negative for 2619) malignancy [id number] Elvia Duffy M.D. (BEAKER) (test code = (electronic 2620) signature) CONTAINER BODY FLUID EDTA Tube (BEAKER) (test code = 1543) BODY FLUID CELL COUNT WITH [id number] 19:09:54 Test Item Value Reference Range Interpretation Comments APPEARANCE FLUID Hazy Clear A (BEAKER) (test code = 510) COLOR FLUID (BEAKER) Rishabh Colorless, Straw A (test code = 511) RBC FLUID (BEAKER) 4000 /cu mm <=1 H (test code = 513) TOTAL NUCLEATED CELL 48 /cu mm <=5 H COUNT (BEAKER) (test code = 1442) LINING CELLS/OTHERS 4 DIFF'D (BEAKER) (test code = 1589) ADJUSTED WBC FLUID 46 /cu mm <=5 H (BEAKER) (test code = 1691) LINING CELLS/OTHERS, 2 /cu mm <=1 H CALCULATED (BEAKER) (test code = 1590) NEUTROPHILS FLUID 0 % (BEAKER) (test code = 1656) LYMPHS FLUID (BEAKER) 17 % (test code = 488) MONO/MACROPHAGE FLUID 79 % (BEAKER) (test code = 489) EOSINOPHILS FLUID 0 % (BEAKER) (test code = 491) BASO FLUID (BEAKER) 0 % (test code = 492) INTERPRETATION-210 Agree with the above (BEAKER) (test code = count. Negative for 2619) malignancy [id number] Elvia Duffy M.D. (BEAKER) (test code = (electronic 2620) signature) CONTAINER BODY FLUID EDTA Tube (BEAKER) (test code = 2873) XR CHEST 1 VIEW PORTABLE / [id number] 13:55:59 [facility] 1955 Sex: MXRCHEST 1 VIEW PORTABLE / BEDSIDETECHNIQUE: Frontal view(s) of the chest.INDICATION: post thoracentesispost thoracentesisCOMPARISON: Chest radiograph one day priorFINDINGS/IMPRESSION:Lines/Tubes: NoneLungs/pleura: Interval improvement in aeration of the right lung. Largeright pleural effusion remains. Left lung is clear. No pneumothorax.Heart and Mediastinum: Unchanged.Soft Tissues and Bones: Unchanged.Electronically Signed By: Naa Diallo08/28/2022 13:58 CDTWorkstation Name: [id number] 11:57:42 [facility] 1955 Sex: MPROCEDURE: Ultrasound-guided thoracentesisProcedural PersonnelAttending physician(s): Dread Aguirre physician(s): NoneResident physician(s): NoneAdvanced practice provider(s): NonePre-procedure diagnosis: Large right pleural effusionPost-procedure diagnosis: SameIndication: Pleural effusion with pain or pressure symptomsAdditional clinical history: NoneComplications: No immediate complications.IMPRESSION:Ultrasound-guided thoracentesis with drainage of 2400 of rishabh-coloredfluid.Plan: Resume care by clinical team. PROCEDURE SUMMARY:- Limited thoracic ultrasound- Ultrasound-guided thoracentesis- Additional procedure(s): NonePROCEDURE DETAILS:Pre-procedureConsent: Informed consent for the procedure including risks, benefitsand alternatives was obtained and time-out was performed prior to theprocedure.Preparation: The site was prep ared and draped using maximal sterilebarrier technique including cutaneous antisepsis.Anesthesia/sedationLevel of anesthesia/sedation: No sedationAnesthesia/sedation administered by: Not applicableTotal intra-service sedation time (minutes): 0Limited thoracic ultrasoundLimited thoracic ultrasound was performed using a curved transducer. Asafe window for thoracentesis was identified. Left hemithorax findings: Not investigatedRight hemithorax findings: Large pleural effusionThoracentesisLocal anesthesia was administered. The pleural space was accessed at anappropriate site marked by ultrasound and fluid return confirmedposition. The fluid was drained. The catheter was removed, and a sterilebandage was applied.Catheter placed: 5F YuehPost-drainage hemithorax findings: Small pleural effusionAdditional DetailsAdditional description of procedure: NoneEquipment details: NoneSpecimens removed: Pleural fluidEstimated blood loss (mL): Less than 10Standardized report: SIR_Thoracentesis_v3AttestationSignername: Naa Johnson attest that I was present for the entire procedure. I reviewed thestored images and agree with the report as written.Electronically Signed By: Naa Diallo08/28/2022 11:59 CDTW orkstation Name: [id number] CHEST 1 VIEW PORTABLE / [id number] 15:00:07 [facility] 1955 Sex: MXRCHEST 1 VIEW PORTABLE / BEDSIDEINDICATION: post thoracentesisCOMPARISON: August 22, 2022FINDINGS: Portable frontal view of the chest. IMPRESSION:Support Lines: No Lungs and pleura: Stable appearance of complete right hemithorax whiteout with slight rightward midline shift suggesting comminution ofpleural effusion and atelectatic consolidation. Left lung is wellaerated. No pneumothorax.Heart and mediastinum: Partially obscured. Additional findings: Osseous structures are stable.Electronically Signed By: Shade Lujan08/26/2022 15:02 CDTWorkstation Name: [id number] 14:40:33 [facility] : 1955 Sex: MPROCEDURE: Ultrasound-guided thoracentesisProcedural PersonnelAttending physician(s): Dread Aguirre physician(s): NoneResident physician(s): NoneAdvanced practice provider(s): NonePre-procedure diagnosis: Right pleural effusionPost- procedure diagnosis: SameIndication: Pleural effusion with compromised respirationAdditional clinical history: NoneComplications: No immediate complications.IMPRESSION:Ultrasound-guided thoracentesis with drainage of 3000 mL of serousfluid.Plan: Resume care by clinical team. PROCEDURE SUMMARY:- Limited thoracic ultrasound- Ultrasound-guided thoracentesis- Additional procedure(s): NonePROCEDURE DETAILS:Pre-procedureConsent: Informed consent for the procedure including risks, benefitsand alternatives was obtained and time-out was performed prior to theprocedure.Preparation: The site was prepared and draped using maximal sterilebarrier technique including cutaneous antisepsis.Anesthesia/sedationLevel of anesthesia/sedation: No sedationAnesthesia/sedation administered by: Not applicableTotal intra-service sedation time (minutes): 0Limited thoracic ultrasoundLimited thoracic ultrasound was performed using a curved transducer. Asafe window for thoracentesis was identified. Left hemithorax findings: NotinvestigatedRight hemithorax findings: Large pleural effusionThoracentesisLocal anesthesia was administered. The pleural space was accessed at anappropriate site marked by ultrasound and fluid return confirmedposition. The fluid was drained. The catheter was removed, and a sterilebandage was applied.Catheter placed: 5F YuehPost-drainage hemithorax findings: Large pleural effusionAdditional DetailsAdditional description of procedure: NoneEquipment details: NoneSpecimens removed: Pleural fluidEstimated blood loss (mL): Less than 10Standardized report: SIR_Thoracentesis_v3AttestationSigner name: Naa Johnson attest that I was present for the entire procedure. I reviewed thestored images and agreewith the report as written.Electronically Signed By: Naa Diallo08/26/2022 14:42 CDTWorkstation Name: [id number] FLUID CELL COUNT WITH [id number] 10:02:55 Test Item Value Reference Range Interpretation Comments APPEARANCE FLUID Slightly Hazy Clear A (BEAKER) (test code = 510) COLOR FLUID (BEAKER) Yellow Colorless, Straw A (test code = 511) RBC FLUID (BEAKER) 494 /cu mm <=1 H (test code = 513) TOTAL NUCLEATED CELL 99 /cu mm <=5 H COUNT (BEAKER) (test code = 1442) LINING CELLS/OTHERS 9 DIFF'D (BEAKER) (test code = 1589) ADJUSTED WBC FLUID 91 /cu mm <=5 H (BEAKER) (test code = 1691) LINING CELLS/OTHERS, 8 /cu mm <=1 H CALCULATED (BEAKER) (test code = 1590) NEUTROPHILS FLUID 6 % (BEAKER) (test code = 1656) LYMPHS FLUID (BEAKER) 23 % (test code = 488) MONO/MACROPHAGE FLUID 71 % (BEAKER) (test code = 489) EOSINOPHILS FLUID 0 % (BEAKER) (test code = 491) BASO FLUID (BEAKER) 0 % (test code = 492) INTERPRETATION-210 Negative for (BEAKER) (test code = malignancy 2619) [id number] Elvia Duffy M.D. (BEAKER) (test code = (electronic 2620) signature) CONTAINER BODY FLUID EDTA Tube (BEAKER) (test code = 8395) BODY FLUID CELL COUNT WITH [id number] 09:59:23 Test Item Value Reference Range Interpretation Comments APPEARANCE FLUID Hazy Clear A (BEAKER) (test code = 510) COLOR FLUID (BEAKER) Rishabh Colorless, Straw A (test code = 511) RBC FLUID (BEAKER) 7600 /cu mm <=1 H (test code = 513) TOTAL NUCLEATED CELL 35 /cu mm <=5 H COUNT (BEAKER) (test code = 1442) LINING CELLS/OTHERS 62 DIFF'D (BEAKER) (test code = 1589) ADJUSTED WBC FLUID 22 /cu mm <=5 H (BEAKER) (test code = 1691) LINING CELLS/OTHERS, 13 /cu mm <=1 H CALCULATED (BEAKER) (test code = 1590) NEUTROPHILS FLUID 2 % (BEAKER) (test code = 1656) LYMPHS FLUID (BEAKER) 28 % (test code = 488) MONO/MACROPHAGE FLUID 69 % (BEAKER) (test code = 489) EOSINOPHILS FLUID 1 % (BEAKER) (test code = 491) BASO FLUID (BEAKER) 0 % (test code = 492) INTERPRETATION-210 Negative for (BEAKER) (test code = malignancy 2619) [id number] Elvia Duffy M.D. (BEAKER) (test code = (electronic 2620) signature) CONTAINER BODY FLUID EDTA Tube (BEAKER) (test code = 2873) XR CHEST 1 VIEW PORTABLE / [id number] 13:04:25 [facility] 1955 Sex: MXRCHEST 1 VIEW PORTABLE / BEDSIDETECHNIQUE: Frontal view(s) of the chest.INDICATION: post thoracentesispost thoracentesisCOMPARISON: 08/12/2022FINDINGS/IMPRESSION:Lines/Tubes: NoneLungs/pleura: Complete opa cification of the right hemithorax withminimal improvement in aeration of the right lung compared tothe priorchest x-ray representing large right pleural effusion. Left lung isclear. No pneumothorax.Heart and Mediastinum: Unchanged.Soft Tissues and Bones: Unchanged.Electronically Signed By: Naa burton08/22/2022 13:11 CDTWorkstation Name: [id number] 12:58:56[facility] : 1955 Sex: MPROCEDURE: Ultrasound-guided thoracentesisProcedural PersonnelAttending physician(s): Naa Frazier physician(s): NoneResident physician(s): NoneAd[facility]alleg[facility] practice provider(s): NonePre-procedure diagnosis: Large right pleural effusion.Post-procedure diagnosis: SameIndication: Pleural effusion with c ompromised respirationAdditional clinical history: NoneComplications: No immediate complications.IMPRESSION:Ultrasound-guided thoracentesis with drainage of 2500 mL ofserosanguinous fluid.Plan: Resume care by clinical team. PROCEDURE SUMMARY:- Limited thoracic ultrasound- Ultrasound-guided thoracentesis- Additional procedure(s): NonePROCEDURE DETAILS:Pre-procedureConsent: Informed consent for the procedure including risks, benefitsand alternatives was obtained and time-out was performed prior to theprocedure.Preparation: The site was prep ared and draped using maximal sterilebarrier technique including cutaneous antisepsis.Anesthesia/sedationLevel of anesthesia/sedation: No sedationAnesthesia/sedation administered by: Not applicableTotal intra-service sedation time (minutes): 0Limited thoracic ultrasoundLimited thoracic ultrasound was performed using a curved transducer. Asafe window for thoracentesis was identified. Left hemithorax findings: Not investigatedRight hemithorax findings: Large pleural effusionThoracentesisLocal anesthesia was administered. The pleural space was accessed underreal-time ultrasound guidance and fluid return confirmed position. Thefluid was drained. The catheter was removed, and a sterile bandage wasapplied.Catheter placed: 5F YuehPost-drainage hemithorax findings: Large pleural effusionAdditional DetailsAdditional description of procedure: NoneEquipment details: NoneSpecimens removed: Pleural fluidEstimated blood loss (mL): Less than 10Standardized report: SIR_Thoracentesis_v3AttestationSigner name: Naa Johnson attest that I was present for the entire procedure. I reviewed thestored images and agree with the report as written.Electronically Signed By: Naa Diallo08/22/2022 13:00 CDTWorkstation Name: [id number] 12:57:20 [facility] : 1955 Sex: MPROCEDURE: Ultrasound-guided paracentesisProcedural PersonnelAttending physician(s): TREVIN Aguirrere-procedure diagnosis: AscitesPost-procedure diagnosis: UnchangedIndication: Ascites with pain or pressure symptomsAdditional clinical history: NoneComplications: No immediate complications.IMPRESSION:Ultrasound- guided paracentesis with drainage of 2000 mL of serous fluid.Plan: Resume care by clinical team. PROCEDURE SUMMARY:- Limited abdominal ultrasound- Ultrasound-guided paracentesis- Additional procedure(s): NonePROCEDURE DETAILS:Pre-procedureConsent: Informed consent for the procedure including risks, benefitsand alternatives was obtained and time-out was performed prior to theprocedure.Preparation: The site was prepared and drapedusing maximal sterilebarrier technique including cutaneous antisepsis.Anesthesia/sedationLevel of anesthesia/sedation: NoneInitial abdominal ultrasoundInitial abdominal ultrasound was performed.Findings: Moderate ascites. A safe window for paracentesis wasidentified.ParacentesisLocal anesthesia was administered. The peritoneal cavity was accessedand fluid return confirmed position. Ascites was drained. The catheterwas then removed, and a sterile bandage was applied.Paracentesis access technique: Real-time ultrasound guidance.Catheter placed: 5Fr YuehPost-drainage ultrasound: Not performedAdditionalDetailsAdditional description of procedure: NoneEquipment details: NoneSpecimens removed: Abdominal fluidEstimated blood loss (mL): Minimal (<10cc)Standardized report: SIR_Paracentesis_v3AttestationSigner name: Naa Johnson attest that I was present for the entire procedure. I reviewed thestored images and agree with the report as written.Electronically Signed By: Naa Diallo08/22/2022 12:59 CDTWorkstation Name: [id number] FLUID CELL COUNT WITH [id number] 19:31:44 Test Item Value Reference Range Interpretation Comments APPEARANCE FLUID Hazy Clear A (BEAKER) (test code = 510) COLOR FLUID (BEAKER) Rishabh Colorless, Straw A (test code = 511) RBC FLUID (BEAKER) 9950 /cu mm <=1 H (test code = 513) TOTAL NUCLEATED CELL 43 /cu mm <=5 H COUNT (BEAKER) (test code = 1442) LINING CELLS/OTHERS 11 DIFF'D (BEAKER) (test code = 1589) ADJUSTED WBC FLUID 39 /cu mm <=5 H (BEAKER) (test code = 1691) LINING CELLS/OTHERS, 4 /cu mm <=1 H CALCULATED (BEAKER) (test code = 1590) NEUTROPHILS FLUID 1 % (BEAKER) (test code = 1656) LYMPHS FLUID (BEAKER) 28 % (test code = 488) MONO/MACROPHAGE FLUID 65 % (BEAKER) (test code = 489) EOSINOPHILS FLUID 5 % (BEAKER) (test code = 491) BASO FLUID (BEAKER) 1 % (test code = 492) INTERPRETATION-210 Negative for (BEAKER) (test code = malignancy 2619) [id number] Elvia Duffy M.D. (BEAKER) (test code = (bbylhxexmq 2289) signature) CONTAINER BODY FLUID EDTA Tube (BEAKER) (test code = 3363) ALPHA FETOPROTEIN (AFP), TUMOR [id number] 17:12:34 Test Item Value Reference Range Interpretation Comments ALPHA-FETOPROTEIN (BEAKER) (test 3.7 ng/mL <10.0 code = 1094) Fruit Stuffer ID - ADMINCOMPREHENSIVE METABOLIC [id number] 16:55:12 Test Item Value Reference Range Interpretation [...] (test code = 347) EGFR (BEAKER) 85 Interpretatio n of eGFR (test code = [...] not appl icable for dialysis patien ts Fruit Stuffer ID - ADMINSpecimen moderately ictericPROTHROMBIN TIME/[id number] 16:42:00 Test Item Value Reference Range Interpretation [...] mechanical heart valves.CBC W/PLT COUNT & AUTO [id number] 16:36:50 Test Item Value Reference Range Interpretation [...] 2801) XR CHEST 1 VIEW PORTABLE / [id number] 11:37:21 [facility] 1955 Sex: MChest AP [...] Normal heartsizeand vascularity.US THORACENTESIS 2022-08-12 11:06:01 [facility] : 1955 Sex: MULTRASOUND [...] code = differential. 2619) Negative for carcinoma. [id number] Michael Ruffin M.D. (BEAKER) (test code = (electronic 2620) signiture) CONTAINER BODY FLUID EDTA Tube (BEAKER) (test code = 2873) U/S, [id number] 17:26:00Referring: Kan NogueraAdminister 200 mL of albumin 25% (50 grams) IV x1 after thoracentesisSend pleural fluid for cell count and differential.2x a week, as neededLaterality?->RightLabs to be Order ed:->Cell CountDIFFLabs to be Ordered:->Other (please add comment)Reason for Exam:->Pleuraleffusion [facility] : 1955 Sex: MFINAL [...] ultrasound and prepped and anesthetized. A 5 Monegasque needle/catheter was inserted into the pleural space and 4 L of rishabh color fluid were removed. The patient tolerated the procedure well. CONCLUSION: Ultrasound-guided right thoracentesis. Signed: Emmett Knight Verified Date/Time: 07/31/2022 17:26:43 Reading Location: [facility] Radiology Reading Room RAD, CHEST, 1 VIEW, NON [id number] 16:13:00Referring: Laxmi Noguera for exam:->post thoracentesisShould this be performed at the bedside?->Yes [facility] VALENCIA : 1955 Sex: MFINAL [...] Emmett Knight Verified Date/Time: 16:13:59 Reading Location: [facility] Radiology Reading Room BODY FLUID CELL COUNT WITH [id number] 10:30:59 Test Item Value Reference Range Interpretation Comments APPEARANCE FLUID Cloudy Clear A (BEAKER) (test code = 510) COLOR FLUID [place] Colorless, Straw A (BEAKER) (test code = [...] (BEAKER) (test code cells seen = 2619) [id number] Gianna Katz M.D. 0 (BEAKER) (test (electronic code = 2620) signature) CONTAINER BODY EDTA Tube FLUID (BEAKER) (test code = 2873) [id number] 19:08:39Medical Cytology Report Case: [id number] Authorizing Provider: Rina Us MD Collected: 07/26/2022 11:50 AM Ordering Location: [address] Received: 07/28/2022 09:32 AM Service Pathologist: Mike Phipps MD Specimen: Peritoneal Fluid PERITONEAL FLUID (CYTOSPINS AND CELL BLOCK): - NEGATIVE FOR MALIGNANCY - Reactive mesothelial cells and histiocytes. Signing Pathologist Direct Phone Line: [phone] signed by Mike Phipps MD on 07/29/2022 at 7:08 PMMOC-31 shows nonspecific background staining. Calretinin highlights reactive mesothelial cells and CD68 highlights histiocytes. Please also see cytopathology case: [id number], [id number], [id number], [id number] x 89 y.o. M with PMH of [...] evaluated Immunohistochemistry technical testing was performed at [facility], Pathology Laboratory whereit was developed and its [...] qualified to perform high complexity clinical laboratory testing.[facility], Department of Pathology, [address] [place] [address], [facility], [address] [place] [address], [facility], Department of [facility]ology, [address] [place] [address], [id number] 13:49:37Medical Cytology Report Case: [id number] Authorizing Provider: Rina Us MD Collected: 07/26/2022 12:26 PM Ordering Location: [address] Received: 07/28/2022 08:59 AM Service Pathologist: Mike Phipps MD Specimen: Pleural, Right RIGHT PLEURAL FLUID (CYTOSPINS AND CELL BLOCK): - NEGATIVE FOR MALIGNANCY - Mesothelial cells, histiocytes, and blood. Signing Pathologist Direct Phone Line: [phone] signed by Mike Phipps MD on 07/29/2022 at 1:49 PMPlease also see cytopathology case: [id number], [id number] y.o. M with history of decompensated liver [...] was fixed in formalin at 17:48 on 07/28/2022erformed.[facility], Department of Pathology, [address] [place] [address], [facility], [facility] of [facility]ology, [address] [place] [address], [facility], Department of [facility]ology, [address] [place] [address], G/S, [id number] 12:06:00Referring: Kan NogueraAdminister 200 mL of albumin 25% (50 grams) IV x1 after thoracentesis Send pleural fluid for cell count and differential.Laterality?- >RightLabs to be Ordered:->Cell CountdiffLabs to be Ordered:->Other (please add comment)Reason for Exam:->pleural effusion, HCC [facility] 1955 Sex: MFINAL [...] was accessed with a one- stick 5 Monegasque sheathed needle. Approximately 2400 cc of dark yellow fluid was aspirated. The catheter was removed and a sterile dressing was applied. The patient tolerated the procedure well without apparent complications. The fluid wassubmitted to the laboratory as requested. IMPRESSION: Uneventful ultrasound guided thoracentesis. Signed: Bryce Smith MDReport Verified Date/Time: 07/29/2022 12:06:01 Reading Location: [facility] RadiologyReading Room RAD, CHEST, 1 VIEW, NON DEPT 2022-07-29 12:02:00Referring: Laxmi Noguera for exam:->post thoracentesisShould this be performed at the bedside?->Yes [facility] 1955 Sex: MFINAL [...] clear. Normal heart size and vascularity. Signed: Byrce Smith MDRrockville general hospital Verified Date/Time: 07/29/2022 12:02:26 Reading Location: [facility] Radiology Reading Room BODY FLUID CULTURE + GRAM [id number] 15:24:53 Test Item Value Reference Range Interpretation Comments CULTURE (BEAKER) (test code = 1095) No growth BODY FLUID CULTURE + GRAM [id number] 15:24:37 Test Item Value Reference Range Interpretation Comments CULTURE (BEAKER) (test code = 1095) No growth RAD, CHEST, 1 VIEW, NON [id number] 08:21:00Referring: Laxmi Noguera for exam:->f/u pleural effusion [facility] : 1955 Sex: MFINAL REPORT [...] Left lung remains clear. Signed: Carolina Clancy MDReport Verified Date/Time: 07/27/2022 08:21:54 [id number] 05:49:11 Test Item Value Reference Range Interpretation Comments MAGNESIUM (BEAKER) (test code = 2.0 mg/dL 1.6-2.6 627) Fruit Stuffer ID - MARCOCOMPREHENSIVE METABOLIC [id number] 05:49:11 Test Item Value Reference Range Interpretation [...] not appl icable for dialysis patien ts Fruit Stuffer ID - MARCOSpecimen moderately ictericCBC W/PLT COUNT & AUTO [id number] 05:18:57 Test Item Value Reference Range Interpretation [...] = 2801) BODY FLUID CELL COUNT WITH [id number] 15:45:09 Test Item Value Reference Range Interpretation Comments APPEARANCE FLUID (BEAKER) (test Cloudy Clear A code = 510) COLOR FLUID (BEAKER) (test code Red Colorless, Straw A = 511) RBC FLUID (BEAKER) (test code = 47516 /cu mm <=1 H 513) TOTAL NUCLEATED [...] = 2873) BODY FLUID CELL COUNT WITH [id number] 15:41:36 Test Item Value Reference Range Interpretation [...] = 2873) RAD, CHEST, 1 VIEW, NON [id number] 13:42:00Referring: Laxmi Noguera for exam:->s/p right thoraShould this be performed at the bedside?->YesIn USCH[facility] : 1955 Sex: MFINAL REPORT Chest one view. Clinical history: s/p right thora Comparison: July Discussion: A frontal chest is provided. Cardiomediastinal contours are unchanged. Complete opacification of the right hemithorax is unchanged. Left lung is grossly clear. No pneumothorax. Signed: Darlin Bennett Verified Date/Time: 07/26/2022 13:42:55 Reading Location: [place] [id number] Ortho Consult Reading Room U/S, [id number] 13:26:00Referring: Noguera,UmairLaterality?->RightReason for exam:->pleural effusionReason for exam:->rightLabs to be Ordered:->CytologyLabs to be Ordered:->Body Fluid Culture (w/Gram Stain, C\\T\\S)Labs to be Ordered:- >Glucose+LDH+ProteinLabs to be Ordered:->Cell Count [facility] 1955 Sex: MFINAL REPORT Ultrasound guided right thoracentesis. Clinical History: Right pleural effusion. Modality: Ultrasound. Sedation: None. Infection Control Practitioner: Citlaly Machuca PA-C Electric Motor Repairman: None. Estimated Blood Loss: 1 cc Specimen: [...] Bennett Verified Date/Time: 07/26/2022 13:26:01 Reading Location: [address] Ultrasound Reading Room U/S, [id number] 13:25:00 Referring: Dasia NogueraairLabs to be ordered:->Body Fluid Culture (w/Gram Stain, C\\T\\S)Labs to be ordered:->CytologyLabs to be ordered:->AFB Culture with StainLabs to be ordered:->Glucose+LDH+ProteinLabs to be ordered:- >Cell CountReason for exam:->CHEST PAINReason for exam:->SHORTNESS OF BREATHS[facility] : 1955 Sex: MFINAL REPORT Ultrasound guided paracentesis. Clinical History: Ascites. Sedation:None. Infection Control Practitioner: Citlaly Machuca PA-C Electric Motor Repairman: None. Estimated Blood Loss: < 1 cc. Specimen: 1600 cc of clear yellow fluid, samples sent to laboratory. Technique: Informed consent was obtained. The risks of pain, bleeding, infection, bowel perforation, injury to adjacent structures, and adv erse medication reactions were discussed with the patient. After informed consent was obtained, the patient's abdomen was scanned. The right lower quadrant of the abdomen was selected for paracentesis.After the largest fluid pocket area was marked, and the anterior abdominal wall was evaluated with color Doppler to exclude presence of blood vessels traversing the area, the skin was prepped and draped in the usual sterile manner. After local anesthesia was achieved with 2% lidocaine, a 5 Monegasque one-step catheter was advanced into the peritoneal cavity under ultrasound guidance. After completion of drainage, the catheter was removed. There was no evidence of complication. Impression:Successful ultrasound guided paracentesis. Signed: Darlin Bennett Verified Date/Time: 07/26/2022 13:25:58 ReadingLocation: [facility] B1 P006J Ultrasound Reading Room [id number] 06:40:12 Test Item Value Reference Range Interpretation Comments FERRITIN (BEAKER) (test code = 496.63 ng/mL 5.00-275.00 H 361) Fruit Stuffer ID - MARCOVITAMIN D, [id number] 05:47:45 Test Item Value Reference Range Interpretation Comments VITAMIN D 25-OH (BEAKER) (test 13.1 ng/mL 6.6-49.9 code = 2764) Effective 12/17/2016: Reference Range ChangeNew: 6.6-49.9 ng/mL Previous: 13.0- 47.8 ng/mLRecommendedVitamin D Target Range: 30.0-40.0 ng/mLOperator ID - MM COMPREHENSIVE METABOLIC [id number] 05:43:36 Test Item Value Reference Range Interpretation [...] not appl icable for dialysis patien ts Fruit Stuffer ID - BIRGITOSpecimen moderately [id number] 05:43:35 Test Item Value Reference Range Interpretation Comments MAGNESIUM (BEAKER) (test code = 1.9 mg/dL 1.6-2.6 627) Fruit Stuffer ID - BIRGITOPTH, [id number] 05:30:37 Test Item Value Reference Range Interpretation Comments PARATHYROID HORMONE INTACT 46.4 pg/mL 8.5-72.5 (BEAKER) (test code = 577) Fruit Stuffer ID - MMIRON, TIBC, % SAT. (WITHOUT FERRITIN)2022-07-26 05:24:30 Test Item Value Reference Range Interpretation Comments IRON (BEAKER) (test code = 547) 147.0 ug/dL 40.0-160.0 TOTAL IRON BINDING CAPACITY 116 ug/dL 250-450 L (BEAKER) (test code = 769) IRON % SATURATION (2) (BEAKER) 127 % 20-55 H (test code = 2590) Fruit Stuffer ID - MMCBC W/PLT COUNT & AUTO [id number] 05:13:16 Test Item Value Reference Range Interpretation [...] (BEAKER) (test code = 2801) URINALYSIS W/ [id number] 15:52:00 Test Item Value Reference Range Interpretation [...] (test code Urine, Clean Catch = 2795) Fruit Stuffer ID - [auto]Fruit Stuffer ID - techPROTEIN, RANDOM [id number] 15:49:20 Test Item Value Reference Range Interpretation Comments PROTEIN, URINE (BEAKER) (test code = < mg/dL 0-14 1569) Fruit Stuffer ID - MMSODIUM, RANDOM [id number] 15:48:53 Test Item Value Reference Range Interpretation Comments SODIUM URINE (BEAKER) (test code = 27 meq/L 243) Reference Range: No NormalsOperator ID - MMUREA NITROGEN, RANDOM [id number] 15:48:53 Test Item Value Reference Range Interpretation Comments UREA NITROGEN URINE (BEAKER) (test 593 mg/dL code = 538) Reference Range: No NormalsOperator ID - MMCREATININE, RANDOM [id number] 15:48:47 Test Item Value Reference Range Interpretation Comments CREATININE URINE (BEAKER) (test 111.4 mg/dL code = 375) Reference Range: No NormalsOperator ID - MMPOTASSIUM, RANDOM [id number] 15:48:47 Test Item Value Reference Range Interpretation Comments POTASSIUM URINE (BEAKER) (test 39.5 meq/L code = 195) Reference Range: No NormalsOperator ID - MMCHLORIDE, RANDOM [id number] 15:48:46 Test Item Value Reference Range Interpretation Comments CHLORIDE URINE (BEAKER) (test code = 43 meq/L 20-330 682) Reference Range: No NormalsOperator ID - MMPROTHROMBIN TIME/[id number] 09:26:09 Test Item Value Reference Range Interpretation [...] not appl icable for dialysis patien ts Fruit Stuffer ID - MMSpecimen moderately ictericLACTATE DEHYDROGENASE (LDH)2022-07-25 06:20:32 Test Item Value Reference Range Interpretation Comments LACTATE DEHYDROGENASE (BEAKER) (test 185 U/L 125-220 code = 635) Fruit Stuffer ID - ADMINCBC (HEMOGRAM ONLY)2022-07-25 05:34:21 Test [...] (test code = 413) RAD, CHEST, 2 [id number] 14:25:00Referring: Noguera,UmairReason for exam:- >CHEST PAINReason for exam:->SHORTNESS OF BREATH [facility] : 1955 Sex: MFINAL REPORT CLINICAL HISTORY: CHEST PAINSHORTNESS OF BREATH TECHNIQUE: 2 views ofthe chest COMPARISON: 04/09/2022 IMPRESSION: There is new complete opacification of the right hemithorax. The left lung is free of infiltrates or effusions. The cardiomediastinal silhouette is partially obscured. Signed: Jen De La Torre MDReport Verified Date/Time: 07/24/2022 14:25:45 HIGH SENSITIVITY TROPONIN [id number] 13:29:20 Test Item Value Reference Range Interpretation Comments HIGH SENSITIVITY TROPONIN I (test 5 pg/ml <=35 code = 2751451) Fruit Stuffer ID - ADMINThe TENTER FRAME BACK TENDER STAT High Sensitivity Troponin-I results should be used in conjunction with other diagnostic information such as ECG, clinical observations and information, and patientsymptoms to aid in the diagnosis of UT. B-TYPE NATRIURETIC FACTOR (BNP)2022-07-24 13:28:56 Test Item Value Reference Range Interpretation Comments B-TYPE NATRIURETIC PEPTIDE (BEAKER) 147 pg/mL 0-100 H (test code = 700) Fruit Stuffer ID - ADMINCOMPREHENSIVE METABOLIC [id number] 13:23:52 Test Item Value Reference Range Interpretation [...] high >=90 G2 Mildly decreased 60-89 G3a Mild ly to moderately 45-5 9 G3b Moderately to [...] not appl icable for dialysis patien ts Fruit Stuffer ID - ADMINSpecimen moderately ictericCBC W/PLT COUNT & AUTO [id number] 13:01:13 Test Item Value Reference Range Interpretation [...] = 2801) BODY FLUID CELL COUNT WITH [id number] 15:35:24 Test Item Value Reference Range Interpretation [...] code = count. Negative for 2619) malignancy [id number] Elvia Duffy M.D. (BEAKER) (test code = (electronic 2620) signature) CONTAINER BODY FLUID EDTA Tube (BEAKER) (test code = 2873) U/S, [id number] 14:58:00Referring: Kan NogueraAdminister 200 mL of albumin 25% (50 grams) IV x1 after paracentesis if 3 or more liters removed.Send ascitic fluid for cell count and differential.Labs to be ordered:->CellCountdiffReason for Exam:->HCC, ascitis [facility] 1955 Sex: MFINAL [...] MDReport Verified Date/Time: 07/15/2022 14:58:27 Reading Location: [facility] Radiology Reading Room BODY FLUID CELL COUNT WITH [id number] 15:28:03 Test Item Value Reference Range Interpretation [...] code = count. Negative for 2619) malignancy [id number]-021 Elvia Duffy M.D. (BEAKER) (test code = (electronic 2620) signature) CONTAINER BODY FLUID EDTA Tube (BEAKER) (test code = 2873) U/S, [id number] 14:24:00Referring: Kan NogueraAdminister 200 mL of albumin 25% (50 grams) IV x1 after paracentesis if 3 or more liters removed.Send ascitic fluid for cell count and differential.Labs to be ordered:->CellCountdiffReason for Exam:->HCC, ascitis [facility] : 1955 Sex: MFINAL REPORT [...] catheter, an image was saved. A 5 Monegasque one-step catheter was insertedand removed from the peritoneal space and approximately 5.5 liters of clear yellow fluid was aspirated from the abdomen. Specimens were collected for the lab. There were no immediate complications. Impression: Successful ultrasound guided paracentesis with aspiration of 5.5 liters of fluid. Signed: Chris Alford MDReport Verified Date/Time: 07/04/2022 14:24:11 Reading Location: [facility] Radiology Reading Room MR, ABDOMEN, [id number] 16:04:00 Referring: Yasmin Noguera Abdominal Vessels [facility] 1955 Sex: MAddendum BeginsREPORT STATUS:A Addendum: There is a 1.4 cm arterially enhancing observation posterior to the treatment cavity in hepatic segment 7/8 with faint washout on the delayedphase (LI-RADS 5) Signed: Naa Diallo MDReport Verified Date/Time: 06/23/2022 16:04:59 Reading Location: [facility] Radiology Reading RoomAddendum EndsFINAL REPORT MRI abdomen with and without contrast TECHNIQUE: MRI of the abdomen was performed prior to and following the uneventfuladministration of intravenous gadolinium contrast according to standard protocol. Indication: History of HCC COMPARISON: CT of the abdomen and pelvis 05/30/2022, MRI abdomen 04/08/2022 Findings: Lower Chest:Small right and trace left pleural effusions with adjacent atelectasis. Hepatobiliary systemLivermorphology: Surface nodularity of the liver is consistent [...] with internal T1 hyperintensity representing blood products. Mildenhancement is seen at the anterior margin of [...] today's study (LI-RADS 3). No new liver observations. Subcentimeter cyst in hepatic segment 7. Hepatic [...] upper abdominal varices.4.Small right and trace left pleural effusions with adjacent atelectasis. Signed: Naa Diallo MDReport Verified Date/Time: :58:03 Reading Location: [facility] Radiology Reading Room TISSUE [id number] 13:40:07Surgical Pathology Report Case: [id number] Authorizing Provider: Brenda Allan MD Collected: 06/17/2022 09:55 AM Ordering Location: [facility] ENDOSCOPY Received: 06/17/2022 03:24 PM SERVICESPathologist: Mike Phipps MD Specimen: Polyp, Colon - Right/Ascending, removed with bx forceps A. RIGHT/ASCENDING COLON, POLYP, BIOPSY - SESSILE SERRATED LESION. Signing Pathologist Direct Phone Line: [phone] signed by Mike Phipps MD on 06/18/2022 at 1:40 [id number] cancer screeningA. Polyp, Colon - Right/AscendingReceived in formalin labeled with the patient's name, medical record number and "ascending colon polyp" is a 0.3 x 0.2 x 0.2 cm aaron soft tissue fragment, which is submitted in toto in A1.CECILIA Vergara, HT (ASCP)Performed.CT, ABDOMEN, [id number] 14:38:00Referring: Noguera,UmairLiver Prctocol-Triple Phase [facility] : 1955 Sex: MAddendum BeginsREPORT STATUS:A Addendum: A 1.1 cm early enhancing lesion is seen in the segment 8 of the liver, best seen on image #38, A2. There is vague delayed washout, best seen on image #39, A4. LI RADS category 5. Signed: Hiram Rizviort Verified Date/Time: 06/17/2022 14:38:09 Reading Location: [facility] B1 C013Y CT Body Reading RoomAddendum [...] and functioning with prompt bilateral excretion. No hydronephrosis, solid or cystic mass is seen in either kidney. Diverticular disease is seen in the large bowel without diverticulitis. The small bowel and appendix are normal in caliber. A periumbilical ventral hernia is seen with herniation a segment of the omentum and a small amount of fluid. IMPRESSION: 1. Cirrhosis with splenomegaly and portal hypertension.2. No residual enhancement in the treatment cavity in the liver. LR TR nonviable.3. Ascites and right pleural effusion.4. Diverticular disease in the large bowel without diverticulitis. Signed: Hiram Rizvi MDReport Verified Date/Time: 06/01/2022 16:29:00 Body fluid cell count with [id number] 17:23:02 Test Item Value Reference Range Interpretation Comments Appearance (test code Clear Clear = 9335-1) Color (test code = Yellow Colorless, A 6824-7) Straw RBCs (test code = 82 See_Comment H [Automate d 05177-3) message] The system which generated this result [...] See_Comment H [Automat ed (test code = 52986-9) messag e] The system which generated this result transmitted reference range : <=5 /cu mm. The reference range was not used to interpret this result as normal/abnormal . Adjusted lining 12 See_Comment H [Automated cells/Others (test message] The code = 94315-0) system which generated this result transmitted reference range : <=1 /cu mm. The reference range was not used to interpret this result as normal/abnormal . % Segs (test code = 4 % 69274-4) % Lymphs (test code = 6 % 54985-5) % Monos (test code = 76 % 26937-0) % Eos (test code = 0 % 59025-4) % Baso (test code = 0 % 20289-0) Interpretation (test Agree with the code = 01291-3) above count. Negative for malignancy Pathologist: (test Elvia Duffy, code = 2620) M.D. (electronic signature) Container Body Fluid EDTA Tube (test code = 2873) Lab Interpretation Abnormal (test code = 63768-0) [facility] CenterBody [facility] count with [id number] 17:23:02 Test Item Value Reference Range Interpretation Comments Appearance (test code Clear Clear = 9335-1) Color (test code = Yellow Colorless, A 6824-7) Straw RBCs (test code = 82 See_Comment H [Automate d 53219-3) message] The system which generated this result [...] See_Comment H [Automat ed (test code = 87541-6) messag e] The system which generated this result transmitted reference range : <=5 /cu mm. The reference range was not used to interpret this result as normal/abnormal . Adjusted lining 12 See_Comment H [Automated cells/Others (test message] The code = 58709-6) system which generated this result transmitted reference range : <=1 /cu mm. The reference range was not used to interpret this result as normal/abnormal . % Segs (test code = 4 % 36293-8) % Lymphs (test code = 6 % 39594-3) % Monos (test code = 76 % 09502-8) % Eos (test code = 0 % 57951-7) % Baso (test code = 0 % 79741-2) Interpretation (test Agree with the code = 43093-1) above count. Negative for malignancy Pathologist: (test Elvia Duffy, code = 2620) M.D. (electronic signature) Container Body Fluid EDTA Tube (test code = 2873) Lab Interpretation Abnormal (test code = 42435-2) [facility] CenterBODY [facility]UID CE[facility] COUNT WITH [id number] 17:23:02 Test Item Value Reference Range Interpretation [...] code = count. Negative for 2619) malignancy [id number] Elvia Duffy M.D. (BEAKER) (test code = (electronic 2620) signature) CONTAINER BODY FLUID EDTA Tube (BEAKER) (test code = 2873) U/S, [id number] 13:26:00Referring: Kan NogueraAdminister 200 mL of albumin 25% (50 grams) IV x1 after paracentesis if 3 or more liters removed.Send ascitic fluid for cell count and differential.Labs to be ordered:->CellCountdiffLabs to be ordered:->Other (please add comment)Reason for Exam:->hcc, ascitis [facility] 1955 Sex: MFINAL [...] was then prepped and anesthetized. A 5 Monegasque needle/catheter was inserted into the peritoneal space and 4.25 L of light yellow fluid were removed. CONCLUSION: Ultrasound-guided paracentesis. Si gned: Ayleen Emmett MDReport Verified Date/Time: 06/09/2022 13:26:28 Reading Location: [facility] Radiology Reading Room Drug screen, urine, transplant ([facility] Only) 2022-06-04 19:36:29See Scanned ReportHi-Desert Medical CenterDrug screen, urine, transplant ([facility])2022-06-04 19:36:29See Scanned ReportHi-Desert Medical CenterCOMPREHENSIVE METABOLIC [id number] 17:16:00 Test Item Value Reference Range Interpretation [...] not appl icable for dialysis patien ts Fruit Stuffer ID - ADMINSpecimen moderately ictericCBC W/PLT COUNT & AUTO [id number] 17:00:09 Test Item Value Reference Range Interpretation [...] PERCENT (BEAKER) (test code = 2801) PROTHROMBIN [id number] 16:56:37 Test Item Value Reference Range Interpretation Comments PROTIME (BEAKER) (test code = 17.9 seconds 11.9-14.2 H 759) INR (BEAKER) (test code = 370) 1.52 <=5.90 RECOMMENDED COUMADIN/WARFARIN INR THERAPY RANGESSTANDARD DOSE: 2.0 - 3.0 Includes: PROPHYLAXIS for venous thrombosis, systemic embolization; TREATMENT for venous thrombosis and/or pulmonary embolus.HIGH RISK: Target INR is 2.5-3.5 for patients with mechanical heart valves.BASIC METABOLIC [id number] 13:52:54 Test Item Value Reference Range Interpretation [...] not appl icable for dialysis patien ts Fruit Stuffer ID - ADMINSpecimen moderately ictericPROTHROMBIN TIME/[id number] 13:50:55 Test Item Value Reference Range Interpretation [...] (BEAKER) (test code = 413) T SPOT [id number] 09:02:50 Test Item Value Reference Range Interpretation [...] = 1687) SCAN RESULT (test code = 5387234) U/S, GUIDANCE, [id number] 13:43:00[facility]CC [facility] 1955 Sex: MFINAL REPORT Please see the dictation from the image guided ablation performed on 05/05/2022. These orders are linked. Signed: Tiago Solorio Verified Date/Time: 05/14/2022 13:43:51 Reading Location: [place] [address] Angio Body Reading Room Electronically signed by: Demetria ROMO 05/14/2022 01:43 PM BONE AND/OR JOINT IMAGING, WHOLE [id number] 14:32:00Referring: Noguera,UmairUnlisted Reason for Exam - Click Yes and Enter Reason Below->YesUnlistedReason for Exam->Liver mass, exclude metastatic disease [facility] 1955 Sex: MFINAL REPORT PROCEDURE: BONE SCAN, WHOLE BODY CPT CODE: 51799 INDICATION: HCC, eval for metastases PROTOCOL: 20.6 [...] Date/Time: 05/12/2022 14 :32:37 , TUMOR RFA [id number] 13:01:00Referring: Noguera,UmairWith general anesthesiaReason for Exam:->hcc [facility] : 1955 Sex: MFINAL REPORT Image Guided microwave ablation of hepatocellular carcinoma. History: HCC in segment 4/8 Infection Control Practitioner: Tiago Solorio MD. Electric Motor Repairman: None. Modality: Ultrasound and CTDOSE REDUCTION: The [...] Solorioepdave Verified Date/Time: 05/08/2022 13:01:31 Reading Location: [place] [address] Angio Body Reading Room BASIC METABOLIC [id number] 05:31:48 Test Item Value Reference Range Interpretation [...] not appl icable for dialysis patien ts Fruit Stuffer ID - KIRBY GOperator ID - BSSpecimen slightly ictericPHOSPHORUS 2022-05-07 05:19:26 Test Item Value Reference Range Interpretation Comments PHOSPHORUS (BEAKER) (test code = 3.2 mg/dL 2.3-4.7 604) Fruit Stuffer ID - KIRBY [id number] 05:19:25 Test Item Value Reference Range Interpretation Comments MAGNESIUM (BEAKER) (test code = 2.0 mg/dL 1.6-2.6 627) Fruit Stuffer ID - KIRBY GCBC W/PLT COUNT & AUTO [id number] 04:53:29 Test Item Value Reference Range Interpretation [...] PERCENT (BEAKER) (test code = 2801) CALCIUM, [id number] 04:53:13 Test Item Value Reference Range Interpretation Comments CALCIUM IONIZED (BEAKER) (test 1.07 mmol/L 1.12-1.27 L code = 698) PH, BLOOD (BEAKER) (test code = 7.41 1810) HEMOGLOBIN AND [id number] 18:45:03 Test Item Value Reference Range Interpretation Comments HEMOGLOBIN (BEAKER) (test code = 10.5 GM/DL 13.7-17.5 L 410) HEMATOCRIT (BEAKER) (test code = 30.9 % 40.1-51.0 L 411) Fruit Stuffer ID - 6000Operator ID - 6000HEMOGLOBIN AND [id number] 14:22:55 Test Item Value Reference Range Interpretation Comments HEMOGLOBIN (BEAKER) (test code = 10.1 GM/DL 13.7-17.5 L 410) HEMATOCRIT (BEAKER) (test code = 29.5 % 40.1-51.0 L 411) Fruit Stuffer ID - 6000HEMOGLOBIN AND [id number] 08:37:32 Test Item Value Reference Range Interpretation Comments HEMOGLOBIN (BEAKER) (test code = 10.7 GM/DL 13.7-17.5 L 410) HEMATOCRIT (BEAKER) (test code = 32.1 % 40.1-51.0 L 411) Fruit Stuffer ID - 6000COMPREHENSIVE METABOLIC [id number] 07:50:40 Test Item Value Reference Range Interpretation [...] not appl icable for dialysis patien ts Fruit Stuffer ID - MARCOSpecimen moderately ictericCBC (HEMOGRAM ONLY)2022-05-06 [...] 0-0 (test code = 413) BASIC METABOLIC [id number] 18:50:08 Test Item Value Reference Range Interpretation [...] not appl icable for dialysis patien ts Fruit Stuffer ID - BSSpecimen moderately ictericPROTHROMBIN TIME/[id number] 18:27:01 Test Item Value Reference Range Interpretation [...] mechanical heart valves.CBC W/PLT COUNT & AUTO [id number] 18:23:40 Test Item Value Reference Range Interpretation [...] (BEAKER) (test code = 2801) BASIC METABOLIC [id number] 09:44:40 Test Item Value Reference Range Interpretation [...] not appl icable for dialysis patien ts Fruit Stuffer ID - January moderately ictericHEPATIC FUNCTION [id number] 09:44:40 Test Item Value Reference Range Interpretation [...] (test code = 21 U/L 6-55 347) Fruit Stuffer ID - January moderately ictericPROTHROMBIN TIME/[id number] 09:30:17 Test Item Value Reference Range Interpretation [...] mechanical heart valves.CBC W/PLT COUNT & AUTO [id number] 09:26:59 Test Item Value Reference Range Interpretation [...] code = 2801) MYOCARD IMAGING, MULTI, PHARM, [id number] 17:02:00Referring: Noguera,UmairUnlisted Reason for Exam - Click Yes and Enter Reason Below->YesUnlistedReason for Exam->Pre Liver transplant [facility] : 1955 Sex: MFINAL REPORT PROCEDURE: Rest/Stress MYOCARDIAL PERFUSION SPECT with regadenoson\\XA9\\ CPT CODE: 78917 INDICATION: Preoperative risk stratification prior to liver [...] 3. Abnormal myocardial perfusion. There is a octo-ty-wcphzcve severity, medium sized, fixed, perfusion defect in the basal to mid inferolateral and apical lateral LV. 4. Overall resting LV function is normal with normal wall motion. 5. Extracardiac tracer distribution is normal. Signed: Thomas Esparza MDReport Verified Date/Time: 04/22/2022 17:02:39 ALPHA FETOPROTEIN (AFP), TUMOR [id number] 12:16:45 Test Item Value Reference Range Interpretation Comments ALPHA-FETOPROTEIN (BEAKER) (test 7.1 ng/mL <10.0 code = 1094) Fruit Stuffer ID - JANCOMPREHENSIVE METABOLIC [id number] 11:56:59 Test Item Value Reference Range Interpretation [...] (test code = 347) EGFR (BEAKER) 79 Interpretati on of eGFR (test code = [...] not appl icable for dialysis patien ts Fruit Stuffer ID - JANSpecimen moderately ictericPROTHROMBIN TIME/[id number] 11:46:50 Test Item Value Reference Range Interpretation [...] mechanical heart valves.CBC W/PLT COUNT & AUTO [id number] 11:41:49 Test Item Value Reference Range Interpretation [...] (test code = 2801) CT, CHEST, WITHOUT [id number] 14:03:00Referring: Noguera,UmairUnlisted Reason for Exam - Click Yes and Enter Reason Below->YesUnlistedReason for Exam->Liver mass, exclude metastatic disease [facility] 1955 Sex: MFINAL [...] Rizvi Verified Date/Time: 04/17/2022 14:03:10 Reading Location: [facility] C013Y CT Body Reading Room Carotid doppler [id number] 00:42:37Ejection FractionSLEH ECHO HEARTLAB MKCKESSON [facility] HospitalCarotid doppler ljmrqlfea0444-58-14 00:42:37Ejection FractionSLEH ECHO HEARTLAB MKCKESSON [facility] HospitalE[facility] W CONTRAST & [id number] 17:09:34Ejection FractionSLEH ECHO HEARTLAB MKCKESSON [facility] W CONTRAST & DOPPLER 2022-04-10 17:09:34Ejection FractionSLEH ECHO HEARTLAB BitglassESSON [facility] HospitalBlood gas, [id number] 10:37:27 Test Item Value Reference Range Interpretation Comments pH, Arterial (test code 7.48 7.35-7.45 H = 2744-1) pCO2, Arterial (test 35 See_Comment [Autom ated message] code = 2019-8) The system [employer] generated this result transmit rosalinda reference range : 35 - 45 mm Hg. The reference range was not used to interpret this result as normal/abnormal . pO2, Arterial (test 103 See_Comment H [Automa rosalinda message] code = 2703-7) The system [employer] generated this result transmit rosalinda reference range [...] 21 Lab Interpretation Abnormal (test code = 86026-9) [facility], [id number] 10:37:27 Test Item Value Reference Range Interpretation Comments pH, Arterial (test code 7.48 7.35-7.45 H = 2744-1) pCO2, Arterial (test 35 See_Comment [Autom ated message] code = 2019) The system [employer] generated this result transmit rosalinda reference range : 35 - 45 mm Hg. The reference range was not used to interpret this result as normal/abnormal . pO2, Arterial (test 103 See_Comment H [Automa rosalinda message] code = 2703-7) The system [facility] generated this result transmit rosalinda reference range [...] 21 Lab Interpretation Abnormal (test code = 46306-4) [facility] CenterBLOOD GAS, [id number] 10:37:27 Test Item Value Reference Range Interpretation [...] FIO2 (BEAKER) (test code = 1819) 21.0 [id number] 15:47:52 Test Item Value Reference Range Interpretation Comments T3 TOTAL (BEAKER) (test code = 0.89 ng/mL 0.60-1.81 656) Fruit Stuffer ID - ufoahi071SKJUBGYSAITY [id number] 13:36:23 Test Item Value Reference Range Interpretation Comments CRYPTOCOCCAL ANTIGEN, SERUM Negative Negative, Interference (BEAKER) (test code = 1828) RAD, BONE DENSITY [id number] 13:11:00Referring: Laxmi Noguera for Exam:->Pre Liver [facility] 1955 Sex: MFINAL REPORT BONE MINERAL DENSITY CLINICAL HISTORY: Liver transplant evaluation COMPARISON: No prior comparison bone mineral density studies are available REPORT: Bone Mineral DensityMeasurement: Lumbar Spine (L1-L4): 1.211 g/kf9Bkql Femoral Neck: 1.025 g/cm2 Standard Deviation as [...] Verified Date/Time: 04/09/2022 13:11:43 RAD, CHEST, 2 [id number] 13:04:00Referring: Laxmi Noguera for Exam:->[facility] Liver [facility] 1955 Sex: MFINAL [...] Date/Time: 04/09/2022 13:04:48 RAD, MANDIBLE, MIN 4 [id number] 12:56:00 Referring: Laxmi Noguera for Exam:->Pre Liver transplant Eval [facility] : 1955 Sex: MFINAL [...] Matthew Rodas MDReport Verified Date/Time: 04/09/2022 12:56:34 [id number] 12:50:19 Test Item Value Reference Range Interpretation Comments RPR SCREEN (Fed Playbook) (test code = Nonreactive Nonreactive 420) [id number] 11:59:53 Test Item Value Reference Range Interpretation Comments PROSTATE SPECIFIC ANTIGEN (eJammingAKER) 0.3 ng/mL 0.0-4.0 (test code = 844) Fruit Stuffer ID - MITCHHEPATITIS B CORE ANTIBODY, [id number] 11:59:53 Test Item Value Reference Range Interpretation Comments HEPATITIS B CORE IGM ANTIBODY Nonreactive Nonreactive (Fed Playbook) (test code = 645) Fruit Stuffer ID - MITCHHIV-1 ANTIGEN WITH HIV-1/2 [id number] 11:59:53 Test Item Value Reference Range Interpretation Comments HIV-1 ANTIGEN WITH HIV 1\\T\\2 Nonreactive Nonreactive ANTIBODY (2) (Fed Playbook) (test code = 2586) Fruit Stuffer ID - MITCHVITAMIN D, [id number] 11:45:48 Test Item Value Reference Range Interpretation Comments VITAMIN D 25-OH (Fed Playbook) (test 18.0 ng/mL 6.6-49.9 code = 2764) Effective 12/17/2016: Reference Range ChangeNew: 6.6-49.9 ng/mL Previous: 13.0- 47.8 ng/mLRecommendedVitamin D Target Range: 30.0-40.0 ng/mLOperator ID - MARYBETH HEMOGLOBIN [id number] 11:19:55 Test Item Value Reference Range Interpretation Comments HEMOGLOBIN A1C 4.6 % See_Comment [Automated m essage] ELECTROPHORESIS (Fed Playbook) The system which (test code = 3811) generated this result transmitted ref erence range: <=5.6%. The reference range was not used to int erpret this result as normal/abnormal . "The A1c is measured using a NGSP-certified method. HbA1c value equal to or greater than 6.5% as thediagnosis cutoff for diabetes. An HbA1c value of 5.7- 6.4% indicates increased risk for diabetes (prediabetes)."Fruit Stuffer ID - ADMOperator ID - ADMCYTOMEGALOVIRUS ANTIBODY, [id number] 10:46:24 Test Item Value Reference Range Interpretation Comments CYTOMEGALOVIRUS, IGG (Fed Playbook) Positive Negative, Equivocal A (test code = 3429) CMV IgG Result Interpretation: </= 0.8 Al Negative 0.9-1.0 Al Equivocal >/=1.1 Al PositiveEBV ANTIBODY, [id number] 10:46:24 Test Item Value Reference Range Interpretation Comments BOO TOWNSEND VIRAL CAPSID Positive Negative, Equivocal A ANTIGEN IGG (Fed Playbook) (test code = 3415) Boo [place]send Viral Capsid Antigen IgG Result Interpretation: </= 0.8 Al Negative 0.9-1.0 Al Equivocal >/= 1.1 Al PositiveEBV ANTIBODY, [id number] 10:46:24 Test Item Value Reference Range Interpretation Comments BOO TOWNSEND VIRAL CAPSID Negative Negative, Equivocal ANTIGEN IGM (Fed Playbook) (test code = 3418) Boo Townsend Viral [...] Positive - Presumed immune VARICELLA ZOSTER ANTIBODY, [id number] 10:46:24 Test Item Value Reference Range Interpretation Comments VARICELLA ZOSTER IGG (AL) (BEAKER) 6.7 (test code = 3197) VARICELLA ZOSTER RESULT INTERPRETATIONS: <=0.8 Al Nonreactive: Presumed non- immune to VZV 0.9-1.0 Al Equivocal >=1.1 Al Reactive: Presumed immune to VZV TOXOPLASMA GONDII ANTIBODY, [id number] 10:46:24 Test Item Value Reference Range Interpretation Comments TOXOPLASMA GONDII IGG QUANTITATIVE < IU/mL <10.0 (BEAKER) (test code = 3428) Toxoplasma Gondii IgG Result Interpretation: </= 9.9 IU/mL Normal 10-11 IU/mL Equivocal >/= 12IU/mL PositiveUrinalysis w/[id number] 10:26:09 Test Item Value Reference Range Interpretation Comments Color, UA (test code Dark Yellow = 5778-6) Clarity, UA (test Clear code = 5767-9) Specific [place], UA 1.017 1.001-1.035 (test code = 5811-5) pH, UA (test code = 6.5 5.0-8.0 5803-2) Protein, UA (test Negative Negative code = 27971-6) Glucose, UA (test Negative Negative code = 365) Ketones, UA (test Negative Negative code = 2514-8) Bilirubin, UA (test Positive Negative A code = 73404-1) Blood, UA (test code Negative Negative = 06105-9) Nitrite, UA (test Negative Negative code = 5802-4) Leukocytes, UA (test Negative Negative code = 5799-2) Urobilinogen, UA 8 0.2-1.0 H (test code = 12262-8) RBC, UA (test code = See_Comment [Autom ated 07637-3) message] The system which generated this result [...] (test Rare None Seen A code = 31611-1) Specimen Source (test Urine, Clean code = 2795) Catch NYDIA (test code = NYDIA) Fruit Stuffer ID - [auto]Fruit Stuffer ID - tech Lab Interpretation Abnormal (test code = 06432-0) [facility] CenterUrinalysis w/Safoczldcox9422-13-77 10:26:09 Test Item Value Reference Range Interpretation Comments Color, UA (test code Dark Yellow = 5778-6) Clarity, UA (test Clear code = 5767-9) Specific [place], UA 1.017 1.001-1.035 (test code = 5811-5) pH, UA (test code = 6.5 5.0-8.0 5803-2) Protein, UA (test Negative Negative code = 79916-5) Glucose, UA (test Negative Negative code = 365) Ketones, UA (test Negative Negative code = 2514-8) Bilirubin, UA (test Positive Negative A code = 91690-2) Blood, UA (test code Negative Negative = 74128-4) Nitrite, UA (test Negative Negative code = 5802-4) Leukocytes, UA (test Negative Negative code = 5799-2) Urobilinogen, UA 8 0.2-1.0 H (test code = 91635-9) RBC, UA (test code = See_Comment [Autom ated 18378-7) message] The system which generated this result [...] (test Rare None Seen A code = 83981-8) Specimen Source (test Urine, Clean code = 2795) Catch NYDIA (test code = NYDIA) Fruit Stuffer ID - [auto]Fruit Stuffer ID - tech Lab Interpretation Abnormal (test code = 71879-0) [facility] CenterURINALYSIS W/ [id number] 10:26:09 Test Item Value Reference Range Interpretation [...] (test code Urine, Clean Catch = 2795) Fruit Stuffer ID - [auto]Fruit Stuffer ID - [id number] 09:46:14 Test Item Value Reference Range Interpretation Comments T4 TOTAL (BEAKER) (test code = 895) 7.2 ug/dL 4.9-11.7 Fruit Stuffer ID - [id number] 09:46:14 Test Item Value Reference Range Interpretation Comments THYROID STIMULATING HORMONE 2.023 uIU/mL 0.350-4.940 (BEAKER) (test code = 772) Fruit Stuffer ID - FCKSODRDFOMOWLVD3079-15-03 09:30:09 Test Item Value Reference Range Interpretation Comments TRANSFERRIN (BEAKER) (test code = 164 mg/dL 174-382 L 541) Fruit Stuffer ID - MARYBETHSpecimen moderately ifkdvewJYMXALLUNJ1166-66-61 09:28:13 Test Item Value Reference Range Interpretation Comments PHOSPHORUS (BEAKER) (test code = 3.2 mg/dL 2.3-4.7 604) Fruit Stuffer ID - MITCHURIC [id number] 09:28:13 Test Item Value Reference Range Interpretation Comments URIC ACID (BEAKER) (test code = 6.9 mg/dL 2.6-7.2 773) Fruit Stuffer ID - MARYBETHSpecimen moderately ictericCOMPREHENSIVE METABOLIC PANEL 2022-04-09 09:28:13 Test [...] not appl icable for dialysis patien ts Fruit Stuffer ID - MITCHSpecimen moderately ictericLIPID [id number] 09:28:13 Test Item Value Reference Range Interpretation [...] Borderline 130-159 High 160-189 Very High >=190 Fruit Stuffer ID - MITCHSpecimenmoderately ictericBILIRUBIN, [id number] 09:28:13 Test Item Value Reference Range Interpretation Comments BILIRUBIN DIRECT (BEAKER) (test 3.6 mg/dL 0.1-0.5 H code = 706) Fruit Stuffer ID - MITCHGAMMA GLUTAMYL TRANSFERASE (GGT)2022-04-09 09:28:13 Test Item Value Reference Range Interpretation Comments GAMMA GLUTAMYL TRANSFERASE (BEAKER) 293 U/L 9-64 H (test code = 364) Fruit Stuffer ID - MITCHSpecimen moderately [id number] 09:28:12 Test Item Value Reference Range Interpretation Comments MAGNESIUM (BEAKER) (test code = 2.0 mg/dL 1.6-2.6 627) Fruit Stuffer ID - KJIXBYLCVBWR9342-62-05 09:23:08 Test Item Value Reference Range Interpretation Comments ETHANOL (BEAKER) < mg/dL See_Comment [Automated message] The (test code = 400) system whi generated this result tra nsmitted reference range : <=10. The reference r andres was not used to int erpret this result as normal/abnormal . Fruit Stuffer ID - MITCHCALCIUM, [id number] 09:01:23 Test Item Value Reference Range Interpretation Comments CALCIUM IONIZED (BEAKER) (test 1.16 mmol/L 1.12-1.27 code = 698) PH, BLOOD (BEAKER) (test code = 7.37 1810) [id number] 09:00:25 Test Item Value Reference Range Interpretation Comments PARTIAL THROMBOPLASTIN TIME 38.3 seconds 22.5-36.0 H (BEAKER) (test code = 760) [id number] 09:00:03 Test Item Value Reference Range Interpretation Comments FIBRINOGEN LEVEL (BEAKER) (test 323 mg/dl 225-434 code = 658) PROTHROMBIN TIME/[id number] 08:59:22 Test Item Value Reference Range Interpretation Comments PROTIME (BEAKER) 16.9 seconds 11.9-14.2 H (test code = 759) INR (BEAKER) (test 1.46 See_Comment [Automat ed message] code = 370) The system [employer] generated this result transmitted ref erence range: <=5.90. The reference range was not used to int erpret this result as normal/abnormal . RECOMMENDED COUMADIN/WARFARIN INR THERAPY RANGESSTANDARD DOSE: 2.0 - 3.0 Includes: PROPHYLAXIS for venous thrombosis, systemic embolization; TREATMENT for venous thrombosis and/or pulmonary embolus.HIGH RISK: Target INR is 2.5-3.5 for patients with mechanical heart valves.CBC W/PLT COUNT & AUTO [id number] 08:42:18 Test Item Value Reference Range Interpretation [...] 2801) MR, ABDOMEN, WITHOUT / WITH IV [id number] 07:55:00Referring: Dasia NogueraairUnlisted Reason for Exam - Click Yes and Enter Reason Below->YesUnlistedReason for Exam->Cirrhosis, portal hypertension, liver lesion.[facility] : 1955 Sex: MFINAL [...] on future follow-up exam. Signed: Darlin Bennett MDReport Verified Date/Time: 04/05/2022 07:55:45 ANA TITER AND [id number] 14:57:21 Test Item Value Reference Range Interpretation Comments LISA TITER (BEAKER) (test code = >=:2560 1541) LISA PATTERN (BEAKER) (test code = Homogeneous 1781) ANTI-NUCLEAR ANTIBODY (LISA)2022-02-21 14:56:50 Test Item Value Reference Range Interpretation Comments ANTI-NUCLEAR ANTIBODY (LISA) (BEAKER) Positive Negative A (test code = 418) Test performed by IFA method.[id number] 13:56:07 Test Item Value Reference Range Interpretation Comments FERRITIN (BEAKER) (test code = 440.75 ng/mL 5.00-275.00 H 361) Fruit Stuffer ID - ADMINHEPATITIS B SURFACE [id number] 13:17:50 Test Item Value Reference Range Interpretation Comments HEPATITIS B SURFACE ANTIBODY < mIU/mL <8.0 (BEAKER) (test code = 647) Fruit Stuffer ID - ADMINHEPATITIS C [id number] 13:17:18 Test Item Value Reference Range Interpretation Comments HEPATITIS C ANTIBODY (BEAKER) Nonreactive Nonreactive (test code = 367) Fruit Stuffer ID - ADMINHEPATITIS B SURFACE [id number] 13:17:13 Test Item Value Reference Range Interpretation Comments HEPATITIS B SURFACE ANTIGEN (2) Nonreactive Nonreactive (BEAKER) (test code = 2585) Specimen is considered negative for HBsAg.HEPATITIS B CORE ANTIBODY, TOTAL 2022-02-20 13:16:01 Test Item Value Reference Range Interpretation Comments HEPATITIS B CORE TOTAL ANTIBODY Nonreactive Nonreactive (BEAKER) (test code = 497) Fruit Stuffer ID - ADMINHEPATITIS A ANTIBODY, [id number] 13:16:01 Test Item Value Reference Range Interpretation Comments HEPATITIS A IGG ANTIBODY (BEAKER) Nonreactive Nonreactive (test code = 2797) Fruit Stuffer ID - ADMINALPHA FETOPROTEIN (AFP), TUMOR [id number] 13:16:00 Test Item Value Reference Range Interpretation Comments ALPHA-FETOPROTEIN (BEAKER) (test 4.1 ng/mL <10.0 code = 1094) Fruit Stuffer ID - ADMINCARCINOEMBRYONIC ANTIGEN (CEA)2022-02-20 13:15:55 Test Item Value Reference Range Interpretation Comments CARCINOEMBRYONIC ANTIGEN (BEAKER) 4.1 ng/mL 0.0-5.0 (test code = 685) Fruit Stuffer ID - ADMINIRON, TIBC, % SAT. (WITHOUT FERRITIN)2022-02-20 12:59:54 Test Item Value Reference Range Interpretation Comments IRON (BEAKER) (test code = 547) 190.0 ug/dL 40.0-160.0 H TOTAL IRON BINDING CAPACITY 205 ug/dL 250-450 L (BEAKER) (test code = 769) IRON % SATURATION (2) (BEAKER) 93 % 20-55 H (test code = 2590) Fruit Stuffer ID - ADMINCOMPREHENSIVE METABOLIC [id number] 12:49:29 Test Item Value Reference Range Interpretation [...] not appl icable for dialysis patien ts Fruit Stuffer ID - ADMINSpecimen moderately ictericBILIRUBIN, [id number] 12:49:29 Test Item Value Reference Range Interpretation Comments BILIRUBIN DIRECT (BEAKER) (test 4.1 mg/dL 0.1-0.5 H code = 706) Fruit Stuffer ID - YYSFKDTDZB-8-[id number] 12:39:25 Test Item Value Reference Range Interpretation Comments ALPHA-1 ANTITRYPSIN (BEAKER) 220.80 mg/dL 90.00-200.00 H (test code = 502) Fruit Stuffer ID - ADMINPROTHROMBIN TIME/[id number] 12:37:24 Test Item Value Reference Range Interpretation Comments PROTIME (BEAKER) 16.4 seconds 11.9-14.2 H (test code = 759) INR (BEAKER) (test 1.35 See_Comment [Automat ed message] code = 370) The system [employer] generated this result transmitted ref erence range: <=5.90. The reference range was not used to int erpret this result as normal/abnormal . RECOMMENDED COUMADIN/WARFARIN INR THERAPY RANGESSTANDARD DOSE: 2.0 - 3.0 Includes: PROPHYLAXIS for venous thrombosis, systemic embolization; TREATMENT for venous thrombosis and/or pulmonary embolus.HIGH RISK: Target INR is 2.5-3.5 for patients with mechanical heart valves.CBC W/PLT COUNT & AUTO [id number] 12:21:44 Test Item Value Reference Range Interpretation [...]
[2022-10-09 15:59] LABS: Absolute Lymphocytes (CBC) 0.4 K/uL (0.7-4.9); Hematocrit 32.2 % (39.6-49.0); Lymphocytes % 5.1 % (15.3-44.8); MCV 101.9 fL (80-100); MPV 8.1 fL (7.6-11.3); RBC Red Blood Cell Count 3.16 M/uL (4.33-5.43)
[2022-10-09] MEDS ORDERED: ALBUMIN HUMAN 25% 100 ML IV ONE ×2 (16:02→21:01)
[2022-10-09] MEDS ORDERED: NA CHLORIDE 0.9% 250 ML ONE ×2 (16:02→21:00)
[2022-10-09 16:07] LABS: Blood Morphology Comment NOT SEEN (NOT SEEN); Platelet Estimate DECR; White Blood Cell Scan OK (OK)
[2022-10-09 16:25] LABS: Troponin High Sensitivity 18.5 pg/mL (<58.9)
[2022-10-09 16:41] LABS: Bilirubin Total 11.1 mg/dL (0.2-1.0); Potassium 4.3 mEq/L (3.5-5.1); Protein, Total 6.1 g/dL (6.4-8.2)
--- NOTE | 2022-10-09 17:10 | RAD REPORT ---
EXAM DESCRIPTION: RAD - Chest Single View - 10/09/2022 5:04 pm CLINICAL HISTORY: DYSPNEA Chest pain. COMPARISON: Chest Single View dated 10/08/2022; Chest Single View dated 09/30/2022; Chest Single View d ated 09/11/2022; Chest Pa And Lat (2 Views) dated 08/18/2022; Thoracentesis w/ US Guide dated 10/08/2022 FINDINGS: Portable technique limits examination quality. Right hemithorax opacification. Left lung is grossly clear. The heart is likely normal in size.
--- NOTE | 2022-10-09 17:59 | RAD REPORT ---
EXAM DESCRIPTION: CT - Chest Abd Pelvis Wo Con - 10/09/2022 5:31 pm CLINICAL HISTORY: Chest and abdomen pain. right thoracentesis yesterday, sob, fall today COMPARISON: No comparisons TECHNIQUE: A limited noncontrast study was performed. All CT scans are performed using dose optimization technique as appropriate and may include automated exposure control or mA/KV adjustment according to patient size. FINDINGS: There is a large right pleural effusion filling the entire right hemithorax.There is mild- to-moderate right to left midline shift present with complete atelectasis of the right lung.Linear at electasis is seen medial left lung base.No intrathoracic adenopathy. Advanced liver cirrhosis is present. Moderate splenomegaly. The pancreas, adrenal glands and kidneys are within normal limits. Iipk-bf-eopezbar ascites. No bowel obstruction. No pathologic lymphadenopathy in the abdomen or pelv is. Lumbosacral degenerative changes. IMPRESSION: Very large right pleural effusion is present filling the entire right hemithorax and cau sing right to left shift of the cardiomediastinal structures. Given the patient had a thoracentesis yesterday, this likely represents rapid reaccumulation of pleur al fluid. Considered right-sided large-bore chest tube placement. Advanced liver cirrhosis with splenomegaly. Mild ascites.
[2022-10-09] MEDS ORDERED: KETAMINE HCL IN 0.9 % NACL 50 MG/5 ML SYRINGE IV ONE (18:58)
[2022-10-09] MEDS ORDERED: FENTANYL CITR 100 MCG/2 ML ONE (18:58)
[2022-10-09] MEDS ORDERED: LIDOCAINE 1% MPF 30 ML VIAL ONE (19:26)
[2022-10-09] MEDS ORDERED: LIDOCAINE 1% W/EPI 1:100,000 50 ML MDV ONE (19:28)
--- NOTE | 2022-10-09 19:43 | EDPHYS ---
Physician Documentation [facility] Name: Ashok Yo Age: 67 yrs Sex: Male : 1955 Arrival Date: 10/09/2022 Time: 15:13 Bed 5 Private MD: Honorio Cannon ED Physician Eze Mabry HPI: 10/09 15:43 This 67 yrs old Male presents to ER via Wheelchair with complaints of Shortness Of rn Breath, Post Surgical Pain, Flank Pain. 15:43 The patient has shortness of breath at rest. Onset: The symptoms/episode began/occurred rn yesterday. Duration: The symptoms are continuous. The patient's shortness of breath is aggravated by deep breath. Associated signs and symptoms: Pertinent positives: This patient does not have any pertinent positive signs or symptoms associated with shortness of breath. Pertinent negatives: fever, hemoptysis. Severity of symptoms: At their worst the symptoms were moderate in the emergency department the symptoms are unchanged. The patient has experienced similar episodes in the past. Pt reports has cirrhosis, has weekly thoracentesis, had one yesterday, began to have chest pain after procedure, then fell today from standing, hit knees and chest. Reports sob slowly getting worse. No fever. . Historical: - Allergies: 15:22 cherries; ll1 - PMHx: 15:22 cirrhosis of liver; ll1 - Immunization history:: Client reports receiving the 2nd dose of the Covid vaccine. - Social history:: Smoking status: Patient denies any tobacco usage or history of. - Family history:: not pertinent. - Hospitalizations: : No recent hospitalization is reported. ROS: 15:43 Constitutional: Negative for fever, chills, and weight loss, Neck: Negative for injury, rn pain, and swelling, Cardiovascular: + chest pain Respiratory: + sob Abdomen/GI: Negative for abdominal pain, nausea, vomiting, diarrhea, and constipation, MS/Extremity: Negative for injury and deformity, Skin: Negative for injury, rash, and discoloration, Neuro: + generalized weakness Exam: 15:47 Constitutional: Thin male, jaundice, appears frail Head/Face: Normocephalic, rn atraumatic. Neck: NO midline tenderness of cervical spine Cardiovascular: Regular rate and rhythm. No pulse deficits. Respiratory: + mild tachypnea, no retractions. Diminished breath sounds right lung base. + contusion right and anterior to sternum, no crepitus. Abdomen/GI: Soft, non-tender Skin: Warm, dry MS/ Extremity: Pulses equal, no cyanosis. Neurovascular intact. Full, normal range of motion. Mild superficial abrasions to bilateral knees Neuro: Awake and alert, GCS 15 Vital Signs: 15:20 BP 78 / 51; Pulse 97; Resp 20; Temp 99; Pulse Ox 94% on R/A; Pain 9/10; ll1 16:23 BP 91 / 58; Pulse 91; Resp 22; Pulse Ox 100% 2 lpm ; dd1 17:03 BP 90 / 58; Pulse 88; Resp 21; Pulse Ox 100% 2 lpm ; Pain 9/10; dd1 17:38 BP 102 / 67; Pulse 90; Resp 18; Pulse Ox 98% ; ko1 18:46 Weight 74.84 kg; ko1 18:59 BP 98 / 54; Pulse 90; Resp 20; Pulse Ox 97% ; ko1 20:00 BP 96 / 64; Pulse 89; Resp 20; Pulse Ox 98% ; vc1 21:00 BP 99 / 75; Pulse 89; Resp 20; Pulse Ox 99% on 2 lpm NC; vc1 22:00 BP 107 / 56; Pulse 88; Resp 19; Pulse Ox 99% on 2 lpm NC; vc1 15:20 Pain Scale: Adult ll1 17:03 Pain Scale: Adult dd1 MDM: 15:17 Patient medically screened. rn 18:06 Management of patient was discussed with the following: Boiler Reliner: Consulted with Dr. corry Ortiz, will come and evaluate need for chest tube given rapid accumulation. Then recommends transfer for higher level of care.. 18:24 ED course: Dr. Ortiz here for chest tube placement. rn 19:39 Differential diagnosis: pleural effusion, hemothorax. Data reviewed: vital signs, rn nurses notes, lab test result(s), radiologic studies, CT scan, plain films, and as a result, I will admit patient. Counseling: I had a detailed discussion with the patient and/or guardian regarding: the historical points, exam findings, and any diagnostic results supporting the discharge/admit diagnosis, lab results, radiology results, the need for further work-up and treatment in the hospital, the need to transfer to another facility, for higher level of care, [facility] does not immediately have the required specialist. ED course: Pt with improved vitals and breathing after chest tube, BP now 115/75. Dr. ortiz in room still draining fluid. Initiated transfer to [facility] for his liver specialist. . 20:48 ED course: Dr. Ortiz removed chest tube prior to leaving. . ED course: Consulted with rn Hospitalist and hepatology at [facility], will take patient, requested albumin, abx, and fluids, they are just trying to decide what level bed to assign. . 10/09 15:25 Order name: Blood Culture Adult (2) rn 10/09 15:25 Order name: CBC with Diff; Complete Time: 16:42 rn 10/09 15:25 Order name: CMP; Complete Time: 16:42 rn 08 15:25 Order name: Lactate w/ 2H reflex if indic.; Complete Time: 16:42 rn 10/09 15:25 Order name: Protime (+inr); Complete Time: 16:42 rn 08/ 15:25 Order name: Ptt, Activated; Complete Time: 16:42 rn 0803 15:33 Order name: Troponin High Sensitivity; Complete Time: 16:42 rn 08/03 15:33 Order name: BNP; Complete Time: 16:42 rn 08/03 16:07 Order name: CBC Smear Scan; Complete Time: 16:42 EDMS /03 16:19 Order name: Glucose, Ancillary Testing; Complete Time: 16:42 EDMS 03 20:22 Order name: Lactate Sepsis 2 HR Follow-up; Complete Time: 20:22 EDMS 03 20:41 Order name: SARS RAPID; Complete Time: 21:08 rn 08/03 15:25 Order name: XRAY Chest (1 view); Complete Time: 18:00 rn 08/03 17:27 Order name: Chest Abd Pelvis Wo Con; Complete Time: 18:00 EDMS 08/03 20:15 Order name: XRAY Chest (1 view); Complete Time: 20:39 rn 08/03 15:25 Order name: EKG; Complete Time: 15:26 rn /03 15:25 Order name: Accucheck; Complete Time: 16:15 rn 10/09 15:25 Order name: Cardiac monitoring; Complete Time: 16:03 rn 10/09 15:25 Order name: EKG - Nurse/Tech; Complete Time: 16:15 rn 10/09 15:25 Order name: IV Saline Lock - Large Bore; Complete Time: 16:15 rn 10/09 15:25 Order name: Labs collected and sent; Complete Time: 16:15 rn 10/09 15:25 Order name: O2 Per Protocol; Complete Time: 16:15 rn 10/09 15:25 Order name: O2 Sat Monitoring; Complete Time: 16:15 rn 10/09 15:25 Order name: Vital Signs; Complete Time: 16:15 rn Administered Medications: 16:16 Drug: Albumin IVPB 25 grams Volume: 100 ml; Route: IVPB; Site: right antecubital; dd1 16:16 Drug: NS 0.9% IV 250 ml Route: IV; Rate: bolus; Site: right antecubital; dd1 19:45 Drug: fentaNYL (PF) IVP 50 mcg Route: IVP; Site: left antecubital; kd3 19:45 Drug: Ketamine IVP 25 mg Route: IVP; Site: left antecubital; kd3 20:03 Drug: Lactulose PO 10 grams Volume: 15 ml; Route: PO; kd3 20:04 Not Given (other does): Ketamine IVP 1 mg/kg IVP once kd3 20:29 CANCELLED (Duplicate Order): NS 0.9% IV 500 ml IV at bolus once rn 20:56 Drug: Cefepime IVPB 1 grams Route: IVPB; Rate: 200 ml/hr; Infused Over: 30 mins; Site: kd3 right antecubital; 21:10 Follow up: IV Status: Completed infusion; IV Intake: 100ml kd3 21:09 Drug: Albumin IVPB 25 grams Volume: 100 ml; Route: IVPB; Site: right antecubital; kd3 21:10 Drug: NS 0.9% IV 250 ml Route: IV; Rate: 1 bolus; Site: right antecubital; kd3 Disposition: 19:42 Critical Care:. rn Disposition Summary: 10/09/22 19:42 Transfer Ordered Transfer Location: [facility] rn Reason: Higher level of care rn Condition: Stable rn Problem: new rn Symptoms: have improved rn Accepting Physician: (10/09/22 22:21) vc1 Diagnosis - Pleural effusion, not elsewhere classified rn - Unspecified cirrhosis of liver rn - Hypotension, unspecified rn Forms: - Medication Reconciliation Form rn - SBAR form harnessmaker time excluding procedures: 19:42 Critical care time: Bedside Care: 35 minutes, Consultation: 5 minutes. Total time: 40 rn minutes Signatures: Dispatcher [employer] EDMS Eze Mabry MD MD rn Lewis, Lynsay RN RN ll1 Mitra Marie, RN RN kd3 Roxie Kramer RN RN vc1 Adarsh Montejo RN RN dd1 Corrections: (The following items were deleted from the chart) 17:27 15:29 Chest Abdomen Pelvis W Con+CT.RAD.BRZ ordered. [facility] EDAZ 20:29 20:26 NS 0.9% IV 500 ml IV at bolus once ordered. rn rn 22:21 19:42 rn vc1
--- NOTE | 2022-10-09 19:43 | ER ---
Nurse's Notes [facility] Name: Ashok Yo Age: 67 yrs Sex: Male : 1955 Arrival Date: 10/09/2022 Time: 15:13 Bed 5 Private MD: Honorio Cannon Diagnosis: Pleural effusion, not elsewhere classified;Unspecified cirrhosis of liver;Hypotension, unspecified Presentation: 10/09 15:20 Chief complaint: Patient states: Had lung drained here yesterday. States the procedure ll1 hurt way more than usual. SOB and lots pain today. Coronavirus screen: Client denies travel out of the [place] in the last 14 days. At this time, the client does not indicate any symptoms associated with coronavirus-19. Ebola Screen: Patient denies travel to an Ebola-affected area in the 21 days before illness onset. Initial Sepsis Screen: Does the patient meet any 2 criteria? HR > 90 bpm. No. Patient's initial sepsis screen is negative. Does the patient have a suspected source of infection? No. Patient's initial sepsis screen is negative. Risk Assessment: Do you want to hurt yourself or someone else? Patient reports no desire to harm self or others. Onset of symptoms was October 08, 2022. 15:20 Method Of Arrival: Wheelchair ll1 15:20 Acuity: SEBLE 2 ll1 Triage Assessment: 15:23 General: Appears uncomfortable, ill, Behavior is calm, cooperative, appropriate for ll1 age. Pain: Complains of pain in back Quality of pain is described as aching. Neuro: Reports weakness. Respiratory: Reports shortness of breath Onset: The symptoms/episode began/occurred yesterday, the patient has moderate shortness of breath. GI: Reports lower abdominal pain. Musculoskeletal: Circulation, motion, and sensation intact. Capillary refill < 3 seconds, Reports numbness in right arm. Historical: - Allergies: 15:22 cherries; ll1 - PMHx: 15:22 cirrhosis of liver; ll1 - Immunization history:: Client reports receiving the 2nd dose of the Covid vaccine. - Social history:: Smoking status: Patient denies any tobacco usage or history of. - Family history:: not pertinent. - Hospitalizations: : No recent hospitalization is reported. Screenin:16 [facility] ED Fall Risk Assessment (Adult) Impaired Gait Yes (1 pt) Mobility Assist dd1 Device Used Yes (1 pt) Altered Elimination Yes (1 pt) Score/Fall Risk Level 3 or more points = High Risk Oriented to surroundings, Maintained a safe environment, Educated pt \T\ family on fall prevention, incl call for assistance when getting out of bed, Assessed \T\ reinforced patient's understanding of fall precautions, Hourly rounding (assess needs \T\ fall precautionary measures) done, Used ambulatory aids as needed (educated on \T\ assisted with), Offered frequent toileting (1:1 observation), Remained with patient while ambulating, Utilized family, sitter, or virtual chief reservoir engineering as indicated. Abuse screen: Denies threats or abuse. Denies injuries from another. Nutritional screening: No deficits noted. Tuberculosis screening: No symptoms or risk factors identified. Assessment: 16:16 Cardiovascular: Heart tones S1 S2 Rhythm is regular Chest pain quality is sharp. dd1 Respiratory: Airway is patent Trachea midline Respiratory effort is even, unlabored, Breath sounds are clear in left upper lobe, right middle lobe, left lower lobe, right lower lobe, left posterior upper lobe and left posterior lower lobe Breath sounds are diminished in right upper lobe. Injury Description: Bruise sustained to chest. 18:29 Reassessment: Dr. Elder at bedside discussing plan of care/ procedure with patient. 20:36 Reassessment: No changes from previously documented assessment. Patient and/or family vc1 updated on plan of care and expected duration. Pain level reassessed. 21:45 Reassessment: No changes from previously documented assessment. Patient and/or family vc1 updated on plan of care and expected duration. Pain level reassessed. Patient states symptoms have improved. 22:16 Reassessment: No changes from previously documented assessment. Patient and/or family vc1 updated on plan of care and expected duration. Pain level reassessed. Vital Signs: 15:20 BP 78 / 51; Pulse 97; Resp 20; Temp 99; Pulse Ox 94% on R/A; Pain 9/10; ll1 16:23 BP 91 / 58; Pulse 91; Resp 22; Pulse Ox 100% 2 lpm ; dd1 17:03 BP 90 / 58; Pulse 88; Resp 21; Pulse Ox 100% 2 lpm ; Pain 9/10; dd1 17:38 BP 102 / 67; Pulse 90; Resp 18; Pulse Ox 98% ; ko1 18:46 Weight 74.84 kg; ko1 18:59 BP 98 / 54; Pulse 90; Resp 20; Pulse Ox 97% ; ko1 20:00 BP 96 / 64; Pulse 89; Resp 20; Pulse Ox 98% ; vc1 21:00 BP 99 / 75; Pulse 89; Resp 20; Pulse Ox 99% on 2 lpm NC; vc1 22:00 BP 107 / 56; Pulse 88; Resp 19; Pulse Ox 99% on 2 lpm NC; vc1 15:20 Pain Scale: Adult ll1 17:03 Pain Scale: Adult dd1 ED Course: 15:15 Patient arrived in ED. mr 15:15 Honorio Cannon, is Private Physician. mr 15:17 Eze Mabry MD is Attending Physician. rn 15:22 Triage completed. ll1 15:23 Arm band placed on Patient placed in an exam room, on a stretcher. ll1 15:27 Jorge Salcedo, RICHELLE is Primary Nurse. bp 16:15 Inserted saline lock: 18 gauge in right antecubital area, using aseptic technique. dd1 16:16 Patient has correct armband on for positive identification. Bed in low position. Call dd1 light in reach. Side rails up X2. Adult w/ patient. Valuables Given to family. 17:06 XRAY Chest (1 view) In Process Unspecified. EDMS 17:33 Chest Abd Pelvis Wo Con In Process Unspecified. EDMS 19:40 Initiated transfer with Yuliana at [facility]. rv1 20:30 XRAY Chest (1 view) In Process Unspecified. EDMS 20:56 SARS RAPID Sent. kd3 21:01 Pt accepted to [facility] MICU by Dr. Figueroa. rv1 22:18 Provided Education on: need for transfer; chest tube. vc1 22:18 No provider procedures requiring assistance completed. Patient transferred, IV remains vc1 in place. Administered Medications: 16:16 Drug: Albumin IVPB 25 grams Volume: 100 ml; Route: IVPB; Site: right antecubital; dd1 16:16 Drug: NS 0.9% IV 250 ml Route: IV; Rate: bolus; Site: right antecubital; dd1 19:45 Drug: fentaNYL (PF) IVP 50 mcg Route: IVP; Site: left antecubital; kd3 19:45 Drug: Ketamine IVP 25 mg Route: IVP; Site: left antecubital; kd3 20:03 Drug: Lactulose PO 10 grams Volume: 15 ml; Route: PO; kd3 20:04 Not Given (other does): Ketamine IVP 1 mg/kg IVP once kd3 20:29 CANCELLED (Duplicate Order): NS 0.9% IV 500 ml IV at bolus once rn 20:56 Drug: Cefepime IVPB 1 grams Route: IVPB; Rate: 200 ml/hr; Infused Over: 30 mins; Site: kd3 right antecubital; 21:10 Follow up: IV Status: Completed infusion; IV Intake: 100ml kd3 21:09 Drug: Albumin IVPB 25 grams Volume: 100 ml; Route: IVPB; Site: right antecubital; kd3 21:10 Drug: NS 0.9% IV 250 ml Route: IV; Rate: 1 bolus; Site: right antecubital; kd3 Medication: 16:16 VIS not applicable for this client. dd1 Intake: 21:10 IV: 100ml; Total: 100ml. kd3 Outcome: 19:42 ER care complete, transfer ordered by . rn 22:18 Transferred by ground EMS to [facility], Transfer form completed. vc1 X-rays sent w/ patient. 22:18 Condition: good 22:18 Instructed on the need for transfer. 22:21 Patient left the ED. vc1 Signatures: Dispatcher [employer] DENISSENJ Radha Juarez Eze Barrera MD MD rn Blanchard, Shelby, RN RN ss Peltier, Brian, RN RN bp Lewis, Lynsay, RN RN ll1 Doucette, Kyli, RN RN kd3 Roxie Kramer RN RN vc1 Kriss Bryant RN RN ko1 Villegas, Rebecca Adarsh Monet RN RN dd1
--- NOTE | 2022-10-09 19:59 | P.OP ---
Preoperative diagnosis: RIGHT Recurrent Pleural Effusion Postoperative diagnosis: RIGHT Recurrent Pleural Effusion Primary procedure: RIGHT Thoracentesis Anesthesia: Local 1% Lidocaine with epinepherine Estimated blood loss: None Specimen: 2 Liters straw colored fluid returned Findings: 2 Liters straw colored fluid returned Complications: None Transferred to: Other (ER) Condition: Good
[2022-10-09] MEDS ORDERED: LACTULOSE 20 GM/30 ML UCUP ONE (20:10)
--- NOTE | 2022-10-09 20:36 | RAD REPORT ---
EXAM DESCRIPTION: RAD - Chest Single View - 10/09/2022 8:28 pm CLINICAL HISTORY: post chest tube and drainage, chest tube removed Chest pain. FINDINGS: Portable technique limits examination quality. The right hemithorax remains opacified completely. There has been reduction in the mass effect on the mediastinum. The left lung appears grossly clear. The heart is mildly prominent.
--- NOTE | 2022-10-09 20:36 | OP ---
Date of Procedure: 10/09/2022 Surgeon: Seth Elder MD, Preoperative Diagnosis: Right recurrent pleural effusion. Postoperative Diagnosis: Right recurrent pleural effusion. Procedure: Right thoracentesis. Anesthesia: Local 1% lidocaine with epinephrine utilized. Estimated Blood Loss: None. Specimen: 2 L dark straw-colored fluid returned. Findings: Same as specimen. Complications: None. Disposition: The patient remained in the ER in good condition throughout the procedure. Procedure In Detail: After informed consent was obtained, the patient was prepped and draped in the usual sterile fashion after adequate anesthesia was achieved with 1% lidocaine. Overlying the rib at approximately the fourth intercostal space, I anesthetized the tract, made a small stab incision ove rlying this site using 1% lidocaine with epinephrine. I then cannulated the chest wall with a finder needle and found straw-colored fluid returned at this point. I then advanced the introducer sheath into the thoracic cavity without evidence of complication. Straw-colored fluid was returned. Approx imately 2 L were removed at this point and the patient has significant symptomatic improvement at thi s point. A sterile dressing was placed over the top after removal of the tubing and the thoracentesi s was completed at this point. The patient tolerated the procedure well without evidence of complication, remained in the ER good condition throughout the procedure. All counts were correct at the end of the case. SHYLA/MARICRUZ Voice ID: [id number] Report ID: [id number]
[2022-10-09] MEDS ORDERED: NA CHLORIDE 0.9% 100 ML ONE (21:00)
[2022-10-09] MEDS ORDERED: CEFEPIME 1 GM/VIAL ONE (21:01)
[2022-10-09 21:07] LABS: SARS-CoV-2 Antigen Rapid Res Negative (Negative)
[2022-10-09 23:11] VITALS: TEMP 99
[2022-10-09 23:19] VITALS: O2SAT 99
[2022-10-09 23:20] VITALS: BP 107/56
--- NOTE | 2022-10-13 13:16 | EKG ---
Test Date: 2022-10-09 Test Time: 16:12:28 Supervisor Carding: [place] MEASUREMENT RESULTS: Intervals: Rate: 92 NH: 144 QRSD: 138 QT: 412 QTc: 509 [place]: P: 6 NH: 144 QRS: -16 T: -8 INTERPRETIVE STATEMENTS: Normal sinus rhythm Right bundle branch block Abnormal ECG Compared to ECG 08/08/2022 20:26:00 Myocardial infarct finding no longer present Electronically Signed On 10-13-22 13:11:01 CDT by Ryan Mars
== END 2022-10-09 22:21 | disposition short-term general hospital (02) ==
LOC: ER 15:13
PROC: 0W9930Z Drainage of Right Pleural Cavity with Drainage Device, Percutaneous Approach (ICD-10-PCS; principal; 2022-10-09)
DX: J90 Pleural effusion, not elsewhere classified (principal); I95.9 Hypotension, unspecified; K74.60 Unspecified cirrhosis of liver; Z20.822 Contact with and (suspected) exposure to COVID-19; Z91.018 Allergy to other foods
CPT/HCPCS: 93005; 87040 ×2; 85025; 36415; 85610; 82947; 83605 ×2; 85730; 84484; 80053; 83880; 71250; 74176; 71045 ×2; 99285; 87811; 32554; J2001; J3010; P9047 ×2; J7050 ×2; J0692